=== PATIENT | male | born 1950 | race Caucasian/White ===

== ENCOUNTER → 2017-10-26 11:11 | Outpatient (CLI) | payer MEDICARE, MEDICAID, SELFPAY ==
--- NOTE | 2017-10-26 11:16 | RAD_ITS ---
STUDY: X-RAY - LUMBAR SPINE REASON FOR EXAM: Male, 66 years old. Postoperative assessment TECHNIQUE: Two view(s) of the lumbar spine were obtained. COMPARISON: June 08, 2017 FINDINGS: Normal lumbar lordosis. There is no significant scoliosis. There is normal alignment of the vertebrae. There are small osteophytes scattered in the lumbar spine. Pedicle screws and rods are again seen bilaterally from L3 through S1. Hardware is intact. There is multi-level degenerative disc disease with multi-level disc space narrowing. There is atherosclerotic calcification of the abdominal aorta without a demonstrated aneurysm. There are small coarse calcifications in the upper abdomen, possibly located in the pancreas which would indicate prior episodes of pancreatitis. RAD/Lumbar Spine 2 or 3 Views IMPRESSION: Stable appearance of the lumbar spine with surgical changes from L3 through S1. Electronically Signed: Nicole Neri MD at 6:57 EDT Tel Direct: [phone], Service support ,
== END ==
PROVIDERS: Family Provider Family Medicine; PCP Family Medicine; Visit Provider Orthopaedic Surgery
DX: M54.5 Low back pain (principal)
CPT/HCPCS: 72100

== ENCOUNTER → 2018-05-10 14:22 | Outpatient (CLI) | payer MEDICARE, MEDICAID, SELFPAY ==
--- NOTE | 2018-05-10 14:24 | RAD_ITS ---
STUDY: X-RAY - LUMBAR SPINE REASON FOR EXAM: Male, 67 years old. Low back pain. TECHNIQUE: 4 view(s) of the lumbar spine were obtained. COMPARISON: 10/26/2017. FINDINGS: Normal lumbar lordosis. There is no substantial scoliosis. There is a normal alignment of the vertebrae. Pedicular screws and rods from previous posterior fusion of L3 down to S1 are unchanged. No acute fractures. Normal vertebral bodies and endplates. Mild L5-S1 disc space height narrowing is unchanged. The remaining lumbar disc space heights are within normal limits. Atherosclerotic calcifications along the abdominal aorta and the common iliac arteries are unchanged. RAD/L/S Spine Min 4 Views IMPRESSION: 1. No acute abnormality of the lumbar spine. 2. Intact pedicular screws and rods from previous posterior fusion of L3 down to S1. 3. No subluxation following lateral flexion and extension positioning. 4. No interval change when compared to 10/26/2017. Electronically Signed: Addi House MD at 16:26 EDT , Service support ,
== END ==
PROVIDERS: Family Provider Family Medicine; PCP Family Medicine; Referring Provider Orthopaedic Surgery; Visit Provider Orthopaedic Surgery
DX: M54.5 Low back pain (principal); Z98.1 Arthrodesis status
CPT/HCPCS: 72110

== ENCOUNTER 2019-07-06 05:31 | Day surgery (SDC) | payer MEDICARE, MEDICAID, SELFPAY ==
[2019-06-14 11:23] VITALS: BMI 23.8
[2019-07-06] VITALS (7 sets, daily range): BP systolic 114–140; BP diastolic 76–81; PULSE 67–76; RESP 16; TEMP 36.5–36.8; O2SAT 93–98; BMI 26.1
--- NOTE | 2019-07-06 00:10 | HP.PCM_ITS ---
History and Physical Date of Admission: 07/06/19 HISTORY OF PRESENT ILLNESS 68 year old man presents with a lesion left ear at postauricular area that had increased in size over the last several months. It has irregular borders. There is some surrounding erythema. The lesion was biopsied on 04/20/19. It showed a basal cell carcinoma, superficial, nodular and infiltrative type. The biopsy was a punch biopsy. He also has a concern about a bump on his mid back. It is nontender with no drainage. He denies trauma. PAST MEDICAL HISTORY Back pain Cataract Skin cancer PAST SURGICAL HISTORY None. ALLERGIES No Known Allergies MEDICATIONS Amlodipine [Norvasc] Gabapentin predniSONE Oxycodone HCl/Acetaminophen [Percocet ] celecoxib FAMILY HISTORY Other - Hypertension, Skin cancer SOCIAL HISTORY Smoking Status: Current some day smoker alcohol intake: never substance use type: does not use REVIEW OF SYSTEMS General - Denies fever, fatigue, and weight loss. Eyes - Has cataracts and glaucoma. ENT - Denies nasal congestion and sore throat. Endocrine - Denies excessive thirst and urination. Skin - Has personal history of skin cancer. Has family history of skin cancer. There is a basal cell carcinoma left ear at postauricular area. There is a soft tissue mass mid back. Musculoskeletal - Denies joint pain, joint stiffness, weakness of muscles and joints, and arthritis. Has back pain. Neuro - Denies headaches. Cardiovascular - Denies chest pain, fatigue, and shortness of breath with exertion. Psych - Denies anxiety and depression. Respiratory - Denies chronic cough and shortness of breath. Patient is a smoker. Gastrointestinal - Denies nausea, vomiting, diarrhea, and constipation. Hematologic - Denies abnormal bruising and bleeding. Genitourinary - Denies hematuria and urinary frequency. PHYSICAL EXAMINATION General - Alert and Oriented HEENT - PERRL. EOMI. Throat is clear. On the left ear at postauricular area is a recently biopsied basal cell carcinoma. It measures 2 x 0.9 cm. Has irregul ar borders. Erythematous in color No ulceration. Lesion is nontender. Neck - Supple and nontender. No cervical adenopathy. No suspicious lesions noted. Lungs - Clear to auscultation. Heart - Regular rate and rhythm. Abdomen - Soft and nondistended. Extremities - FROM. No axillary adenopathy. Radial pulses are palpable. No suspicious lesions noted. Back - On the mid back is a 1 cm soft tissue mass consistent with an epidermal inclusion cyst. No evidence of infection. Nontender. It is mobile. Neuro - CN II-XII grossly intact. Psych - Normal mood and affect. ASSESSMENT 1. 2 cm basal cell carcinoma, superficial, nodular and infiltrative type, left ear at postauricular area. 2. 1 cm epidermal inclusion cyst mid back. 3. Personal history of skin cancer. 4. Family history of skin cancer. 5. Smoker. PLAN Recommend excision of this basal cell carcinoma left ear at postauricular area and send it to Pathology for analysis to rule out carcinoma at the margins. Reconstruction will be with skin grafting. Surgery will be done on an outpatient basis under local anesthesia and IV sedation. For the epidermal inclusion cyst, it is asymptomatic so it can be observed at this time. If it were to become symptomatic with increasing pain, infection, or ulceration, then can proceed with excision at that time. Patient was informed of the risks and complications of the procedure including alternatives to surgery. These were discussed with the patient personally. Patient voices understanding and wishes to proceed. Some of the risks and complications were included in a form from the [employer]. Encouraged patient to stop smoking as it may have deleterious effects on wound healing.
[2019-07-06] MEDS: Lactated Ringers 1,000 ML 100 ML IV (06:27)
--- NOTE | 2019-07-06 07:30 | LES_PTH ---
PATIENT: LENA GUTIERREZ LOC: [facility] – [place] U#:[id number] AGE/SX: 68/M ROOM: RE07/06/[address]: Dr. Trey Tim MD : 1950 BED: DIS: 07/06/2019 SPEC #: [id number] RECD: 07/06/19 09:03 STATUS: NIC KATHERYN #: [id number] KASIE: 07/06/19 07:[address]: Trey Tim DEPT: SURGICAL PATHOLOGY RECD BY: Darrick Rose ENTERED: 07/06/19 11:36 SP TYPE: Lesion OTHR DR: Dr. Stef Gonsalez MD Tissues: Skin of external ear, NOS Procedures: Surgery Specimen Level IV HEADER OPERATION: Excision basal cell cancer left postauricular area PRE-OP DIAGNOSIS: 2 cm basal cell carcinoma, superficial, nodular and infiltrate type, left ear at postauricular area TISSUE SUBMITTED: Basal cell carcinoma, left ear at postauricular area, suture at 12 o'clock MICROSCOPIC DIAGNOSIS Basal cell carcinoma, left ear at postauricular area, excision: Basal cell carcinoma, nodular and infiltrative type (0.8 cm in greatest dimension), completely excised. Solar elastosis. GARRISON:luna 07/07/19 MICROSCOPIC DESCRIPTION Slides are reviewed. GROSS DESCRIPTION Received in fixative is one container labeled with the patient's name and designated basal cell carcinoma, left ear at postauricular area. The specimen consists of a round piece of hewitt-white skin measuring 2.4 x 3 cm and up to 0.5 cm thickness. The specimen shows a suture identifying 12 o'clock position. The specimen is inked as follows: 12 to 3 o'clock - black, 3 to 6 o'clock - blue, 6 to 9 o'clock - green and 9 to 12 o'clock - yellow. A focal area of ulceration is noted consistent with previous biopsy site. The specimen serially sectioned and submitted entirely in three cassettes. / GARRISON:luna 07/06/19 TC:0 CPT: 08250
--- NOTE | 2019-07-06 08:54 | OP.PCM_ITS ---
Report of Operation Date of Procedure: 07/06/19 Pre-Operative Diagnosis: 1. 2 cm basal cell carcinoma, superficial, nodular and infiltrative type, left ear at postauricular area. 2. Personal history of skin cancer. 3. Family history of skin cancer. 4. Smoker. Post-Operative Diagnosis: Same. Surgery/Procedure Performed:: Excision 2 cm basal cell carcinoma, superficial, nodular and infiltrative type, left ear at postauricular area with FTSG reconstruction from left neck (14 cm2). Description of Surgical Findings:: 68 year old man presents with a lesion left ear at postauricular area that had increased in size over the last several months. It has irregular borders. There is some surrounding erythema. The lesion was biopsied on 04/20/19. It showed a basal cell carcinoma, superficial, nodular and infiltrative type. The biopsy was a punch biopsy. He also has a concern about a bump on his mid back. It is nontender with no drainage. He denies trauma. Patient was informed of the risks and complications of the procedure including alternatives to surgery. These were discussed with the patient personally. Patient voices understanding and wishes to proceed. Some of the risks and complications were included in a form from the [employer]. Encouraged patient to stop smoking as it may have deleterious effects on wound healing. Size of skin graft left ear at postauricular area - 4 x 3.5 cm. infection control coordinator: Jasmin Broderick. Type of Anesthesia:: Local MAC - xylocaine with epinephrine and IV sedation. Specimen's removed: Basal cell carcinoma left ear at postauricular area to Pathology. Drains: None. Estimated Blood Loss (mL): 20 ml. Description of Procedure: Patient was taken to OR in supine position and was given IV sedation. The left ear and left neck areas were prepped and draped in the usual fashion. SCD's were placed for DVT prophylaxis. Perioperative antibiotics were given intravenously. The left ear at postauricular sulcus and the left neck area were infiltrated with xylocaine and epinephrine. After waiting 5 minutes for the anesthetic to take effect, I excised the basal cell carcinoma in a circular fashion with a 1 cm margin in all directions. Suture was marked at 12 oclock position and then sent to Pathology for analysis to rule out carcinoma at the margins. The size of the defect for the skin graft was 4 x 3.5 cm or 14 cm2. I excised an ellipse of skin in the left neck down into the subcutaneous tissue. The subcutaneous tissue was removed from the undersurface of the dermis thus fashioning a full thickness skin graft. The skin graft was placed in saline. The left neck donor area was closed in a layered fashion after hemostasis was obtained with electrocautery. The deep dermis and subcutaneous tissue was approximated with 5-0 Monocryl interrupted sutures. The skin was approximated with 5-0 Prolene simple interrupted sutures. Antibiotic ointment was applied followed by a gauze dressing. The full thickness skin graft was placed on the defect left ear at postauricular area and secured to the skin edge with 5-0 Chromic interrupted sutures. 5-0 Chromic sutures were also used for central quilting stabilization. Antibiotic ointment was applied to the skin graft followed by Xeroform gauze and cotton balls soaked in saline and secured to the skin with 5-0 Prolene tie over stent suture dressing. Patient tolerated the procedure well and was sent to PACU in satisfactory condition. Patient will be sent home on antibiotics and pain medication. He will keep his head elevated during the initial postoperative period. Patient will followup in a week for a wound check and for discussion of the pathology report. Will remove the donor incision sutures in a week. Grafts/Implants Used: None. - Complications None. - Admit VTE Documentation VTE Present on Admission: No VTE Mechan Device Prophylaxis: SCD's VTE Pharm Prophylaxis ordered?: No Code Visit Surgery Charges CPT - 19821 ICD-10 - C44.219, Z85.828, Z80.8, F17.200 [id number] C44.219, Z85.828, Z80.8, F17.200
[2019-07-06] MEDS: Mupirocin Ointment 22gm Tube 1 APPLIC (08:56)
--- NOTE | 2019-07-06 09:09 | PCM.DC ---
You will use the following diet at home:: No restrictions Discharge Activity: May not drive while taking narcotic pain medications., May Not Shower - until the skin graft dressing left ear has been removed in the office., - - keep head elevated. no heavy lifting. May shower in (days): 6 - after skin graft dressing left ear is removed. Weight Bearing Status: Weight bearing as tolerated Lifting Restrictions: 20 lbs. Keep extremity elevated above heart level: - - elevate head. Call your doctor if your incision/area has: Continuous Slow Oozing, Sudden Increased Bleeding, Increased Pain/ Swelling, Increased Redness, Foul Smelling Discharge, Swelling at the incision site Call your doctor if you observe: Fever of 101 or Higher, Coldness, Increased Pain, Shortness of breath, Chest pain, Calf discomfort, Uncontrolled pain Suture Line Care: - - after the neck dressing is removed in two days, apply antibiotic ointment to suture line daily. Change Dressing in (Days):: 6 - will change skin graft dressing left ear in office. Remove Dressing in (days):: 2 - may remove left neck dressing in 2 days. Cleanse incision/area with: - - may get incisions wet in the shower after the skin graft dressing left ear is removed in the office. Allergies/Adverse Reactions: Allergies cortisone Allergy (Verified 07/06/19 06:09) Other Medications to take at Discharge Amlodipine [Norvasc] 5 mg PO DAILY 08/05/14 Gabapentin 300 tab PO TID 08/05/14 celecoxib 200 mg capsule 200 mg PO DAILY 05/02/19 Clindamycin HCl [Cleocin] 300 mg PO TID #18 cap 07/06/19 Lactobacillus Acidophilus/Fos [Acidophilus Probiotic Tablet] 1 ea PO BID #20 tab 07/06/19 Oxycodone HCl/Acetaminophen [Percocet 5/325] 1 tablet PO Q6H PRN PRN 5 Days #20 tablet 07/06/19 The following prescriptions were given: Lactobacillus Acidophilus/Fos [Acidophilus Probiotic Tablet] 1 ea PO BID #20 tab Transmission Status: Pending to [facility] #30 Clindamycin HCl [Cleocin] 300 mg PO TID #18 cap Transmission Status: Pending to [facility] #30 Oxycodone HCl/Acetaminophen [Percocet 5/325] 1 tablet PO Q6H PRN PRN 5 Days #20 tablet PRN Reason: Pain Score 4-5/10 Transmission Status: Sent to [facility] #[facility] Primary Care Physician: Serjio Boyer MD [NON-STAFF] - Test Results: Test results from this visit will be discussed in further detail at your follow-up appointment, if applicable. Please Follow Up With: Trey Tim MD When: wednesday07/12/19. call [phone] for appt. Proposed Discharge Date: 07/06/19
== END 2019-07-06 10:14 | disposition home or self-care (01) ==
LOC: SDC 05:31 → AC 05:32
PROVIDERS: Family Provider Family Medicine; PCP Family Medicine; Referring Provider Surgery; Visit Provider Surgery
PROC: (CPT 11644; principal; 2019-07-06 07:15)
DX: C44.219 Basal cell carcinoma of skin of left ear and external auricular canal (principal); Z80.8 Family history of malignant neoplasm of other organs or systems; Z85.828 Personal history of other malignant neoplasm of skin; F17.200 Nicotine dependence, unspecified, uncomplicated; H26.9 Unspecified cataract; H40.9 Unspecified glaucoma; Z79.899 Other long term (current) drug therapy
CPT/HCPCS: 11644; 15260; 88305; J7120

== ENCOUNTER 2021-01-13 06:45 | Emergency (ER) | payer MEDICARE, MEDICAID, SELFPAY ==
[2019-08-23 14:12] VITALS: BMI 26.1
[2021-01-13 06:45] VITALS: BP 152/102; PULSE 67; RESP 18; TEMP 36.1; O2SAT 98; BMI 25.9
[2021-01-13 07:04] LABS: Bacteria 0 SEEN /hpf (None Seen); Mucous, Urine 0 SEEN /hpf (<or=2+); Red Blood Cells-Urine 0 SEEN /hpf (0-5); Squamous Epithelial Cells - UA 0 SEEN /hpf (0-5); White Blood Cells 0 SEEN /hpf (0-5)
--- NOTE | 2021-01-13 07:05 | RAD_ITS ---
STUDY: X-RAY - LUMBAR SPINE REASON FOR EXAM: Male, 70 years old. back pain TECHNIQUE: 5 view(s) of the lumbar spine were obtained. COMPARISON: 05/10/2018 FINDINGS: Normal lumbar lordosis. There is no substantial scoliosis. There is a normal alignment of the vertebrae. Prior fusion extending from L3 to S1 bilaterally with a wide laminectomy L4 and L5. Intact metallic hardware. There is multilevel endplate spondylosis of the lumbar vertebrae. Stable disc space narrowing L5-S1, left L2-L3 posterior disc spaces. There is arteriosclerosis, punctate calcification over the level of the pancreas tail, mild degenerative changes of the bilateral sacroiliac joints and atherosclerosis of the abdominal aorta and pelvic arteries. RAD/L/S Spine Min 4 Views IMPRESSION: Multilevel degenerative changes and postsurgical changes as above, without significant interval change. Electronically Signed: Sravani Thompson MD at 7:56 EDT , Service support ,
[2021-01-13 07:08] LABS: Color, Urine Yellow (Yellow); Glucose, Dipstick Normal (Normal); Ketone-Dipstick Negative (Negative); Leukocyte Esterase-Dipstick Negative /ul (Negative); Nitrite-Dipstick Negative (Negative); Occult Blood-Urine Negative /ul (Negative); Protein-Dipstick Negative (Negative); Specific Gravity, Urine 1.005 (1.002-1.030); Urine Bilirubin Dipstick Negative (Negative); Urine Clarity Clear (Clear); Urine Urobilinogen Normal (Normal)
--- NOTE | 2021-01-13 07:11 | EDS_ITS ---
HPI History of Present Illness Chief Complaint: Flank Pain Informant: patient Narrative Narrative: 70-year-old male presents with concern for right lower back pain. States is been present over the past 3 days. Describes it as aching in nature. Worse with movement and bending to the right. Denies any chest pain, shortness of breath, nausea, vomiting, difficulty with urinating or moving his bowels. States he did have surgery on his back approximately 5 years ago and was concerned that some of the hardware might have a loosened. Denies any hematuria, urinary frequency or dysuria. [facility] Medical History (Updated 01/13/21 @ 08:[address] Ananth Gibbons DO) Back pain Cataract Skin cancer Home Medications amlodipine 5 mg PO DAILY 08/05/14 [History Last Taken 07/06/19 04:30] gabapentin 300 tab PO BID 08/05/14 [History Last Taken 07/06/19 04:30] celecoxib 200 mg capsule 200 mg PO DAILY 05/02/19 [History Last Taken Unknown] lidocaine 1 patch TOPICAL DAILY PRN #7 ea 01/13/21 [Rx Last Taken Unknown] Allergy/AdvReac Type Severity Reaction Status Date / Time cortisone Allergy Other Verified 08/23/19 14:12 Family History Other Hypertension Skin cancer Social History Smoking Status: Current every day smoker tobacco type: cigarettes alcohol intake: never substance use type: does not use additional social history: DOES NOT USE ASPIRIN DOES NOT USE IBUPROFEN ROS ROS ED Constitutional Constitutional ED: Denies chills, fever(s) or sweats Eyes Eyes: Denies blurry vision, change in vision or diplopia ENT ENT ED: Denies rhinorrhea or sore throat Cardiovascular Cardiovascular: Denies chest pain, orthopnea, palpitations or racing heartbeat Respiratory/Chest Respiratory/Chest: Denies cough, dyspnea, dyspnea on exertion, orthopnea or sputum Gastrointestinal Gastrointestinal: Denies abdominal pain, constipation, diarrhea, melena, nausea or vomiting Genitourinary Genitourinary ED: Denies dysuria, hematuria or urinary frequency Musculoskeletal Musculoskeletal: Reports back pain; Denies arthralgias, myalgias or neck pain Integumentary Denies rash Neurologic Neurologic: Denies headache(s), paresthesias or weakness Psychiatric Psychiatric: Denies anxiety or depression Hematologic/Lymphatic Hematologic/Lymphatic: Denies easy bleeding or easy bruising EXAM Physical Exam Const Vital Signs: 01/13/21 06:45 Temperature 96.9 F L Temperature Source Temporal Pulse Rate 67 Respiratory Rate 18 Blood Pressure 152/102 H Blood Pressure Mean 118 Pulse Ox 98 Oxygen Delivery Method Room Air Positive well nourished and well developed General Appearance ED: well developed HEENT Reports moist mucous membranes normocephalic and atraumatic Eyes PERRL and EOMs intact bilaterally Neck no lymphadenopathy, supple and no JVD Chest Wall inspection of chest normal Resp normal respiratory effort and clear to auscultation bilaterally Cardio regular rate, S1 normal heart sound, S2 normal heart sound and no murmurs Peripheral Pulses: pulses 2+ throughout GI soft to palpation, non-tender and non-distended Back/Spine no thoracic nor lumbar tenderness Back/Spine Narrative: Tenderness to palpation with mild muscle spasm of the right paraspinal lumbar musculature. No overlying skin changes. Extremity normal to inspection General Extremety ED: Negative for edema or tenderness General Extremity: Negative for edema Neuro oriented x3, CN's II-XII intact bilaterally and no sensory deficits noted Sensorium / Orientation: alert Motor Exam: strength 5/5 throughout Psych mental status grossly normal Skin no rashes or lesions noted MDM MDM MDM Narrative Medical decision making narrative: Patient appears well nontoxic. Vital signs within normal limits. X-ray shows no shifting or malalignment of the patient's lumbar hardware. Urine shows no evidence of infection. Patient has tenderness in this area consistent with musculoskeletal pain. This exacerbated by movement. Patient is in no distress. Will be given naproxen and Lidoderm in the emergency department. 3 days of Tylenol 1000 mg 3 times a day as well as Lidoderm patch at home with close follow-up with his primary care physician within the next 2 days. Asked to return for new or worsening symptoms. Patient agreeable and discharged home in stable condition. Lab Data Attestation: I reviewed the patient's lab results. Labs: Laboratory Results - last 24 hr 01/13/21 06:50 Urine Color Yellow Urine Clarity Clear Urine pH 7.0 Ur Specific [place] 1.005 Urine Protein Negative Urine Glucose (UA) Normal Urine Ketones Negative Urine Occult Blood Negative Urine Nitrite Negative Urine Bilirubin Negative Urine Urobilinogen Normal Ur Leukocyte Esterase Negative Urine RBC 0 SEEN Urine WBC 0 SEEN Ur Squamous Epith Cells 0 SEEN Urine Bacteria 0 SEEN Urine Mucus 0 SEEN Radiography Diagnostic Testing: Radiology Impression Lumbar Spine X-Ray 01/13/21 07:05 IMPRESSION: Multilevel degenerative changes and postsurgical changes as above, without significant interval change. Electronically Signed: Sravani Thompson MD at 7:56 EDT , Service support , Discharge Plan Triage Chief Complaint: Flank Pain ED Provider: Ananth Gibbons Dx/Rx/DC Orders Clinical Impression: Acute exacerbation of chronic low back pain Instructions: ED Back Exercises, Lumbar, ED Back Pain (Acute or Chronic) Prescriptions: New lidocaine 4 % adhesive patch,medicated 1 patch topical DAILY PRN (Reason: pain) Qty: 7 RF: 0 No Action celecoxib 200 mg capsule 200 mg PO DAILY RF: 0 amlodipine 5 MG tablet 5 mg PO DAILY RF: 0 gabapentin 300 MG capsule 300 tab PO BID RF: 0 Primary Care Provider: Stef Gonsalez Referrals: Stef Gonsalez MD [Primary Care Provider] - 2 Days Activity Restrictions/Additional Instructions: Please take 1000 mg of Tylenol 3 times a day for the next 3 days. This in addition to the prescription of Lidoderm patch and Celebrex. If there is increasing pain or no resolution to your pain please return to the emergency department or follow-up with Dr. Gonsalez. Disposition Disposition: Home, self care
[2021-01-13] MEDS: Lidocaine 5% Patch 1 PATCH TOPICAL (08:25)
== END 2021-01-13 08:28 | disposition home or self-care (01) ==
PROVIDERS: Emergency Medicine; Emergency Provider Emergency Medicine; PCP Family Medicine
DX: M54.5 Low back pain (principal); G89.29 Other chronic pain; F17.210 Nicotine dependence, cigarettes, uncomplicated; Z79.899 Other long term (current) drug therapy
CPT/HCPCS: 72110; 81001; 99282; A4216

== ENCOUNTER 2021-02-14 05:38 | Day surgery (SDC) | payer MEDICARE, MEDICAID, SELFPAY ==
[2021-02-14] VITALS (7 sets, daily range): BP systolic 116–177; BP diastolic 75–84; PULSE 54–64; RESP 16–18; TEMP 36.1–36.6; O2SAT 94–100; BMI 24.3
[2021-02-14] MEDS: Lactated Ringers 1,000 ML 100 ML IV (06:15)
--- NOTE | 2021-02-14 07:20 | RAD_ITS ---
STUDY: X-RAY - LEFT FOOT CLINICAL: Male, 70 years old. Second toe amputation TECHNIQUE: 2 fluoroscopic view(s) of the foot. Dose area product: 0.23 cGycm2 COMPARISON: None. FINDINGS: Left second toe is surgically absent. RAD/Foot 2 Views IMPRESSION: Left second toe is surgically absent. See operative report. Electronically Signed: Sourav Kennedy MD ([place]) at 15:53 EDT , Service support ,
[2021-02-14] MEDS: Cefazolin 2 GM in 0.9% Normal Saline 100 ML IV (07:30)
--- NOTE | 2021-02-14 07:30 | BON_PTH ---
PATIENT: LENA GUTIERREZ LOC: [facility] – [place] U#:[id number] AGE/SX: 70/M ROOM: RE02/14/[address]: Dr. Serjio Pineda DPM : 1950 BED: DIS: 02/14/2021 SPEC #: [id number] RECD: 02/14/21 12:55 STATUS: NIC KATHERYN #: [id number] KASIE: 02/14/21 07:[address]: Serjio Pineda DEPT: SURGICAL PATHOLOGY RECD BY: Beth Hillman ENTERED: 02/18/21 08:05 SP TYPE: Bone OTHR DR: Dr. Stef Gonsalez MD Tissues: A - Toe, NOS B - Bone of foot, NOS Procedures: Decalcification bone/plaque Surgery Specimen Level IV HEADER OPERATION: Left foot, second toe amputation, exostectomy of first toe PRE-OP DIAGNOSIS: rachael Camejo TISSUE SUBMITTED: A ? Left second toe, B ? Bone, first toe, left MICROSCOPIC DIAGNOSIS A. Left second toe, amputation: Consistent with hammertoe deformity. B. Left foot bone, first toe, biopsy: Bony tissue with reparative and reactive change. See comment. AM:luna 02/21/2021 COMMENT B. The findings are consistent with exostosis. Clinical correlation is suggested. MICROSCOPIC DESCRIPTION Slides are reviewed. GROSS DESCRIPTION A - Received in fixative is one container labeled with the patient's name and designated left second toe. The specimen consists of a distal toe with attached skin bone, soft tissue and nail measuring 3.2 cm in length and 1.6 cm in diameter. Also present in the specimen container are three irregular fragments of soft tissue, tendinous tissue and bone that is aggregate measure 3 x 3 x 1 cm. Hemstitching Machine Operator sections are submitted in three cassettes after decalcification. B - Received in fixative is one container labeled with the patient's name and designated bone first toe left. The specimen consists of an irregular fragment of light hewitt-white bone measuring 1.7 x 0.5 x 0.3 cm. The specimen is submitted in its entirety in one cassette after decalcification. / AM:luna 02/18/21 TC:5 CPT: 02723 x2, 14893 x2
[2021-02-14] MEDS: Bupivacaine Mpf 0.5% 30 ML VIAL (08:26)
--- NOTE | 2021-02-14 08:37 | DCINST_ITS ---
Discharge Instructions Diet Discharge Diet: Light diet - advance as tolerated Activity Discharge Activity: May Not Drive Weight Bearing Status: Partial weight bearing (Ok to put weight on left heel with use of walker, do not put weight on toes on left foot.) Keep extremity elevated above heart level: Left Leg Additional Activity Instructions:: Keep left foot elevated using pillows as much as possible. Dressing / Incision Call your doctor if your incision/area has: Continuous Slow Oozing, Sudden Increased Bleeding and Foul Smelling Discharge Call your doctor if you observe: Fever of 101 or Higher, Shortness of breath, Chest pain, Calf discomfort and Uncontrolled pain Change Dressing in: do not change dressing Remove Dressing in: do not remove dressing Cleanse incision/area with: Do not get Incision Wet and Keep Dressing Clean & Dry Follow Up Care Please Follow Up With: Serjio Pineda DPM When: in 1 week, sooner if needed. call Dr. Pineda over weekend if needed - [phone] (cell) or page through [facility] at [phone] Test Results: Test results from this visit will be discussed in further detail at your follow-up appointment, if applicable. Discharge Plan Admission Attending Provider: Serjio Pineda Primary Care Provider: Stef Gonsalez Discharge Orders/Prescriptions Prescriptions: New hydrocodone-acetaminophen 5-325 mg tablet 1 tab PO Q6H PRN PRN (Reason: pain (scale score 6-10)) 3 Days Qty: 20 RF: 0 No Action celecoxib 200 mg capsule 200 mg PO DAILY RF: 0 amlodipine 5 MG tablet 5 mg PO DAILY RF: 0 gabapentin 300 MG capsule 300 tab PO BID RF: 0 Referrals / Follow Up: Stef Gonsalez MD [Primary Care Provider] - Disposition Disposition (needs filled in before D/C Order can be placed): Home, Self Care
--- NOTE | 2021-02-14 08:50 | RAD_ITS ---
STUDY: X-RAY - LEFT FOOT CLINICAL: Male, 70 years old. Post-op TECHNIQUE: 3 view(s) of the foot. COMPARISON: None. FINDINGS: Normal talus, calcaneus, and tarsal bones. Normal visualized subtalar, talonavicular, calcaneocuboid, tarsal and tarsometatarsal articulations. Normal metatarsi. There is degenerative arthrosis of the metatarsophalangeal joint of the hallux . Normal tibial and fibular sesamoid bones. Normal interphalangeal joint of the great toe. Normal phalanges of the great toe. Normal second through fifth metatarsophalangeal joints. The patient is status post amputation of the second toe. Postoperative soft tissue changes. RAD/Foot min 3 Views IMPRESSION: Status post amputation of the second toe. Electronically Signed: Niranjan Lopez MD at 13:03 EDT , Service support ,
--- NOTE | 2021-02-14 14:47 | OP.PCM_ITS ---
Report of Operation Date of Procedure: 02/14/21 Pre-Operative Diagnosis: Hallux valgus left foot Hammer toe 2nd toe left foot Painful callus skin lesions 1st and 2nd toes left foot Post-Operative Diagnosis: Same Surgery/Procedure Performed:: Left 2nd toe amputation Exostectomy left 1st toe Surgeon: Serjio Pineda fire protection specialist: Florencia Type of Anesthesia: Local and MAC Specimen's removed: Left 2nd toe sent to pathology Resected exostosis from left 1st toe sent to pathology Estimated Blood Loss (mL): 5mL Description of Procedure: Indications: This is a 70 year old gentleman with significant pain to the left 1st toe and 2nd toe at the interdigital site with very painful callus lesions. There is significant deviation of the 1st toe in the lateral direction with the 2nd toe contracted dorsally and 1st and 2nd toe rubbing on each other causing very painful callus lesions. There was an exostosis to the base of the distal phalanx lateral aspect of the 1st toe with as well which was at the site of the 1st toe callus lesion. The symptoms persist despite extensive nonsurgical care and the patient has elected to proceed forward with surgical intervention. We discussed reconstruction options vs amputation of the 2nd toe to offload the 1st toe along with exostectomy of the 1st toe. Reviewed each in detail, reviewed possible benefits vs risks, goals, expectations and estimated healing time. He expressed understanding and agreement and he has elected to proceed forward with the left 2nd toe amputation and exostectomy left 1st toe. The consent form was reviewed with her and she freely signed them. No guarantees were given nor implied. Operative Procedure: The patient was brought back into the operating room, was placed on to the operating table in supine position. He was carefully secured to the operating table with safety belt around the waist. A well-padded pneumatic tourniquet was applied around the left ankle. A timeout was performed. The patient was properly identified and surgical plan was confirmed. The patient did receive antibiotic prophylaxis, 2g of cefazolin intravenous. The patient received MAC anesthesia per the anesthesia team. A local nerve block was completed to the second ray on the left foot as well as 1s toe on the left foot using a total of 20mL of 0.5% bupivacaine plain, after the overlying skin was cleansed with 70% isopropyl alcohol. The left foot was scrubbed, prepped and draped in the usual aseptic fashion. Further attention was directed to the left foot and again there was noted to be deformity and callus lesions as noted above to the left 1st and 2nd toes. There was no evidence of infection, no edema, no drainage, no erythema, no cellulitis, no visible abscess, no crepitus present. A racket shaped incision was made around the base of the second toe, preserving a flap for closure. This was made down to bone. The second metatarsophalangeal joint and extensor and flexor tendons were incised resecting the toe and disarticulating the toe at the second metatarsophalangeal joint. The toe was passed from the surgical site and sent to pathology for further evaluation. The second metatarsal was visualized, it was noted to be viable with no evidence of infection or necrosis. All remaining tissues appeared to be healthy and viable as well. There was no evidence of infection present. The site was flushed out with copious amounts of normal saline solution. The skin was carefully reapproximated using 3-0 Nylon. Attention was directed to the 1st toe lateral aspect, and an incision was made overlying the lateral aspect of the base of the distal phalanx overlying the exostosis. Careful dissection was completed down to the exostosis and the exostosis was excised using a powered sagittal saw. The excised exostosis was sent to pathology. The remaining tissues were healthy and viable. There was no evidence of infection present. The site was flushed out with copious amounts of normal saline solution. The skin was carefully reapproximated using 3-0 Nylon. The patient tolerated the above procedure well and anesthesia well with no complications. He was transported from the operating room to the recovery room with vital signs stable and in good condition. Postoperative orders were placed, postoperative x-rays were obtained, 3 views left foot, which confirmed resection of the second toe at the second metatarsophalangeal joint as well as exostosis of the lateral aspect of the base of the distal phalanx of the 1st toe without complication. Otherwise, no acute findings were present. He is to remain partial weightbearing to the left foot (only put weight on the heel if needed) with no weight to the forefoot, must use of walker with any ambulation. He is to keep the foot elevated. Keep the dressing clean, dry and intact and follow up with me next week, sooner if needed. A rx of Novapost 5mg/325mg tab was provided, 1-2 tabs PO q 6 hours prn pain.This was discussed with him and his sister Amalia today, per patient request and also Amalia lives with patient. Grafts/Implants Used: None Complications None
== END 2021-02-14 09:41 | disposition home or self-care (01) ==
LOC: SDC 05:38 → AC 05:39
PROVIDERS: PCP Family Medicine; Referring Provider Podiatrist; Visit Provider Podiatrist
PROC: (CPT 28124; principal; 2021-02-14 07:15)
DX: M20.12 Hallux valgus (acquired), left foot (principal); M20.42 Other hammer toe(s) (acquired), left foot; L84 Corns and callosities; I10 Essential (primary) hypertension; M51.36 Other intervertebral disc degeneration, lumbar region; M54.9 Dorsalgia, unspecified; G89.29 Other chronic pain; M19.90 Unspecified osteoarthritis, unspecified site; F17.210 Nicotine dependence, cigarettes, uncomplicated; Z79.899 Other long term (current) drug therapy; Z85.828 Personal history of other malignant neoplasm of skin
CPT/HCPCS: 28124; 28820; 73620; 73630; 76000; 88305; 88311; J7120; J2405

== ENCOUNTER → 2021-03-06 12:28 | Outpatient (CLI) | payer MEDICARE, MEDICAID, SELFPAY ==
[2021-02-14 06:20] VITALS: BMI 24.3
--- NOTE | 2021-03-06 13:08 | VDLE_ITS ---
Reason For Study: Swelling Procedure LEFT This is a venous duplex using B-mode, color GSV is normal. flow and spectral Doppler. CFV is compressible, spontaneous, phasic, Exam performed in department. competent, and demonstrates normal A preliminary report was called and/or faxed augmentation. to Edwin. FV is compressible, spontaneous, phasic, competent and demonstrates normal augmentation. POP V is compressible, spontaneous, phasic, competent and demonstrates normal augmentation. T/P Trunk is compressible. PTV is compressible. LT PerV is compressible. VL/Venous Duplex US, Unilateral Interpretation Summary Deep veins of the left lower extremity are patent and compressible segmentally. There is no evidence of left lower extremity deep vein thrombosis. Valvular competence appears intac t within the proximal deep venous system on the left . The left great saphenous vein appears patent a nd compressible segmentally. Ordering Physician: Serjio Pineda Referring Physician: MD Wallace Stef Performed By: Cristy Roman RVT and Student
== END ==
PROVIDERS: PCP Family Medicine; Referring Provider Podiatrist; Visit Provider Podiatrist
DX: R22.42 Localized swelling, mass and lump, left lower limb (principal)
CPT/HCPCS: 93971

== ENCOUNTER 2022-04-26 07:14 | Emergency (ER) | payer MEDICARE, MEDICAID, SELFPAY ==
[2022-04-26 07:14] VITALS: BP 166/124; PULSE 81; RESP 18; TEMP 36.6; O2SAT 98; BMI 24.7
--- NOTE | 2022-04-26 07:19 | ED.RN ---
THIS RN CALLED FOR EKG
--- NOTE | 2022-04-26 07:30 | EX.ED.DYSGE1 ---
HPI History of Present Illness Chief Complaint: Other, Pain/Inj Informant: patient Onset/Context/Timing Onset: Yesterday Context: Sudden Onset Timing: Continuous Quality: Sharp Location: Right neck, scapula, and arm Worsened by: Movement Relieved by: Nothing Narrative Narrative: Patient presents with right neck, shoulder, and arm pain that began yesterday. Patient states it came on suddenly. Patient states it has been constant. Patient states the pain is sharp. Patient states the pain is worse with movement of his neck and right arm. Patient states nothing seems to help with the pain. Patient admits to some sweats this morning. Patient admits to occasional shortness of breath and chest pain. Patient denies any nausea or vomiting. [facility] Medical History Arthritis Back pain Cataract Easy bruising History of stress test Prostate disease Skin cancer Wears dentures Wears glasses Wears partial dentures Home Medications amlodipine 5 mg tablet 5 mg PO DAILY blood pressure 08/05/14 [History Last Taken 02/14/21 05:00] gabapentin 300 mg capsule 300 tab PO BID nerve pain 08/05/14 [History Last Taken 02/13/21 14:00] celecoxib 200 mg capsule 200 mg PO DAILY anti-inflamatory 05/02/19 [History Last Taken 02/13/21 14:00] hydrocodone-acetaminophen 5-325mg 5mg-325mg 1 tab PO Q6H PRN PRN pain (scale score 6-10) 3 days #20 tabs 02/14/21 [Rx Last Taken Unknown] hydrocodone-acetaminophen 5-325mg 5mg-325mg 1 tab PO Q6H PRN PRN Pain 3 days #10 TABLETS 04/26/22 [Rx Last Taken Unknown] Allergy/AdvReac Type Severity Reaction Status Date / Time cortisone Allergy Other Verified 04/26/22 07:17 Family History Other Hypertension Skin cancer Surgical History History of back surgery Social History Smoking Status: Current every day smoker tobacco type: cigarettes alcohol intake: never substance use type: does not use additional social history: DOES NOT USE ASPIRIN DOES NOT USE IBUPROFEN ROS ROS ED Constitutional Constitutional ED: Reports sweats; Denies chills or fever(s) Eyes Eyes: Denies blurry vision or change in vision ENT ENT ED: Denies rhinorrhea or sore throat Cardiovascular Cardiovascular: Reports chest pain; Denies palpitations Respiratory/Chest Respiratory/Chest: Reports dyspnea; Denies cough Gastrointestinal Gastrointestinal: Denies nausea or vomiting Genitourinary Genitourinary ED: Denies dysuria or hematuria Musculoskeletal Musculoskeletal: Reports back pain and neck pain Integumentary Denies abscess or rash Neurologic Neurologic: Denies headache(s) or weakness Allergic/Immunologic Allergic/Immunologic ED: Denies mouth swelling or urticaria EXAM Physical Exam Const Vital Signs: 04/26/22 07:14 04/26/22 07:31 Temperature 97.9 F Temperature Source Temporal Pulse Rate 81 Respiratory Rate 18 Respiratory Effort Normal Non-Labored Respiratory Pattern Normal Blood Pressure 166/124 H Blood Pressure Mean 138 Pulse Ox 98 Oxygen Delivery Method Room Air Positive well nourished and well developed General Appearance ED: well developed and NAD HEENT Reports moist mucous membranes Neck supple and no JVD Resp normal respiratory effort and clear to auscultation bilaterally Cardio regular rate, regular rhythm and no murmurs GI normal to inspection, nondistended, normoactive bowel sounds and non-tender Palpation: soft Back/Spine Back/Spine Narrative: There is mild tenderness and spasm of the right cervical paraspinal muscles and trapezius muscle on the right. There is also mild tenderness and spasm of the right parascapular muscles. There is no bony crepitance or step-off. There is no edema or ecchymosis. Range of motion was slightly limited in all motions of the cervical spine and right shoulder secondary to pain. Strength is 5/5 bilaterally in the upper and lower extremities. There are no sensory deficits noted. Extremity normal to inspection General Extremety ED: Negative for edema or tenderness General Extremity: Negative for edema Neuro oriented x3, CN's II-XII intact bilaterally and no sensory deficits noted Sensorium / Orientation: alert Motor Exam: strength 5/5 throughout Psych mental status grossly normal Skin no rashes or lesions noted MDM MDM MDM Narrative Medical decision making narrative: EKG was obtained. On my interpretation, it showed a normal sinus rhythm with a rate of 74. ND interval, QRS interval, and QTc intervals were all normal. There is left axis deviation at -63. There are no acute ST or T wave changes. PA and lateral chest x-ray was obtained. There are 2 views. On my interpretation, lung perales are clear. There is normal cardiac silhouette. Bony thorax is normal. There is no acute process noted. Radiologist also interpreted the x-ray and agrees. CBC shows a mild anemia with a hemoglobin of 12.1 and hematocrit of 35.9. PT with INR and PTT within normal limits. D-dimer was elevated at 1.17. Comprehensive metabolic profile was within normal limits. High-sensitivity troponin was normal. Because of the elevated D-dimer, CTA of the chest was obtained. There is no evidence of pulmonary embolism or aortic dissection. There is a right adrenal nodule. There is atelectasis in the right lower lobe. There are changes consistent with COPD. This was interpreted by the radiologist and reviewed by myself. Patient was advised of his findings. Patient was instructed to follow-up with his primary care physician in 3 to 5 days. Patient was advised that he may need a referral to endocrinology for the right adrenal nodule. Patient understood and was agreeable with the plan. All questions were answered. Lab Data Attestation: I reviewed the patient's lab results. Labs: Laboratory Results - last 24 hr 04/26/22 04/26/22 04/26/22 07:30 07:30 07:30 WBC 8.0 RBC 3.71 L Hgb 12.1 L Hct 35.9 L MCV 96.8 H MCH 32.6 H MCHC 33.7 RDW Std Deviation 53.8 H RDW Coeff of Suzanna 15.0 H Plt Count 236 MPV 9.2 Immature Gran % (Auto) 0.500 Neut % (Auto) 82.5 H Lymph % (Auto) 6.8 L [place] % (Auto) 8.8 Eos % (Auto) 1.0 Baso % (Auto) 0.4 Absolute Neuts (auto) 6.6 Absolute Lymphs (auto) 0.54 L Nucleated RBC % 0 Differential Comment SCANNED PT 13.3 INR 1.0 APTT 29.8 D-Dimer Quant (PE/DVT) 1.17 H* Sodium 136 Potassium 3.5 Chloride 103 Carbon Dioxide 25.0 Anion Gap 8 BUN 12 Creatinine 0.83 Estim Creat Clear Calc 76.69 Est GFR (MDRD) Af Amer 117 Est GFR (MDRD) Non-Af 97 BUN/Creatinine Ratio 14.5 Glucose 136 H Calcium 8.5 Total Bilirubin 0.30 AST 12 L ALT 19 Alkaline Phosphatase 90 Troponin I High Sens 6 Total Protein 6.9 Albumin 3.0 L Globulin 3.9 Albumin/Globulin Ratio 0.8 L Radiography Chest X-Ray - ED: 2 View, Read by ED Physician, Read by Radiologist and No Acute Disease Diagnostic Testing: Clinical Impression(s) from Imaging Studies Chest X-Ray 04/26/22 07:39 IMPRESSION: No acute cardiopulmonary process. Electronically Signed: Kayla Xavier MD at 8:11 EDT , Chest CTA 04/26/22 08:31 IMPRESSION: No demonstrated pulmonary embolism or arterial dissection. Right lower lobe consolidation may be secondary to underlying pneumonia and/or atelectasis. Emphysema. Atherosclerosis. Pericardial effusion. 2.2 cm right adrenal nodule may reflect an adenoma recommend suggest hormonal workup and/or endocrinology consult. Electronically Signed: Kayla Xavier MD at 9:11 EDT , EKG Initial EKG: Attestation: I personally reviewed and interpreted this EKG as follows: Interpretation: Sinus Rhythm (74) and No Acute Injury Pattern Prior EKG tracings: available for review Prior: Unchanged (08/06/2014) Discharge Plan Triage Chief Complaint: Other, Pain/Inj ED Provider: Eddie Mckinley Dx/Rx/DC Orders Clinical Impression: Neck pain on right side, HTN (hypertension), COPD, mild Instructions: ED Neck Pain Prescriptions: New hydrocodone-acetaminophen [hydrocodone-acetaminophen] 5-325 mg tablet 1 tab PO Q6H PRN PRN (Reason: Pain) 3 Days Qty: 10 0RF No Action celecoxib 200 mg capsule 200 mg PO DAILY amlodipine 5 MG tablet 5 mg PO DAILY Label Comments: blood pressure gabapentin 300 MG capsule 300 tab PO BID Label Comments: neuropathy/pain hydrocodone-acetaminophen 5-325 mg tablet 1 tab PO Q6H PRN PRN (Reason: pain (scale score 6-10)) 3 Days Qty: 20 0RF Primary Care Provider: Stef Gonsalez Referrals: Stef Gonsalez MD [Primary Care Provider] - 3-5 Days Disposition Disposition: Home, Self Care
--- NOTE | 2022-04-26 07:38 | EKG12_ITS ---
Test Reason : NECK PAIN Blood Pressure : / mmHG Vent. Rate : 074 BPM Atrial Rate : 074 BPM P-R Int : 142 ms QRS Dur : 106 ms QT Int : 412 ms P-R-T Axes : 067 -63 066 degrees QTc Int : 457 ms Normal sinus rhythm Left axis deviation Incomplete right bundle branch block Abnormal ECG When compared with ECG of 06-AUG-2014 05:22, T wave amplitude has increased in Lateral leads Confirmed by JON PINA, SAMIR ([id number]), video editor BIJAN VERA ([id number]) on 04/28/2022 9:21:19 AM Referred By: AMADOR Confirmed By:SAMIR WEBB MD
--- NOTE | 2022-04-26 07:39 | RAD_ITS ---
STUDY: X-RAY CHEST REASON FOR EXAM: Male, 71 years old. Dyspnea TECHNIQUE: Single frontal view of the chest. COMPARISON: 05/04/2016 FINDINGS: The lungs remain hyperinflated and there is no new focal consolidation. Normal size heart. Normal mediastinum and reji. Normal visualized pulmonary arteries. There is atherosclerotic calcification of the aortic arch with tortuosity. Normal visualized thoracic spine. Normal visualized ribs, clavicles, and shoulders. There is no demonstrated abnormality of the visualized soft tissue structures of the upper abdomen. RAD/Chest PA and Lateral IMPRESSION: No acute cardiopulmonary process. Electronically Signed: Kayla Xavier MD at 8:11 EDT ,
[2022-04-26 08:02] LABS: Absolute Lymphocyte Count 0.54 X10^3/uL (0.83-4.51); Absolute Neutrophil Count 6.6 X10^3/uL (2.0-7.7); Basophil# 0.03 X10^3/uL; Basophil% 0.4 % (0-1); Eosinophil# 0.08 X10^3/uL; Hematocrit 35.9 % (40-54); Hemoglobin 12.1 g/dL (13.0-16.5); Lymphocyte # 0.54 X10^3/ul (0.83-4.51); Lymphocyte % 6.8 % (19-41); Mean Corp Hgb Conc 33.7 g/dL (32-36); Mean Corpuscular Hgb 32.6 pg (27.0-32.0); Mean Corpuscular Volume 96.8 fL (80-94); Mean Platelet Vol. 9.2 fl (6.2-12.0); Monocyte% 8.8 % (0-10); NRBC Flagged by Analyzer 0 % (0-5); Neutrophil % 82.5 % (47-70); POSITIVE DIFFERENTIAL YES; Platelet Count 236 K/mm3 (150-450); RBC Distribution Width SD 53.8 fl (35.1-43.9); Red Blood Count 3.71 M/mm3 (4.6-6.2)
[2022-04-26 08:07] LABS: Differential Indicated SCAN CRITERIA MET
[2022-04-26 08:12] LABS: ALB/GLOB Ratio 0.8 RATIO (0.9-2.4); AST(SGOT) 12 U/L (15-37); Alanine Aminotransfer ALT/SGPT 19 U/L (16-61); Alkaline Phosphatase 90 U/L (45-117); Anion Gap 8 (5-15); BUN 12 mg/dL (7-18); BUN/Creat Ratio 14.5 RATIO (10-20); Calcium,Total 8.5 mg/dL (8.5-10.1); Chloride 103 mmol/L (98-107); Creatinine, Serum 0.83 mg/dL (0.70-1.30); EST Glomerular Filtration Rate 97 mL/min (>60); Est Glom Filt Rate - Afr Amer 117 mL/min (>60); Estimated Creatinine Clearance 76.69 ml/min; Globulin 3.9 g/dL (2.2-4.2); Glucose 136 mg/dL (74-106); Potassium 3.5 mmol/L (3.5-5.1); Protein, Total 6.9 g/dL (6.4-8.2); Sodium Level 136 mmol/L (136-145); Troponin-I HS 6 pg/mL (3.0-78.0)
[2022-04-26 08:26] LABS: D-Dimer Quantitative (DVT/PE) 1.17 FEU/ug/m (0.27-0.49)
[2022-04-26 08:28] LABS: Differential Comment SCANNED
[2022-04-26 08:31] LABS: Partial Thromboplast Time 29.8 Seconds (24.1-36.2); Prothrombin Time (Protime)PT. 13.3 SECONDS (11.7-14.9)
--- NOTE | 2022-04-26 08:31 | CT_ITS ---
STUDY: CTA CHEST REASON FOR EXAM: Male, 71 years old. Elevated D-dimer RADIATION DOSAGE (If Supplied By Facility): CTDIvol = ( 9.39 ) mGy, DLP = ( 334.14 ) mGycm TECHNIQUE: The examination was performed with the intravenous administration of IV 100mL Isovue-370. Post-processing of the angiographic images was performed, with multiplanar reformation and 3D reconstruction. Individualized dose optimization techniques were used for this CT. COMPARISON: None. FINDINGS: There are bilateral emphysematous changes. There are patchy opacities within the right lower lobe. Within the right upper lobe there is a partially spiculated 6.6 mm nodule (image 211 series 2). Normal enhancement of the main pulmonary artery and right and left pulmonary arteries. Normal enhancement of the bilateral peripheral pulmonary arteries. There is no demonstrated pulmonary embolism. There is atherosclerotic calcification of the aortic arch and descending thoracic aorta There is no demonstrated aortic dissection. There are calcifications of the coronary arteries. There is a pericardial effusion. Normal mediastinum. Normal hilar regions. Normal visualized trachea and bronchi. Normal chest wall structures. Normal osseous structures. The limited images of the upper abdomen demonstrate renal cysts. There is a 2.2 cm well-circumscribed low-attenuation focus within the right adrenal gland. CT/CTA Chest W/WO Contrast IMPRESSION: No demonstrated pulmonary embolism or arterial dissection. Right lower lobe consolidation may be secondary to underlying pneumonia and/or atelectasis. Emphysema. Atherosclerosis. Pericardial effusion. 2.2 cm right adrenal nodule may reflect an adenoma recommend suggest hormonal workup and/or endocrinology consult. Electronically Signed: Kayla Xavier MD at 9:11 EDT ,
== END 2022-04-26 10:01 | disposition home or self-care (01) ==
PROVIDERS: Emergency Provider Emergency Medicine; PCP Family Medicine; Visit Provider Emergency Medicine
DX: M54.2 Cervicalgia (principal); J44.9 Chronic obstructive pulmonary disease, unspecified; I10 Essential (primary) hypertension; M79.601 Pain in right arm; F17.210 Nicotine dependence, cigarettes, uncomplicated
CPT/HCPCS: 71046; 71275; 80053; 84484; 85025; 85379; 85610; 85730; 93005; 99284; Q9967; A4216

== ENCOUNTER 2022-06-03 05:38 | Day surgery (SDC) | payer MEDICARE, MEDICAID, SELFPAY ==
--- NOTE | 2022-06-03 | LES_PTH ---
PATIENT: LENA GUTIERREZ LOC: [facility] – [place] U#:[id number] AGE/SX: 71/M ROOM: RE06/03/[address]: Dr. Trey Tim MD : 1950 BED: DIS: 06/03/2022 SPEC #: [id number] RECD: 06/03/22 07:57 STATUS: NIC RECharlee #: [id number] KASIE: 06/03/22 00:[address]: Trey Tim DEPT: SURGICAL PATHOLOGY RECD BY: Renetta Michael ENTERED: 06/03/22 09:24 SP TYPE: Lesion OTHR DR: Dr. Stef Gonsalez MD Tissues: A - Skin of nose, NOS B - Skin of nose, NOS Procedures: Frozen Section (charge) Surgery Specimen Level IV HEADER OPERATION: Excision lesion inferior nasal tip with frozen section PRE-OP DIAGNOSIS: Lesion inferior nasal tip/columella TISSUE SUBMITTED: A ? Lesion inferior nasal tip, FS, B ? Additional tissue for permanent, basal cell carcinoma inferior nasal tip, suture at 12 o?clock FROZEN SECTION DIAGNOSIS A. Lesion inferior nasal tip, shave biopsy: Basal cell carcinoma. SJ:luna 06/03/2022 MICROSCOPIC DIAGNOSIS A. Skin lesion of left inferior nasal tip, shave biopsy: Basal cell carcinoma. B. Skin lesion of inferior nasal tip, re-excision: Basal cell carcinoma. See comment. AM:luna 06/04/2022 COMMENT B. Basal cell carcinoma focally extends to the 12 o?clock margin of excision. Clinical correlation is suggested. Case has been reviewed in consultation with Dr. Carlisle who concurs with the above diagnosis. IDC:[id number] MICROSCOPIC DESCRIPTION Slides are reviewed. GROSS DESCRIPTION A - Received fresh for frozen section diagnosis labeled with the patient's name is a specimen designated lesion inferior nasal tip. The specimen consists of a piece of hewitt-white skin ellipse measuring 1 x 1 x 0.25 cm. The specimen is inked, serially sectioned and submitted entirely for frozen section diagnosis in one cassette. / SJ:luna 06/03/2022 B Received in fixative is one container labeled with the patient's name and designated inferior nasal tip. The specimen consists of a discoid fragment of pink-hewitt skin measuring 1.6 x 1.2 x 0.2 cm. A recent ulcer is present on the cutaneous measuring 1 cm in greatest dimension. A suture is present at one tip and identified as the 12 o?clock position. The specimen is differentially inked as follows: 12 o?clock - black, 3 o?clock - yellow, 6 o?clock - blue and 9 o?clock - green. The specimen is serially sectioned and totally submitted in one cassette. / AM:luna 06/03/2022 TC:0 CPT: 39319 x2, 56230
--- NOTE | 2022-06-03 00:48 | PCM.HP.BLA ---
History and Physical Date of Admission: 06/03/22 HISTORY OF PRESENT ILLNESS 71 year old man presents for evaluation for TBSE.? He has concerns about a lesion on his inferior nasal tip/columellar area that has increased in size over the last several months and has become raised in configuration.? He denies bleeding.? He does note some crusting.? He denies fever.? He denies trauma.? He had a basal cell carcinoma excised from his left ear at postauricular area with skin grafting in June,.? He also has recent diagnosis of prostate cancer and just finished radiation therapy.? He presents at this time for further evaluation and surgical options for treatment. PAST MEDICAL HISTORY Arthritis Back pain Cataract Easy bruising History of stress test Neoplasm of skin of nasal tip Prostate disease Skin cancer Wears dentures Wears glasses PAST SURGICAL HISTORY back surgery ALLERGIES cortisone MEDICATIONS amlodipine gabapentin celecoxib hydrocodone-acetaminophen FAMILY HISTORY Other - Hypertension, Skin cancer SOCIAL HISTORY Smoking Status:? Current every day smoker tobacco type: cigarettes alcohol intake:? never substance use type:? does not use REVIEW OF SYSTEMS? General - Denies fever, fatigue, and weight loss. Eyes - Has cataracts and glaucoma. ENT - Denies nasal congestion and sore throat. Endocrine - Denies excessive thirst and urination. Skin - Has personal history of skin cancer.? Has family history of skin cancer.? Has an enlarging lesion inferior nasal tip/columellar area. Musculoskeletal - Denies joint pain, joint stiffness, weakness of muscles and joints, and arthritis. Has back pain. Neuro - Denies headaches. Cardiovascular - Denies chest pain, fatigue, and shortness of breath with exertion. Psych - Denies anxiety and depression. Respiratory - Denies chronic cough and shortness of breath.? Patient is a smoker. Gastrointestinal - Denies nausea, vomiting, diarrhea, and constipation. Hematologic - Denies abnormal bruising and bleeding. Genitourinary - Denies hematuria and urinary frequency.? Has recent prostate cancer treated with radiation therapy. PHYSICAL EXAMINATION?? General - Alert and Oriented HEENT - PERRL. EOMI.? Throat is clear.? On the left ear at postauricular area is a healed skin graft from an excision basal cell carcinoma in 07/04. ? On the inferior nasal tip/columellar area is?a nodular 1 cm lesion that is raised in configuration.? Has irregular borders.? Erythematous in color.? No ulceration.? Lesion is nontender.? No other suspicious lesions noted. Neck - Supple and nontender.? No cervical adenopathy.? No suspicious lesions noted. Lungs - Clear to auscultation. Heart - Regular rate and rhythm. Abdomen - Soft and nondistended. Extremities - FROM. No axillary adenopathy.? Radial pulses are palpable.? No suspicious lesions noted. Neuro - CN II-XII grossly intact. Psych - Normal mood and affect. ASSESSMENT 1.? 1 cm erythematous lesion inferior nasal tip/columellar area, clinically consistent with carcinoma. 2.? Personal history of skin cancer. 3.? Family history of skin cancer. 4.? Smoker. PLAN Patient has an enlarging erythematous lesion inferior nasal tip/columellar area that is clinically consistent with carcinoma.? He had a previous basal cell carcinoma excised from his left ear at postauricular area in 07/04. Initially we need to establish a diagnosis.? Recommend excision of this lesion and send it to Pathology for analysis to rule out carcinoma.? If carcinoma is present, then further excision will be done.? The size of the defect will be determined by the Pathology.? A basal cell carcinoma has a slightly smaller margin (3-5 mm) compared to a squamous cell carcinoma (4-6 mm).? If its a precancerous actinic lesion then a couple of mm is adequate margin. A wound defect 1.0-1.5 cm may be closed with a local nasal flap.? This wound is too inferior for a bilobed transposition advancement flap and may be too inferior for a dorsal nasal sliding advancement flap.? A wound defect 1.5-2.0 cm may be closed with a nasolabial flap which is a two stage flap but can be problematic in this patient because of the location.? The flap may not reach the wound defect without too much tension.? That decision would be made at the time of surgery. ? A wound defect more than 2 cm would be closed with a forehead flap which is a two stage flap would be necessary.? The forehead flap would have the necessary reach for the inferior nasal tip/columellar area location.? Cartilage grafting would be needed for support and mucoperichondrial flaps would be needed for nasal lining, if necessary. Complex nasal reconstruction would begin after the final pathology report shows negative margins.? At the first surgery,? the wound would be left open and local wound care with antibiotic ointment or silver dressing changes would occur in the meantime.? Patient states at his age, he may not be interested in multiple surgery complex nasal reconstruction.? Will discuss further surgical options at his postoperative visits.? Leaving a wound open to close with wound care is an option unless too much cartilage is exposed.? The exposed cartilage may weaken with the exposure during the healing process.? Because of that possibility, the patient understands that further surgery may be necessary. The initial surgery can be done under local anesthesia and IV sedation on an outpatient basis.? The secondary complex nasal reconstruction surgeries would be done under general anesthesia with a surgical observation overnight stay in the hospital for the creation of the flap and on an outpatient surgery for the division and inset of the flap. Patient was informed of the risks and complications of the procedure including alternatives to surgery.? These were discussed with the patient personally.? Patient voices understanding and wishes to proceed. Some of the risks and complications were included in a form from the [employer] [place] [employer]. Encouraged patient to stop smoking as it may have deleterious effects on wound healing. Assessment & Plan Assessment/Plan (1) Neoplasm of skin of nasal tip: (2) Personal history of skin cancer: (3) Family history of skin cancer: (4) Smoker:
[2022-06-03 06:04] VITALS: BP 122/81; PULSE 68; RESP 16; TEMP 36.8; O2SAT 95; BMI 24.7
[2022-06-03] MEDS: Lactated Ringers 1,000 ML 15 ML IV (06:15)
[2022-06-03] MEDS: Clindamycin 900 MG/50 ML BAG 75 MG IV (07:50)
[2022-06-03] MEDS: Lidocaine 2% /Epi 1:100 (50ml) 50 ML Vial (08:00)
[2022-06-03] MEDS: Mupirocin Ointment 22gm Tube 1 APPLIC (08:15)
[2022-06-03 08:52] VITALS: BP 122/81; BP 147/83; PULSE 67; RESP 18; TEMP 36.2; O2SAT 93
[2022-06-03 09:00] VITALS: BP 122/81; BP 130/94; PULSE 67; RESP 18; O2SAT 94
--- NOTE | 2022-06-03 09:11 | DCINST_ITS ---
Discharge Instructions Diet Discharge Diet: No restrictions Activity Discharge Activity: May Not Shower (until operative dressing is removed in the office on wednesday. 06/05/22) and - (no heavy lifting.) May shower in (days): 2 (after the operative dressing is removed in the office.) May resume sexual activity in: No Restrictions Weight Bearing Status: Weight bearing as tolerated Lifting Restrictions: 10 lbs. Keep extremity elevated above heart level: - (elevate head.) Dressing / Incision Call your doctor if your incision/area has: Continuous Slow Oozing, Sudden Increased Bleeding, Increased Pain/ Swelling, Increased Redness, Foul Smelling Discharge and Swelling at the incision site Call your doctor if you observe: Fever of 101 or Higher, Coldness, Increased Pain, Shortness of breath, Chest pain, Calf discomfort and Uncontrolled pain Remove Dressing in: 2 days (will remove operative dressing in office in two days, 06/05/22.) Cleanse incision/area with: Soap & Water (after operative dressing removed in the office, may cleanse the wound with soap and water daily.) and - (apply antibiotic ointment to suture line daily after the operative dressing removed.) Follow Up Care Please Follow Up With: Trey Tim MD When: Wednesday06/05/22. Call [phone] for appt time. Test Results: Test results from this visit will be discussed in further detail at your follow- up appointment, if applicable. Discharge Plan Admission Primary Reason for Your Visit: excision basal cell carcinoma inferior nasal tip/columellar area. Attending Provider: Trey Tim Primary Care Provider: Stef Gonsalez Discharge Orders/Prescriptions Prescriptions: New clindamycin HCl [Cleocin HCl] 300 mg capsule 300 mg PO TID Qty: 15 0RF L.acidoph,saliva-B.bif-S.therm [Acidophilus Probiotic Blend] 175 mg capsule 1 cap PO DAILY Qty: 10 0RF oxycodone-acetaminophen [Percocet] 5-325 mg tablet 1 tab PO Q6H PRN (Reason: pain (scale score 7-10)) 7 Days Qty: 28 0RF Rx Instructions: 28 tabs (twenty-eight) Continued celecoxib 200 mg capsule 200 mg PO DAILY amlodipine 5 MG tablet 5 mg PO DAILY Label Comments: blood pressure gabapentin 300 MG capsule 300 tab PO BID Label Comments: neuropathy/pain Referrals / Follow Up: Trey Tim MD [Med Staff - Active Staff] - 06/05/22 (call [phone] for appt.) Stef Gonsalez MD [Primary Care Provider] - Disposition Disposition (needs filled in before D/C Order can be placed): Home, Self Care
--- NOTE | 2022-06-03 09:11 | PCM.OPRPT ---
Problems Associated Problem List Diagnoses (1) Basal cell carcinoma of nasal tip: (2) Neoplasm of skin of nasal tip: (3) Open wound of nose, complicated: (4) Personal history of skin cancer: (5) Family history of skin cancer: (6) Smoker: Report of Operation Date of Procedure: 06/03/22 Pre-Operative Diagnosis: 1. 1 cm erythematous lesion inferior nasal tip/columellar area, clinically consistent with carcinoma. 2. Personal history of skin cancer. 3. Family history of skin cancer. 4. Smoker. Post-Operative Diagnosis: 1. 1 cm basal cell carcinoma inferior nasal tip/columellar area. 2. Open basal cell carcinoma surgical wound inferior nasal tip/columellar area. 3. Personal history of skin cancer. 4. Family history of skin cancer. 5. Smoker. Surgery/Procedure Performed:: Excision 1 cm basal cell carcinoma inferior nasal tip/columellar area. Description of Surgical Findings:: 71 year old man presents for evaluation for TBSE.? He has concerns about a lesion on his inferior nasal tip/columellar area that has increased in size over the last several months and has become raised in configuration.? He denies bleeding.? He does note some crusting.? He denies fever.? He denies trauma.? He had a basal cell carcinoma excised from his left ear at postauricular area with skin grafting in June,.? He also has recent diagnosis of prostate cancer and just finished radiation therapy.? Excision was recommended to establish a diagnosis. Patient was informed of the risks and complications of the procedure including alternatives to surgery. These were discussed with the patient personally. Patient voices understanding and wishes to proceed. Some of the risks and complications were included in a form from the [place] [employer]. Encouraged patient to stop smoking as it may have deleterious effects on wound healing. Frozen section inferior nasal tip/columellar area - basal cell carcinoma. The size of the basal cell carcinoma surgical wound defect inferior nasal tip/columellar area - 1.8 x 1.8 cm. 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 Specimen's removed: 1. Erythematous lesion inferior nasal tip/columellar area to Pathology as a frozen section. 2. Basal cell carcinoma inferior nasal tip/columellar area to Pathology. Drains: None. Estimated Blood Loss (mL): 10. Description of Procedure: Patient was taken to OR in supine position and was given IV sedation. The nose was prepped and draped in the usual fashion. SCD's were placed for DVT prophylaxis. Perioperative antibiotics were given intravenously. The lesion inferior nasal tip/columellar area was infiltrated with xylocaine and epinephrine. After waiting 5 minutes for the anesthetic to take effect, I excised the lesion inferior nasal tip/columellar area in an intradermal fashion. The lesion was sent to Pathology as a frozen section for analysis to rule out carcinoma. Frozen section revealed a basal cell carcinoma. I then marked out a 4 mm margin in all directions thus making it a 1.8 cm excision. The basal cell carcinoma was excised into the subcutaneous tissue. A suture was placed at 12 oclock position for pathology orientation. The basal cell carcinoma was sent to Pathology for analysis to rule out carcinoma at the margins. Hemostasis obtained with electrocautery. A small amount of exposed cartilage was seen on the right. The size of the basal cell carcinoma wound defect is 1.8 x 1.8 cm. Bactroban was applied to the nasal tip wound followed by Xeroform gauze and 2x2 gauze and kept in place with 5-0 Prolene tie over stent suture dressing. Patient tolerated the procedure well and was sent to PACU in satisfactory condition. Patient will be sent home on antibiotics and pain medication. Patient will followup in two days week for takedown of the operative dressing and a wound check and for discussion of the pathology report. Once we have negative margins, will discuss complex nasal reconstruction options. The size and location of the defect in the inferior nasal tip/columellar area would necessitate a two stage forehead flap and cartilage grafting for support. Grafts/Implants Used: None. Procedure Start Time: 07:55 Procedure Stop Time: 08:39 Complications None. Admit VTE Documentation VTE Present on Admission: No VTE Mechan Device Prophylaxis: SCD's VTE Pharm Prophylaxis ordered?: No Addendum Addendum: Surgical Charges CPT - 82426 ICD-10 - C44.311, D49.2, S01.20xA, Z85.828, Z80.8, F17.200
[2022-06-03 09:15] VITALS: BP 122/81; BP 149/82; PULSE 71; RESP 18; O2SAT 93
[2022-06-03 09:29] VITALS: BP 122/81; BP 137/87; PULSE 77; RESP 18; TEMP 36.8; O2SAT 96
[2022-06-03 09:59] VITALS: BP 122/81; BP 149/65; PULSE 83; RESP 16; TEMP 36.3; O2SAT 92
== END 2022-06-03 10:02 | disposition home or self-care (01) ==
LOC: SDC 05:38 → AC 05:39
PROVIDERS: PCP Family Medicine; Referring Provider Surgery; Visit Provider Surgery
PROC: (CPT 11642; principal; 2022-06-03 07:20)
DX: C44.311 Basal cell carcinoma of skin of nose (principal); I10 Essential (primary) hypertension; F17.200 Nicotine dependence, unspecified, uncomplicated; Z79.899 Other long term (current) drug therapy; Z80.8 Family history of malignant neoplasm of other organs or systems
CPT/HCPCS: 11642; 00300; 88305; 88331; J7120; J2405

== ENCOUNTER 2023-08-05 12:44 | Emergency (ER) | payer MEDICARE, MEDICAID, SELFPAY ==
[2023-08-05 12:44] VITALS: BP 132/98; PULSE 72; RESP 14; TEMP 36.3; O2SAT 95; BMI 25.4
--- NOTE | 2023-08-05 13:49 | EX.ED.GUMALE ---
HPI History of Present Illness Chief Complaint: Complaint Detail of Chief Complaint: Dysuria and hematuria for 1 week. Informant: patient Pain Onset: Weeks Context: Gradual Onset Timing: Intermittent Current Severity: Mild Maximum Severity: Mild Narrative Narrative: 72-year-old male history of prostate cancer for which he underwent radiation therapy about a year and a half ago. States that he has had hematuria and dysuria for approximately 1 week. No fever. He is able to urinate. No prior history of UTI. Denies being on any blood thinners. Prior similar symptoms: No Recent Illness/Hospitalization: No PFSH PFSH Medical History Arthritis Back pain Basal cell carcinoma of nasal tip Cancer Cataract Easy bruising Heartburn History of stress test Neoplasm of skin of nasal tip Open wound of nose, complicated Prostate disease Skin cancer Wears dentures Wears glasses Wears partial dentures Home Medications amlodipine 5 mg tablet 5 mg PO DAILY blood pressure 08/05/14 [History Last Taken 06/03/22 05:00] gabapentin 300 mg capsule 300 tab PO BID nerve pain 08/05/14 [History Last Taken 02/13/21 14:00] celecoxib 200 mg capsule 200 mg PO DAILY anti-inflamatory 05/02/19 [History Last Taken 02/13/21 14:00] Allergy/AdvReac Type Severity Reaction Status Date / Time cortisone Allergy Other Verified 08/05/23 12:45 Family History Other Hypertension Skin cancer Surgical History History of back surgery History of basal cell carcinoma excision Hx of foot surgery Social History Smoking Status: Current every day smoker tobacco type: cigarettes alcohol intake: never substance use type: does not use additional social history: DOES NOT USE ASPIRIN DOES NOT USE IBUPROFEN ROS ROS ED ROS Narrative Dysuria. Hematuria. Review of Systems ROS Unobtainable: Denies due to encephalopathy Constitutional Constitutional ED: Denies chills or fever(s) Eyes Eyes: Denies blurry vision ENT ENT ED: Denies ear pain Cardiovascular Cardiovascular: Denies chest pain or palpitations Respiratory/Chest Respiratory/Chest: Denies cough or dyspnea Gastrointestinal Gastrointestinal: Denies abdominal pain, constipation, diarrhea, melena, nausea or vomiting Genitourinary Genitourinary ED: Reports hematuria Musculoskeletal Musculoskeletal: Denies arthralgias or myalgias Integumentary Denies rash Neurologic Neurologic: Denies headache(s) Psychiatric Psychiatric: Denies anxiety Endocrine Endocrinology: Denies polydipsia Hematologic/Lymphatic Hematologic/Lymphatic: Denies easy bleeding, easy bruising or lymphadenopathy Allergic/Immunologic Allergic/Immunologic ED: Denies mouth swelling, tongue swelling or urticaria EXAM Physical Exam Narrative Exam Narrative: Well-appearing 72-year-old male. Vital signs are stable afebrile. H EENT exam unremarkable. Neck nontender. Lungs are clear. Heart regular rhythm no murmur. Abdomen is soft and nontender. Moving all 4 extremities. Calves are nontender without edema. Neurologically is awake and alert with no focal motor deficits. Const Vital Signs: 08/05/23 12:44 Temperature 97.4 F L Temperature Source Temporal Pulse Rate 72 Respiratory Rate 14 Blood Pressure 132/98 H Blood Pressure Mean 109 Pulse Ox 95 Oxygen Delivery Method Room Air Positive well nourished and well developed; Negative for obese, cachectic, contractures or unkempt General Appearance ED: well developed and NAD; Negative for unkempt, cachectic, contractures or pallor Nutritional Appearance: Negative for cachectic or obese HEENT Reports moist mucous membranes normocephalic and atraumatic; Negative for trauma or tenderness Eyes PERRL and EOMs intact bilaterally General Eye ED: Negative for pale conjunctiva or scleral icterus Neck no lymphadenopathy, supple and no JVD General: Negative for tenderness Resp normal respiratory effort and clear to auscultation bilaterally Effort and Inspection: Negative for retractions Auscultation: Negative for rales, rhonchi or wheezes Cardio regular rate, regular rhythm, S1 normal heart sound, S2 normal heart sound and no murmurs Rate: Negative for bradycardia or tachycardic Rhythm: Negative for abnormal rhythm Heart Sounds: Negative for other GI non-tender, non-distended and no masses Inspection: Negative for abdominal distention Auscultation: normoactive bowel sounds Palpation: soft; Negative for tender or guarding no CVA tenderness Bladder / Kidney Exam: No CVA tenderness Groin / Perineum Exam: Negative for edema or lesions Back/Spine no CVA tenderness General Back: Negative for CVA tenderness Cervical Spine: Negative for cervical spine tenderness Thoracic Spine / Upper Back: Negative for thoracic spinal tenderness Lumbar Spine / Lower Back: Negative for lumbar spinal tenderness Extremity normal to inspection General Extremety ED: Negative for edema or pulses abnormal General Extremity: Negative for edema or pulses abnormal Neuro oriented x3, CN's II-XII intact bilaterally, moves all extremities and no focal motor deficits Sensorium / Orientation: alert, oriented to person, oriented to place and oriented to time; Negative for orientation impaired, confused, lethargic or stuporous Motor Exam: strength 5/5 throughout Psych mental status grossly normal Appearance: Negative for unkempt Attitude: No agitated Mood & Affect: Negative for depressed Thought Process: normal thought process Thought Content: normal thought content Skin General Skin Exam: Negative for jaundice or pallor Lesions: no lesions Rashes: no rashes Trauma: Negative for abrasion or laceration MDM MDM MDM Narrative Medical decision making narrative: [id number] male with gross hematuria and dysuria. Urinalysis will be obtained. Consider UTI versus lesion versus secondary to history of prior prostate cancer. He has an appointment to see his urologist in the next 2 weeks. Having blood in his urine with a history of prostate cancer could be secondary to that versus an infection but there is no obvious infection on the urinalysis or sending a urine culture. Versus it could be from his bladder and he may need a cystoscopy. Plenty of fluids to wash out his bladder. Lab Data Attestation: I reviewed the patient's lab results. Lab results narrative: Alysis shows 250 occult blood. 10-25 red cells. 5-10 white cells. Rare bacteria. No nitrites. Will send a urine culture. If it is positive will be treated with antibiotics but this time I am not getting treated with antibiotics. Discussed that with patient is comfortable with the plan. Labs: Laboratory Results - last 24 hr 08/05/23 13:35 Urine Color Yellow Urine Clarity Sl. Cloudy Urine pH 5.0 Ur Specific [place] 1.015 Urine Protein Negative Urine Glucose (UA) Normal Urine Ketones Negative Urine Occult Blood 250 H Urine Nitrite Negative Urine Bilirubin Negative Urine Urobilinogen Normal Ur Leukocyte Esterase 500 H Urine RBC 10-25 SEEN Urine WBC 5-10 SEEN Ur Squamous Epith Cells 0-5 SEEN Urine Bacteria RARE Urine Mucus RARE Discharge Plan Triage Chief Complaint: Complaint ED Provider: Goff,Richard Dx/Rx/DC Orders Clinical Impression: History of prostate cancer, Hematuria Instructions: ED Hematuria Prescriptions: No Action celecoxib 200 mg capsule 200 mg PO DAILY amlodipine 5 MG tablet 5 mg PO DAILY Patient Comments: blood pressure gabapentin 300 MG capsule 300 tab PO BID Patient Comments: neuropathy/pain Primary Care Provider: Stef Gonsalez Referrals: Stef Gonsalez MD [Primary Care Provider] - Activity Restrictions/Additional Instructions: Keep and follow-up with your urologist. Let him know that you have had blood in your urine and they may want to do a cystoscopy to look inside your bladder. Plenty of fluids to prevent you from getting large blood clots that could prevent you from urinating. Currently there is no signs of infection. We sent a urine culture. If that comes back positive we will notify you and treat you with antibiotics. Return if unable to urinate. Disposition Disposition: Home, Self Care
[2023-08-05 14:20] LABS: Color, Urine Yellow (Yellow); Glucose, Dipstick Normal (Normal); Ketone-Dipstick Negative (Negative); Leukocyte Esterase-Dipstick 500 /ul (Negative); Nitrite-Dipstick Negative (Negative); Occult Blood-Urine 250 /ul (Negative); Protein-Dipstick Negative (Negative); Specific Gravity, Urine 1.015 (1.002-1.030); Urine Bilirubin Dipstick Negative (Negative); Urine Clarity Sl. Cloudy (Clear); Urine Urobilinogen Normal (Normal)
[2023-08-05 14:51] LABS: Red Blood Cells-Urine 10-25 SEEN /hpf (0-5); Squamous Epithelial Cells - UA 0-5 SEEN /hpf (0-5); White Blood Cells 5-10 SEEN /hpf (0-5)
[2023-08-05 14:52] LABS: Bacteria RARE /hpf (None Seen); Mucous, Urine RARE /hpf (<or=2+)
[2023-08-05 15:42] VITALS: PULSE 81; RESP 16; O2SAT 97
== END 2023-08-05 15:43 | disposition home or self-care (01) ==
PROVIDERS: Emergency Provider Emergency Medicine; PCP Family Medicine; Visit Provider Emergency Medicine
DX: R31.0 Gross hematuria (principal); F17.210 Nicotine dependence, cigarettes, uncomplicated
CPT/HCPCS: 81001; 87086; 99282

== ENCOUNTER 2023-09-10 07:49 | Emergency (ER) | payer MEDICARE, MEDICAID, SELFPAY ==
[2023-09-10 07:50] VITALS: BP 120/71; PULSE 66; RESP 16; TEMP 36; O2SAT 98; BMI 25.4
--- NOTE | 2023-09-10 07:57 | EX.ED.DYSGE1 ---
HPI History of Present Illness Chief Complaint: Flank Pain Informant: patient Onset/Context/Timing Onset: Days (3) Context: Sudden Onset Timing: Continuous Quality: Aching Location: Left lower abdomen Worsened by: Bending and laying on his side Relieved by: Nothing Narrative Narrative: Patient presents with left lower abdominal pain that has been getting worse over the past 3 days. Patient states it began rather suddenly. Patient describes it as aching. Patient states it has been constant for the past 3 days. Patient states the pain is mainly over the left lower abdomen. Patient states it is worse when he bends forward and when he lays on his sides. Patient states nothing seems to help with the pain. Patient denies any fevers or chills. Patient denies any nausea or vomiting. Patient denies any diarrhea, melena, or hematochezia. Patient admits to some dysuria but states that is chronic. [facility] Medical History Arthritis Back pain Basal cell carcinoma of nasal tip Cancer Cataract Easy bruising Heartburn History of stress test Neoplasm of skin of nasal tip Open wound of nose, complicated Prostate disease Skin cancer Wears dentures Wears glasses Wears partial dentures Home Medications amlodipine 5 mg tablet 5 mg PO DAILY blood pressure 08/05/14 [History Last Taken 06/03/22 05:00] gabapentin 300 mg capsule 300 tab PO BID nerve pain 08/05/14 [History Last Taken 02/13/21 14:00] celecoxib 200 mg capsule 200 mg PO DAILY anti-inflamatory 05/02/19 [History Last Taken 02/13/21 14:00] Allergy/AdvReac Type Severity Reaction Status Date / Time cortisone Allergy Other Verified 09/10/23 07:50 Family History Other Hypertension Skin cancer Surgical History History of back surgery History of basal cell carcinoma excision Hx of foot surgery Social History Smoking Status: Current every day smoker tobacco type: cigarettes alcohol intake: never substance use type: does not use additional social history: DOES NOT USE ASPIRIN DOES NOT USE IBUPROFEN ROS ROS ED Constitutional Constitutional ED: Denies chills or fever(s) Eyes Eyes: Denies blurry vision or change in vision ENT ENT ED: Denies rhinorrhea or sore throat Cardiovascular Cardiovascular: Denies chest pain or palpitations Respiratory/Chest Respiratory/Chest: Denies cough or dyspnea Gastrointestinal Gastrointestinal: Reports abdominal pain; Denies nausea or vomiting Genitourinary Genitourinary ED: Reports dysuria; Denies hematuria Musculoskeletal Musculoskeletal: Denies back pain or neck pain Integumentary Denies abscess or rash Neurologic Neurologic: Denies headache(s) or weakness Allergic/Immunologic Allergic/Immunologic ED: Denies mouth swelling or urticaria EXAM Physical Exam Const Vital Signs: 09/10/23 07:50 Temperature 96.8 F L Temperature Source Temporal Pulse Rate 66 Respiratory Rate 16 Blood Pressure 120/71 Blood Pressure Mean 87 Pulse Ox 98 Oxygen Delivery Method Room Air Positive well nourished and well developed General Appearance ED: well developed and NAD HEENT Reports moist mucous membranes Neck supple and no JVD Resp normal respiratory effort and clear to auscultation bilaterally Cardio regular rate and regular rhythm GI non-distended Palpation: soft and tender LLQ; Negative for guarding or rebound tenderness present Back/Spine no CVA tenderness Extremity normal to inspection General Extremety ED: Negative for edema or tenderness General Extremity: Negative for edema Neuro oriented x3, CN's II-XII intact bilaterally and no sensory deficits noted Sensorium / Orientation: alert Motor Exam: strength 5/5 throughout Psych mental status grossly normal MDM MDM MDM Narrative Medical decision making narrative: Differential diagnosis includes diverticulitis, urinary tract infection, ureteral calculus, gastroenteritis, bowel obstruction, perforation, and pyelonephritis. CT scan of the abdomen pelvis will be obtained to assess for ureteral calculus, bowel obstruction, and perforation. CBC will be obtained to assess for leukocytosis and anemia. Basic metabolic profile will be obtained to assess for electrolyte abnormality and renal function. Urinalysis will be obtained to assess for urinary tract infection and hematuria. Lab Data Attestation: I reviewed the patient's lab results. Lab results narrative: CBC was reviewed and was essentially within normal limits. Basic metabolic profile was reviewed. Potassium was slightly low at 3.3. The remainder was within normal limits. Urinalysis was reviewed. There is no evidence of urinary tract infection or hematuria. Labs: Laboratory Results - last 24 hr 09/10/23 09/10/23 08:31 08:37 WBC 7.9 RBC 3.99 L Hgb 12.4 L Hct 37.3 L MCV 93.5 MCH 31.1 MCHC 33.2 RDW Std Deviation 49.7 H RDW Coeff of Suzanna 14.5 Plt Count 250 MPV 9.3 Immature Gran % (Auto) 0.300 Neut % (Auto) 80.1 H Lymph % (Auto) 11.5 L [place] % (Auto) 6.6 Eos % (Auto) 0.9 Baso % (Auto) 0.6 Absolute Neuts (auto) 6.3 Absolute Lymphs (auto) 0.91 Nucleated RBC % 0 Sodium 136 Potassium 3.3 L Chloride 106 Carbon Dioxide 23.0 Anion Gap 7 BUN 16 Creatinine 0.76 Estim Creat Clear Calc 78.38 Est GFR (MDRD) Af Amer 128 Est GFR (MDRD) Non-Af 106 BUN/Creatinine Ratio 21.0 H Glucose 89 Calcium 9.0 Troponin I High Sens 10 Urine Color Yellow Urine Clarity Clear Urine pH 6.5 Ur Specific Pierson 1.005 Urine Protein Negative Urine Glucose (UA) Normal Urine Ketones Negative Urine Occult Blood Negative Urine Nitrite Negative Urine Bilirubin Negative Urine Urobilinogen Normal Ur Leukocyte Esterase 25 H Urine RBC 0 SEEN Urine WBC 0-5 SEEN Ur Squamous Epith Cells 0-5 SEEN Urine Bacteria 0 SEEN Urine Mucus 0 SEEN Radiography Diagnostic Testing: Clinical Impression(s) from Imaging Studies Abdomen/Pelvis CT 09/10/23 08:09 IMPRESSION: 1. No CT evidence of stones or hydronephrosis in both kidneys. 2. No CT evidence of suspicious mass in the kidneys and urinary bladder. 3. Nonvisualization of the appendix but no secondary signs of acute appendicitis. 4. Low-attenuation lesion in the right adrenal gland measuring 2.9 x 2.[address] number of -6.15 Hounsfield units is benign cyst. ACR White Paper guidelines (Chanell et al. JACR 2017; 14(8):8504-6998) suggest no follow-up is necessary. 5. Multiple low-attenuation lesions throughout the liver parenchyma are too small to confirm cystic or solid. At least 2 are cysts. One dominant cyst in segment 2 of the liver has decreased in size measuring 1.6 cm, previously 3.6 cm. Electronically Signed: Addi House MD at 9:20 EST , CT scan of the abdomen pelvis was obtained. There is no ureteral calculus or hydronephrosis. There is no mass noted. There is no bowel obstruction or perforation noted. The appendix was not visualized but there is no sign of appendicitis. There is no free air or free fluid. This was interpreted by the radiologist and was also independently reviewed by myself. EKG Initial EKG: Attestation: I personally reviewed and interpreted this EKG as follows: Interpretation: Sinus Rhythm (With occasional PVC with a rate of 60), No Acute Injury Pattern and RBBB (Incomplete) Comments: EKG was obtained. On my independent interpretation, it showed a normal sinus rhythm with occasional PVC with a rate of 60. ME interval, QRS interval, and QTc intervals were all normal. There is an incomplete right bundle branch block pattern noted. There is left axis deviation at -55. There are no acute ST or T wave changes. Prior EKG tracings: available for review Prior: Unchanged (04/26/2022) Treatment and Re-Evaluation :: Patient was given IV fluids, morphine, and Zofran. Patient did develop chest pain here in the emergency department. Because of this, EKG was obtained. High-sensitivity troponin will be obtained. High-sensitivity troponin was reviewed and was normal at 10. Patient was given a GI cocktail. Patient felt better after this. Patient was instructed to follow-up with his primary care physician in 5 to 7 days. Patient understood and was agreeable with the plan. All questions were answered. Discharge Plan Triage Chief Complaint: Flank Pain ED Provider: Eddie Mckinley Dx/Rx/DC Orders Clinical Impression: Abdominal pain, Chest pain Instructions: ED Chest Pain, Uncertain Cause, ED Abdominal Pain Unkn Cause Male... Prescriptions: No Action celecoxib 200 mg capsule 200 mg PO DAILY amlodipine 5 MG tablet 5 mg PO DAILY Patient Comments: blood pressure gabapentin 300 MG capsule 300 tab PO BID Patient Comments: neuropathy/pain Primary Care Provider: Stef Gonsalez Referrals: Stef Gonsalez MD [Primary Care Provider] - 3-5 Days Disposition Disposition: Home, Self Care
--- NOTE | 2023-09-10 08:09 | CT_ITS ---
EXAM: CT ABDOMEN AND PELVIS WITHOUT INTRAVENOUS CONTRAST CLINICAL INDICATION: Right flank pain and hematuria. History of kidney stones. TECHNIQUE: Helically acquired images were obtained of the abdomen and pelvis without intravenous contrast. This CT exam was performed using one or more of the following dose reduction techniques: automated exposure control, adjustment of the mA and/or kV according to patient size, and/or use of iterative reconstruction technique. RADIATION DOSE: CTDIvol = 6.99 mGy, DLP = 335.35 mGy-cm COMPARISON: CTA chest with and without contrast 07/05/2022. No prior CT abdomen and pelvis for comparison. FINDINGS: LOWER THORAX: Mild cardiomegaly. 1.13 cm anterior pericardial effusion and 7 mm posterior pericardial effusion. Increased thickness of curvilinear partial atelectasis in the right lung base containing minimal air bronchograms. ABDOMEN: LIVER: Multiple hypodense lesions throughout the liver parenchyma. Several are too small to confirm cystic or solid. At least [address] number of -10.5 Hounsfield units. 1 dominant cyst in segment 2 of the liver has decreased in size measuring 1.6 cm, previously 3.6 cm. GALLBLADDER AND BILE DUCTS: Unremarkable. No calcified gallstones. No gallbladder distention or wall edema. No intra- or extrahepatic biliary ductal dilation. PANCREAS: Unremarkable. No focal cystic mass. SPLEEN: Unremarkable. Normal size without focal cystic or solid mass. ADRENALS: Right adrenal hypodense lesion measuring 2.9 x 2.[address] number of -6.15 Hounsfield units. This is benign cyst. KIDNEYS AND URETERS: Unremarkable. Normal renal size and position. No stones or hydronephrosis in both kidneys. STOMACH AND BOWEL: Unremarkable. No stomach or bowel distention. No focal inflammatory change. PELVIS: APPENDIX: The appendix is not visualized but there are no secondary signs of acute appendicitis. BLADDER: Unremarkable. Normal urinary bladder. No bladder stone or mass. REPRODUCTIVE: Unremarkable as visualized. No mass. ABDOMEN and PELVIS: INTRAPERITONEAL SPACE: Unremarkable. No ascites or other fluid collection. No free air. BONES/JOINTS: Unremarkable. No suspicious lytic or blastic abnormality. SOFT TISSUES: Pedicular screws and rods causing metallic streak artifacts at L3-L4, L4-L5 and L5-S1 disc space levels. No discrete abdominal or pelvic wall hernia. VASCULATURE: Unremarkable. Abdominal aorta is non-dilated. LYMPH NODES: Unremarkable. No enlarged lymph nodes. CT/Abdomen/Pelvis without Cont IMPRESSION: 1. No CT evidence of stones or hydronephrosis in both kidneys. 2. No CT evidence of suspicious mass in the kidneys and urinary bladder. 3. Nonvisualization of the appendix but no secondary signs of acute appendicitis. 4. Low-attenuation lesion in the right adrenal gland measuring 2.9 x 2.[address] number of -6.15 Hounsfield units is benign cyst. ACR White Paper guidelines (Chanell et al. JACR 2017; 14(8):8767-4427) suggest no follow-up is necessary. 5. Multiple low-attenuation lesions throughout the liver parenchyma are too small to confirm cystic or solid. At least 2 are cysts. One dominant cyst in segment 2 of the liver has decreased in size measuring 1.6 cm, previously 3.6 cm. Electronically Signed: Addi House MD at 9:20 EST ,
[2023-09-10 08:35] LABS: Bacteria 0 SEEN /hpf (None Seen); Mucous, Urine 0 SEEN /hpf (<or=2+); Red Blood Cells-Urine 0 SEEN /hpf (0-5)
[2023-09-10] MEDS: 0.9% Normal Saline (1000mL) 1,000 ML 1000 ML IV (08:39)
[2023-09-10] MEDS: Ondansetron 4 MG/2 ML Vial IV (08:41)
[2023-09-10] MEDS: Morphine 4 MG/ML Syringe IV (08:41)
[2023-09-10 08:47] LABS: Absolute Lymphocyte Count 0.91 X10^3/uL (0.83-4.51); Absolute Neutrophil Count 6.3 X10^3/uL (2.0-7.7); Basophil# 0.05 X10^3/uL; Basophil% 0.6 % (0-1); Eosinophil# 0.07 X10^3/uL; Eosinophils% 0.9 % (0-5); Hematocrit 37.3 % (40-54); Hemoglobin 12.4 g/dL (13.0-16.5); Lymphocyte # 0.91 X10^3/ul (0.83-4.51); Lymphocyte % 11.5 % (19-41); Mean Corp Hgb Conc 33.2 g/dL (32-36); Mean Corpuscular Hgb 31.1 pg (27.0-32.0); Mean Corpuscular Volume 93.5 fL (80-94); Mean Platelet Vol. 9.3 fl (6.2-12.0); Monocyte# 0.52 X10^3/uL; Monocyte% 6.6 % (0-10); NRBC Flagged by Analyzer 0 % (0-5); Neutrophil # 6.32 X10^3/uL (2.7-7.7); Neutrophil % 80.1 % (47-70); Platelet Count 250 K/mm3 (150-450); RBC Distribution Width CV 14.5 % (11.6-14.6); RBC Distribution Width SD 49.7 fl (35.1-43.9); Red Blood Count 3.99 M/mm3 (4.6-6.2); White Blood Count 7.9 K/mm3 (4.4-11.0)
--- OUTSIDE RECORDS SUMMARY | 2023-09-10 08:56 | XMS RPT_ITS | CCD ---
Author Name Unknown Address [address] [place] [address] Organization [facility] Care Team Providers Care [employer] Name Role Phone Velasco, Alma Delia N Unavailable Velasco, Alma Delia N Unavailable Velasco, Alma Delia N Unavailable Velasco, Alma Delia N Unavailable Velasco, Alma Delia N Unavailable Velasco, Alma Delia N Unavailable Desmond Jacobs Unavailable Velasco, Alma Delia N Unavailable Velasco, Alma Delia N Unavailable Velasco, Alma Delia N Unavailable Velasco, Alma Delia N Unavailable Velasco, Alma Delia N Unavailable Heather Cason MD Primary Care Provider Mickey PINA MD, Abimael Unavailable Heather Cason MD Primary Care Provider Mickey PINA MD, Abimael Unavailable Heather Cason MD Primary Care Provider Heather Cason MD Primary Care Provider Mickey PINA MD, Abimael Unavailable HEATHER CASON Primary Care Unavailable ABIMAEL TA Attending Unavailable ABIMAEL TA Referring Unavailable HEATHER CASON Primary Care Unavailable HEATHER CASON Attending Unavailable HEATHER CASON Primary Care Unavailable ABIMAEL TA Referring Unavailable ELDERHEATHER GARDNER Primary Care Unavailable HEATHRE CASON Primary Care Unavailable HERI HUMPHRIES Attending Unavailable HEATHER CASON Referring Unavailable HEATHER CASON Primary Care Unavailable HUMPHRIES, HERI Referring Unavailable MARVAHEATHER GARDNER Primary Care Unavailable HEATHER CASON Attending Unavailable HEATHER CASON Primary Care Unavailable HEATHER CASON Referring Unavailable HEATHER CASON Primary Care Unavailable HUMPHRIESHERI WOODARD Attending Unavailable HEATHER CASON Primary Care Unavailable MARVAHEATHER GARDNER Primary Care Unavailable ABY TAMEZ Referring Unavailable MARVAHEATHER GARDNER Primary Care Unavailable Allergies Allergy Classification Reported Allergen(s) Allergy Type Date of Onset Reaction(s) Facility (20 sources) Cortisone; Translations: [CORTISONE] Drug Allergy 09-25-2013 Other: See Comments [facility] Medications Current Medications Medication Drug Class(es) Dates Sig (Normalized) Sig (Original) doxycycline hyclate 100 mg oral tablet (2 sources) Tetracycline-clas s Drug Start: 11-23-2022 End: 11-30-2022 take 1 tablet by mouth twice daily doxycycline (VIBRA-TABS) 100 mg tablet Take 1 tablet by mouth twice daily for 7 days. 14 tablet 0 11/23/2022 11/30/2022 Active Completed/Discontinued Medications Medication Drug Class(es) Dates Sig (Normalized) Sig (Original) acetaminophen 325 mg oral capsule (15 sources) End: 10-06-2022 acetaminophen 325 mg cap Take 325 mg by mouth. prn 0 10/06/2022 Discontinued Problems Active Problems Problem Classification Problem Date Documented Date Episodic/Chronic Acquired foot deformities (20 sources) Acquired hallux malleus; Translations: [Other hammer toe(s) (acquired), unspecified foot] Onset: 02-29-2012 02-29-2012 Chronic Cancer of prostate (18 sources) Malignant tumor of prostate; Translations: [Malignant neoplasm of prostate] Onset: 07-21-2023 Chronic Diabetes mellitus without complication (1 source) Increased glucose level; Translations: [Other abnormal glucose] 04-06-2023 Episodic Essential hypertension (20 sources) Benign essential hypertension; Translations: [Essential (primary) hypertension] Onset: 08-28-2008 08-28-2008 Chronic Genitourinary symptoms and ill-defined conditions (9 sources) Finding of sensation of bladder; Translations: [Feeling of incomplete bladder emptying] Onset: 08-20-2022 Episodic Gout and other crystal arthropathies (10 sources) Other specified crystal arthropathies, unspecified site; Translations: [Other specified crystal arthropathies, unspecified site] Onset: 12-21-2016 12-21-2016 Chronic Hyperplasia of prostate (20 sources) Benign prostatic hyperplasia; Translations: [Benign prostatic hyperplasia without lower urinary tract symptoms] Onset: 03-04-2015 03-04-2015 Chronic Other aftercare (1 source) Radiotherapy follow-up; Translations: [Encounter for follow-up examination after completed treatment for conditions other than malignant neoplasm] Episodic Other upper respiratory infections (1 source) Chronic sinusitis; Translations: [Chronic sinusitis, unspecified] Chronic Spondylosis; intervertebral disc disorders; other back problems (20 sources) Degeneration of lumbar intervertebral disc; Translations: [Other intervertebral disc degeneration, lumbar region] Onset: 08-21-2013 08-21-2013 Chronic Unclassified (1 source) Acute cough; Translations: [Acute cough] Onset: 11-23-2022 Past or Other Problems Problem Classification Problem Date Documented Da te Episodic/Chronic Neoplasms of unspecified nature or uncertain behavior (20 sources) Neoplasm of uncertain behavior of skin; Translations: [Neoplasm of uncertain behavior of skin] Onset: 04-19-2019 04-19-2019 Episodic Other aftercare (12 sources) Surgical follow-up; Translations: [Encounter for other specified surgical aftercare] Onset: 11-16-2016 11-16-2016 Episodic Other bone disease and musculoskeletal deformities (10 sources) Chondromalacia; 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, unspecified knee] Onset: 12-21-2016 12-21-2016 Episodic Other non-epithelial cancer of skin (20 sources) Malignant basal cell neoplasm of skin; Translations: [Basal cell carcinoma of skin, unspecified] Onset: 09-29-2015 08-11-2021 Episodic Other non-traumatic joint disorders (20 sources) Knee pain; Translations: [Pain in unspecified knee] Onset: 12-21-2016 12-21-2016 Episodic Other screening for suspected conditions (not mental disorders or infectious disease) (20 sources) Raised prostate specific antigen; Translations: [Elevated prostate specific antigen [PSA]] Onset: 04-03-2015 Episodic Spondylosis; intervertebral disc disorders; other back problems (20 sources) Lumbar radiculopathy; Translations: [Low back pain] Onset: 08-21-2013 07-20-2016 Episodic Results Test Name Value Interpretation Reference Range Facil ity Vital Signs Date Time Vital Sign Value Performing Clinician Facility 04-06-2023 11:01-0400 Body weight 75.75 kg Heather Cason MD Work Phone: [facility] 04-06-2023 11:01-0400 Diastolic blood pressure 82 mm[Hg] Heather Cason MD Work Phone: [facility] 04-06-2023 11:01-0400 Heart rate 76 /min Heather Cason MD Work Phone: [facility] 04-06-2023 11:01-0400 Respiratory rate 16 /min Heather Cason MD Work Phone: [facility] 04-06-2023 11:01-0400 Systolic blood pressure 126 mm[Hg] Heather Cason MD Work Phone: [facility] 02-09-2023 10:25-0400 Body height 172.7 cm Heri Humphries PA-C Work Phone: [facility] 02-09-2023 10:25-0400 Body temperature 97.11 [degF] Heri Humphries PA-C Work Phone: [facility] 02-09-2023 10:25-0400 Body weight 75.75 kg Heri Humphries PA-C Work Phone: [facility] 02-09-2023 10:25-0400 Diastolic blood pressure 90 mm[Hg] Heri Humphries PA-C Work Phone: [facility] 02-09-2023 10:25-0400 Heart rate 79 /min Heri Humphries PA-C Work Phone: [facility] 02-09-2023 10:25-0400 Respiratory rate 18 /min Heri Humphries PA-C Work Phone: [facility] 02-09-2023 10:25-0400 SaO2% (BldA) [Mass fraction] 93 % Heri Humphries PA-C Work Phone: [facility] 02-09-2023 10:25-0400 Systolic blood pressure 130 mm[Hg] Heri Humphries PA-C Work Phone: [facility] 11-23-2022 07:51-0400 Body temperature 96.8 [degF] Aby Athy PA-C Work Phone: [facility] 11-23-2022 07:51-0400 Body weight 77.02 kg Aby Athy PA-C Work Phone: [facility] 11-23-2022 07:51-0400 Diastolic blood pressure 62 mm[Hg] Aby Athy PA-C Work Phone: [facility] 11-23-2022 07:51-0400 Heart rate 82 /min Aby Athy PA-C Work Phone: [facility] 11-23-2022 07:51-0400 Respiratory rate 21 /min Aby Athy PA-C Work Phone: [facility] 11-23-2022 07:51-0400 SaO2% (BldA) [Mass fraction] 95 % Aby Athy PA-C Work Phone: [facility] 11-23-2022 07:51-0400 Systolic blood pressure 142 mm[Hg] Aby Athy PA-C Work Phone: [facility] 10-06-2022 10:32-0500 Body weight 75.3 kg Heather Cason MD Work Phone: [facility] 10-06-2022 10:32-0500 Diastolic blood pressure 80 mm[Hg] Heather Cason MD Work Phone: [facility] 10-06-2022 10:32-0500 Heart rate 68 /min Heather Cason MD Work Phone: [facility] 10-06-2022 10:32-0500 Respiratory rate 16 /min Heather Cason MD Work Phone: [facility] 10-06-2022 10:32-0500 Systolic blood pressure 126 mm[Hg] Heather Cason MD Work Phone: [facility] 07-23-2022 12:21-0500 Body height 172.7 cm Vanessa Dodson DO Work Phone: [facility] 07-23-2022 12:21-0500 Body weight 74.39 kg Vanessa Dodson DO Work Phone: [facility] 04-07-2022 10:22-0400 Diastolic blood pressure 87 mm[Hg] Abimael Ta MD, MD Work Phone: [facility] 04-07-2022 10:22-0400 Heart rate 70 /min Abimael Ta MD, MD Work Phone: [facility] 04-07-2022 10:22-0400 Systolic blood pressure 172 mm[Hg] Abimael Ta MD, MD Work Phone: [facility] 04-07-2022 10:10-0400 Body temperature 97.59 [degF] Abimael Ta MD, MD Work Phone: [facility] 04-07-2022 10:10-0400 Body weight 75.07 kg Abimael Ta MD, MD Work Phone: [facility] 04-07-2022 10:10-0400 Respiratory rate 15 /min Abimael Ta MD, MD Work Phone: [facility] 04-07-2022 10:10-0400 SaO2% (BldA) [Mass fraction] 97 % Abimael Ta MD, MD Work Phone: [facility] 04-02-2022 14:02-0400 Body weight 75.61 kg Heather Cason MD Work Phone: [facility] 04-02-2022 14:02-0400 Diastolic blood pressure 84 mm[Hg] Heather Cason MD Work Phone: [facility] 04-02-2022 14:02-0400 Heart rate 68 /min Hetaher Cason MD Work Phone: [facility] 04-02-2022 14:02-0400 Respiratory rate 16 /min Heather Cason MD Work Phone: [facility] 04-02-2022 14:02-0400 Systolic blood pressure 136 mm[Hg] Heather Cason MD Work Phone: [facility] 03-24-2022 10:17-0400 Diastolic blood pressure 88 mm[Hg] Abimael Ta MD, MD Work Phone: [facility] 03-24-2022 10:17-0400 Heart rate 76 /min Abimael Ta MD, MD Work Phone: [facility] 03-24-2022 10:17-0400 Systolic blood pressure 170 mm[Hg] Abimael Ta MD, MD Work Phone: [facility] 03-24-2022 10:09-0400 Body temperature 97.39 [degF] Abimael Ta MD, MD Work Phone: [facility] 03-24-2022 10:09-0400 Body weight 75.75 kg Abimael Ta MD, MD Work Phone: [facility] 03-24-2022 10:09-0400 Respiratory rate 15 /min Abimael Ta MD, MD Work Phone: [facility] 03-24-2022 10:09-0400 SaO2% (BldA) [Mass fraction] 99 % Abimael Ta MD, MD Work Phone: [facility] 03-17-2022 10:07-0400 Body temperature 97.81 [degF] Abimael Ta MD, MD Work Phone: [facility] 03-17-2022 10:07-0400 Body weight 74.12 kg Abimael Ta MD, MD Work Phone: [facility] 03-17-2022 10:07-0400 Diastolic blood pressure 83 mm[Hg] Abimael Ta MD, MD Work Phone: [facility] 03-17-2022 10:07-0400 Heart rate 68 /min Abimael Ta MD, MD Work Phone: [facility] 03-17-2022 10:07-0400 Respiratory rate 16 /min Abimael Ta MD, MD Work Phone: [facility] 03-17-2022 10:07-0400 SaO2% (BldA) [Mass fraction] 95 % Abimael Ta MD, MD Work Phone: [facility] 03-17-2022 10:07-0400 Systolic blood pressure 139 mm[Hg] Abimael Ta MD, MD Work Phone: [facility] 03-03-2022 10:25-0400 Body temperature 97.5 [degF] Abimael Ta MD, MD Work Phone: [facility] 03-03-2022 10:25-0400 Body weight 73.85 kg Abimael Ta MD, MD Work Phone: [facility] 03-03-2022 10:25-0400 Diastolic blood pressure 88 mm[Hg] Abimael Ta MD, MD Work Phone: [facility] 03-03-2022 10:25-0400 Heart rate 69 /min Abimael Ta MD, MD Work Phone: [facility] 03-03-2022 10:25-0400 Respiratory rate 20 /min Abimael Ta MD, MD Work Phone: [facility] 03-03-2022 10:25-0400 SaO2% (BldA) [Mass fraction] 96 % Abimael Ta MD, MD Work Phone: [facility] 03-03-2022 10:25-0400 Systolic blood pressure 168 mm[Hg] Abimael Ta MD, MD Work Phone: [facility] 12-31-2021 13:50-0400 Diastolic blood pressure 87 mm[Hg] Abimael Ta MD, MD Work Phone: [facility] 12-31-2021 13:50-0400 Heart rate 70 /min Abimael Ta MD, MD Work Phone: [facility] 12-31-2021 13:50-0400 Systolic blood pressure 159 mm[Hg] Abimael Ta MD, MD Work Phone: [facility] 12-31-2021 13:44-0400 Body temperature 97.81 [degF] Abimael Ta MD, MD Work Phone: [facility] 12-31-2021 13:44-0400 Body weight 76.89 kg Abimael Ta MD, MD Work Phone: [facility] 12-31-2021 13:44-0400 Respiratory rate 16 /min Abimael Ta MD, MD Work Phone: [facility] 12-31-2021 13:44-0400 SaO2% (BldA) [Mass fraction] 95 % Abimael Ta MD, MD Work Phone: [facility] 12-25-2021 09:27-0400 Body height 174 cm Vanessa Dodson DO Work Phone: [facility] 12-25-2021 09:27-0400 Body weight 73.94 kg Vanessa Dodson DO Work Phone: [facility] 12-05-2021 10:58-0400 Body height 174 cm Delvis Isidro MD Work Phone: [facility] 12-05-2021 10:58-0400 Body weight 77.56 kg Delvis Isidro MD Work Phone: [facility] 12-05-2021 10:58-0400 Diastolic blood pressure 72 mm[Hg] Delvis Isidro MD Work Phone: [facility] 12-05-2021 10:58-0400 Heart rate 66 /min Delvis Isidro MD Work Phone: [facility] 12-05-2021 10:58-0400 Respiratory rate 18 /min Delvis Isidro MD Work Phone: [facility] 12-05-2021 10:58-0400 Systolic blood pressure 128 mm[Hg] Delvis Isidro MD Work Phone: [facility] 11-11-2021 13:32-0400 Body height 174 cm Heri Humphries PA-C Work Phone: [facility] 11-11-2021 13:32-0400 Body temperature 97.7 [degF] Heri Humphries PA-C Work Phone: [facility] 11-11-2021 13:32-0400 Body weight 77.11 kg Heri Humphries PA-C Work Phone: [facility] 11-11-2021 13:32-0400 Diastolic blood pressure 80 mm[Hg] Heri Humphries PA-C Work Phone: [facility] 11-11-2021 13:32-0400 Heart rate 72 /min Heri Humphries PA-C Work Phone: [facility] 11-11-2021 13:32-0400 Respiratory rate 16 /min Heri Humphries PA-C Work Phone: [facility] 11-11-2021 13:32-0400 SaO2% (BldA) [Mass fraction] 95 % Heri Humphries PA-C Work Phone: [facility] 11-11-2021 13:32-0400 Systolic blood pressure 150 mm[Hg] Heri Humphries PA-C Work Phone: [facility] 07-20-2016 15:12-0500 BMI (Body Mass Index) 23.87 kg/m2 [facility] Work Phone: 07-20-2016 15:12-0500 Height 172.72 cm [facility] Work Phone: 07-20-2016 15:12-0500 Weight 71.22 kg [facility] Work Phone: Encounters Encounter Date Encounter Type Care Provider Facility Start: 08-17-2023 End: 08-17-2023 ambulatory HEATHER CASON Facility:[facility] Start: 07-22-2023 Telephone encounter Heri woodard PA-C Work Phone: Urology Procedures Date Procedure Procedure Detail Performing Clinician Start: 03-29-2023 Lipid 1996 panel - S donnell or Plasma Heri Humphries PA-C Work Phone: Start: 02-09-2023 Urnls dip stick/tabl et rgnt auto w/o microscopy Heri Humphries PA-C Work Phone: Start: 04-02-2022 Adult depression scr eening assessment Heather Cason MD Work Phone: Start: 02-23-2022 Unlisted magnetic resonance procedure Abimael Ta MD Work Phone: Start: 12-25-2021 Urnls dip stick/tabl et rgnt auto w/o microscopy Vanessa Dodson DO Work Phone: Start: 12-18-2021 Ct abdomen & pelvis w/contrast material Delvis Isidro MD Work Phone: Start: 12-05-2021 Us pelvic nonobstetr ic image dcmtn limited/f/u Delvis Isidro MD Work Phone: Start: 11-11-2021 Urnls dip stick/tabl et rgnt auto w/o microscopy Heri Humphries PA-C Work Phone: Start: 02-01-2021 Adult depression scr eening assessment Delvis Isidro MD Work Phone: Start: 05-29-2008 Colonoscopy Delvis rivera MD Work Phone: Plan of Treatment Date Care Activity Detail Author Start: 03-29-2028 Lipid 1996 panel - S donnell or Plasma Lipid Screening [facility] Start: 03-29-2028 LIPID SCREEN LIPID SCREEN [facility] Start: 03-09-2027 LIPID SCREEN LIPID SCREEN [facility] Start: 03-29-2026 DIABETES SCREEN DIABETES SCREEN [facility] Start: 03-29-2026 Diabetes Screening Diabetes Screenin g [facility] Start: 02-27-2025 LIPID SCREEN LIPID SCREEN [facility] Start: 12-18-2024 DIABETES SCREEN DIABETES SCREEN [facility] Start: 04-06-2024 ANNUAL PCP TEAM BOBBIN DUMPER JESI DISEASE VISIT ANNUAL PCP TEAM CHRONIC DISEASE VISIT [facility] Start: 04-06-2024 SHINGRIX VACCINE (1 of 2) SHINGRIX V ACCINE (1 of 2) [facility] Immunizations Immunization Date Immunization Notes Care Provider Fa cility 06-11-2022 influenza virus vacc ine, unspecified formulation Heri Humphries PA-C Work Phone: [facility] 08-05-2021 pneumococcal polysaccharide vaccine, 23 valent Delvis Isidro MD Work Phone: [facility] 06-04-2021 influenza, high-dose , quadrivalent vaccine (FLUZONE HIGH DOSE QUADRIVALENT) Delvis Isidro MD Work Phone: [facility] 12-11-2020 COVID-19 vaccine, ag e 12+ yr (PFIZER-BIONTECH - PURPLE TOP) Delvis Isidro MD Work Phone: [facility] 11-02-2020 COVID-19 vaccine, ag e 12+ yr (PFIZER-BIONTECH - PURPLE TOP) Delvis Isidro MD Work Phone: [facility] 06-06-2020 influenza, high-dose , quadrivalent vaccine (FLUZONE HIGH DOSE QUADRIVALENT) Delvis Isidro MD Work Phone: [facility] 06-26-2019 influenza, seasonal, injectable Delvis Isidro MD Work Phone: [facility] 05-20-2017 influenza, high dose seasonal, preservative-free Delvis Isidro MD Work Phone: [facility] 07-24-2016 pneumococcal conjuga te vaccine, 13 valent Delvis Isidro MD Work Phone: [facility] 06-25-2016 influenza, high dose seasonal, preservative-free Delvis Isidro MD Work Phone: [facility] 05-30-2015 influenza, high dose seasonal, preservative-free Delvis Isidro MD Work Phone: [facility] Payers Date Payer Category Payer Medicaid MEDICAID [facility] MEDICAID [id number] 2015-Present [phone] [address] [place] [address] Medicaid [id number] 2015 Medicaid MEDICAID [facility] MEDICAID [id number] 2015-Present [phone] [address] [place] [address] Medicaid [id number] 2015 Medicaid [id number] 2005 Medicare MEDICARE MEDICAR E A AND B [id number] 2005-Present [phone] [address] [address] [place] [address] Medicare [id number] 2005 Medicare MEDICARE MEDICAR E A AND B [id number] 2005-Present [phone] [address] [address] [place] [address] Medicare [id number] 2005 Medicare [id number] Social History Date Type Detail Facility Start: 09-06-2019 End: 10-06-2022 Tobacco smoking status NHIS Occasional tobacco smoker [facility] End: 04-24-2015 History of tobacco use Cigarette Smoker [facility] Start: 09-06-2019 End: 02-09-2023 Cigarettes smoked current (pack per day) - Reported 0.25 [facility] Work Phone: Start: 09-06-2019 End: 10-06-2022 Tobacco use and exposure Smokeless tobacco non-user [facility] Start: 12-05-2021 End: 04-06-2023 Alcohol intake Current non-drinker of alcohol (finding) [facility] Start: 02-29-2012 History SDOH Alcohol Comment last drank in 2003- was hospitalized with pancreatitis [facility] Start: 1950 Sex Assigned At Not on file [facility] Start: 11-01-2021 End: 05-12-2022 Exposure to SARS-CoV-2 (event) Not sure [facility] Start: 10-06-2022 Tobacco Comment Smoking couple per d ay [facility] Start: 02-09-2023 End: 04-06-2023 Tobacco use panel [facility] Work Phone: Adult Depression Screening Assessment 0 [facility] Work Phone: Clinical Notes 09-26-2015 to 08-17-2023 Telephone Encounter - Nicole Mohamud - 07/22/2023 10:23 AM ESTTelephone Encounter - Puja King LPN - 07/22/2023 9:53 AM ESTTelephone Encounter - Puja King LPN - 07/22/2023 9:52 AM EST Note Date & Type Note Facility 08-17-2023 Note HNO ID: [id number] Author: Heri Humphries PA-C Service: ? Author Type: Physician Negative Cleaner Type: Progress Notes Filed: 08/17/2023 3:05 PM Note Text: [facility] [place] [facility] : Prostate Cancer on ADT (Lupron) HPI: This is a 72 year old male with a history of prostate cancer and is currently on ADT (Eligard), depending on his PSA we will determine if he needs to Have the Injection today: PSA today - 0.02 will get Injection to keep PSA down and based on this finding we will give / defer the Lupron Injection today and repeat his PSA in 4 months. We discuss progression of his prostate cancer and the need to reinstate the ADT Jada), patient understands and agrees. Patient says LAB RESULTS: PSA (ng/mL) Date Value 07/21/2023 0.02 08/20/2022 0.16 05/12/2022 0.73 10/03/2021 41.52 02/04/2021 31.64 04/18/2015 3.10 03/04/2015 3.05 Results for orders placed or performed in visit on 08/17/23 UA DIP, URINE (POC) Result Value Ref Range GLUCOSE UA (POCT) Negative Negative mg/dL BILIRUBIN UA (POCT) Negative Negative KETONE UA (POCT) Negative Negative mg/dL SPECIFIC GRAVITY UA (POCT) 1.010 1.005 - 1.030 HEMOGLOBIN/BLOOD UA (POCT) Trace-intact (A) Negative PH UA (POCT) 5.5 4.5 - 8.0 PROTEIN UA (POCT) Negative Negative mg/dL UROBILINOGEN UA (POCT) 0.2 Normal E.U./dL NITRITE UA (POCT) Negative Negative LEUKOCYTES UA (POCT) Negative Negative COLOR UA (POCT) Light yellow CLARITY UA (POCT) Slightly Cloudy Physical Exam: General appearance: cooperative, pleasant, no acute distress, alert and oriented, well hydrated, well nourished male. IMPRESSION / PLAN: > Malignant neoplasm of prostate on ADT ( Lupron 4 month) based on PSA value > PSA today 0.0 > Repeat PSA in 4 months, PSA order in [facility] > 4 month Follow-up with PSA and possible Lupron Injection DANIEL Castro [place], [facility] 08-17-2023 Note HNO ID: [id number] Author: Puja King LPN Service: ? Author Type: LICENSED NURSE Type: Progress Notes Filed: 08/17/2023 3:05 PM Note Text: Verified name and date of . CC Post Void Residual HPI: Michael Gutierrez is a 72 year old male. The patient is here now for an appointment with DANIEL Castro MT, PAZION. Procedure: Explained procedure to patient and verbalizes understanding. Performed a PVR. Patient urinated and instructed to empty bladder as much as possible just prior to having PVR done using bladder ultrasound scanner. Results of scan: 0 mL The patient tolerated the procedure well. Plan: Appointment with [facility] 07-22-2023 Miscellaneous Notes Patient returned offices call. Message below relayed verbatim. Patient verbalized understanding. He reports upcoming appointment scheduled with provider. Nicole Mohamud MA Called patient. No answer- left message to call clinic for results. Pjua King LPN ----- Message from Heri Humphries PA-C sent at 07/21/2023 5:44 PM EST ----- No infection in the urine DANIEL Castro, ANGELLA LASSITER documented in this encounter [facility] 07-20-2023 Miscellaneous Notes Pt notified. Elza Belcher Ma PSA ordered Heather Cason MD Pt follows with Urology. Do you want to order PSA? Lats PSA done 08/20/2022 at 0.16. Elza Belcher Ma Pt was in for lab work and requested to contact pcp to see if he could have a PSA order put in. Please review and advise pt. Thanks! Karen PSS documented in this encounter [facility] 07-19-2023 Miscellaneous Notes Patient called. Verified name and date of . Patient informed- verbalizes understanding. States he has not had a full work up previously. Will call to check for appointment availability at intervals. Will submit urine tomorrow as he is not able today. Puja King LPN Called patient- no answer. Message left to call clinic. (No appointments available tomorrow- did add patient to jump list for appointment). Puja King LPN Signed order, but he has gross hematuria we need to discuss and get started on full hematuria work up Unless he had one in last 5 yrs Cysto, CT and Urine Cytology and Culture DANIEL Castro, SRAVANI, ANGELLA Patient called. Verified name and date of . Patient reports blood in urine once daily for past two days. No other symptoms. No appointments available tomorrow and patient does not want to travel outside of [place]. Aware that urgent care, or ED, is open if pain or other symptoms present. Pended urine culture. Please review and advise. Puja King LPN documented in this encounter [facility] 04-06-2023 Note HNO ID: [id number] Author: Heather Cason MD Service: ? Author Type: Physician Type: Progress Notes Filed: 04/06/2023 11:21 AM Note Text: Chief Complaint Patient presents with: F/U 6 Month HPI Michael Gutierrez is a 72 year old male who presents here today for 6 month follow up. Here today for a 6 month follow up and lab review. Denies doing too much this summer. Smoking a few cigarettes a day, trying to quit. No bowel, Gi, or urinary issues. Follows with Heri Humphries in Urology for Prostate Cancer. Receives Eligard injection every 6 months, next one is in August with routine PSA. Pt states this is his last one. Doesn't believe he will do anymore, gets hot flashes. HTN: Taking Norvasc 5 mg 1 pill BID. Denies checking BP at home, no chest pains, dizziness, or SOB. Thought about reducing medication to once a day, no issues with mediation but was told this some where previously. Glucose - Elevated, currently on no medication. Tries to stay active do some exercises at home. Not able to walk much. Pain: Chronic back pain. Still has back pain, with some pain in his feet. Does have a corn he's treating which causes some foot pain. Wondering if Ibuprofen would be an option. Currently taking Celebrex 200 mg daily and Gabapentin 300 mg, 1 pill BID. Thinking about going off the Celebrex asking if this could be an option. Thinks this what causes the bruising on his hands. Skin: Has previously seen Dr. Tim, Plastic Surgeon to have basal cell removed on his toes. Doing well at this time. Has a corn that is bothersome on his R foot, between third and fourth toe. Has previously seen Dr. Pineda, but not seen recently. HM - Plans on getting new vaccine when it comes out. Discussed Shingrix vaccine and able to receive at the Pharmacy, pt declines wanting this. Past medical history, appointments, medications, allergies reviewed. Previous Medical History PAST MEDICAL HISTORY Diagnosis Date Diarrhea HTN (hypertension) OA (osteoarthritis of spine) Prostate cancer (HCC) Previous Surgical History PAST SURGICAL HISTORY Procedure Laterality Date COLONOSCOPY W/BIOPSY SINGLE/MULTIPLE 05/29/08 PAST SURGICAL HISTORY OF circumcision PAST SURGICAL HISTORY OF nose cauturization PAST SURGICAL HISTORY OF 09/2015 Skin biopsy off forehead, basal cell PAST SURGICAL HISTORY OF Left 07/2019 Skin graft - 07/[address] Tim (left side of neck) Family History FAMILY HISTORY Problem Relation Age of Onset No Known Problems Mother COPD Father Hypertension Sister Hypertension Sister Hypertension Sister Diabetes Maternal Grandmother Cancer Maternal Grandfather Skin No Known Problems Paternal Grandmother No Known Problems Paternal Grandfather No Known Problems Brother No Known Problems Brother Patient Allergies ALLERGIES Allergen Reactions Cortisone Other: See Comments Chest pain Current Medications Current Outpatient Medications on File Prior to Visit Medication Sig benzonatate (TESSALON PERLES) 100 mg capsule Take 2 capsules by mouth three times daily as needed. (Patient not taking: Reported on 02/09/2023) albuterol HFA (PROAIR HFA) 90 mcg/actuation inhaler Inhale 2 Puffs as instructed every 6 hours as needed. (Patient not taking: Reported on 02/09/2023) celecoxib (CELEBREX) 200 mg capsule Take 1 capsule by mouth once daily. gabapentin (NEURONTIN) 300 mg capsule Take 1 capsule by mouth twice daily for 180 days. amLODIPine (NORVASC) 5 mg tablet Take 1 tablet by mouth twice daily. Current Facility-Administered Medications on File Prior to Visit Medication leuprolide 45 mg injection (ELIGARD) Social History Social History Tobacco Use Smoking status: Some Days Packs/day: 0.25 Years: 45.00 Additional pack years: 0.00 Total pack years: 11.25 Types: Cigarettes Last attempt to quit: 04/24/2015 Years since quittin.9 Smokeless tobacco: Never Tobacco comments: Smoking couple per day Vaping Use Vaping Use: Never used Substance Use Topics Alcohol use: No Comment: last drank in 2003- was hospitalized with pancreatitis Drug use: No EXAM: BP 126/82 (BP Site: Left Arm, BP Position: Sitting, BP Cuff Size: Regular Adult) Pulse 76 Resp 16 Wt 75.8 kg (167 lb) BMI 25.39 kg/m? General Appearance: Well appearing, alert, in no acute distress, well-hydrated, well nourished.. Lungs: Lungs clear to auscultation. No wheezing, rhonchi, rales.. Heart: RRR without murmur, gallop, or rubs. No ectopy. Foot: Gordo located between 3rd and 4th toe on R foot. Health Maintenance List DTAP,TDAP,TD(1 - Tdap) Never done SHINGRIX VACCINE(1 of 2) Never done BP CONTROLLED (<130/80) due on 12/31/2019 COVID-19 VACCINE(5 - Pfizer series) due on 10/24/2022 COLORECTAL CANCER SCREENING due on 10/06/2023 INFLUENZA(1) due on 04/16/2023 ANNUAL PCP TEAM CHRONIC DISEASE VISIT due on 10/06/2023 DIABETES SCREEN due on 12/18/2024 LIPID SCREEN (more content not included)... [facility] 04-06-2023 Instructions Elin Gordon Ma - 04/06/2023 11:10 AM EDT Do not use Ibuprofen with Celebrex. Okay to use Tylenol with Celebrex if needed. Check back in 6 months, labs once a year. documented in this encounter [facility] 04-06-2023 History of Presen t illness Narrative Chief Complaint Patient presents with: F/U 6 Month HPI Michael Gutierrez is a 72 year old male who presents here today for 6 month follow up. Here today for a 6 month follow up and lab review. Denies doing too much this summer. Smoking a few cigarettes a day, trying to quit. No bowel, Gi, or urinary issues. Follows with Heri Humphries in Urology for Prostate Cancer. Receives Eligard injection every 6 months, next one is in August with routine PSA. Pt states this is his last one. Doesn't believe he will do anymore, gets hot flashes. HTN: Taking Norvasc 5 mg 1 pill BID. Denies checking BP at home, no chest pains, dizziness, or SOB. Thought about reducing medication to once a day, no issues with mediation but was told this some where previously. Glucose - Elevated, currently on no medication. Tries to stay active do some exercises at home. Not able to walk much. Pain: Chronic back pain. Still has back pain, with some pain in his feet. Does have a corn he's treating which causes some foot pain. Wondering if Ibuprofen would be an option. Currently taking Celebrex 200 mg daily and Gabapentin 300 mg, 1 pill BID. Thinking about going off the Celebrex asking if this could be an option. Thinks this what causes the bruising on his hands. Skin: Has previously seen Dr. Tim, Plastic Surgeon to have basal cell removed on his toes. Doing well at this time. Has a corn that is bothersome on his R foot, between third and fourth toe. Has previously seen Dr. Pineda, but not seen recently. HM - Plans on getting new vaccine when it comes out. Discussed Shingrix vaccine and able to receive at the Pharmacy, pt declines wanting this. Past medical history, appointments, medications, allergies reviewed. Previous Medical History PAST MEDICAL HISTORY Diagnosis Date Diarrhea HTN (hypertension) OA (osteoarthritis of spine) Prostate cancer (HCC) Previous Surgical History PAST SURGICAL HISTORY Procedure Laterality Date COLONOSCOPY W/BIOPSY SINGLE/MULTIPLE 05/29/08 PAST SURGICAL HISTORY OF circumcision PAST SURGICAL HISTORY OF nose cauturization PAST SURGICAL HISTORY OF 09/2015 Skin biopsy off forehead, basal cell PAST SURGICAL HISTORY OF Left 07/2019 Skin graft - 07/[address] Tim (left side of neck) Family History FAMILY HISTORY Problem Relation Age of Onset No Known Problems Mother COPD Father Hypertension Sister Hypertension Sister Hypertension Sister Diabetes Maternal Grandmother Cancer Maternal Grandfather Skin No Known Problems Paternal Grandmother No Known Problems Paternal Grandfather No Known Problems Brother No Known Problems Brother Patient Allergies ALLERGIES Allergen Reactions Cortisone Other: See Comments Chest pain Current Medications Current Outpatient Medications on File Prior to Visit Medication Sig benzonatate (TESSALON PERLES) 100 mg capsule Take 2 capsules by mouth three times daily as needed. (Patient not taking: Reported on 02/09/2023) albuterol HFA (PROAIR HFA) 90 mcg/actuation inhaler Inhale 2 Puffs as instructed every 6 hours as needed. (Patient not taking: Reported on 02/09/2023) celecoxib (CELEBREX) 200 mg capsule Take 1 capsule by mouth once daily. gabapentin (NEURONTIN) 300 mg capsule Take 1 capsule by mouth twice daily for 180 days. amLODIPine (NORVASC) 5 mg tablet Take 1 tablet by mouth twice daily. Current Facility-Administered Medications on File Prior to Visit Medication leuprolide 45 mg injection (ELIGARD) Social History Social History Tobacco Use Smoking status: Some Days Packs/day: 0.25 Years: 45.00 Additional pack years: 0.00 Total pack years: 11.25 Types: Cigarettes Last attempt to quit: 04/24/2015 Years since quittin.9 Smokeless tobacco: Never Tobacco comments: Smoking couple per day Vaping Use Vaping Use: Never used Substance Use Topics Alcohol use: No Comment: last drank in 2003- was hospitalized with pancreatitis Drug use: No EXAM: BP 126/82 (BP Site: Left Arm, BP Position: Sitting, BP Cuff Size: Regular Adult) Pulse 76 Resp 16 Wt 75.8 kg (167 lb) BMI 25.39 kg/m General Appearance: Well appearing, alert, in no acute distress, well-hydrated, well nourished.. Lungs: Lungs clear to auscultation. No wheezing, rhonchi, rales.. Heart: RRR without murmur, gallop, or rubs. No ectopy. Foot: Gordo located between 3rd and 4th toe on R foot. Health Maintenance List DTAP,TDAP,TD(1 - Tdap) Never done SHINGRIX VACCINE(1 of 2) Never done BP CONTROLLED (<130/80) due on 12/31/2019 COVID-19 VACCINE(5 - Pfizer series) due on 10/24/2022 COLORECTAL CANCER SCREENING due on 10/06/2023 INFLUENZA(1) due on 04/16/2023 ANNUAL PCP TEAM CHRONIC DISEASE VISIT due on 10/06/2023 DIABETES SCREEN due on 12/18/2024 LIPID SCREEN due on 03/09/2027 ABDOMINAL AORTIC ANEURYSM SCREENING Completed ADVANCE DIRECTIVE DISCUSSION Completed DEPRESSION ASSESSMENT Completed HEPATITIS C SCREENING Completed PNEUMOCOCCAL: 65+ Completed HPV VACCINE Aged Out Data reviewed Appointment on 03/29/2023 Component Date Value Protein, Total 03/29/2023 6.7 Albumin 03/29/2023 4.1 Calcium, Total 03/29/2023 9.1 Bilirubin, Total 03/29/2023 0.2 Alkaline Phosphatase 03/29/2023 107 AST 03/29/2023 21 ALT 03/29/2023 16 Glucose 03/29/2023 111 (H) BUN 03/29/2023 16 Creatinine 03/29/2023 0.80 Sodium 03/29/2023 139 Potassium 03/29/2023 4.0 Chloride 03/29/2023 106 (H) CO2 03/29/2023 22 Anion Gap 03/29/2023 11 Estimated Glomerular Jaylan* 03/29/2023 93 Cholesterol, Total 03/29/2023 181 Triglyceride 03/29/2023 130 HDL Cholesterol 03/29/2023 62 Non HDL Cholesterol 03/29/2023 119 Fasting Time 03/29/2023 12.5 VLDL Cholesterol 03/29/2023 26 TC:HDL Ratio 03/29/2023 2.92 LDL Cholesterol 03/29/2023 93 LDL:HDL Ratio 03/29/2023 1.50 WBC 03/29/2023 7.22 RBC 03/29/2023 4.20 Hemoglobin 03/29/2023 13.2 Hematocrit 03/29/2023 40.4 MCV 03/29/2023 96.2 MCH 03/29/2023 31.4 MCHC 03/29/2023 32.7 RDW-CV 03/29/2023 14.3 Platelet Count 03/29/2023 273 MPV 03/29/2023 9.8 Neutrophils % 03/29/2023 75.5 Abs Neut 03/29/2023 5.46 Lymphocytes % 03/29/2023 13.9 Abs Lymph 03/29/2023 1.00 Monocytes % 03/29/2023 7.1 Abs [place] 03/29/2023 0.51 Eosinophils % 03/29/2023 2.4 Abs Eosin 03/29/2023 0.17 Basophils % 03/29/2023 0.8 Abs Baso 03/29/2023 0.06 Immature Granulocytes % 03/29/2023 0.3 Abs Immature Gran 03/29/2023 <0.03 NRBC 03/29/2023 0.0 Absolute nRBC 03/29/2023 <0.01 Diff Type 03/29/2023 Auto Office Visit on 02/09/2023 Component Date Value GLUCOSE UA (POCT) 02/09/2023 Negative BILIRUBIN UA (POCT) 02/09/2023 Negative KETONE UA (POCT) 02/09/2023 Negative SPECIFIC GRAVITY UA (POC* 02/09/2023 <=1.005 (A) HEMOGLOBIN/BLOOD UA (PO* 02/09/2023 Negative PH UA (POCT) 02/09/2023 5.0 PROTEIN UA (POCT) 02/09/2023 Negative UROBILINOGEN UA (POCT) 02/09/2023 0.2 NITRITE UA (POCT) 02/09/2023 Negative LEUKOCYTES UA (POCT) 02/09/2023 Negative COLOR UA (POCT) 02/09/2023 Light yellow CLARITY UA (POCT) 02/09/2023 Clear ASSESSMENT/PLAN: 1. DDD (degenerative disc disease), lumbar - ICD9: 722.52, ICD10: M51.36 (primary diagnosis) Chronic low back pain - Okay to d/c Celebrex and use Ibuprofen in place, not together - GABAPENTIN 300 MG CAPSULE 2. Lumbar radiculopathy - ICD9: 724.4, ICD10: M54.16 Chronic low back pain - Continue current medication regimen. 3. Essential hypertension, benign - ICD9: 401.1, ICD10: I10 - Controlled - Continue current medications - Recommend home blood pressure monitoring, to bring results to next visit - Encouraged sodium restriction, DASH or Mediterranean diet - Recommend regular aerobic exercise - AMLODIPINE 5 MG TABLET 4. Elevated glucose - ICD9: 790.29, ICD10: R73.09 - Cont to monitor 5. Prostate cancer (HCC) - ICD9: 185, ICD10: C61 - Cont f/u with Urology 6. Elevated prostate specific antigen (PSA) - ICD9: 790.93, ICD10: R97.20 - Continue to f/u with Urology 6 mo f/u, labs once a year. I agree with the Chief Complaint, ROS, and Past Histories independently gathered by the clinical desktop support technician and the remaining scribed note accurately describes my personal service to the patient. Medical Decision Making: Problems: Moderate: 2+ stable chronic illnesses Data: Unique test result(s) reviewed: 3+ Risk: Moderate: Drug management Medical Decision Making Level: 4 - Moderate Heathre Cason MD The documentation for this note was completed by Elin Gordon Ma acting as scribe for Heather Cason MD. April 06, 2023 11:03 AM. Elin Gordon Ma documented in this encounter [facility] 02-11-2023 Miscellaneous Notes Patient notified of results, verbalizes understanding of instructions. Selam Nicole LPN The night sweats are probably from the Eligard injection that he gets for the prostate cancer. OK to use Imodium for the diarrhea Heather Cason MD Patient calling for Dr. Cason's advise only. Does not prefer message be sent to other provider today. Pt aware that provider is out of office today and will return tomorrow. Pt reports he sees Heri Humphries in Urology. Reports he had radiation treatments months ago for prostate cancer and ever since then he has noticed that he has night sweats every night. Does not experience these during the day. Asking if this could be a lasting side effect from the radiation treatments? Reports he did not have the night sweats during the treatment period. Has up to 5 night sweat periods per night, where his forehead and arms are sweaty. Denies fever, chest pain, SOB, weakness, body aches, abdominal pain, cough, cold sx's, nausea or vomiting. Reports has good appetite. Patient states he began with diarrhea 24 hours ago. Has had 4 episodes of loose/watery BM's in last 24 hours. Has not changed his diet, no new medications and has no other changes. Reports he has started to take Imodium AD yesterday and will continue to take it as directed. Pt plans to continue Home Care of diarrhea and will call if sx's worsen. Asking if he should try Pepto Bismal as well? Please advise patient. Thank you. documented in this encounter [facility] 02-09-2023 Note HNO ID: [id number] Author: Puja King LPN Service: ? Author Type: ? Type: Progress Notes Filed: 02/09/2023 5:56 PM Note Text: Verified name and date of . Patient given Eligard 45 MG SQ in left buttock at left upper abdominal quadrant, verified with nurse Jessica Carvalho RN. Explained and patient tolerated well. Site without redness or swelling. Bandaid applied. Patient discharged ambulatory and to follow up as directed by BIPIN Wu. Puja King LPN [facility] 02-09-2023 Note HNO ID: [id number] Author: Heri Humphries PA-C Service: ? Author Type: Physician Negative Cleaner Type: Progress Notes Filed: 02/09/2023 5:56 PM Note Text: [facility] PATIENT CLINIC NOTE Some elements copied from his previous note, which have been updated where appropriate, and all reflect current medical decision making from date of this visit. SERVICE DATE: 02/09/2023 SERVICE TIME: 10:47 AM NAME: Michael KELLYN: [id number] CHIEF COMPLAINT: Metastatic Prostate Cancer HISTORY OF PRESENT ILLNESS: Michael Gutierrez is a 72 year old male an established patient following up for Metastatic Prostate Cancer for ADT injection therapy, PSA is 0.16 The patient reports he has been going to [place] for Eligard Injection every 6 months, we will transfer his care to [place] and do 6 month PSA And ADT injections. He will be getting the Eligard injection today and next PSA is 6 months No new concerns at this time, happy he can have injection closer to home LUTS: No New LUTs Other symptoms: LABS: Hematocrit (%) Date Value 03/09/2022 42.2 02/04/2021 47.4 02/28/2020 46.1 04/03/2015 43.6 PSA (ng/mL) Date Value 08/20/2022 0.16 05/12/2022 0.73 10/03/2021 41.52 02/04/2021 31.64 04/18/2015 3.10 03/04/2015 3.05 No results found for: TESTOST PSA (ng/mL) Date Value 08/20/2022 0.16 05/12/2022 0.73 10/03/2021 41.52 02/04/2021 31.64 04/18/2015 3.10 03/04/2015 3.05 Creatinine Date Value Ref Range Status 12/18/2021 0.78 0.73 - 1.22 mg/dL Final 02/04/2021 0.76 0.73 - 1.22 mg/dL Final 02/28/2020 0.70 (L) 0.73 - 1.22 mg/dL Final 12/30/2018 0.69 (L) 0.73 - 1.22 mg/dL Final MEDICATIONS: celecoxib (CELEBREX) 200 mg capsuleTake 1 capsule by mouth once daily.Disp: 90 capsuleRfl: 3 gabapentin (NEURONTIN) 300 mg capsuleTake 1 capsule by mouth twice daily for 180 days.Disp: 180 capsuleRfl: 1 amLODIPine (NORVASC) 5 mg tabletTake 1 tablet by mouth twice daily.Disp: 180 tabletRfl: 1 benzonatate (TESSALON PERLES) 100 mg capsuleTake 2 capsules by mouth three times daily as needed.Disp: 30 capsuleRfl: 0 (Patient not taking: Reported on 02/09/2023) albuterol HFA (PROAIR HFA) 90 mcg/actuation inhalerInhale 2 Puffs as instructed every 6 hours as needed.Disp: 1 EachRfl: 0 (Patient not taking: Reported on 02/09/2023) PAST MEDICAL HISTORY: PAST MEDICAL HISTORY Diagnosis Date Diarrhea HTN (hypertension) OA (osteoarthritis of spine) Prostate cancer (HCC) PAST SURGICAL HISTORY: PAST SURGICAL HISTORY Procedure Laterality Date COLONOSCOPY W/BIOPSY SINGLE/MULTIPLE 05/29/08 PAST SURGICAL HISTORY OF circumcision PAST SURGICAL HISTORY OF nose cauturization PAST SURGICAL HISTORY OF 09/2015 Skin biopsy off forehead, basal cell PAST SURGICAL HISTORY OF Left 07/2019 Skin graft - 07/[address] Tim (left side of neck) REVIEW OF SYSTEMS: GENERAL: No fever, chills, weight loss, or fatigue. All other systems reviewed and are negative PHYSICAL EXAMINATION: Blood pressure 130/90, pulse 79, temperature 36.2 ?C (97.1 ?F), temperature source Temporal, resp. rate 18, height 172.7 cm (5' 8 ), weight 75.8 kg (167 lb), SpO2 93 %. GENERAL: WNL nutrition, no deformities, healthy appearing PROBLEM LIST REVIEW: Yes LABS: Results for orders placed or performed in visit on 02/09/23 UA DIP, URINE (POC) Result Value Ref Range GLUCOSE UA (POCT) Negative Negative mg/dL BILIRUBIN UA (POCT) Negative Negative KETONE UA (POCT) Negative Negative mg/dL SPECIFIC GRAVITY UA (POCT) <=1.005 (A) 1.005 - 1.030 HEMOGLOBIN/BLOOD UA (POCT) Negative Negative PH UA (POCT) 5.0 4.5 - 8.0 PROTEIN UA (POCT) Negative Negative mg/dL UROBILINOGEN UA (POCT) 0.2 Normal E.U./dL NITRITE UA (POCT) Negative Negative LEUKOCYTES UA (POCT) Negative Negative COLOR UA (POCT) Light yellow CLARITY UA (POCT) Clear IMPRESSION/PLAN: 72 year old male with 1. Prostate cancer (HCC) - ICD9: 185, ICD10: C61 > PSA is 0.16 > Patient will get Eligard 45 mg today > PSA in 6 months prior to appointment and injection Heri Humphries, MPAS, MT, PA-C [facility] 02-09-2023 Note HNO ID: [id number] Author: Flo Phililp MA Service: ? Author Type: Child Care Worker Type: Progress Notes Filed: 02/09/2023 5:56 PM Note Text: CC Post Void Residual HPI: Michael Gutierrez The patient is here now for an appointment with DANIEL Castro MT, OSCAR. Procedure: Explained procedure to patient and verbalizes understanding. Performed a PVR. Patient urinated and instructed to empty bladder as much as possible just prior to having PVR done using bladder ultrasound scanner. Results of scan: 0 mL The patient tolerated the procedure well. Plan: Appointment with Heri. [facility] 02-09-2023 History of Presen t illness Narrative Verified name and date of . Patient given Eligard 45 MG SQ in left buttock at left upper abdominal quadrant, verified with nurse Jessica Carvalho RN. Explained and patient tolerated well. Site without redness or swelling. Bandaid applied. Patient discharged ambulatory and to follow up as directed by BIPIN Wu. Puja King LPN Images from the original note were not included. [facility] EST[facility] PATIENT CLIN[facility] NOTE Some elements copied from his previous note, which have been updated where appropriate, and all reflect current medical decision making from date of this visit. SERVICE DATE: 02/09/2023 SERVICE TIME: 10:47 AM NAME: Michael Gutierrez CHIEF COMPLAINT: Metastatic Prostate Cancer HISTORY OF PRESENT ILLNESS: Michael Gutierrez is a 72 year old male an established patient following up for Metastatic Prostate Cancer for ADT injection therapy, PSA is 0.16 The patient reports he has been going to [place] for Eligard Injection every 6 months, we will transfer his care to [place] and do 6 month PSA And ADT injections. He will be getting the Eligard injection today and next PSA is 6 months No new concerns at this time, happy he can have injection closer to home LUTS: No New LUTs Other symptoms: LABS: Hematocrit (%) Date Value 03/09/2022 42.2 02/04/2021 47.4 02/28/2020 46.1 04/03/2015 43.6 PSA (ng/mL) Date Value 08/20/2022 0.16 05/12/2022 0.73 10/03/2021 41.52 02/04/2021 31.64 04/18/2015 3.10 03/04/2015 3.05 No results found for: TESTOST PSA (ng/mL) Date Value 08/20/2022 0.16 05/12/2022 0.73 10/03/2021 41.52 02/04/2021 31.64 04/18/2015 3.10 03/04/2015 3.05 Creatinine Date Value Ref Range Status 12/18/2021 0.78 0.73 - 1.22 mg/dL Final 02/04/2021 0.76 0.73 - 1.22 mg/dL Final 02/28/2020 0.70 (L) 0.73 - 1.22 mg/dL Final 12/30/2018 0.69 (L) 0.73 - 1.22 mg/dL Final MEDICATIONS: celecoxib (CELEBREX) 200 mg capsule^Take 1 capsule by mouth once daily.^Disp: 90 capsule^Rfl: 3 gabapentin (NEURONTIN) 300 mg capsule^Take 1 capsule by mouth twice daily for 180 days.^Disp: 180 capsule^Rfl: 1 amLODIPine (NORVASC) 5 mg tablet^Take 1 tablet by mouth twice daily.^Disp: 180 tablet^Rfl: 1 benzonatate (TESSALON PERLES) 100 mg capsule^Take 2 capsules by mouth three times daily as needed.^Disp: 30 capsule^Rfl: 0 (Patient not taking: Reported on 02/09/2023) albuterol HFA (PROAIR HFA) 90 mcg/actuation inhaler^Inhale 2 Puffs as instructed every 6 hours as needed.^Disp: 1 Each^Rfl: 0 (Patient not taking: Reported on 02/09/2023) PAST MEDICAL HISTORY: PAST MEDICAL HISTORY Diagnosis Date Diarrhea HTN (hypertension) OA (osteoarthritis of spine) Prostate cancer (HCC) PAST SURGICAL HISTORY: PAST SURGICAL HISTORY Procedure Laterality Date COLONOSCOPY W/BIOPSY SINGLE/MULTIPLE 05/29/08 PAST SURGICAL HISTORY OF circumcision PAST SURGICAL HISTORY OF nose cauturization PAST SURGICAL HISTORY OF 09/2015 Skin biopsy off forehead, basal cell PAST SURGICAL HISTORY OF Left 07/2019 Skin graft - 07/[address] Tmi (left side of neck) REVIEW OF SYSTEMS: GENERAL: No fever, chills, weight loss, or fatigue. All other systems reviewed and are negative PHYSICAL EXAMINATION: Blood pressure 130/90, pulse 79, temperature 36.2 C (97.1 F), temperature source Temporal, resp. rate 18, height 172.7 cm (5' 8 ), weight 75.8 kg (167 lb), SpO2 93 %. GENERAL: WNL nutrition, no deformities, healthy appearing PROBLEM LIST REVIEW: Yes LABS: Results for orders placed or performed in visit on 02/09/23 UA DIP, URINE (POC) Result Value Ref Range GLUCOSE UA (POCT) Negative Negative mg/dL BILIRUBIN UA (POCT) Negative Negative KETONE UA (POCT) Negative Negative mg/dL SPECIFIC GRAVITY UA (POCT) <=1.005 (A) 1.005 - 1.030 HEMOGLOBIN/BLOOD UA (POCT) Negative Negative PH UA (POCT) 5.0 4.5 - 8.0 PROTEIN UA (POCT) Negative Negative mg/dL UROBILINOGEN UA (POCT) 0.2 Normal E.U./dL NITRITE UA (POCT) Negative Negative LEUKOCYTES UA (POCT) Negative Negative COLOR UA (POCT) Light yellow CLARITY UA (POCT) Clear IMPRESSION/PLAN: 72 year old male with 1. Prostate cancer (HCC) - ICD9: 185, ICD10: C61 > PSA is 0.16 > Patient will get Eligard 45 mg today > PSA in 6 months prior to appointment and injection DANIEL Castro MT, PA-C CC Post Void Residual HPI: Michael Gutierrez The patient is here now for an appointment with DANIEL Castro MT, PA-COV. Procedure: Explained procedure to patient and verbalizes understanding. Performed a PVR. Patient urinated and instructed to empty bladder as much as possible just prior to having PVR done using bladder ultrasound scanner. Results of scan: 0 mL The patient tolerated the procedure well. Plan: Appointment with Heri. documented in this encounter [facility] 02-09-2023 Instructions Heri Humphries PA-C - 02/09/2023 10:57 AM EDT > 6 months PSA, for Eligard Injection (45 g) > Injection today and in Jul 2023 > 6 month Follow-up with PSA and ADT Injection ( Eligard) documented in this encounter [facility] 11-26-2022 Miscellaneous Notes Called and spoke with Vern from [facility]. Vern states that the prescription they have on file is for patient to take medication twice daily. Vern states to have patient follow what he is supposed to be taking and then when he needs a refill they will refill medication correctly. Patient called back and notified of this. Patient voiced understanding. Marli Gutierrez RN Patient calls and states that he refilled amlodipine on 11/14/2022. Patient is confused because bottle states take one tablet once daily. Patient knows that he should be taking medication twice daily. Prescription was sent to [facility] on 10/06/2022 with directions for patient to take medication 1 tablet twice daily. Patient states that on bottle it gives the date 11/14/2022. Tried to call pharmacy and clarify what order they have for medication. Pharmacy not open till 9. Will call back then. Marli Gutierrez RN documented in this encounter [facility] 11-23-2022 Note HNO ID: [id number] Author: Aby Tamez PA-C Service: ? Author Type: Physician Negative Cleaner Type: Progress Notes Filed: 11/23/2022 8:36 AM Note Text: This note was created using [employer]. Subjective Michael Gutierrez is a 72 year old male. HPI Patient presents with cough and nasal congestion over the past 2 weeks. He denies any vomiting or diarrhea. He feels feverish in the morning. No temp taken. No OTC meds used. No home COVID test done. Denies chest pain or shortness of breath. He feels like he is wheezing in his throat. He is a smoker. CT done recently does show emphysema. He denies diagnosis of COPD. Review of Systems Constitutional: Positive for fever. HENT: Positive for congestion and sinus pressure. Negative for ear pain and sore throat. Respiratory: Positive for cough and wheezing. Negative for shortness of breath. Cardiovascular: Negative. Gastrointestinal: Negative. Genitourinary: Negative. Musculoskeletal: Negative. All other systems reviewed and are negative. PAST MEDICAL HISTORY Diagnosis Date Diarrhea HTN (hypertension) OA (osteoarthritis of spine) Current Outpatient Medications Medication Sig Dispense Refill celecoxib (CELEBREX) 200 mg capsule Take 1 capsule by mouth once daily. 90 capsule 3 gabapentin (NEURONTIN) 300 mg capsule Take 1 capsule by mouth twice daily for 180 days. 180 capsule 1 amLODIPine (NORVASC) 5 mg tablet Take 1 tablet by mouth twice daily. 180 tablet 1 benzonatate (TESSALON PERLES) 100 mg capsule Take 2 capsules by mouth three times daily as needed. 30 capsule 0 doxycycline (VIBRA-TABS) 100 mg tablet Take 1 tablet by mouth twice daily for 7 days. 14 tablet 0 albuterol HFA (PROAIR HFA) 90 mcg/actuation inhaler Inhale 2 Puffs as instructed every 6 hours as needed. 1 Each 0 Current Facility-Administered Medications Medication Dose Route Frequency Provider Last Rate Last Admin leuprolide 45 mg injection (ELIGARD) 45 mg SUBCUTANEOUS Q 6 MONTH Vanessa Dodson DO 45 mg at 07/23/22 1238 PAST SURGICAL HISTORY Procedure Laterality Date COLONOSCOPY W/BIOPSY SINGLE/MULTIPLE 05/29/08 PAST SURGICAL HISTORY OF circumcision PAST SURGICAL HISTORY OF nose cauturization PAST SURGICAL HISTORY OF 09/2015 Skin biopsy off forehead, basal cell PAST SURGICAL HISTORY OF Left 07/2019 Skin graft - 07/[address] Tim (left side of neck) FAMILY HISTORY Problem Relation Age of Onset No Known Problems Mother COPD Father Hypertension Sister Hypertension Sister Hypertension Sister Diabetes Maternal Grandmother Cancer Maternal Grandfather Skin No Known Problems Paternal Grandmother No Known Problems Paternal Grandfather No Known Problems Brother No Known Problems Brother Social History Tobacco Use Smoking status: Some Days Packs/day: 0.25 Years: 45.00 Pack years: 11.25 Types: Cigarettes Last attempt to quit: 04/24/2015 Years since quittin.5 Smokeless tobacco: Never Tobacco comments: Smoking couple per day Vaping Use Vaping Use: Never used Substance Use Topics Alcohol use: No Comment: last drank in 2003- was hospitalized with pancreatitis Drug use: No Objective BP 142/62 Pulse 82 Temp 36 ?C (96.8 ?F) Resp 21 Wt 77 kg (169 lb 12.8 oz) SpO2 95% BMI 25.82 kg/m? Physical Exam Vitals reviewed. HENT: Head: Normocephalic and atraumatic. Right Ear: Tympanic membrane, ear canal and external ear normal. Left Ear: Tympanic membrane, ear canal and external ear normal. Nose: Congestion present. Mouth/Throat: Mouth: Mucous membranes are moist. Pharynx: Oropharynx is clear. Cardiovascular: Rate and Rhythm: Normal rate and regular rhythm. Heart sounds: Normal heart sounds. Pulmonary: Effort: Pulmonary effort is normal. No respiratory distress. Breath sounds: Wheezing and rhonchi present. Skin: General: Skin is warm and dry. Assessment and Plan ASSESSMENT/PLAN: 1. Sinobronchitis - ICD9: 473.9, 490, ICD10: J32.9, J40 - chest xray shows no pneumonia. - Will begin treatment with Doxycycline for sinus infection, albuterol and tessalon for symptoms. - Supportive care with plenty of fluids, rest, and analgesia prn. - Follow up in 3-5 days if symptoms persist or worsen. - XR CHEST 2V FRONTAL/LAT Aby Tamez PA-C [facility] 11-23-2022 Note HNO ID: [id number] Author: RT Mi(R) Service: Radiology Author Type: Technologist Type: Progress Notes Filed: 11/23/2022 8:13 AM Note Text: Radiology Service Progress Note PATIENT NAME: Michael Gutierrez DATE OF SERVICE: November 23, 2022 TIME: 8:06 AM PATIENT IDENTITY VERIFICATION COMPLETED USING TWO (2) IDENTIFIERS: Name and Date of confirmed by patient verbally. FALL SCREENING: Has the patient had 2 falls in the last year or 1 fall with injury or currently using an Ambulatory Assistive Device (Walker, Cane, Wheelchair, Crutches, etc.)? No PATIENT GENDER DATA: Male PATIENT RELEVANT IMPLANT DATA REVIEWED: Yes RADIOLOGY DEPARTMENT: General X-ray: Exam(s) Completed: Chest X-Ray PERIPHERAL IV DATA: Not applicable SIGNED BY: RT Mi(R) November 23, 2022 8:06 AM [facility] 11-23-2022 History of Presen t illness Narrative This note was created using [employer]. Subjective Michael Gutierrez is a 72 year old male. HPI Patient presents with cough and nasal congestion over the past 2 weeks. He denies any vomiting or diarrhea. He feels feverish in the morning. No temp taken. No OTC meds used. No home COVID test done. Denies chest pain or shortness of breath. He feels like he is wheezing in his throat. He is a smoker. CT done recently does show emphysema. He denies diagnosis of COPD. Review of Systems Constitutional: Positive for fever. HENT: Positive for congestion and sinus pressure. Negative for ear pain and sore throat. Respiratory: Positive for cough and wheezing. Negative for shortness of breath. Cardiovascular: Negative. Gastrointestinal: Negative. Genitourinary: Negative. Musculoskeletal: Negative. All other systems reviewed and are negative. PAST MEDICAL HISTORY Diagnosis Date Diarrhea HTN (hypertension) OA (osteoarthritis of spine) Current Outpatient Medications Medication Sig Dispense Refill celecoxib (CELEBREX) 200 mg capsule Take 1 capsule by mouth once daily. 90 capsule 3 gabapentin (NEURONTIN) 300 mg capsule Take 1 capsule by mouth twice daily for 180 days. 180 capsule 1 amLODIPine (NORVASC) 5 mg tablet Take 1 tablet by mouth twice daily. 180 tablet 1 benzonatate (TESSALON PERLES) 100 mg capsule Take 2 capsules by mouth three times daily as needed. 30 capsule 0 doxycycline (VIBRA-TABS) 100 mg tablet Take 1 tablet by mouth twice daily for 7 days. 14 tablet 0 albuterol HFA (PROAIR HFA) 90 mcg/actuation inhaler Inhale 2 Puffs as instructed every 6 hours as needed. 1 Each 0 Current Facility-Administered Medications Medication Dose Route Frequency Provider Last Rate Last Admin leuprolide 45 mg injection (ELIGARD) 45 mg SUBCUTANEOUS Q 6 MONTH Vanessa Dodson DO 45 mg at 07/23/22 1238 PAST SURGICAL HISTORY Procedure Laterality Date COLONOSCOPY W/BIOPSY SINGLE/MULTIPLE 05/29/08 PAST SURGICAL HISTORY OF circumcision PAST SURGICAL HISTORY OF nose cauturization PAST SURGICAL HISTORY OF 09/2015 Skin biopsy off forehead, basal cell PAST SURGICAL HISTORY OF Left 07/2019 Skin graft - 07/[address] Tim (left side of neck) FAMILY HISTORY Problem Relation Age of Onset No Known Problems Mother COPD Father Hypertension Sister Hypertension Sister Hypertension Sister Diabetes Maternal Grandmother Cancer Maternal Grandfather Skin No Known Problems Paternal Grandmother No Known Problems Paternal Grandfather No Known Problems Brother No Known Problems Brother Social History Tobacco Use Smoking status: Some Days Packs/day: 0.25 Years: 45.00 Pack years: 11.25 Types: Cigarettes Last attempt to quit: 04/24/2015 Years since quittin.5 Smokeless tobacco: Never Tobacco comments: Smoking couple per day Vaping Use Vaping Use: Never used Substance Use Topics Alcohol use: No Comment: last drank in 2003- was hospitalized with pancreatitis Drug use: No Objective BP 142/62 Pulse 82 Temp 36 C (96.8 F) Resp 21 Wt 77 kg (169 lb 12.8 oz) SpO2 95% BMI 25.82 kg/m Physical Exam Vitals reviewed. HENT: Head: Normocephalic and atraumatic. Right Ear: Tympanic membrane, ear canal and external ear normal. Left Ear: Tympanic membrane, ear canal and external ear normal. Nose: Congestion present. Mouth/Throat: Mouth: Mucous membranes are moist. Pharynx: Oropharynx is clear. Cardiovascular: Rate and Rhythm: Normal rate and regular rhythm. Heart sounds: Normal heart sounds. Pulmonary: Effort: Pulmonary effort is normal. No respiratory distress. Breath sounds: Wheezing and rhonchi present. Skin: General: Skin is warm and dry. Assessment and Plan ASSESSMENT/PLAN: 1. Sinobronchitis - ICD9: 473.9, 490, ICD10: J32.9, J40 - chest xray shows no pneumonia. - Will begin treatment with Doxycycline for sinus infection, albuterol and tessalon for symptoms. - Supportive care with plenty of fluids, rest, and analgesia prn. - Follow up in 3-5 days if symptoms persist or worsen. - XR CHEST 2V FRONTAL/LAT Aby Tamez PA-C documented in this encounter [facility] 11-05-2022 Note HNO ID: [id number] Author: Abimael Ta MD, MD Service: ? Author Type: Physician Type: Progress Notes Filed: 11/05/2022 9:39 AM Note Text: AMBULATORY TELEPHONE VISIT Michael Gutierrez has consented to this telephone encounter. Persons Present: patient Chief Complaint/Reason: Follow-up after radiation treatment. HPI: Clinical stage IIIA, T1c, prostate adenocarcinoma with Alise score 7 (3+4), grade group 2, PSA 41.52 ng/mL. He was started on hormonal therapy on 12/25/21. s/p radiation treatment finished on 04/10/22. He is doing well without any specific new complaints. He continues to have mild dysuria. He denies any other problems with urination or bowel movements. Most recent PSA was 0.16 ng/mL on 08/20/22 and it decreased from 0.73 on 05/12/22. Data Reviewed: None. Assessment: Clinically stable. Plan: He is regularly followed with his urologist, Dr. Dodson for his prostate cancer and plans to see him again in January. I will see him as needed. Total Time Spent: 5 minutes Abimael Ta MD [facility] 11-05-2022 History of Presen t illness Narrative AMBULATORY TELEPHONE VISIT Michael Gutierrez has consented to this telephone encounter. Persons Present: patient Chief Complaint/Reason: Follow-up after radiation treatment. HPI: Clinical stage IIIA, T1c, prostate adenocarcinoma with Fenton score 7 (3+4), grade group 2, PSA 41.52 ng/mL. He was started on hormonal therapy on 12/25/21. s/p radiation treatment finished on 04/10/22. He is doing well without any specific new complaints. He continues to have mild dysuria. He denies any other problems with urination or bowel movements. Most recent PSA was 0.16 ng/mL on 08/20/22 and it decreased from 0.73 on 05/12/22. Data Reviewed: None. Assessment: Clinically stable. Plan: He is regularly followed with his urologist, Dr. Dodson for his prostate cancer and plans to see him again in January. I will see him as needed. Total Time Spent: 5 minutes Abimael Ta MD documented in this encounter [facility] 10-06-2022 Note HNO ID: [id number] Author: Heather Cason MD Service: ? Author Type: Physician Type: Progress Notes Filed: 10/06/2022 10:46 AM Note Text: Chief Complaint Patient presents with: F/U 6 Month HPI Michael Gutierrez is a 71 year old male who presents here today for 6 month follow up. Tobacco - Still smoking couple cigarettes per day, wants to quit. No bowel, Gi, or urinary issues. Follows with Urologist Dr. Dodson for Prostate Cancer, completed radiation 2 months ago. Is seen every 6 months for his (Eligard) shot. Wonders when burning with urination will resolve, hoping this does stop eventually. HTN: Taking Norvasc 5 mg 1 pill BID. Denies checking BP at home. No chest pains, dizziness, or SOB. Pain: Chronic back pain; stable with Celebrex 200 mg once daily and Gabapentin 300 mg 1 pill BID. Back pain hurts first thing in the morning, once he's up moving around this improves. Has been following with Dr. Tim/Plastics and had basal cell removed from the tip of his nose. Overall stable. Feels tired daily, wondering when this will go away or what can cause it. Doesn't sleep well, gets up every couple hours to go to the bathroom. HM - Declines depression. Declines Colonoscopy. Past medical history, appointments, medications, allergies reviewed. Previous Medical History PAST MEDICAL HISTORY Diagnosis Date Diarrhea HTN (hypertension) OA (osteoarthritis of spine) Previous Surgical History PAST SURGICAL HISTORY Procedure Laterality Date COLONOSCOPY W/BIOPSY SINGLE/MULTIPLE 05/29/08 PAST SURGICAL HISTORY OF circumcision PAST SURGICAL HISTORY OF nose cauturization PAST SURGICAL HISTORY OF 09/2015 Skin biopsy off forehead, basal cell PAST SURGICAL HISTORY OF Left 07/2019 Skin graft - 07/[address] Tim (left side of neck) Family History FAMILY HISTORY Problem Relation Age of Onset No Known Problems Mother COPD Father Hypertension Sister Hypertension Sister Hypertension Sister Diabetes Maternal Grandmother Cancer Maternal Grandfather Skin No Known Problems Paternal Grandmother No Known Problems Paternal Grandfather No Known Problems Brother No Known Problems Brother Patient Allergies ALLERGIES Allergen Reactions Cortisone Other: See Comments Chest pain Current Medications Current Outpatient Medications on File Prior to Visit Medication Sig fluticasone (FLONASE) 50 mcg/actuation nasal spray Use 2 Sprays in each nostril once daily. Rinse mouth after use. amLODIPine (NORVASC) 5 mg tablet Take 1 tablet by mouth twice daily. gabapentin (NEURONTIN) 300 mg capsule Take 1 capsule by mouth twice daily for 180 days. acetaminophen 325 mg cap Take 325 mg by mouth. prn celecoxib (CELEBREX) 200 mg capsule Take 1 capsule by mouth once daily. Current Facility-Administered Medications on File Prior to Visit Medication leuprolide 45 mg injection (ELIGARD) Social History Social History Tobacco Use Smoking status: Some Days Packs/day: 0.25 Years: 45.00 Pack years: 11.25 Types: Cigarettes Last attempt to quit: 04/24/2015 Years since quittin.4 Smokeless tobacco: Never Vaping Use Vaping Use: Never used Substance Use Topics Alcohol use: No Comment: last drank in 2003- was hospitalized with pancreatitis Drug use: No EXAM: BP 126/80 (BP Site: Left Arm, BP Position: Sitting, BP Cuff Size: Regular Adult) Pulse 68 Resp 16 Wt 75.3 kg (166 lb) BMI 25.24 kg/m? General Appearance: Well appearing, alert, in no acute distress, well-hydrated, well nourished.. Lungs: Lungs clear to auscultation. No wheezing, rhonchi, rales.. Heart: RRR without murmur, gallop, or rubs. No ectopy. Health Maintenance List DTAP,TDAP,TD(1 - Tdap) Never done SHINGRIX VACCINE(1 of 2) Never done COLORECTAL CANCER SCREENING due on 05/29/2018 BP CONTROLLED (<130/80) due on 12/31/2019 ADVANCE DIRECTIVE DISCUSSION due on 08/16/2022 DEPRESSION ASSESSMENT Never done ANNUAL PCP TEAM CHRONIC DISEASE VISIT due on 04/02/2023 DIABETES SCREEN due on 12/18/2024 LIPID SCREEN due on 03/09/2027 ABDOMINAL AORTIC ANEURYSM SCREENING Completed INFLUENZA Completed HEPATITIS C SCREENING Completed COVID-19 VACCINE Completed PNEUMOCOCCAL: 65+ Completed Data reviewed Appointment on 08/20/2022 Component Date Value Culture, Urine 08/20/2022 No growth (<1,000 CFU/ml) PSA 08/20/2022 0.16 ASSESSMENT/PLAN: 1. DDD (degenerative disc disease), lumbar - ICD9: 722.52, ICD10: M51.36 (primary diagnosis) Chronic low back pain - Continue current medication regimen. - CELECOXIB 200 MG CAPSULE - GABAPENTIN 300 MG CAPSULE 2. Essential hypertension, benign - ICD9: 401.1, ICD10: I10 - good control - Continue current medication(s) - Recommended regular aerobic exercise. - Recommend home blood pressure monitoring, to bring results in on next visit - Goal of BP <130/80 - AMLODIPINE 5 MG TABLET 3. Prostate cancer (HCC) - ICD9: 185, ICD10: C61 (more content not included)... [facility] 10-06-2022 History of Presen t illness Narrative Chief Complaint Patient presents with: F/U 6 Month HPI Michael Gutierrez is a 71 year old male who presents here today for 6 month follow up. Tobacco - Still smoking couple cigarettes per day, wants to quit. No bowel, Gi, or urinary issues. Follows with Urologist Dr. Dodson for Prostate Cancer, completed radiation 2 months ago. Is seen every 6 months for his (Eligard) shot. Wonders when burning with urination will resolve, hoping this does stop eventually. HTN: Taking Norvasc 5 mg 1 pill BID. Denies checking BP at home. No chest pains, dizziness, or SOB. Pain: Chronic back pain; stable with Celebrex 200 mg once daily and Gabapentin 300 mg 1 pill BID. Back pain hurts first thing in the morning, once he's up moving around this improves. Has been following with Dr. Tim/Plastics and had basal cell removed from the tip of his nose. Overall stable. Feels tired daily, wondering when this will go away or what can cause it. Doesn't sleep well, gets up every couple hours to go to the bathroom. HM - Declines depression. Declines Colonoscopy. Past medical history, appointments, medications, allergies reviewed. Previous Medical History PAST MEDICAL HISTORY Diagnosis Date Diarrhea HTN (hypertension) OA (osteoarthritis of spine) Previous Surgical History PAST SURGICAL HISTORY Procedure Laterality Date COLONOSCOPY W/BIOPSY SINGLE/MULTIPLE 05/29/08 PAST SURGICAL HISTORY OF circumcision PAST SURGICAL HISTORY OF nose cauturization PAST SURGICAL HISTORY OF 09/2015 Skin biopsy off forehead, basal cell PAST SURGICAL HISTORY OF Left 07/2019 Skin graft - 07/[address] Tim (left side of neck) Family History FAMILY HISTORY Problem Relation Age of Onset No Known Problems Mother COPD Father Hypertension Sister Hypertension Sister Hypertension Sister Diabetes Maternal Grandmother Cancer Maternal Grandfather Skin No Known Problems Paternal Grandmother No Known Problems Paternal Grandfather No Known Problems Brother No Known Problems Brother Patient Allergies ALLERGIES Allergen Reactions Cortisone Other: See Comments Chest pain Current Medications Current Outpatient Medications on File Prior to Visit Medication Sig fluticasone (FLONASE) 50 mcg/actuation nasal spray Use 2 Sprays in each nostril once daily. Rinse mouth after use. amLODIPine (NORVASC) 5 mg tablet Take 1 tablet by mouth twice daily. gabapentin (NEURONTIN) 300 mg capsule Take 1 capsule by mouth twice daily for 180 days. acetaminophen 325 mg cap Take 325 mg by mouth. prn celecoxib (CELEBREX) 200 mg capsule Take 1 capsule by mouth once daily. Current Facility-Administered Medications on File Prior to Visit Medication leuprolide 45 mg injection (ELIGARD) Social History Social History Tobacco Use Smoking status: Some Days Packs/day: 0.25 Years: 45.00 Pack years: 11.25 Types: Cigarettes Last attempt to quit: 04/24/2015 Years since quittin.4 Smokeless tobacco: Never Vaping Use Vaping Use: Never used Substance Use Topics Alcohol use: No Comment: last drank in 2003- was hospitalized with pancreatitis Drug use: No EXAM: BP 126/80 (BP Site: Left Arm, BP Position: Sitting, BP Cuff Size: Regular Adult) Pulse 68 Resp 16 Wt 75.3 kg (166 lb) BMI 25.24 kg/m General Appearance: Well appearing, alert, in no acute distress, well-hydrated, well nourished.. Lungs: Lungs clear to auscultation. No wheezing, rhonchi, rales.. Heart: RRR without murmur, gallop, or rubs. No ectopy. Health Maintenance List DTAP,TDAP,TD(1 - Tdap) Never done SHINGRIX VACCINE(1 of 2) Never done COLORECTAL CANCER SCREENING due on 05/29/2018 BP CONTROLLED (<130/80) due on 12/31/2019 ADVANCE DIRECTIVE DISCUSSION due on 08/16/2022 DEPRESSION ASSESSMENT Never done ANNUAL PCP TEAM CHRONIC DISEASE VISIT due on 04/02/2023 DIABETES SCREEN due on 12/18/2024 LIPID SCREEN due on 03/09/2027 ABDOMINAL AORTIC ANEURYSM SCREENING Completed INFLUENZA Completed HEPATITIS C SCREENING Completed COVID-19 VACCINE Completed PNEUMOCOCCAL: 65+ Completed Data reviewed Appointment on 08/20/2022 Component Date Value Culture, Urine 08/20/2022 No growth (<1,000 CFU/ml) PSA 08/20/2022 0.16 ASSESSMENT/PLAN: 1. DDD (degenerative disc disease), lumbar - ICD9: 722.52, ICD10: M51.36 (primary diagnosis) Chronic low back pain - Continue current medication regimen. - CELECOXIB 200 MG CAPSULE - GABAPENTIN 300 MG CAPSULE 2. Essential hypertension, benign - ICD9: 401.1, ICD10: I10 - good control - Continue current medication(s) - Recommended regular aerobic exercise. - Recommend home blood pressure monitoring, to bring results in on next visit - Goal of BP <130/80 - AMLODIPINE 5 MG TABLET 3. Prostate cancer (HCC) - ICD9: 185, ICD10: C61 - cont f/u with Urology/Radiation - Cont receiving shot every 6 months. 4. Elevated PSA - ICD9: 790.93, ICD10: R97.20 - As noted above. 6 mo f/u with labs. I agree with the Chief Complaint, ROS, and Past Histories independently gathered by the clinical desktop support technician and the remaining scribed note accurately describes my personal service to the patient. Medical Decision Making: Problems: Moderate: 2+ stable chronic illnesses Data: Unique test(s) ordered: 3+ Risk: Moderate: Drug management Medical Decision Making Level: 4 - Moderate Heather Cason MD The documentation for this note was completed by Elin Gordon Ma acting as scribe for Heather Cason MD. October 06, 2022 10:42 AM. Elin Gordon Ma documented in this encounter [facility] 08-27-2022 Note HNO ID: [id number] Author: Aby Tamez PA-C Service: ? Author Type: Physician Negative Cleaner Type: Progress Notes Filed: 08/27/2022 9:46 AM Note Text: This note was created using [employer]. Subjective Michael Gutierrez is a 71 year old male. HPI Patient presents with sinus congestion, runny nose, cough for 2 weeks. No home covid test done. He had a family member sick before he became ill. No chest pain or shortness of breath. No nvd. His cough is not bothering him much. Review of Systems Constitutional: Negative for fever. HENT: Positive for congestion, rhinorrhea, sinus pressure and sinus pain. Respiratory: Positive for cough. Negative for shortness of breath and wheezing. Cardiovascular: Negative. Gastrointestinal: Negative. Genitourinary: Negative. Musculoskeletal: Negative. All other systems reviewed and are negative. PAST MEDICAL HISTORY Diagnosis Date Diarrhea HTN (hypertension) OA (osteoarthritis of spine) Current Outpatient Medications Medication Sig Dispense Refill amLODIPine (NORVASC) 5 mg tablet Take 1 tablet by mouth twice daily. 180 tablet 1 gabapentin (NEURONTIN) 300 mg capsule Take 1 capsule by mouth twice daily for 180 days. 180 capsule 1 acetaminophen 325 mg cap Take 325 mg by mouth. prn celecoxib (CELEBREX) 200 mg capsule Take 1 capsule by mouth once daily. 90 capsule 3 fluticasone (FLONASE) 50 mcg/actuation nasal spray Use 2 Sprays in each nostril once daily. Rinse mouth after use. 1 Each 0 cetirizine (ZYRTEC) 10 mg tablet Take 1 tablet by mouth once daily for 7 days. 7 tablet 0 amoxicillin-clavulanic acid (AUGMENTIN) 875-125 mg per tablet Take 1 tablet by mouth twice daily for 5 days. 10 tablet 0 Current Facility-Administered Medications Medication Dose Route Frequency Provider Last Rate Last Admin leuprolide 45 mg injection (ELIGARD) 45 mg SUBCUTANEOUS Q 6 MONTH Vanessa Dodson DO 45 mg at 07/23/22 4218 PAST SURGICAL HISTORY Procedure Laterality Date COLONOSCOPY W/BIOPSY SINGLE/MULTIPLE 05/29/08 PAST SURGICAL HISTORY OF circumcision PAST SURGICAL HISTORY OF nose cauturization PAST SURGICAL HISTORY OF 09/2015 Skin biopsy off forehead, basal cell PAST SURGICAL HISTORY OF Left 07/2019 Skin graft - 07/[address] Tim (left side of neck) FAMILY HISTORY Problem Relation Age of Onset No Known Problems Mother COPD Father Hypertension Sister Hypertension Sister Hypertension Sister Diabetes Maternal Grandmother Cancer Maternal Grandfather Skin No Known Problems Paternal Grandmother No Known Problems Paternal Grandfather No Known Problems Brother No Known Problems Brother Social History Tobacco Use Smoking status: Some Days Packs/day: 0.25 Years: 45.00 Pack years: 11.25 Types: Cigarettes Last attempt to quit: 04/24/2015 Years since quittin.3 Smokeless tobacco: Never Vaping Use Vaping Use: Never used Substance Use Topics Alcohol use: No Comment: last drank in 2003- was hospitalized with pancreatitis Drug use: No Objective BP 140/84 Pulse 78 Temp 36.2 ?C (97.2 ?F) Resp 20 Wt 75.5 kg (166 lb 6.4 oz) SpO2 96% BMI 25.30 kg/m? Physical Exam Vitals reviewed. Constitutional: Appearance: Normal appearance. HENT: Head: Normocephalic and atraumatic. Right Ear: Tympanic membrane, ear canal and external ear normal. Left Ear: Tympanic membrane, ear canal and external ear normal. Nose: Congestion present. Right Sinus: Maxillary sinus tenderness present. Left Sinus: Maxillary sinus tenderness present. Cardiovascular: Rate and Rhythm: Normal rate and regular rhythm. Heart sounds: Normal heart sounds. Pulmonary: Effort: Pulmonary effort is normal. Breath sounds: Normal breath sounds. Musculoskeletal: Cervical back: Neck supple. Skin: General: Skin is warm and dry. Findings: No rash. Neurological: General: No focal deficit present. Mental Status: He is alert and oriented to person, place, and time. Assessment and Plan ASSESSMENT/PLAN: 1. Bacterial sinusitis - ICD9: 473.9, 041.9, ICD10: J32.9, B96.89 - Will begin treatment with Augmentin 875 mg PO BID for 5 days - Supportive care with plenty of fluids, rest, and analgesia prn. - Follow up in 3-5 days if symptoms persist or worsen. Aby Tamez PA-C [facility] 08-19-2022 Miscellaneous Notes Pt notified and will do urine in next couple of days. We are to call with results. Instructed to try AZO again after he does the urine. Pt states understanding. We'll check urine culture and if negative, he can take pyridium as needed. Patient called stating he is having burning with urination. Please call patient. documented in this encounter [facility] 07-30-2022 History of Presen t illness Narrative POPULATION HEALTH NAVIGATION OUTREACH Action/ FAST BUSY X2 NO MYCHART LETTER MAILED ANNUAL MEDICARE WELLNESS COLORECTAL CANCER SCREENING due on 05/29/2018 BP CONTROLLED (<130/80) due on 12/31/2019 Pt identified by name and : NO Outreach Outcome/Action Unable to reach patient: Phone number not valid / voicemail full Did you use a PCP flex slot to schedule this appointment? N/A Reason for Outreach Care Gap or Scheduling/Wellness visits Payer: Payor: MEDICARE / Plan: MEDICARE A AND B / Product Type: Medicare / Care Gap Reviewed:: Annual Wellness visit Controlling Blood Pressure Colorectal Cancer Screening Reminder: Reminder note to check Health Maintenance for items below Health Maintenance items due: DTAP,TDAP,TD(1 - Tdap) Never done SHINGRIX VACCINE(1 of 2) Never done COLORECTAL CANCER SCREENING due on 05/29/2018 BP CONTROLLED (<130/80) due on 12/31/2019 DEPRESSION ASSESSMENT Never done Navigation Signature: Margo De La Torre MA July 30, 2022 10:07 AM documented in this encounter [facility] 07-23-2022 History of Presen t illness Narrative Images from the original note were not included. Formerly [facility] [place] [facility] LOCATION: [address] [place] [address] ESTABLISHED PATIENT PATIENT INFO: Michael Gutierrez 71 year old Chief Complaint: Prostate Cancer HPI Here for prostate cancer discussion. Had prostate biopsy on 12/05/21. Bone scan and CT scan negative. PSA down to 0.[address] Ta on 04/10/2022 Here for Jada. 1-Duration: 2021 2-Location: prostate 3-Severity: N/A 4-Quality: Not applicable 5-Context: N/A 6-Timing: N/A 7-Modifying factors: No treatment prior to referral 8-Associated signs & symptoms: no additional symptoms PATHOLOGY: FINAL DIAGNOSIS A. Prostate, right base, biopsy: - Prostatic adenocarcinoma, Alise score 3+4=7, grade group 2, with intraductal features, involving 2 of 2 cores (14 mm, 95%; 11 mm, 90%). - Alise pattern 4 comprises approximately 20% of the carcinoma. B. Prostate, right mid, biopsy: - Prostatic adenocarcinoma, Fenton score 3+4=7, grade group 2, with intraductal features, involving 2 of 2 cores (7 mm, 95%; 11 mm, 80%). - Fenton pattern 4 comprises approximately 20% of the carcinoma. - Small gland cribriform morphology is identified. C. Prostate, right apex, biopsy: - Prostatic adenocarcinoma, Alise score 3+4=7, grade group 2, with intraductal features, involving 2 of 2 cores (4 mm, 95%; 9 mm, 80%). - Alise pattern 4 comprises approximately 40% of the carcinoma. - Small gland cribriform morphology is identified. D. Prostate, left base, biopsy: - Prostatic adenocarcinoma, Alise score 3+4=7, grade group 2, with intraductal features, involving 2 of 2 cores (13 mm, 90%; 13 mm, 100%). - Alise pattern 4 comprises approximately 30% of the carcinoma. E. Prostate, left mid, biopsy: - Prostatic adenocarcinoma, Fenton score 3+4=7, grade group 2, with intraductal features, involving 2 of 2 cores (13 mm, 95%; 11 mm, 95%). - Alise pattern 4 comprises approximately 30% of the carcinoma. F. Prostate, left apex, biopsy: - Prostatic adenocarcinoma, Alise score 3+4=7, grade group 2, with intraductal features, involving 2 of 2 cores (10 mm, 85%; 2 mm, 40%). - Fenton pattern 4 comprises approximately 20% of the carcinoma. - Small gland cribriform morphology is identified. 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 studies: C1 RMC/mm 12/10/2021 LAB: WBC (k/uL) Date Value 03/09/2022 7.36 RBC (m/uL) Date Value 03/09/2022 4.38 Hemoglobin (g/dL) Date Value 03/09/2022 13.7 Hematocrit (%) Date Value 03/09/2022 42.2 MCV (fL) Date Value 03/09/2022 96.3 MCH (pg) Date Value 03/09/2022 31.3 MCHC (g/dL) Date Value 03/09/2022 32.5 RDW-CV (%) Date Value 03/09/2022 13.7 Platelet Count (k/uL) Date Value 03/09/2022 265 MPV (fL) Date Value 03/09/2022 9.9 Neut% (%) Date Value 03/09/2022 72.1 Lymph% (%) Date Value 03/09/2022 18.1 [place]% (%) Date Value 03/09/2022 7.1 Eosin% (%) Date Value 02/04/2021 2.4 Baso% (%) Date Value 03/09/2022 0.7 Abs Neut (k/uL) Date Value 03/09/2022 5.31 Abs [place] (k/uL) Date Value 03/09/2022 0.52 Abs Eosin (k/uL) Date Value 03/09/2022 0.09 Abs Baso (k/uL) Date Value 03/09/2022 0.05 Creatinine Date Value Ref Range Status 12/18/2021 0.78 0.73 - 1.22 mg/dL Final 02/04/2021 0.76 0.73 - 1.22 mg/dL Final 02/28/2020 0.70 (L) 0.73 - 1.22 mg/dL Final 12/30/2018 0.69 (L) 0.73 - 1.22 mg/dL Final PSA (ng/mL) Date Value 05/12/2022 0.73 10/03/2021 41.52 02/04/2021 31.64 04/18/2015 3.10 03/04/2015 3.05 URINE POC GLUCOSE UA (POCT) Negative 12/25/2021 BILIRUBIN UA (POCT) Negative 12/25/2021 KETONE UA (POCT) Negative 12/25/2021 SPECIFIC GRAVITY UA (POCT) 1.010 12/25/2021 HEMOGLOBIN/BLOOD UA (POCT) Negative 12/25/2021 PH UA (POCT) 6.5 12/25/2021 PROTEIN UA (POCT) Negative 12/25/2021 UROBILINOGEN UA (POCT) 0.2 12/25/2021 NITRITE UA (POCT) Negative 12/25/2021 LEUKOCYTES UA (POCT) Negative 12/25/2021 COLOR UA (POCT) Yellow 12/25/2021 CLARITY UA (POCT) Clear 12/25/2021 IMAGING: CT Scan: Negative and Bone Scan Negative I have independently reviewed films and my findings are the same. ALLERGIES: ALLERGIES Allergen Reactions Cortisone Other: See Comments Chest pain MEDICATIONS: amLODIPine (NORVASC) 5 mg tablet Take 1 tablet by mouth twice daily. gabapentin (NEURONTIN) 300 mg capsule Take 1 capsule by mouth twice daily for 180 days. acetaminophen 325 mg cap Take 325 mg by mouth. prn celecoxib (CELEBREX) 200 mg capsule Take 1 capsule by mouth once daily. Does the patient take any herbal medications?: No HISTORIES PAST MEDICAL HISTORY Diagnosis Date Diarrhea HTN (hypertension) OA (osteoarthritis of spine) Smoking Status Reviewed: Yes REVIEW OF SYSTEMS GENERAL: No fever, chills, weight loss, or fatigue. HEAD & NECK: No blurred vision or Sjogren's syndrome CARDIOVASCULAR: NO CHEST PAIN, PALPITATIONS, ANKLE EDEMA RESPIRATORY: No chronic cough, wheezing, dyspnea, hemoptysis. MUSCULOSKELETAL: NO CHRONIC BACK PAIN, ARTHRITIS, CHRONIC NECK PAIN SKIN: NO VARICOSE VEINS, RASH, ABNORMAL ITCHING BLOOD/LYMPHATIC: No easy bleeding, easy bruising, transfusion Hx NEUROLOGICAL: NO HEADACHES, NUMBNESS, SEIZURES, STROKE PSYCHIATRIC: No depression or inordinate anxiety The remainder of the ROS was negative. PHYSICAL EXAMINATION Ht 172.7 cm (5' 8 ) Wt 74.4 kg (164 lb) BMI 24.94 kg/m General appearance: Well appearing, alert, in no acute distress and well-hydrated, well nourished Skin: Skin color, texture, turgor normal, no suspicious rashes or lesions Head: Normocephalic, no masses, lesions, tenderness or abnormalities Abdomen: Normal abdominal exam, Abdomen soft, non-tender. Bowel sounds normal. No masses, organomegaly Genitourinary: MALE EXAM: Exam NOT Indicated PVR: NA IMPRESSION/PLAN: Fenton 3+4=7 Grade group 2 prostate cancer PSA 41. Metastatic workup negative. Completed XRT with Dr. Ta /Jerrell Elias 6 month preparation given today. F/U with me in 6 months with PSA prior. I spent 30 minutes in the visit, with more than 50% of the total [id number] time of the visit in counseling / coordination of care. Vanessa Dodson DO MBA documented in this encounter [facility] 05-21-2022 Miscellaneous Notes Pt notified Rx has been sent to pharm & he is to continue taking 2 tabs daily, pt verbalizes understanding. Mayuir Walton LPN The following approved medication requests have been transmitted electronically. Requested Prescriptions Pending Prescriptions Disp Refills amLODIPine (NORVASC) 5 mg tablet 180 tablet 1 Sig: Take 1 tablet by mouth twice daily. Bea Plasencia APRN.GALINA Patient reports he has been taking amlodipine 5 mg TWICE a day, for the past month, per Coding Team Lead recommendation. Med list does not reflect this. Reports he has 6 pills left and needs provider to send refill to [facility]. Pended for the twice daily. Reports he is doing well on the twice a day dose, BP running 131/80 (checks it at pharmacy). documented in this encounter [facility] 05-15-2022 Miscellaneous Notes Pt called and is notified of providers message. Pt voices understanding. States he has an appointment set up in [place]. Ludy Valles RN We do not give those shots here. .mne This is something that office staff would not be able to do in office. Did discuss with Nurse here and she's not able to give these either. Elin Gordon Ma Pt calling into see if he can get a hormone shot thru Dr. Cason's office. Dr. Ta wants pt to have this done and he can not go to [place] to do this. Please see Dr. Ta's l phone encounter dated today 05/13/22. Please advise pt back. Jaylyn Lisa LPN documented in this encounter [facility] 05-13-2022 Miscellaneous Notes Pt notified of PSA results in normal range now and that he needs f/u appointment with urologist Dr Peoples and to get hormone shot in Jun. He is reluctant to get shot and go to [place]. He states he is not sure if he can get there. 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 I stressed importance of follow up with urologist. documented in this encounter [facility] 04-28-2022 Miscellaneous Notes See External documents. Routed to PCP Team due to PCP being out of the office. Scan on 04/26/2022 4:40 PM by External Provider: Consultation - Emergency Medicine Scan on 04/26/2022 9:16 AM by External Provider: CT Scan Scan on 04/26/2022 8:16 AM by External Provider: X-ray Elin Gordon Ma Pt has CT scan chest done at [facility] 04/26/22 showing incidental finding of 2.2 cm nodule to right adrenal. Recommend hormonal workup and/or Endocrinology consult. Report on PCP's desk to review. Elza Belcher Ma documented in this encounter [facility] 04-10-2022 History of Presen t illness Narrative MICHAEL GUTIERREZ [id number] : 1950 04/10/2022 [facility] Department of Radiation Oncology RADIATION ONCOLOGY - COMPLETION NOTE DATE OF SIMULATION: 02/23/22 DATES OF TREATMENT: 03/02/22 - 04/10/22 UNIT: _[facility] AREA TREATED: Pelvis/prostate DISEASE: Clinical stage IIIA, T1c, prostate adenocarcinoma with Fenton score 7 (3+4), grade group 2, PSA 41.52 ng/mL. He was started on hormonal therapy on 12/25/21. DELIVERED DOSE: 7000 cGy in 28 fractions treating to the 97.8% isodose line with 10MV and 3 vmat perales. ELAPSED TIME: 39 days. TOLERANCE/ RESPONSE: He had mild effects with increased urinary frequency and mild dysuria. REMARKS: He tolerated radiation treatment well overall. Four week follow-up with me. Staff Physician ABIMAEL TA M.D. / :14 AM Electronically Signed cc: Heather Cason [address] [place] [address] Vanessa Dodson [facility] [id number] documented in this encounter [facility] 04-07-2022 History of Presen t illness Narrative Radiation Oncology - On Treatment Review (OTR) Note PATIENT NAME: Michael Gutierrez PATIENT DIAGNOSIS: Clinical stage IIIA, T1c, prostate adenocarcinoma with Alise score 7 (3+4), grade group 2, PSA 41.52 ng/mL. He was started on hormonal therapy on 12/25/21. COURSE: definitive AREA TREATED: Pelvis/prostate/SV CURRENT DOSE: 6250 cGy in 25 fx PLANNED DOSE: 7000 cGy in 28 fx SUBJECTIVE: He continues to have increased urinary frequency and mild dysuria without significant changes from last week. EXAM: KPS: 90 General Appearance: Alert and oriented. No acute distress. IMAGING/LAB RESULTS: None Treatment chart checked: Yes Patient treatment site reviewed and verified:Yes CBCTs reviewed and current:Yes Medications started: None. ASSESSMENT/PLAN: Clinically stable. Toxicity within expected parameters. Continue radiation treatment as planned. Abimael Ta MD documented in this encounter [facility] 04-07-2022 Nurse Note Radiation Therapy - Nursing Note (OTV) PATIENT NAME: Michael Gutierrez PATIENT April 07, 2022 [facility] [place]/LOCATION: [place] NURSING NOTE TYPE: PROSTATE - MALE PELVIS Subjective Data No c/o Additional Data Do you want to see a Environmental Emergencies Planner? No Status: Patient is male Stress Scale: On a scale of 0 to 10, what number best describes how much distress you have experienced in the past week?(0 being no distress and 10 being extreme distress) 1 Social work notified: Pt denied need to see social media senior associate at this time. Nursing Assessment Fatigue: increased fatigue over baseline but not altering normal activities Appetite: good Nutritional Intake: Regular oral intake. Weight Gain/Loss: No Ambulatory weight history: Last 6 Encounter Wt Readings: Date: Wt: 04/07/2022 75.1 kg (165 lb 8 oz) 04/02/2022 75.6 kg (166 lb 11.2 oz) 03/31/2022 74.8 kg (165 lb) 03/24/2022 75.8 kg (167 lb) 03/17/2022 74.1 kg (163 lb 6.4 oz) 03/10/2022 74.6 kg (164 lb 8 oz) Nausea:None Vomiting: None Bowel Function: normal bowel movements Erythema/Hyperpigmentation:none Desquamation:none Rash:none Skin Care: None Skin Sensation: mild burning Focused Assessment PROSTATE - MALE PELVIS: Rectal bleeding: No. Rectal pain: No. Bladder function: no problems, frequency, nocturia, painful urination. Urinary frequency (D/N): 5/4. SIGNED by: Zaria Cam RN documented in this encounter [facility] 04-02-2022 History of Presen t illness Narrative Chief Complaint Patient presents with: F/U 6 Month HPI Michael Gutierrez is a 71 year old male who presents here today for 6 month follow up. No bowel, Gi, or urinary issues. Following with Urologist Dr. Dodson for prostate cancer and currently getting radiation. Also seeing Dr. Ta for treatment. Last day is 04/09/22. Tobacco - Admits to occasional smoking. HTN: Denies checking BP at home, no chest pains, dizziness, or SOB. Taking Norvasc 5 mg daily. Pain: Chronic back; On current regimen of Gabapentin 300 mg BID and Celebrex 200 mg daily. Does exercises and stretches at home. States that unsure if it really helps. Hand - Reports intermittent left hand pain that is described as a throbbing type pain. Has resolved now. HM - Depression questions completed. Denies having Adv Dir/Living Will. Past medical history, appointments, medications, allergies reviewed. Previous Medical History PAST MEDICAL HISTORY Diagnosis Date Diarrhea HTN (hypertension) OA (osteoarthritis of spine) Previous Surgical History PAST SURGICAL HISTORY Procedure Laterality Date COLONOSCOPY W/BIOPSY SINGLE/MULTIPLE 05/29/08 PAST SURGICAL HISTORY OF circumcision PAST SURGICAL HISTORY OF nose cauturization PAST SURGICAL HISTORY OF 09/2015 Skin biopsy off forehead, basal cell PAST SURGICAL HISTORY OF Left 07/2019 Skin graft - 07/[address] Tim (left side of neck) Family History FAMILY HISTORY Problem Relation Age of Onset No Known Problems Mother COPD Father Hypertension Sister Hypertension Sister Hypertension Sister Diabetes Maternal Grandmother Cancer Maternal Grandfather Skin No Known Problems Paternal Grandmother No Known Problems Paternal Grandfather No Known Problems Brother No Known Problems Brother Patient Allergies ALLERGIES Allergen Reactions Cortisone Other: See Comments Chest pain Current Medications Current Outpatient Medications on File Prior to Visit Medication Sig acetaminophen 325 mg cap Take 325 mg by mouth. prn amLODIPine (NORVASC) 5 mg tablet Take 1 tablet by mouth once daily. celecoxib (CELEBREX) 200 mg capsule Take 1 capsule by mouth once daily. gabapentin (NEURONTIN) 300 mg capsule Take 1 capsule by mouth twice daily for 180 days. No current facility-administered medications on file prior to visit. Social History Social History Tobacco Use Smoking status: Some Days Packs/day: 0.25 Years: 45.00 Pack years: 11.25 Types: Cigarettes Last attempt to quit: 04/24/2015 Years since quittin.9 Smokeless tobacco: Never Vaping Use Vaping Use: Never used Substance Use Topics Alcohol use: No Comment: last drank in 2003- was hospitalized with pancreatitis Drug use: No EXAM: BP 136/84 (BP Site: Right Arm, BP Position: Sitting, BP Cuff Size: Regular Adult) Pulse 68 Resp 16 Wt 75.6 kg (166 lb 11.2 oz) BMI 24.98 kg/m General Appearance: Well appearing, alert, in no acute distress, well-hydrated, well nourished.. Lungs: Lungs clear to auscultation. No wheezing, rhonchi, rales.. Heart: RRR without murmur, gallop, or rubs. No ectopy. Health Maintenance List DTAP,TDAP,TD(1 - Tdap) Never done SHINGRIX VACCINE(1 of 2) Never done COLORECTAL CANCER SCREENING due on 05/29/2018 BP CONTROLLED (<130/80) due on 12/31/2019 ADVANCE DIRECTIVE DISCUSSION Never done COVID-19 VACCINE(4 - Booster for Pfizer series) due on 11/14/2021 DEPRESSION SCREENING due on 02/01/2022 INFLUENZA(1) due on 04/16/2022 ANNUAL PCP TEAM CHRONIC DISEASE VISIT due on 10/03/2022 DIABETES SCREEN due on 12/18/2024 LIPID SCREEN due on 03/09/2027 ABDOMINAL AORTIC ANEURYSM SCREENING Completed HEPATITIS C SCREENING Completed PNEUMOCOCCAL: 65+ Completed Data reviewed CMP/Lipids/CBC OK ASSESSMENT/PLAN: 1. Essential hypertension, benign - ICD9: 401.1, ICD10: I10 (primary diagnosis) - good control - Continue current medication(s) - Recommend home blood pressure monitoring, to bring results in on next visit - Goal of BP <140/90 2. DDD (degenerative disc disease), lumbar - ICD9: 722.52, ICD10: M51.36 Chronic low back pain - GABAPENTIN 300 MG CAPSULE 3. Prostate cancer (HCC) - ICD9: 185, ICD10: C61 Follow with Urology Follow up in 6 months Medical Decision Making: Problems: Moderate: 2+ stable chronic illnesses Data: Unique test result(s) reviewed: 3+ Risk: Moderate: Drug management Medical Decision Making Level: 4 - Moderate Heather Cason MD documented in this encounter [facility] 03-24-2022 History of Presen t illness Narrative Radiation Oncology - On Treatment Review (OTR) Note PATIENT NAME: Michael Gutierrez PATIENT DIAGNOSIS: Clinical stage IIIA, T1c, prostate adenocarcinoma with Alise score 7 (3+4), grade group 2, PSA 41.52 ng/mL. He was started on hormonal therapy on 12/25/21. COURSE: definitive AREA TREATED: Pelvis/prostate/SV CURRENT DOSE: 4000 cGy in 16 fx PLANNED DOSE: 7000 cGy in 28 fx SUBJECTIVE: He continues to have increased urinary frequency and mild dysuria. UA before was negative for UTI. EXAM: KPS: 90 General Appearance: Alert and oriented. No acute distress. IMAGING/LAB RESULTS: None Treatment chart checked: Yes Patient treatment site reviewed and verified:Yes CBCTs reviewed and current:Yes Medications started: Pyridium. ASSESSMENT/PLAN: Clinically stable. Toxicity within expected parameters. He is willing to try Pyridium. Continue radiation treatment as planned. Abimael Ta MD documented in this encounter [facility] 03-24-2022 Nurse Note Radiation Therapy - Nursing Note (OTV) PATIENT NAME: Michael Gutierrez PATIENT March 24, 2022 [facility] [place], [facility]/LOCATION: [facility] NOTE TYPE: PROSTATE - MALE PELVIS Subjective Data No c/o Additional Data Do you want to see a Environmental Emergencies Planner? No Status: Patient is male Stress Scale: On a scale of 0 to 10, what number best describes how much distress you have experienced in the past week?(0 being no distress and 10 being extreme distress) 2 Social work notified: no Nursing Assessment Fatigue: moderate; causing difficulty performing some activities Appetite: good Nutritional Intake: Regular oral intake. Weight Gain/Loss: No Ambulatory weight history: Last 6 Encounter Wt Readings: Date: Wt: 03/24/2022 75.8 kg (167 lb) 03/17/2022 74.1 kg (163 lb 6.4 oz) 03/10/2022 74.6 kg (164 lb 8 oz) 03/03/2022 73.8 kg (162 lb 12.8 oz) 12/31/2021 76.9 kg (169 lb 8 oz) 12/25/2021 73.9 kg (163 lb) Nausea:None Vomiting: None Bowel Function: normal bowel movements Erythema/Hyperpigmentation:none Desquamation:none Rash:none Skin Care: None Skin Sensation: Within Normal Limits Focused Assessment PROSTATE - MALE PELVIS: Rectal bleeding: No. Rectal pain: No. Bladder function: urgency, frequency, nocturia. Urinary frequency (D/N): 5-6/4. SIGNED by: Zaria Cam RN documented in this encounter [facility] 03-17-2022 History of Presen t illness Narrative Radiation Oncology - On Treatment Review (OTR) Note PATIENT NAME: Michael Gutierrez PATIENT DIAGNOSIS: Clinical stage IIIA, T1c, prostate adenocarcinoma with Fenton score 7 (3+4), grade group 2, PSA 41.52 ng/mL. He was started on hormonal therapy on 12/25/21. COURSE: definitive AREA TREATED: Pelvis/prostate/SV CURRENT DOSE: 2750 cGy in 11 fx PLANNED DOSE: 7000 cGy in 28 fx SUBJECTIVE: He has increased urinary frequency and mild dysuria. UA last week was negative for UTI. EXAM: KPS: 90 General Appearance: Alert and oriented. No acute distress. IMAGING/LAB RESULTS: None Treatment chart checked: Yes Patient treatment site reviewed and verified:Yes CBCTs reviewed and current:Yes Medications started: None ASSESSMENT/PLAN: Clinically stable. Toxicity within expected parameters. Pyridium was recommended but he doesn't feel that his urinary symptoms are significant enough to take medications. Continue radiation treatment as planned. Abimael Ta MD documented in this encounter [facility] 03-17-2022 Nurse Note Radiation Therapy - Nursing Note (OTV) PATIENT NAME: Michael Gutierrez PATIENT March 17, 2022 [facility] [place], [facility]/LOCATION: [place] NURSING NOTE TYPE: PROSTATE - MALE PELVIS Subjective Data slight burning on urination, no more blood note Additional Data Do you want to see a Environmental Emergencies Planner? No Status: Patient is male Stress Scale: On a scale of 0 to 10, what number best describes how much distress you have experienced in the past week?(0 being no distress and 10 being extreme distress) 2 Social work notified: no Nursing Assessment Fatigue: increased fatigue over baseline but not altering normal activities Appetite: good Nutritional Intake: Regular oral intake. Weight Gain/Loss: No Ambulatory weight history: Last 6 Encounter Wt Readings: Date: Wt: 03/17/2022 74.1 kg (163 lb 6.4 oz) 03/10/2022 74.6 kg (164 lb 8 oz) 03/03/2022 73.8 kg (162 lb 12.8 oz) 12/31/2021 76.9 kg (169 lb 8 oz) 12/25/2021 73.9 kg (163 lb) 12/05/2021 77.6 kg (171 lb) Nausea:None Vomiting: None Bowel Function: normal bowel movements Erythema/Hyperpigmentation:none Desquamation:none Rash:none Skin Care: None Skin Sensation: Within Normal Limits Focused Assessment PROSTATE - MALE PELVIS: Rectal bleeding: No. Rectal pain: No. Bladder function: no problems, painful urination. Urinary frequency (D/N): multiple in daytime/3-4. States slight burning on urination SIGNED by: Светлана Copeland, RN documented in this encounter [facility] 03-03-2022 History of Presen t illness Narrative Radiation Oncology - On Treatment Review (OTR) Note PATIENT NAME: Michael Gutierrez PATIENT DIAGNOSIS: Clinical stage IIIA, T1c, prostate adenocarcinoma with Fenton score 7 (3+4), grade group 2, PSA 41.52 ng/mL. He was started on hormonal therapy on 12/25/21. COURSE: definitive AREA TREATED: Pelvis/prostate/SV CURRENT DOSE: 500 cGy in 2 fx PLANNED DOSE: 7000 cGy in 28 fx SUBJECTIVE: He is doing well without any specific new complaints. EXAM: KPS: 100 General Appearance: Alert and oriented. No acute distress. IMAGING/LAB RESULTS: None Treatment chart checked: Yes Patient treatment site reviewed and verified:Yes CBCTs reviewed and current:Yes Medications started: None ASSESSMENT/PLAN: Clinically stable. No signs of toxicity. Of note, he brought up his concerns over the skin lesion in the nose for six months. I recommended evaluation by a childcare center administrator as it can be skin cancer. I offered a referral to a childcare center administrator but he told me that he will see his physician. Continue radiation treatment as planned. Abimael Ta MD documented in this encounter [facility] 03-03-2022 Nurse Note Radiation Therapy - Nursing Note (OTV) PATIENT NAME: Michael Gutierrez PATIENT March 03, 2022 [facility] [place], [facility]/LOCATION: [place] NURSING NOTE TYPE: PROSTATE - MALE PELVIS Subjective Data no complaints Additional Data Do you want to see a Environmental Emergencies Planner? No Status: Patient is male Stress Scale: On a scale of 0 to 10, what number best describes how much distress you have experienced in the past week?(0 being no distress and 10 being extreme distress) 5 Social work notified: no Nursing Assessment Fatigue: none Appetite: good Nutritional Intake: Regular oral intake. Weight Gain/Loss: No Ambulatory weight history: Last 6 Encounter Wt Readings: Date: Wt: 12/31/2021 76.9 kg (169 lb 8 oz) 12/25/2021 73.9 kg (163 lb) 12/05/2021 77.6 kg (171 lb) 11/11/2021 77.1 kg (170 lb) 10/03/2021 77.4 kg (170 lb 9.6 oz) 03/24/2021 76.7 kg (169 lb) Nausea:None Vomiting: None Bowel Function: normal bowel movements Erythema/Hyperpigmentation:none Desquamation:none Rash:none Skin Care: None Skin Sensation: Within Normal Limits Focused Assessment PROSTATE - MALE PELVIS: Rectal bleeding: No. Rectal pain: No. Bladder function: frequency. Urinary frequency (D/N): more in daytime due to drinking coffee/2. SIGNED by: Светлана Copeland RN documented in this encounter [facility] 02-23-2022 History of Presen t illness Narrative Radiology Service Progress Note PATIENT NAME: Michael Gutierrez DATE OF SERVICE: February 23, 2022 TIME: 11:52 AM PATIENT IDENTITY VERIFICATION COMPLETED USING TWO (2) IDENTIFIERS: Name and Date of confirmed by patient verbally. FALL SCREENING: Has the patient had 2 falls in the last year or 1 fall with injury or currently using an Ambulatory Assistive Device (Walker, Cane, Wheelchair, Crutches, etc.)? No PATIENT GENDER DATA: Male PATIENT RELEVANT IMPLANT DATA REVIEWED: Yes RADIOLOGY DEPARTMENT: MR; Exam(s) Completed: Body: Treatment Planning for prostate ca PERIPHERAL IV DATA: Not applicable SIGNED BY: RT Sharla(R) February 23, 2022 11:52 AM documented in this encounter [facility] 02-23-2022 Nurse Note Radiation Therapy - Patient Education Note PATIENT NAME: Michael Gutierrez PATIENT February 23, 2022 [facility] [place], [facility]/LOCATION: [place] READINESS TO LEARN Cognitive Ability: Alert and oriented Motivation to learn: Eager Interested Family Support: Unable to assess - Family not present Instruction provide to: Patient Patient learns best by: Multiple Methods Factors effecting learning: None Physical limitations effecting learning: None LEARNING RESPONSE Diagnosis: Pt simulated today for radiation therapy to prostate. Education Topic/Teaching Points: Radiation therapy, Side effects and OTV: Method of instruction: Teach Back skin care Individual instruction Written instruction - handouts Verbal instruction Patient /Family response: Patient verbalized understanding of radiation treatments, side effects, OTV, and transportation. Follow-up plan: Patient instructed to call with any further issues Contact information given. Supplemental material: Informational handouts on Department phone list, Bladder function, Diarrhea, Fatigue and [place] instructions, XRT sheet and Aquaphor handout. Referral (recommendation): None, Pt denied need for social work, van service, and front office secretary. Was approved? unknown Signed by: Zaria Cam RN documented in this encounter [facility] 02-23-2022 History of Presen t illness Narrative MICHAEL GUTIERREZ [id number] 02/23/2022 [facility] Department of Radiation Oncology Treatment Planning Note For reasons stated in the consult note, Michael Gutierrez is a candidate for radiation therapy. Based on review and interpretation of the relevant diagnostic studies together with the exam findings, Michael Gutierrez was simulated on 02/23/2022 at which time the target volume and/or requisite perales were delineated, as indicated in the simulation note, to be treated according to the prescription. The treatment target and organs at risk were contoured on the simulation scan Using the fused MRI. After reviewing multiple treatment plans with dosimetry, the best plan was approved to deliver the prescribed course of radiation to the target area using inverse planning to allow for the best isodose distribution, treating to the 97.8% isodose line with 10MV and 3 vmat perales. Custom MLC for IMRT were the treatment device(s) used to shape/modify the beams. Limiting dose to normal tissue was confirmed upon review of the calculated dose volume histogram. IMRT planning was used because it best met the dose/volume constraints for the organs at risk for this patient, better than what could be achieved using conventional or 3D planning. The specific dose requirements for the PTV, organs at risk and dose-volume histograms are contained in this treatment plan and/or elsewhere in the medical record. A completed summary of this plan dated 02/26/22 incorporated herein by reference includes dose, beam arrangements, energy, blocking, isodose distribution, and/or ports and DVH. Electronically Signed Abimael Ta M.D. 1:23 AM documented in this encounter [facility] 12-31-2021 History of Presen t illness Narrative Clinical Trial Informed Consent IRB# [id number] Title: A PROSPECTIVE COMPARATIVE STUDY OF OUTCOMES WITH PROTON AND PHOTON RADIATION IN PROSTATE CANCER (COMPPARE) Patient seen today to consult with Alcides and was presented clinical trial information and informed consent. Treatment plan, including all testing, potential risks/benefits, side effects and management, treatment alternatives, and follow-up were explained. Roles of the clinical trial personnel to be involved and the financial responsibilities of the patient regarding procedures and medications were discussed.The patient meets study criteria for life expectancy as discussed with Dr. Abimael Ta M.D. . All study related questions have been addressed or answered at this time. Contact information for research nurse and [facility] fellow on-call for after hours contact given to patient. Patient verbalizes understanding of all aforementioned information and decline at this time to proceed with this clinical trial. Niesha Souza RN documented in this encounter [facility] 12-31-2021 Nurse Note Radiation Therapy - Nursing Note (Consult) PATIENT NAME: Michael Gutierrez PATIENT December 31, 2021 [facility] [place]/LOCATION: [place] Chief Complaint: consult Reason for visit: Consult. Referring physician: Internal provider Dr Dodson Subjective Data: no c/o Additional Data Do you want to see a Environmental Emergencies Planner? No Are you interested in information about fertility? No Status: Patient is male Stress Scale: On a scale of 0 to 10, what number best describes how much distress you have experienced in the past week?(0 being no distress and 10 being extreme distress) 8 Social work notified: Pt denied need to see social media senior associate at this time. Radiation therapy teaching initiated. [facility] external beam radiation therapy handout given. Department phone numbers given & patient encouraged to verbalize questions. SIGNED by: Zaria Cam RN documented in this encounter [facility] 12-31-2021 History of Presen t illness Narrative Radiation Oncology - New Patient/Consult Note PATIENT NAME: Michael Gutierrez PATIENT REQUESTING PROVIDER: Vanessa Dodson DIAGNOSIS: Clinical stage IIIA, T1c, prostate adenocarcinoma with Alise score 7 (3+4), grade group 2, PSA 41.52 ng/mL. HPI: 71 year old male who presents with above diagnosis, for an opinion regarding the role of radiation therapy in the management of the patient's disease. Final recommendations will be communicated back to the requesting physician by way of the shared medical record, or letter to requesting physician via US mail. 71 year old man who had elevated PSA to 31.64 on 02/04/21. It further increased to 41.52 on 10/13/21. He underwent TRUS and prostate biopsy on 12/05/21. Prostate was moderately enlarged measuring 34 cc. There was no focal lesions within the peripheral zone of the prostate gland. Pathology reports is as follows: FINAL DIAGNOSIS A. Prostate, right base, biopsy: - Prostatic adenocarcinoma, Fenton score 3+4=7, grade group 2, with intraductal features, involving 2 of 2 cores (14 mm, 95%; 11 mm, 90%). - Alise pattern 4 comprises approximately 20% of the carcinoma. B. Prostate, right mid, biopsy: - Prostatic adenocarcinoma, Alise score 3+4=7, grade group 2, with intraductal features, involving 2 of 2 cores (7 mm, 95%; 11 mm, 80%). - Fenton pattern 4 comprises approximately 20% of the carcinoma. - Small gland cribriform morphology is identified. C. Prostate, right apex, biopsy: - Prostatic adenocarcinoma, Alise score 3+4=7, grade group 2, with intraductal features, involving 2 of 2 cores (4 mm, 95%; 9 mm, 80%). - Alise pattern 4 comprises approximately 40% of the carcinoma. - Small gland cribriform morphology is identified. D. Prostate, left base, biopsy: - Prostatic adenocarcinoma, Alise score 3+4=7, grade group 2, with intraductal features, involving 2 of 2 cores (13 mm, 90%; 13 mm, 100%). - Fenton pattern 4 comprises approximately 30% of the carcinoma. E. Prostate, left mid, biopsy: - Prostatic adenocarcinoma, Fenton score 3+4=7, grade group 2, with intraductal features, involving 2 of 2 cores (13 mm, 95%; 11 mm, 95%). - Fenton pattern 4 comprises approximately 30% of the carcinoma. F. Prostate, left apex, biopsy: - Prostatic adenocarcinoma, Alise score 3+4=7, grade group 2, with intraductal features, involving 2 of 2 cores (10 mm, 85%; 2 mm, 40%). - Alise pattern 4 comprises approximately 20% of the carcinoma. - Small gland cribriform morphology is identified. Prostate Cancer Biopsy Summary Number of cores examined: 12 Number of cores positive: 12 Highest Grade Group: 2 Highest % of core involvement: 100% Cribriform pattern 4: Present Intraductal carcinoma: Present Staging CT A/P and bone scan on 12/18/21 were negative for any evidence of metastasis. He has mildly increased urinary frequency. He has nocturia 2/night. He has some post-void dribbling. He denies any urinary hesitancy or urgency. He denies any problems with bowel movements. ALLERGIES Allergen Reactions Cortisone Other: See Comments Chest pain PAST MEDICAL HISTORY Diagnosis Date Diarrhea HTN (hypertension) OA (osteoarthritis of spine) Prior radiation therapy, collagen vascular disease, or inflammatory bowel disease: No PAST SURGICAL HISTORY Procedure Laterality Date COLONOSCOPY W/BIOPSY SINGLE/MULTIPLE 05/29/08 PAST SURGICAL HISTORY OF circumcision PAST SURGICAL HISTORY OF nose cauturization PAST SURGICAL HISTORY OF 09/2015 Skin biopsy off forehead, basal cell PAST SURGICAL HISTORY OF Left 07/2019 Skin graft - 07/[address] Tim (left side of neck) FAMILY HISTORY Problem Relation Age of Onset No Known Problems Mother COPD Father Hypertension Sister Hypertension Sister Hypertension Sister Diabetes Maternal Grandmother Cancer Maternal Grandfather Skin No Known Problems Paternal Grandmother No Known Problems Paternal Grandfather No Known Problems Brother No Known Problems Brother Social History Tobacco Use Smoking status: Current Some Day Smoker Packs/day: 0.25 Years: 45.00 Pack years: 11.25 Types: Cigarettes Last attempt to quit: 04/24/2015 Years since quittin.6 Smokeless tobacco: Never Used Vaping Use Vaping Use: Never used Substance Use Topics Alcohol use: No Comment: last drank in 2003- was hospitalized with pancreatitis Drug use: No COMPLETE REVIEW OF SYSTEMS: GENERAL: feeling well without fatigue, no recent change in weight HEENT: denies CANALES, change in hearing or vision, no other ENT complaints NECK: denies swelling or pain in neck RESPIRATORY: no cough, no wheezing or shortness of breath CARDIOVASCULAR: no chest pain, no palpitations GI: normal appetite, tolerating PO well, BMs normal and no abdominal pain : see HPI. MUSCULOSKELETAL: denies any painful or swollen joints, no muscle aches SKIN: no rash HEMATOLOGY/LYMPHOLOGY: negative for prolonged bleeding, no swollen lymph nodes NEURO: no numbness or paresthesias and no weakness of the extremities PHYSICAL EXAM: VS: BP 159/87 Pulse 70 Temp 36.6 C (97.8 F) (Temporal) Resp 16 Wt 76.9 kg (169 lb 8 oz) SpO2 95% BMI 25.40 kg/m KPS: 90 General Appearance: Alert and oriented. No acute distress. HEENT: NCAT. Sclera anicteric. EOMI. Neck: Normal ROM. Chest: No respiratory distress. Musculoskeletal: No edema. Normal ROM in extremities. Neuro: Speech fluent. Gait normal. No focal deficits. Hematologic: No signs of active bleeding. RADIOLOGY/LABORATORY DATA: see HPI ASSESSMENT AND PLAN: 71 year old man with clinical stage IIIA, T1c, prostate adenocarcinoma with Fenton score 7 (3+4), grade group 2, PSA 41.52 ng/mL. He is in high risk group. He talked to Dr. Dodson and has decided to pursue combined hormonal therapy and radiation treatment. He was started on Eligard on 12/25/21. I explained the rationale, benefits, alternative management options and potential complications of radiation treatment to the patient and he understands and agrees to proceed. It was explained and understood that other personnel such as radiation therapists, nuclear radiologist, and physicists will participate in planning and delivery of radiation treatment. Permanent tattoo fritz will be placed to aid with positioning for daily treatment and the patient consented. Patient will have a simulation procedure in about two months. Thank you very much for allowing us to participate in his care. Signed by: Abimael Ta MD cc: Heather Cason [address] [place] [address] [address] [facility] [id number] documented in this encounter [facility] 12-26-2021 Miscellaneous Notes Spoke with patient and scheduled. Marli Owens Called pt to schedule rad consult per , phone just rang and line was busy was not able to leave a message. Kay Graf PSS documented in this encounter [facility] 12-25-2021 Nurse Note The patient is here for an injection of Eligard Dose: 45 mg Route: Subcutaneous Lot# [id number] Expiration date [facility]: 30892-308-78 Given without incident. Site: left upper quadrant gluteus Dr. Dodson present in clinic at time of injection. The date due for the next injection is 6 months Patient education was given by nurse. Patient has transportation issues and he is Medicare A and B so no referral needed, and Eligard give in office due to not needing referral and unable to come back. Myrna Webb RN documented in this encounter [facility] 12-25-2021 History of Presen t illness Narrative Images from the original note were not included. [facility] [place] [facility] LOCATION: [address] [place] [address] ESTABLISHED PATIENT PATIENT INFO: Michael Gutierrez 71 year old Chief Complaint: Prostate Cancer HPI Here for prostate cancer discussion. Had prostate biopsy on 12/05/21. Bone scan and CT scan negative. 1-Duration: 2021 2-Location: prostate 3-Severity: N/A 4-Quality: Not applicable 5-Context: N/A 6-Timing: N/A 7-Modifying factors: No treatment prior to referral 8-Associated signs & symptoms: no additional symptoms PATHOLOGY: FINAL DIAGNOSIS A. Prostate, right base, biopsy: - Prostatic adenocarcinoma, Alise score 3+4=7, grade group 2, with intraductal features, involving 2 of 2 cores (14 mm, 95%; 11 mm, 90%). - Fenton pattern 4 comprises approximately 20% of the carcinoma. B. Prostate, right mid, biopsy: - Prostatic adenocarcinoma, Fenton score 3+4=7, grade group 2, with intraductal features, involving 2 of 2 cores (7 mm, 95%; 11 mm, 80%). - Alise pattern 4 comprises approximately 20% of the carcinoma. - Small gland cribriform morphology is identified. C. Prostate, right apex, biopsy: - Prostatic adenocarcinoma, Fenton score 3+4=7, grade group 2, with intraductal features, involving 2 of 2 cores (4 mm, 95%; 9 mm, 80%). - Alise pattern 4 comprises approximately 40% of the carcinoma. - Small gland cribriform morphology is identified. D. Prostate, left base, biopsy: - Prostatic adenocarcinoma, Fenton score 3+4=7, grade group 2, with intraductal features, involving 2 of 2 cores (13 mm, 90%; 13 mm, 100%). - Fenton pattern 4 comprises approximately 30% of the carcinoma. E. Prostate, left mid, biopsy: - Prostatic adenocarcinoma, Fenton score 3+4=7, grade group 2, with intraductal features, involving 2 of 2 cores (13 mm, 95%; 11 mm, 95%). - Fenton pattern 4 comprises approximately 30% of the carcinoma. F. Prostate, left apex, biopsy: - Prostatic adenocarcinoma, Alise score 3+4=7, grade group 2, with intraductal features, involving 2 of 2 cores (10 mm, 85%; 2 mm, 40%). - Alise pattern 4 comprises approximately 20% of the carcinoma. - Small gland cribriform morphology is identified. 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 studies: C1 RMC/mm 12/10/2021 LAB: WBC (k/uL) Date Value 02/04/2021 8.64 RBC (m/uL) Date Value 02/04/2021 4.96 Hemoglobin (g/dL) Date Value 02/04/2021 15.5 Hematocrit (%) Date Value 02/04/2021 47.4 MCV (fL) Date Value 02/04/2021 95.6 MCH (pG) Date Value 02/04/2021 31.3 MCHC (g/dL) Date Value 02/04/2021 32.7 RDW-CV (%) Date Value 02/04/2021 14.3 Platelet Count (k/uL) Date Value 02/04/2021 301 MPV (fL) Date Value 02/04/2021 9.6 Neut% (%) Date Value 02/04/2021 70.7 Lymph% (%) Date Value 02/04/2021 19.1 [place]% (%) Date Value 02/04/2021 6.9 Eosin% (%) Date Value 02/04/2021 2.4 Baso% (%) Date Value 02/04/2021 0.9 Abs Neut (ANC) (k/uL) Date Value 02/04/2021 6.10 Abs [place] (k/uL) Date Value 02/04/2021 0.60 Abs Eosin (k/uL) Date Value 02/04/2021 0.21 Abs Baso (k/uL) Date Value 02/04/2021 0.08 Creatinine Date Value Ref Range Status 12/18/2021 0.78 0.73 - 1.22 mg/dL Final 02/04/2021 0.76 0.73 - 1.22 mg/dL Final 02/28/2020 0.70 (L) 0.73 - 1.22 mg/dL Final 12/30/2018 0.69 (L) 0.73 - 1.22 mg/dL Final PSA (ng/mL) Date Value 10/03/2021 41.52 02/04/2021 31.64 04/18/2015 3.10 03/04/2015 3.05 URINE POC GLUCOSE UA (POCT) Negative 12/25/2021 BILIRUBIN UA (POCT) Negative 12/25/2021 KETONE UA (POCT) Negative 12/25/2021 SPECIFIC GRAVITY UA (POCT) 1.010 12/25/2021 HEMOGLOBIN/BLOOD UA (POCT) Negative 12/25/2021 PH UA (POCT) 6.5 12/25/2021 PROTEIN UA (POCT) Negative 12/25/2021 UROBILINOGEN UA (POCT) 0.2 12/25/2021 NITRITE UA (POCT) Negative 12/25/2021 LEUKOCYTES UA (POCT) Negative 12/25/2021 COLOR UA (POCT) Yellow 12/25/2021 CLARITY UA (POCT) Clear 12/25/2021 IMAGING: CT Scan: Negative and Bone Scan Negative I have independently reviewed films and my findings are the same. ALLERGIES: ALLERGIES Allergen Reactions Cortisone Other: See Comments Chest pain MEDICATIONS: amLODIPine (NORVASC) 5 mg tablet Take 1 tablet by mouth once daily. celecoxib (CELEBREX) 200 mg capsule Take 1 capsule by mouth once daily. gabapentin (NEURONTIN) 300 mg capsule Take 1 capsule by mouth twice daily for 180 days. Does the patient take any herbal medications?: No HISTORIES PAST MEDICAL HISTORY Diagnosis Date Diarrhea HTN (hypertension) OA (osteoarthritis of spine) Smoking Status Reviewed: Yes REVIEW OF SYSTEMS GENERAL: No fever, chills, weight loss, or fatigue. HEAD & NECK: No blurred vision or Sjogren's syndrome CARDIOVASCULAR: NO CHEST PAIN, PALPITATIONS, ANKLE EDEMA RESPIRATORY: No chronic cough, wheezing, dyspnea, hemoptysis. MUSCULOSKELETAL: NO CHRONIC BACK PAIN, ARTHRITIS, CHRONIC NECK PAIN SKIN: NO VARICOSE VEINS, RASH, ABNORMAL ITCHING BLOOD/LYMPHATIC: No easy bleeding, easy bruising, transfusion Hx NEUROLOGICAL: NO HEADACHES, NUMBNESS, SEIZURES, STROKE PSYCHIATRIC: No depression or inordinate anxiety The remainder of the ROS was negative. PHYSICAL EXAMINATION Ht 174 cm (5' 8.5 ) Wt 73.9 kg (163 lb) BMI 24.42 kg/m General appearance: Well appearing, alert, in no acute distress and well-hydrated, well nourished Skin: Skin color, texture, turgor normal, no suspicious rashes or lesions Head: Normocephalic, no masses, lesions, tenderness or abnormalities Abdomen: Normal abdominal exam, Abdomen soft, non-tender. Bowel sounds normal. No masses, organomegaly Genitourinary: MALE EXAM: Exam NOT Indicated PVR: NA IMPRESSION/PLAN: Alise 3+4=7 Grade group 2 prostate cancer PSA 41. Metastatic workup negative. Options reviewed. Interested in ADT+ radiation. Referral to Dr. Ta in [place] for XRT. Jada 6 month preparation given today. F/U with me in 6 months with PSA prior. I spent 30 minutes in the visit, with more than 50% of the total [id number] time of the visit in counseling / coordination of care. Vanessa Dodson DO MBA documented in this encounter [facility] 12-18-2021 History of Presen t illness Narrative Radiology Service Progress Note PATIENT NAME: Michael Gutierrez DATE OF SERVICE: December 18, 2021 TIME: 12:01 PM PATIENT IDENTITY VERIFICATION COMPLETED USING TWO (2) IDENTIFIERS: Name and Date of confirmed by patient verbally. FALL SCREENING: Has the patient had 2 falls in the last year or 1 fall with injury or currently using an Ambulatory Assistive Device (Walker, Cane, Wheelchair, Crutches, etc.)? No PATIENT GENDER DATA: Male PATIENT RELEVANT IMPLANT DATA REVIEWED: Yes RADIOLOGY DEPARTMENT: CT; Exam(s) Completed: Abdomen/Pelvis PERIPHERAL IV DATA: iv started in nuc med SIGNED BY: RT Demarco(R) December 18, 2021 12:01 PM documented in this encounter [facility] 12-18-2021 Miscellaneous Notes Letter mailed to pt home of results. Elza Belcher MA Please let the patient know that his lab shows normal kidney function, electrolytes, glucose and liver enzymes. Theo Byrd APRN.CNP documented in this encounter [facility] 12-15-2021 Miscellaneous Notes The following approved medication requests have been transmitted electronically. Signed Prescriptions Disp Refills amLODIPine (NORVASC) 5 mg tablet 90 tablet 3 Sig: Take 1 tablet by mouth once daily. MARISABEL: No Authorizing Provider: THEO BYRD APRN.CNP Pharmacy verified in Epic Patient has been identified by name and date of : Yes Patient aware RX will be sent to pharmacy. No need to notify patient. Patient phones for refill(s): Pending Prescriptions Disp Refills AMLODIPINE 5 MG TABLET 90 tablet 3 Sig: Take 1 tablet by mouth once daily. MARISABEL: No Date of last office visit : 10/03/2021 Date of next office visit : 04/02/2022 Last 2 Encounter Wt Readings: Date: Wt: 12/05/2021 77.6 kg (171 lb) 11/11/2021 77.1 kg (170 lb) Please advise. Nicole Osorio Pss documented in this encounter [facility] 12-12-2021 Miscellaneous Notes Sending to the Pool for follow up Thank you Spoke with patient and he states he can only get to the [facility] for the imaging. I made him aware that our schedulers will reach out to assist with scheduling the imaging and then getting the Dr. Dodson appt after to go over his treatment plan based on results. Kacy will help patient get scheduled. ----- Message from Delvis Isidro MD sent at 12/11/2021 2:11 PM EDT ----- Pt requesting call with results of biopsy. Please let patient know that we will need to get a CT and bone scan and follow up with Dr. Dodson for prostate cancer conference to discuss next steps. Thanks documented in this encounter [facility] 12-12-2021 Miscellaneous Notes Pt notified. He asked what they do to treat prostate cancer. Advised pt that that is something he would have to discuss with Urologist, that is out of our practice. Offered to transfer pt to schedule to set up CT and Bone scan but pt denied. Stated they are suppose to call me . Elza Belcher Ma His biopsy did show that he has prostate cancer, so he should get the CT and bone scan done; which can be done here in [place] and then follow up with the Urologist to talk about treatment Hetaher Cason MD Patient calls in to ask provider to review and advise on US results. Patient was notified at 11:[address] Isidro's office that patient will need to get a CT and bone scan and follow up with Dr. Dodson for prostate cancer conferenece to discuss next step. Note says scans to be scheduled in [place] and then follow up with Dr. Dodson. Patient specifically asking if he has prostate cancer and asking to speak to provider. Please review and advise, Mandi Glez RN documented in this encounter [facility] 12-05-2021 Nurse Note STRO TRANS RECTAL TRUSP - PROSTATE WITH BIOPSY December 05, 2021 PREOPERATIVE/PROCEDURAL VERIFICATION: Patient verified by: Name and Date of UNIVERSAL PROTOCOL / SAFETY CHECKLIST Procedure to be Performed: TRANSRECTAL ULTRASOUND GUIDED BIOPSY OF THE PROSTATE Sign In: A Moment of CARE was completed. Personnel directly involved with the procedure wore the appropriate PPE (Personal Protective Equipment). No special equipment needed. Patient/Surrogate Stated/Verified: PATIENT VERIFIED(optional for EMERGENT procedures): Patient name, Date of , Relevant allergies and The intended procedure Time Out Communication: Intended patient and procedure match the source documents. Consent documented and matches the intended procedure. No relevant labs, photos, and/or imaging studies were applicable for review. No correct side/site applicable for marking and visibility. Medications required for procedure verified. No fire risk assessment and interventions applicable. No implant(s) inserted. Sign Out: SIGN OUT (optional for EMERGENT procedures): All specimen containers correctly labeled. No instruments, equipment or retained foreign bodies applicable. Kirk Gutierrez Ma Latex Allergy: No Allergies reviewed and updated. Anticoagulant: No Pre-Procedure Antibiotics: Yes: LEVAQUIN 750 MG AND GENTAMICIN 160 MG Fleets Enema: No Pre-Procedure Vital Signs: BP Blood pressure 128/72, pulse 66, resp. rate 18, height 174 cm (5' 8.5 ), weight 77.6 kg (171 lb). Pain Rating: on a scale of 0-10: 0 Pre-Procedure Anesthetic given: Administered by MD - see Procedure Physician Note. Instruction sheet given and reviewed: Yes Patient verbalizes understanding: Yes Post-Procedure vital signs: BP 160/79 Pulse 70 Respirations 16. Pain Rating: on a scale of 0-10: 0 Post-Procedure Antibiotics: No Nurse's signature: Kirk Gutierrez Ma documented in this encounter [facility] 12-05-2021 History of Presen t illness Narrative PROSTATE BIOPSY WITH ULTRASOUND GUIDANCE Michael Gutierrez a 71 year old. History and Physical reviewed and is unchanged. . Informed Consent Discussed: Yes. Risks, benefits, alternatives and personnel discussed with patient who consents to proceed. Discussed [facility]. UNIVERSAL PROTOCOL / SAFETY CHECKLIST Procedure to be Performed: TRUS Bx Sign In: A Moment of CARE was completed. Personnel directly involved with the procedure wore the appropriate PPE (Personal Protective Equipment). Patient/Surrogate Stated/Verified: PATIENT VERIFIED(optional for EMERGENT procedures): Patient name, Date of , Relevant allergies and The intended procedure Time Out Communication: Intended patient and procedure match the source documents. Consent documented and matches the intended procedure. Sign Out: SIGN OUT (optional for EMERGENT procedures): All specimen containers correctly labeled. Delvis Isidro MD Audible time out was performed. Is the patient having any pain? No 0 on a scale of 0 to 10 PSA (ng/mL) Date Value 10/03/2021 41.52 PALPABLE NODULE: No Prostate biopsies taken from the site below using ultrasound guidance 1.) RIGHT BASE: 2 2.) RIGHT MID: 2 3.) RIGHT APEX: 2 4.) LEFT BASE: 2 5.) LEFT MID: 2 6.) LEFT APEX: 2 ALLERGIES Allergen Reactions Cortisone Other: See Comments Chest pain MEDICATIONS: 10 ml 1% Plain Xylocaine bowen prostatic nerve block given: Yes PROSTATE ULTRASOUND The prostate sonogram was obtained via transrectal approach. The gland is moderately enlarged, measuring 34 cc. There is a homogeneous echo pattern throughout the prostate gland. Echogenic foci within the gland consistant with clacifications were noted. There is no focal lesion within the pereferal zone of the prostate gland. Component Latest Ref Rng & Units 03/04/2015 04/18/2015 02/04/2021 10/03/2021 PSA <2.60 ng/mL 3.05 (H) 3.10 (H) 31.64 (H) 41.52 (H) Pt has issues with transportation Requests call with results or would like to follow up with Heri Humphries to discuss Delvis Isidro MD documented in this encounter [facility] 11-11-2021 History of Presen t illness Narrative Unable to travewl to [place] or [place], will schedule with Dr. Ileana Humphries, MPAS, [place], PAStewC CC Post Void Residual HPI: Michael L Gutierrez is a 71 year old male. The patient is here now for an appointment with Heri Humphries, DANIEL, [place], PA-COV. Procedure: Explained procedure to patient and verbalizes understanding. Performed a PVR. Patient urinated and instructed to empty bladder as much as possible just prior to having PVR done using bladder ultrasound scanner. Results of scan: 0 mL The patient tolerated the procedure well. Plan: Appointment with Heri. 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 Tobacco abuse 04/10/2015 07/24/2016 Meatal stenosis 04/03/2015 07/24/2016 Penile adhesions w/skin bridging 03/04/2015 07/24/2016 Lumbar disc herniation 08/21/2013 6 Diarrhea 07/24/2016 documented as of this encounter (statuses as of 12/09/2021) [facility] History of Past illness Narrative* Problem Noted Date Resolved Date 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 07/24/2016 Tobacco abuse 04/10/2015 07/24/2016 Meatal stenosis 04/03/2015 07/24/2016 Penile adhesions w/skin bridging 03/04/2015 07/24/2016 Lumbar disc herniation 08/21/2013 6 Diarrhea 07/24/2016 documented as of this encounter (statuses as of 12/12/2021) [facility] History of Past illness Narrative* Problem Noted Date Resolved Date 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 07/24/2016 Tobacco abuse 04/10/2015 07/24/2016 Meatal stenosis 04/03/2015 07/24/2016 Penile adhesions w/skin bridging 03/04/2015 07/24/2016 Lumbar disc herniation 08/21/2013 6 Diarrhea 07/24/2016 documented as of this encounter (statuses as of 12/15/2021) [facility] History of Past illness Narrative* Problem Noted Date Resolved Date 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 07/24/2016 Tobacco abuse 04/10/2015 07/24/2016 Meatal stenosis 04/03/2015 07/24/2016 Penile adhesions w/skin bridging 03/04/2015 07/24/2016 Lumbar disc herniation 08/21/2013 6 Diarrhea 07/24/2016 documented as of this encounter (statuses as of 12/18/2021) [facility] History of Past illness Narrative* Problem Noted Date Resolved Date 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 07/24/2016 Tobacco abuse 04/10/2015 07/24/2016 Meatal stenosis 04/03/2015 07/24/2016 Penile adhesions w/skin bridging 03/04/2015 07/24/2016 Lumbar disc herniation 08/21/2013 6 Diarrhea 07/24/2016 documented as of this encounter (statuses as of 12/19/2021) [facility] History of Past illness Narrative* Problem Noted Date Resolved Date 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 07/24/2016 Tobacco abuse 04/10/2015 07/24/2016 Meatal stenosis 04/03/2015 07/24/2016 Penile adhesions w/skin bridging 03/04/2015 07/24/2016 Lumbar disc herniation 08/21/2013 6 Diarrhea 07/24/2016 documented as of this encounter (statuses as of 12/19/2021) [facility] History of Past illness Narrative* Problem Noted Date Resolved Date 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 07/24/2016 Tobacco abuse 04/10/2015 07/24/2016 Meatal stenosis 04/03/2015 07/24/2016 Penile adhesions w/skin bridging 03/04/2015 07/24/2016 Lumbar disc herniation 08/21/2013 6 Diarrhea 07/24/2016 documented as of this encounter (statuses as of 12/25/2021) [facility] History of Past illness Narrative* Problem Noted Date Resolved Date 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 07/24/2016 Tobacco abuse 04/10/2015 07/24/2016 Meatal stenosis 04/03/2015 07/24/2016 Penile adhesions w/skin bridging 03/04/2015 07/24/2016 Lumbar disc herniation 08/21/2013 6 Diarrhea 07/24/2016 documented as of this encounter (statuses as of 12/26/2021) [facility] History of Past illness Narrative* Problem Noted Date Resolved Date 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 07/24/2016 Tobacco abuse 04/10/2015 07/24/2016 Meatal stenosis 04/03/2015 07/24/2016 Penile adhesions w/skin bridging 03/04/2015 07/24/2016 Lumbar disc herniation 08/21/2013 6 Diarrhea 07/24/2016 documented as of this encounter (statuses as of 12/31/2021) [facility] History of Past illness Narrative* Problem Noted Date Resolved Date 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 07/24/2016 Tobacco abuse 04/10/2015 07/24/2016 Meatal stenosis 04/03/2015 07/24/2016 Penile adhesions w/skin bridging 03/04/2015 07/24/2016 Lumbar disc herniation 08/21/2013 6 Diarrhea 07/24/2016 documented as of this encounter (statuses as of 01/02/2022) [facility] History of Past illness Narrative* Problem Noted Date Resolved Date 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 07/24/2016 Tobacco abuse 04/10/2015 07/24/2016 Meatal stenosis 04/03/2015 07/24/2016 Penile adhesions w/skin bridging 03/04/2015 07/24/2016 Lumbar disc herniation 08/21/2013 6 Diarrhea 07/24/2016 documented as of this encounter (statuses as of 02/20/2022) [facility] History of Past illness Narrative* Problem Noted Date Resolved Date 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 07/24/2016 Tobacco abuse 04/10/2015 07/24/2016 Meatal stenosis 04/03/2015 07/24/2016 Penile adhesions w/skin bridging 03/04/2015 07/24/2016 Lumbar disc herniation 08/21/2013 6 Diarrhea 07/24/2016 documented as of this encounter (statuses as of 02/23/2022) [facility] History of Past illness Narrative* Problem Noted Date Resolved Date 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 07/24/2016 Tobacco abuse 04/10/2015 07/24/2016 Meatal stenosis 04/03/2015 07/24/2016 Penile adhesions w/skin bridging 03/04/2015 07/24/2016 Lumbar disc herniation 08/21/2013 6 Diarrhea 07/24/2016 documented as of this encounter (statuses as of 02/24/2022) [facility] History of Past illness Narrative* Problem Noted Date Resolved Date 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 07/24/2016 Tobacco abuse 04/10/2015 07/24/2016 Meatal stenosis 04/03/2015 07/24/2016 Penile adhesions w/skin bridging 03/04/2015 07/24/2016 Lumbar disc herniation 08/21/2013 6 Diarrhea 07/24/2016 documented as of this encounter (statuses as of 02/27/2022) [facility] History of Past illness Narrative* Problem Noted Date Resolved Date 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 07/24/2016 Tobacco abuse 04/10/2015 07/24/2016 Meatal stenosis 04/03/2015 07/24/2016 Penile adhesions w/skin bridging 03/04/2015 07/24/2016 Lumbar disc herniation 08/21/2013 6 Diarrhea 07/24/2016 documented as of this encounter (statuses as of 03/03/2022) [facility] History of Past illness Narrative* Problem Noted Date Resolved Date 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 07/24/2016 Tobacco abuse 04/10/2015 07/24/2016 Meatal stenosis 04/03/2015 07/24/2016 Penile adhesions w/skin bridging 03/04/2015 07/24/2016 Lumbar disc herniation 08/21/2013 6 Diarrhea 07/24/2016 documented as of this encounter (statuses as of 03/13/2022) [facility] History of Past illness Narrative* Problem Noted Date Resolved Date 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 07/24/2016 Tobacco abuse 04/10/2015 07/24/2016 Meatal stenosis 04/03/2015 07/24/2016 Penile adhesions w/skin bridging 03/04/2015 07/24/2016 Lumbar disc herniation 08/21/2013 6 Diarrhea 07/24/2016 documented as of this encounter (statuses as of 03/17/2022) [facility] History of Past illness Narrative* Problem Noted Date Resolved Date 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 07/24/2016 Tobacco abuse 04/10/2015 07/24/2016 Meatal stenosis 04/03/2015 07/24/2016 Penile adhesions w/skin bridging 03/04/2015 07/24/2016 Lumbar disc herniation 08/21/2013 6 Diarrhea 07/24/2016 documented as of this encounter (statuses as of 03/24/2022) [facility] History of Past illness Narrative* Problem Noted Date Resolved Date 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 07/24/2016 Tobacco abuse 04/10/2015 07/24/2016 Meatal stenosis 04/03/2015 07/24/2016 Penile adhesions w/skin bridging 03/04/2015 07/24/2016 Lumbar disc herniation 08/21/2013 6 Diarrhea 07/24/2016 documented as of this encounter (statuses as of 03/26/2022) [facility] History of Past illness Narrative* Problem Noted Date Resolved Date 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 07/24/2016 Tobacco abuse 04/10/2015 07/24/2016 Meatal stenosis 04/03/2015 07/24/2016 Penile adhesions w/skin bridging 03/04/2015 07/24/2016 Lumbar disc herniation 08/21/2013 6 Diarrhea 07/24/2016 documented as of this encounter (statuses as of 04/03/2022) [facility] History of Past illness Narrative* Problem Noted Date Resolved Date 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 07/24/2016 Tobacco abuse 04/10/2015 07/24/2016 Meatal stenosis 04/03/2015 07/24/2016 Penile adhesions w/skin bridging 03/04/2015 07/24/2016 Lumbar disc herniation 08/21/2013 6 Diarrhea 07/24/2016 documented as of this encounter (statuses as of 04/07/2022) [facility] History of Past illness Narrative* Problem Noted Date Resolved Date 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 07/24/2016 Tobacco abuse 04/10/2015 07/24/2016 Meatal stenosis 04/03/2015 07/24/2016 Penile adhesions w/skin bridging 03/04/2015 07/24/2016 Lumbar disc herniation 08/21/2013 6 Diarrhea 07/24/2016 documented as of this encounter (statuses as of 04/15/2022) [facility] History of Past illness Narrative* Problem Noted Date Resolved Date 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 07/24/2016 Tobacco abuse 04/10/2015 07/24/2016 Meatal stenosis 04/03/2015 07/24/2016 Penile adhesions w/skin bridging 03/04/2015 07/24/2016 Lumbar disc herniation 08/21/2013 6 Diarrhea 07/24/2016 documented as of this encounter (statuses as of 05/13/2022) [facility] History of Past illness Narrative* Problem Noted Date Resolved Date 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 07/24/2016 Tobacco abuse 04/10/2015 07/24/2016 Meatal stenosis 04/03/2015 07/24/2016 Penile adhesions w/skin bridging 03/04/2015 07/24/2016 Lumbar disc herniation 08/21/2013 6 Diarrhea 07/24/2016 documented as of this encounter (statuses as of 05/13/2022) [facility] History of Past illness Narrative* Problem Noted Date Resolved Date 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 07/24/2016 Tobacco abuse 04/10/2015 07/24/2016 Meatal stenosis 04/03/2015 07/24/2016 Penile adhesions w/skin bridging 03/04/2015 07/24/2016 Lumbar disc herniation 08/21/2013 6 Diarrhea 07/24/2016 documented as of this encounter (statuses as of 05/15/2022) [facility] History of Past illness Narrative* Problem Noted Date Resolved Date 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 07/24/2016 Tobacco abuse 04/10/2015 07/24/2016 Meatal stenosis 04/03/2015 07/24/2016 Penile adhesions w/skin bridging 03/04/2015 07/24/2016 Lumbar disc herniation 08/21/2013 6 Diarrhea 07/24/2016 documented as of this encounter (statuses as of 05/21/2022) [facility] History of Past illness Narrative* Problem Noted Date Resolved Date 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 07/24/2016 Tobacco abuse 04/10/2015 07/24/2016 Meatal stenosis 04/03/2015 07/24/2016 Penile adhesions w/skin bridging 03/04/2015 07/24/2016 Lumbar disc herniation 08/21/2013 6 Diarrhea 07/24/2016 documented as of this encounter (statuses as of 05/27/2022) [facility] History of Past illness Narrative* Problem Noted Date Resolved Date 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 07/24/2016 Tobacco abuse 04/10/2015 07/24/2016 Meatal stenosis 04/03/2015 07/24/2016 Penile adhesions w/skin bridging 03/04/2015 07/24/2016 Lumbar disc herniation 08/21/2013 6 Diarrhea 07/24/2016 documented as of this encounter (statuses as of 07/23/2022) [facility] History of Past illness Narrative* Problem Noted Date Resolved Date 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 07/24/2016 Tobacco abuse 04/10/2015 07/24/2016 Meatal stenosis 04/03/2015 07/24/2016 Penile adhesions w/skin bridging 03/04/2015 07/24/2016 Lumbar disc herniation 08/21/2013 6 Diarrhea 07/24/2016 documented as of this encounter (statuses as of 08/03/2022) [facility] History of Past illness Narrative* Problem Noted Date Resolved Date 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 07/24/2016 Tobacco abuse 04/10/2015 07/24/2016 Meatal stenosis 04/03/2015 07/24/2016 Penile adhesions w/skin bridging 03/04/2015 07/24/2016 Lumbar disc herniation 08/21/2013 6 Diarrhea 07/24/2016 documented as of this encounter (statuses as of 08/20/2022) [facility] History of Past illness Narrative* Problem Noted Date Resolved Date 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 07/24/2016 Tobacco abuse 04/10/2015 07/24/2016 Meatal stenosis 04/03/2015 07/24/2016 Penile adhesions w/skin bridging 03/04/2015 07/24/2016 Lumbar disc herniation 08/21/2013 6 Diarrhea 07/24/2016 documented as of this encounter (statuses as of 10/06/2022) [facility] History of Past illness Narrative* Problem Noted Date Resolved Date 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 07/24/2016 Tobacco abuse 04/10/2015 07/24/2016 Meatal stenosis 04/03/2015 07/24/2016 Penile adhesions w/skin bridging 03/04/2015 07/24/2016 Lumbar disc herniation 08/21/2013 6 Diarrhea 07/24/2016 documented as of this encounter (statuses as of 11/05/2022) [facility] History of Past illness Narrative* Problem Noted Date Resolved Date 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 07/24/2016 Tobacco abuse 04/10/2015 07/24/2016 Meatal stenosis 04/03/2015 07/24/2016 Penile adhesions w/skin bridging 03/04/2015 07/24/2016 Lumbar disc herniation 08/21/2013 6 Diarrhea 07/24/2016 documented as of this encounter (statuses as of 11/23/2022) [facility] History of Past illness Narrative* Problem Noted Date Resolved Date 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 07/24/2016 Tobacco abuse 04/10/2015 07/24/2016 Meatal stenosis 04/03/2015 07/24/2016 Penile adhesions w/skin bridging 03/04/2015 07/24/2016 Lumbar disc herniation 08/21/2013 6 Diarrhea 07/24/2016 documented as of this encounter (statuses as of 11/27/2022) [facility] History of Past illness Narrative* Problem Noted Date Resolved Date 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 07/24/2016 Tobacco abuse 04/10/2015 07/24/2016 Meatal stenosis 04/03/2015 07/24/2016 Penile adhesions w/skin bridging 03/04/2015 07/24/2016 Lumbar disc herniation 08/21/2013 6 Diarrhea 07/24/2016 documented as of this encounter (statuses as of 02/10/2023) [facility] History of Past illness Narrative* Problem Noted Date Resolved Date 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 07/24/2016 Tobacco abuse 04/10/2015 07/24/2016 Meatal stenosis 04/03/2015 07/24/2016 Penile adhesions w/skin bridging 03/04/2015 07/24/2016 Lumbar disc herniation 08/21/2013 6 Diarrhea 07/24/2016 documented as of this encounter (statuses as of 02/17/2023) [facility] History of Past illness Narrative* Problem Noted Date Diagnosed Date Resolved Date 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 07/24/2016 Tobacco abuse 04/10/2015 07/24/2016 Meatal stenosis 04/03/2015 07/24/2016 Penile adhesions w/skin bridging 03/04/2015 07/24/2016 Lumbar disc herniation 08/21/201307/24 Diarrhea 07/24/2016 documented as of this encounter (statuses as of 04/06/2023) [facility] History of Past illness Narrative* Problem Noted Date Diagnosed Date Resolved Date 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 07/24/2016 Tobacco abuse 04/10/2015 07/24/2016 Meatal stenosis 04/03/2015 07/24/2016 Penile adhesions w/skin bridging 03/04/2015 07/24/2016 Lumbar disc herniation 08/21/201307/24 Diarrhea 07/24/2016 documented as of this encounter (statuses as of 07/19/2023) [facility] History of Past illness Narrative* Problem Noted Date Diagnosed Date Resolved Date 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 07/24/2016 Tobacco abuse 04/10/2015 07/24/2016 Meatal stenosis 04/03/2015 07/24/2016 Penile adhesions w/skin bridging 03/04/2015 07/24/2016 Lumbar disc herniation 08/21/201307/24 Diarrhea 07/24/2016 documented as of this encounter (statuses as of 07/21/2023) [facility] History of Past illness Narrative* Problem Noted Date Diagnosed Date Resolved Date 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 07/24/2016 Tobacco abuse 04/10/2015 07/24/2016 Meatal stenosis 04/03/2015 07/24/2016 Penile adhesions w/skin bridging 03/04/2015 07/24/2016 Lumbar disc herniation 08/21/201307/24 Diarrhea 07/24/2016 documented as of this encounter (statuses as of 07/22/2023) [facility] Diagnosis Elevated prostate specific antigen (PSA)- Primary [facility] Diagnosis Elevated prostate specific antigen (PSA)- Primary Feeling of incomplete bladder emptying Incomplete bladder emptying [facility]ential [facility], benign [facility] Malignant ne[facility] of prostate (HCC) [facility] Diagnosis Prostate cancer (HCC)- Primary Malignant neoplasm of prostate Elevated prostate specific antigen (PSA) [facility] ([facility]CC) [facility] Diagnosis Prostate cancer (HCC)- Primary Malignant neoplasm of prostate [facility] Diagnosis Prostate cancer (HCC) Malignant neoplasm of prostate [facility] Diagnosis Prostate cancer (HCC)- Primary Malignant neoplasm of prostate [facility] Diagnosis Prostate cancer (HCC)- Primary Malignant neoplasm of prostate [facility] ([facility])- Primary Malignant neoplasm of prostate [facility] Diagnosis Prostate cancer (HCC)- Primary Malignant neoplasm of prostate [facility]* Diagnosis Dysuria- Primary documented in this encounter [facility] note* Diagnosis Essential hypertension, benign- Primary DDD (degenerative disc disease), lumbar Degeneration of lumbar or lumbosacral intervertebral disc Prostate cancer (HCC) Malignant neoplasm of prostate documented in this encounter [facility] note* Diagnosis Prostate cancer (HCC)- Primary Malignant neoplasm of prostate documented in this encounter [facility] note* Diagnosis Essential hypertension, benign documented in this encounter [facility] note* Diagnosis Dysuria- Primary documented in this encounter [facility] note* Diagnosis Prostate cancer (HCC)- Primary Malignant neoplasm of prostate documented in this encounter [facility] note* Diagnosis Dysuria- Primary [facility] Diagnosis Essential hypertension, benign- Primary DDD (degenerative disc disease), lumbar Degeneration of lumbar or lumbosacral intervertebral disc Prostate cancer (HCC) Malignant neoplasm of prostate Elevated PSA Elevated prostate specific antigen (PSA) documented in this encounter [facility] note* Diagnosis Radiotherapy follow-up- Primary Radiotherapy follow-up examination Prostate cancer (HCC) Malignant neoplasm of prostate documented in this encounter [facility] note* Diagnosis Sinobronchitis- Primary Unspecified sinusitis (chronic) documented in this encounter [facility] note* Diagnosis Prostate cancer (HCC)- Primary Malignant neoplasm of prostate documented in this encounter [facility] note* Diagnosis DDD (degenerative disc disease), lumbar- Primary Degeneration of lumbar or lumbosacral intervertebral disc Lumbar radiculopathy Thoracic or lumbosacral neuritis or radiculitis, unspecified Essential hypertension, benign Elevated glucose Other abnormal glucose Prostate cancer (HCC) Malignant neoplasm of prostate Elevated prostate specific antigen (PSA) documented in this encounter [facility] note* Diagnosis Hematuria, unspecified type- Primary Gross hematuria documented in this encounter [facility] note* Diagnosis Prostate cancer (HCC)- Primary Malignant neoplasm of prostate documented in this encounter [facility] for referral (narrative)* Outpatient Procedure (Routine) - Pending Review Specialty Diagnoses / Procedures Referred By Johanna kapoor Referred To Contact [facility] Diagnoses Elevated prostate specific antigen (PSA) Procedures US PROSTATE BIOPSY GUKI PROSTATE NEEDLE BIOPSY ANY APPROACH US, TRANSRECTAL URNLS DIP STICK/TABLET RGNT AUTO W/O MICROSCOPY US GUIDANCE NEEDLE PLACEMENT IMG S&I Heri Humphries PA-C [address] [place] [address] [facility] [address] [place] [address] Referral ID Status Reason Start Date Expiration Date Visits Requested Visits Authorized [id number] Pending Review Auto-Generat ed Referral 11/11/2021 11/11/2022 1 [facility] Diagnostic Procedure Only (Routine) - Closed Specialty Diagnoses / Procedures Referred By Contac t Referred To Contact MOLECULAR & FUNCTIONAL IMAGING Diagnoses Malignant neoplasm of prostate (HCC) Procedures NM BONE WHOLE BODY BONE &/JOINT IMAGING WHOLE BODY Delvis Isidro MD [address] [place] [address] Molecular & Functional Imaging [address] [id number] Referral ID Status Reason Start Date Expiration Date V isits Requested Visits Authorized [id number] Closed Auto-Generate d Referral 12/11/2021 01/10/2023 1 1 [facility] Medications Administered Section Inactive Administered Medications - up to 3 most recent administrations Medication Order MAR Action Action Date Dose Rate Site gentamicin 40 mg/mL 160 mg injection 160 mg, INTRAMUSCULAR, ONCE, 1 dose, On Wed12/05/21 at 1130, Please document the antimicrobial indication: Empiric Given 12/05/2021 11:15 AM EDT 160 mg Othe r levoFLOXacin 750 mg tab(s) (LEVAQUIN) 750 mg, ORAL, ONCE, 1 dose, On Wed12/05/21 at 1130, Administer 2 hours before or 2 hours after antacids, calcium, iron, zinc, or foods containing these items. Tube feedings should be held 1 hour before and 1 hour after administration., Please document the antimicrobial indication: Empiric Given 12/05/2021 11:10 AM EDT 750 mg Oral Inactive Administered Medications - up to 3 most recent administrations Medication Order MAR Action Action Date Dose Rate Site leuprolide 45 mg injection (ELIGARD) 45 mg, SUBCUTANEOUS, ONCE, 1 dose, On Neena 12/25/21 at 1030, Hazardous Chemotherapy Drug: Use appropriate PPE. Given 12/25/2021 10:30 AM EDT 45 mg Abdomen, RUQ Active Administered Medications - up to 3 most recent administrations Medication Order MAR Action Action Date Dose Rate Site leuprolide 45 mg injection (ELIGARD) 45 mg, SUBCUTANEOUS, EVERY 6 MONTHS, 2 doses, First dose on 02/09/23 at 1100, Last dose on 08/08/23 at 1100, Hazardous Chemotherapy Drug: Use appropriate PPE. Given 02/09/2023 11:37 AM EDT 45 mg Abdomen, LUQ Reason for Referral Specialty Diagnoses / Procedures Referred By Contac t Referred To Contact CT IMAGING Diagnoses Malignant neoplasm of prostate (HCC) Procedures CT ABD/PEL W IVCON CT ABD & PELVIS W/CONTRAST Delvis Isirdo MD [address] [place] [address] Ct Imaging Referral ID Status Reason Start Date Expiration Date V isits Requested Visits Authorized [id number] Closed Auto-Generate d Referral 12/11/2021 01/10/2023 1 1 Specialty Diagnoses / Procedures Referred By Contac t Referred To Contact Radiation Oncology Diagnoses Prostate cancer (HCC) Procedures RAD/ONC CONSULT OFFICE/OUTPATIENT [facility] 60-74 MINUTES Vanessa Dodson DO [address] [place] [address] Referral ID Status Reason Start Date Expiration Date Visits Requested Visits Authorized [id number] Authorized PCP Requested Referral 12/25/2021 12/25/2022 1 1 Specialty Diagnoses / Procedures Referred By Contac t Referred To Contact MR IMAGING Diagnoses Prostate cancer (HCC) Procedures MRI TREATMENT PLANNING WO IVCON NR UNLISTED MAGNETIC RESONANCE PROCED Abimael Ta MD, [address] [place] [address] Mr Imaging Referral ID Status Reason Start Date Expiration Date Visits Requested Visits Authorized [id number] Authorized Auto-Generat ed Referral 01/02/2022 02/01/2023 1 1 Referral ID Status Reason Start Date Expiration Date V isits Requested Visits Authorized [id number] Closed Auto-Generate d Referral 01/02/2022 02/01/2023 1 1 Summary Purpose Family History No Family History Records Found Advance Directives No Advanced Directives Records Found Additional Source Comments Source Comments (unrecognize d section and content) In the event this informatio n is protected by the Federal Confidentiality of Alcohol and Drug Abuse Patient Records regulations: The Federal rules restrict any use of the information to criminally investigate or prosecute any alcohol or drug abuse patient.[facility] the event this information is protected by the Federal Confidentiality of Alcohol and Drug Abuse Patient Records regulations: The Federal rules restrict any use of the information to criminally investigate or prosecute any alcohol or drug abuse patient.[facility] the event this information is protected by the Federal Confidentiality of Alcohol and Drug Abuse Patient Records regulations: The Federal rules restrict any use of the information to criminally investigate or prosecute any alcohol or drug abuse patient.[facility] the event this information is protected by the Federal Confidentiality of Alcohol and Drug Abuse Patient Records regulations: The Federal rules restrict any use of the information to criminally investigate or prosecute any alcohol or drug abuse patient.[facility] the event this information is protected by the Federal Confidentiality of Alcohol and Drug Abuse Patient Records regulations: The Federal rules restrict any use of the information to criminally investigate or prosecute any alcohol or drug abuse patient.[facility] the event this information is protected by the Federal Confidentiality of Alcohol and Drug Abuse Patient Records regulations: The Federal rules restrict any use of the information to criminally investigate or prosecute any alcohol or drug abuse patient.[facility]In the event this information is protected by the Federal Confidentiality of Alcohol and Drug Abuse Patient Records regulations: The Federal rules restrict any use of the information to criminally investigate or prosecute any alcohol or drug abuse patient.[facility]In the event this information is protected by the Federal Confidentiality of Alcohol and Drug Abuse Patient Records regulations: The Federal rules restrict any use of the information to criminally investigate or prosecute any alcohol or drug abuse patient.[facility] the event this information is protected by the Federal Confidentiality of Alcohol and Drug Abuse Patient Records regulations: The Federal rules restrict any use of the information to criminally investigate or prosecute any alcohol or drug abuse patient.[facility]In the event this information is protected by the Federal Confidentiality of Alcohol and Drug Abuse Patient Records regulations: The Federal rules restrict any use of the information to criminally investigate or prosecute any alcohol or drug abuse patient.[facility]In the event this information is protected by the Federal Confidentiality of Alcohol and Drug Abuse Patient Records regulations: The Federal rules restrict any use of the information to criminally investigate or prosecute any alcohol or drug abuse patient.[facility] the event this information is protected by the Federal Confidentiality of Alcohol and Drug Abuse Patient Records regulations: The Federal rules restrict any use of the information to criminally investigate or prosecute any alcohol or drug abuse patient.[facility]In the event this information is protected by the Federal Confidentiality of Alcohol and Drug Abuse Patient Records regulations: The Federal rules restrict any use of the information to criminally investigate or prosecute any alcohol or drug abuse patient.[facility]In the event this information is protected by the Federal Confidentiality of Alcohol and Drug Abuse Patient Records regulations: The Federal rules restrict any use of the information to criminally investigate or prosecute any alcohol or drug abuse patient.[facility]In the event this information is protected by the Federal Confidentiality of Alcohol and Drug Abuse Patient Records regulations: The Federal rules restrict any use of the information to criminally investigate or prosecute any alcohol or drug abuse patient.[facility]In the event this information is protected by the Federal Confidentiality of Alcohol and Drug Abuse Patient Records regulations: The Federal rules restrict any use of the information to criminally investigate or prosecute any alcohol or drug abuse patient.[facility]In the event this information is protected by the Federal Confidentiality of Alcohol and Drug Abuse Patient Records regulations: The Federal rules restrict any use of the information to criminally investigate or prosecute any alcohol or drug abuse patient.[facility]In the event this information is protected by the Federal Confidentiality of Alcohol and Drug Abuse Patient Records regulations: The Federal rules restrict any use of the information to criminally investigate or prosecute any alcohol or drug abuse patient.[facility]In the event this information is protected by the Federal Confidentiality of Alcohol and Drug Abuse Patient Records regulations: The Federal rules restrict any use of the information to criminally investigate or prosecute any alcohol or drug abuse patient.[facility]In the event this information is protected by the Federal Confidentiality of Alcohol and Drug Abuse Patient Records regulations: The Federal rules restrict any use of the information to criminally investigate or prosecute any alcohol or drug abuse patient.[facility]In the event this information is protected by the Federal Confidentiality of Alcohol and Drug Abuse Patient Records regulations: The Federal rules restrict any use of the information to criminally investigate or prosecute any alcohol or drug abuse patient.[facility]In the event this information is protected by the Federal Confidentiality of Alcohol and Drug Abuse Patient Records regulations: The Federal rules restrict any use of the information to criminally investigate or prosecute any alcohol or drug abuse patient.[facility]In the event this information is protected by the Federal Confidentiality of Alcohol and Drug Abuse Patient Records regulations: The Federal rules restrict any use of the information to criminally investigate or prosecute any alcohol or drug abuse patient.[facility]In the event this information is protected by the Federal Confidentiality of Alcohol and Drug Abuse Patient Records regulations: The Federal rules restrict any use of the information to criminally investigate or prosecute any alcohol or drug abuse patient.[facility]In the event this information is protected by the Federal Confidentiality of Alcohol and Drug Abuse Patient Records regulations: The Federal rules restrict any use of the information to criminally investigate or prosecute any alcohol or drug abuse patient.[facility]In the event this information is protected by the Federal Confidentiality of Alcohol and Drug Abuse Patient Records regulations: The Federal rules restrict any use of the information to criminally investigate or prosecute any alcohol or drug abuse patient.[facility]In the event this information is protected by the Federal Confidentiality of Alcohol and Drug Abuse Patient Records regulations: The Federal rules restrict any use of the information to criminally investigate or prosecute any alcohol or drug abuse patient.[facility]In the event this information is protected by the Federal Confidentiality of Alcohol and Drug Abuse Patient Records regulations: The Federal rules restrict any use of the information to criminally investigate or prosecute any alcohol or drug abuse patient.[facility]In the event this information is protected by the Federal Confidentiality of Alcohol and Drug Abuse Patient Records regulations: The Federal rules restrict any use of the information to criminally investigate or prosecute any alcohol or drug abuse patient.[facility]In the event this information is protected by the Federal Confidentiality of Alcohol and Drug Abuse Patient Records regulations: The Federal rules restrict any use of the information to criminally investigate or prosecute any alcohol or drug abuse patient.[facility]In the event this information is protected by the Federal Confidentiality of Alcohol and Drug Abuse Patient Records regulations: The Federal rules restrict any use of the information to criminally investigate or prosecute any alcohol or drug abuse patient.[facility]In the event this information is protected by the Federal Confidentiality of Alcohol and Drug Abuse Patient Records regulations: The Federal rules restrict any use of the information to criminally investigate or prosecute any alcohol or drug abuse patient.[facility]In the event this information is protected by the Federal Confidentiality of Alcohol and Drug Abuse Patient Records regulations: The Federal rules restrict any use of the information to criminally investigate or prosecute any alcohol or drug abuse patient.[facility]In the event this information is protected by the Federal Confidentiality of Alcohol and Drug Abuse Patient Records regulations: The Federal rules restrict any use of the information to criminally investigate or prosecute any alcohol or drug abuse patient.[facility]In the event this information is protected by the Federal Confidentiality of Alcohol and Drug Abuse Patient Records regulations: The Federal rules restrict any use of the information to criminally investigate or prosecute any alcohol or drug abuse patient.[facility]In the event this information is protected by the Federal Confidentiality of Alcohol and Drug Abuse Patient Records regulations: The Federal rules restrict any use of the information to criminally investigate or prosecute any alcohol or drug abuse patient.[facility]In the event this information is protected by the Federal Confidentiality of Alcohol and Drug Abuse Patient Records regulations: The Federal rules restrict any use of the information to criminally investigate or prosecute any alcohol or drug abuse patient.[facility] HospitalIn the event this information is protected by the Federal Confidentiality of Alcohol and Drug Abuse Patient Records regulations: The Federal rules restrict any use of the information to criminally investigate or prosecute any alcohol or drug abuse patient.[facility] the event this information is protected by the Federal Confidentiality of Alcohol and Drug Abuse Patient Records regulations: The Federal rules restrict any use of the information to criminally investigate or prosecute any alcohol or drug abuse patient.[facility] the event this information is protected by the Federal Confidentiality of Alcohol and Drug Abuse Patient Records regulations: The Federal rules restrict any use of the information to criminally investigate or prosecute any alcohol or drug abuse patient.[facility] the event this information is protected by the Federal Confidentiality of Alcohol and Drug Abuse Patient Records regulations: The Federal rules restrict any use of the information to criminally investigate or prosecute any alcohol or drug abuse patient.[facility] the event this information is protected by the Federal Confidentiality of Alcohol and Drug Abuse Patient Records regulations: The Federal rules restrict any use of the information to criminally investigate or prosecute any alcohol or drug abuse patient.[facility] the event this information is protected by the Federal Confidentiality of Alcohol and Drug Abuse Patient Records regulations: The Federal rules restrict any use of the information to criminally investigate or prosecute any alcohol or drug abuse patient.[facility] Reason for Visit (unrecogniz ed section and content) Specialty Diagnoses / Procedures Referred By Contac t Referred To Contact Radiation Oncology Diagnoses Prostate cancer (HCC) Procedures RAD/ONC CONSULT OFFICE/OUTPATIENT [facility] MDM 60-74 MINUTES Vanessa Dodson DO [address] [place] [address] Referral ID Status Reason Start Date Expiration Date V isits Requested Visits Authorized [id number] Closed PCP Requested Referral 12/25/2021 12/25/2022 1 1 Reason Comments Elevated PSA Specialty Diagnoses / Procedures Referred By Contac t Referred To Contact Urology Diagnoses Elevated prostate specific antigen (PSA) Procedures CONSULT TO UROLOGY OFFICE/OUTPATIENT [facility] 60-74 MINUTES Heather Cason MD [address] [place] [address] Randal Gleason [address] [place] [id number] Referral ID Status Reason Start Date Expiration Date V isits Requested Visits Authorized [id number] Closed PCP Requested Referral 10/03/2021 10/03/2022 1 1 Reason Comments Results Reason Comments Opened In Error Reason Onset Date Comments Refill Request 12/15/[address] Specialty Diagnoses / Procedures Referred By Contac t Referred To Contact CT IMAGING Diagnoses Malignant neoplasm of prostate (HCC) Procedures CT ABD/PEL W IVCON CT ABD & PELVIS W/CONTRAST Delvis Isidro MD [address] [place] [address] Ct Imaging Referral ID Status Reason Start Date Expiration Date V isits Requested Visits Authorized [id number] Closed Auto-Generate d Referral 12/11/2021 01/10/2023 1 1 Reason Comments New Patient Prostate Cancer Reason Comments Appointment Reason Onset Date Comments Simulation Request Form 02/19/2022 Reason Comments Patient Education Specialty Diagnoses / Procedures Referred By Contac t Referred To Contact MR IMAGING Diagnoses Prostate cancer (HCC) Procedures MRI TREATMENT PLANNING WO IVCON NR UNLISTED MAGNETIC RESONANCE PROCED Abimael Ta MD, [address] [place] [address] Mr Imaging Referral ID Status Reason Start Date Expiration Date V isits Requested Visits Authorized [id number] Closed Auto-Generate d Referral 01/02/2022 02/01/2023 1 1 Reason Comments Radiotherapy On-treatment Visit Reason Comments F/U 6 Month Reason Comments Actionable Findings Follow Up Patient Update Incidental finding o f nodule Reason Comments question on getting a hormone injection Reason Onset Date Comments Refill Request 05/20/2022 Refill Request 05/21/2022 Reason Comments Follow Up Prostate Cancer Reason Onset Date Comments Population Health Navigation Outreach 07/30/2022 [facility] [place] PCSA Reason Comments UTI Reason Comments Recheck Reason Comments Cough Runny nose x 2 weeks Reason Comments Medication Problem Reason Comments PSA Follow Up Prostate Cancer Reason Comments Patient Update Patient Question Reason Comments Patient Update Appointment Reason Comments psa order Care Teams (unrecognized sec tion and content) [employer] Relationship Specialty Start Date End Date Heather Cason MD [address] [place], [place] [id number] PCP - General 03/06/08 [employer] Relationship Specialty Start Date End Date Heather Cason MD [address] [place], [place] [id number] PCP - General 03/06/08 [employer] Relationship Specialty Start Date End Date Heather Cason MD [address] [place], [place] [id number] PCP - General 03/06/08 [employer] Relationship Specialty Start Date End Date Heather Cason MD [address] [place] [address] PCP - General 03/06/08 [employer] Relationship Specialty Start Date End Date Heather Cason MD [address] [place] [address] PCP - General 03/06/08 [employer] Relationship Specialty Start Date End Date Heather Cason MD [address] [place] [address] PCP - General 03/06/08 [employer] Relationship Specialty Start Date End Date Heather Cason MD [address] [place] [address] PCP - General 03/06/08 [employer] Relationship Specialty Start Date End Date Heather Cason MD [address] [place] [address] PCP - General 03/06/08 [employer] Relationship Specialty Start Date End Date Heather Cason MD [address] [place] [address] PCP - General 03/06/08 Abimael Ta MD, [address] [facility] [place] [address] Physician Radiation Oncology 12/29/21 [employer] Relationship Specialty Start Date End Date Heather Cason MD [address] [place] [address] PCP - General 03/06/08 Abimael Ta MD, [address] [facility] [place] [address] Physician Radiation Oncology 12/29/21 [employer] Relationship Specialty Start Date End Date Heather Cason MD [address] [place] [address] PCP - General 03/06/08 Abimael Ta MD, [address] [facility] [place] [address] Physician Radiation Oncology 12/29/21 [employer] Relationship Specialty Start Date End Date Heather Cason MD [address] [place] [address] PCP - General 03/06/08 Abimael Ta MD, [address] [facility] [place] [address] Physician Radiation Oncology 12/29/21 [employer] Relationship Specialty Start Date End Date Heather Cason MD [address] [place] [address] PCP - General 03/06/08 Abimael Ta MD, [address] [facility] [place] [address] Physician Radiation Oncology 12/29/21 [employer] Relationship Specialty Start Date End Date Heather Cason MD [address] [place] [address] PCP - General 03/06/08 Abimael Ta MD, [address] [facility] [place] [address] Physician Radiation Oncology 12/29/21 [employer] Relationship Specialty Start Date End Date Heather Cason MD [address] [place] [address] PCP - General 03/06/08 Abimael Ta MD, [address] [facility] [place] [address] Physician Radiation Oncology 12/29/21 [employer] Relationship Specialty Start Date End Date Heather Cason MD [address] [facility] [place] [address] PCP - General 03/06/08 Abimael Ta MD, [address] [facility] [place] [address] Physician Radiation Oncology 12/29/21 [employer] Relationship Specialty Start Date End Date Heather Cason MD [address] [facility] [place] [address] PCP - General 03/06/08 Abimael Ta MD, MD [address] [facility] [place] [address] Physician Radiation Oncology 12/29/21 [employer] Relationship Specialty Start Date End Date Heather Cason MD [address] [place] [address] PCP - General 03/06/08 Abimael Ta MD, MD [address] [facility] [place] [address] Physician Radiation Oncology 12/29/21 [employer] Relationship Specialty Start Date End Date Heather Cason MD [address] [place] [address] PCP - General 03/06/08 Aibmael Ta MD, [address] [facility] [place] [address] Physician Radiation Oncology 12/29/21 [employer] Relationship Specialty Start Date End Date Heather Cason MD [address] [place] [address] PCP - General 03/06/08 Abimael Ta MD, [address] [place] [address] Physician Radiation Oncology 12/29/21 [employer] Relationship Specialty Start Date End Date Heather Cason MD [address] [place] [address] PCP - General 03/06/08 Abimael Ta MD, [address] [place] [address] Physician Radiation Oncology 12/29/21 [employer] Relationship Specialty Start Date End Date Heather Cason MD [address] [place] [address] PCP - General 03/06/08 Abimael Ta MD, [address] [facility] [place] [address] Physician Radiation Oncology 12/29/21 [employer] Relationship Specialty Start Date End Date Heather Cason MD [address] [place] [address] PCP - General 03/06/08 Abimael Ta MD, [address] [facility] [place] [address] Physician Radiation Oncology 12/29/21 [employer] Relationship Specialty Start Date End Date Heather Cason MD [address] [place] [address] PCP - General 03/06/08 Abimael Ta MD, [address] [place] [address] Physician Radiation Oncology 12/29/21 [employer] Relationship Specialty Start Date End Date Heather Cason MD [address] [place] [address] PCP - General 03/06/08 Abimael Ta MD, [address] [place] [address] Physician Radiation Oncology 12/29/21 [employer] Relationship Specialty Start Date End Date Heather Cason MD [address] [place] [address] PCP - General 03/06/08 Abimael Ta MD, [address] [place] [address] Physician Radiation Oncology 12/29/21 [employer] Relationship Specialty Start Date End Date Heather Cason MD [address] [place] [address] PCP - General 03/06/08 Abimael Ta MD, [address] [place] [address] Physician Radiation Oncology 12/29/21 [employer] Relationship Specialty Start Date End Date Heather Cason MD [address] [place] [address] PCP - General 03/06/08 Abimael Ta MD, [address] [place] [address] Physician Radiation Oncology 12/29/21 [employer] Relationship Specialty Start Date End Date Heather Cason MD [address] [place] [address] PCP - General 03/06/08 Abimael Ta MD, [address] [place] [address] Physician Radiation Oncology 12/29/21 (unrecognized sect ion and content) No Status Records Found INFORMATION SOURCE (unrecogn ized section and content) FOR RECORDS PERTAINING TO PATIENTS WHO ARE OR HAVE BEEN ENROLLED IN A CHEMICAL DEPENDENCY/SUBSTANCEABUSE PROGRAM, SOME INFORMATION MAY BE OMITTED. This clinical summary was aggregated from multiple sources. Caution should be exercised in using it in the provision of clinical care. This summary normalizes information from multiple sources, and as a consequence, information in this document may materially change the coding, format and clinical context of patient data. In addition, data may be omitted in some cases. CLINICAL DECISIONS SHOULD BE BASED ON THE PRIMARY CLINICAL RECORDS. [employer] [facility]. provides no warranty or guarantee of the accuracy or completeness of information in this document.
[2023-09-10 08:59] LABS: Anion Gap 7 (5-15); BUN 16 mg/dL (7-18); Chloride 106 mmol/L (98-107); Creatinine, Serum 0.76 mg/dL (0.70-1.30); EST Glomerular Filtration Rate 106 mL/min (>60); Est Glom Filt Rate - Afr Amer 128 mL/min (>60); Estimated Creatinine Clearance 78.38 ml/min; Glucose 89 mg/dL (74-106); Potassium 3.3 mmol/L (3.5-5.1); Sodium Level 136 mmol/L (136-145)
[2023-09-10 09:02] LABS: Color, Urine Yellow (Yellow); Glucose, Dipstick Normal (Normal); Ketone-Dipstick Negative (Negative); Leukocyte Esterase-Dipstick 25 /ul (Negative); Nitrite-Dipstick Negative (Negative); Occult Blood-Urine Negative /ul (Negative); Protein-Dipstick Negative (Negative); Specific Gravity, Urine 1.005 (1.002-1.030); Urine Bilirubin Dipstick Negative (Negative); Urine Clarity Clear (Clear); Urine Urobilinogen Normal (Normal); Urine pH 6.5 (5.0 - 8.0)
[2023-09-10 09:11] LABS: Squamous Epithelial Cells - UA 0-5 SEEN /hpf (0-5); White Blood Cells 0-5 SEEN /hpf (0-5)
[2023-09-10] MEDS: Mag Hydrox/Al Hydrox/Simeth 30 ML UDC PO (11:00)
[2023-09-10 11:24] LABS: Troponin-I HS 10 pg/mL (3.0-78.0)
[2023-09-10 12:16] VITALS: BP 138/72; PULSE 81; RESP 16; O2SAT 98
== END 2023-09-10 12:19 | disposition home or self-care (01) ==
PROVIDERS: Emergency Provider Emergency Medicine; PCP Family Medicine; Visit Provider Emergency Medicine
DX: R10.32 Left lower quadrant pain (principal); R07.9 Chest pain, unspecified; F17.210 Nicotine dependence, cigarettes, uncomplicated
CPT/HCPCS: 74176; 80048; 81001; 84484; 85025; 93005; 96361; 96374; 96375; 99283; J7030; J2405

== ENCOUNTER 2023-11-03 05:52 | Day surgery (SDC) | payer MEDICARE, MEDICAID, SELFPAY ==
[2023-10-25 11:51] LABS: Vitamin D,25 Hydroxy 19.7 ng/mL
[2023-10-25 12:25] LABS: Magnesium 2.4 mg/dL (1.6-2.6)
[2023-10-25 13:40] LABS: Hemoglobin A1c 5.4 % (3.8-5.6)
[2023-10-31 11:07] LABS: Cotinine Screen Blood 205.2 ng/mL (.); Nicotine Blood 26.3 ng/mL (.)
[2023-11-03] VITALS (7 sets, daily range): BP systolic 116–133; BP diastolic 80–93; PULSE 67–75; RESP 16; TEMP 36.1–36.7; O2SAT 96–100; BMI 24.7
[2023-11-03] MEDS: Lactated Ringers 1,000 ML 15 ML IV (06:19)
[2023-11-03] MEDS: Magnesium 1 GM over 15 mins IV (06:20)
[2023-11-03] MEDS: Acetaminophen 500 MG Tablet 1000 MG PO (06:21)
[2023-11-03] MEDS: Gabapentin 600 MG Tablet PO (06:21)
[2023-11-03 06:51] LABS: Bedside Glucose 101 mg/dL (74-106)
[2023-11-03] MEDS: Cefazolin 2 GM in 0.9% Normal Saline (100mL Bag) 100 ML IV (07:30)
--- NOTE | 2023-11-03 07:39 | RAD_ITS ---
STUDY: X-RAY - RIGHT FOOT CLINICAL: Male, 72 years old. Pain, arthroplasty right 5th digit with 4th digit condylectomy. TECHNIQUE: 1 fluoro image of the right foot, 14 fluoro sec, 0.0652. COMPARISON: None. FINDINGS: Normal metatarsi. Normal metatarsophalangeal joint of the great toe. Normal second through fifth metatarsophalangeal joints. Intact visualized phalanges. There is a metallic surgical instrument overlying the fourth webspace. The soft tissue structures are unremarkable. RAD/Toe(s) Min 2 Views IMPRESSION: Fluoroscopic image of the right foot during surgical procedure. Electronically Signed: Praker Arevalo MD at 9:44 EDT ,
[2023-11-03] MEDS: Bupivacaine Mpf 0.5% 30 ML VIAL (08:02)
--- NOTE | 2023-11-03 08:26 | PCM.OPRPT ---
Problems Associated Problem List Diagnoses (1) Other hammer toe(s) (acquired), right foot: (2) Epidermal cyst: Report of Operation Date of Procedure: 11/03/23 Pre-Operative Diagnosis: 1. Hammertoes, fourth digit and fifth digit, right foot 2. Epidermal cyst, fourth digit, right foot Post-Operative Diagnosis: Same as preoperative diagnosis Surgery/Procedure Performed:: 1. Derotational arthroplasty, fifth digit, right foot 2. Condylectomy, fourth digit, right foot Description of Surgical Findings:: 1. The rotation of the fifth digit and after procedure performed, right foot 2. Evidence of arthritic changes appreciated to the PIPJ of the fifth digit, right foot 3. Removal of condyle to the lateral aspect of the proximal phalanx fourth digit, right foot Surgeon: Anders Germain dishcloth folder: Lisa Campbell Type of Anesthesia: General and Local Anesthesiologist: Jacob Meyers Special Medications: Per anesthesia Specimen's removed: None Drains: None Estimated Blood Loss (mL): 10 mL Fluids Replaced: Per anesthesia Description of Procedure: Indications For Operation: Mr. Ibarra is a 72-year-old male who was admitted to [facility] for elective surgery to the right foot consisting of derotational arthroplasty of the fifth digit and condylectomy of the fourth digit secondary to hammertoe contracture and epidermal cyst to the right foot. Patient was seen in the office and is well-known to me for surgical consultation with a chart review and consent signed. Risk and benefits were discussed with the patient in great detail. Patient elected to move forward with elective right foot surgery. Due to continued right foot pain at the level of the epidermal cyst and deformity of the fifth and fourth digit of the right foot it has been deemed necessary at this time to perform the above procedure to help correct the patient's foot and decrease his constant pain. The nature of the problem, anticipated procedures, postop recovery/convalences and risk/complications include but not limited to infection, wound healing complications, digital amputation, hypertrophic scarring, numbness, tingling, chronic pain, CRPS, over and under correction, recurrence of deformity, DVT and or PE and the need for further surgery have been discussed in great detail with the patient. All questions have been answered to the patient's satisfaction. There are no guarantees given as to the outcome of the procedure. Description of Procedure: Under mild sedation, the patient was brought into the operating room and placed on the operating table in supine position. Once the patient was under general anesthesia with laryngeal mask airway, the right lower extremity was blocked using approximately 20 cc 0.5% Marcaine plain. Next, a well-padded calf tourniquet was applied to the right lower extremity. Next, the right lower extremity was prepped and draped in normal aseptic manner. Next, a timeout was then undertaken verifying the correct patient, extremity, visibility of preoperative markings, availability of the equipment. Next, attention was directed to the right lower extremity. Using a 4 inch Esmarch, right lower extremity was exsanguinated and elevated to 60 degrees for 1 minute. Procedure #1, derotational arthroplasty, fifth digit, right foot Next, attention was directed to the right foot. Using mini C arm fluoroscopy incisions were mapped over the fifth digit. A oblique incision was marked out using a sterile skin marker. Using a #15 blade and pickup the oblique incision was cut down full-thickness to subcutaneous tissue from distal lateral to proximal medial. Using a pickup the oblique incision tissue was removed and passed the back table to be discarded. The proximal interphalangeal joint was identified and all lateral collateral ligaments as well as a extensor tendon was delicate removed from the head of the proximal phalanx. The head of the proximal phalanx was again identified and show evidence of arthritic changes. Using a sagittal saw and #412 blade, the osteotomy was performed across the head of the proximal phalanx. Using sharp dissection the head of the proximal phalanx of the fifth digit right foot was removed and passed the back table to be discarded. After removal of the head there showed evidence of a more mobile fifth digit. Procedure #2, condylectomy, fourth digit, right foot Next, attention was directed to the right foot, using mini C arm fluoroscopy, incision was mapped out over the fourth digit making sure to encompass the condylectomy and the fourth metatarsal phalangeal joint. Using a #15 blade and pickup a full-thickness incision down to subcutaneous tissue was performed. Continued blunt dissection was carried down to the extensor tendon. The extensor tendon was delicately lifted off of its insertion and retracted to allow for visualization of the lateral condyle of the base of the proximal phalanx of the fourth digit. The fourth metatarsal phalangeal joint was also identified and released, resulting in less contracture of the fourth digit. After identifying the condylectomy, using a sagittal saw and #412 blade, the osteotomy was performed on the lateral aspect of the condyle. Sharp dissection was continued around the condyle on the lateral aspect of the fourth digit was removed, passed the back table to be discarded. Next, attention was directed to the epidermal cyst on the lateral aspect of the fourth digit was debrided down to and including healthy dermal tissue with a #10 blade without incident. Both incisions were flushed with copious kristi of normal saline. Osteotomies of the fourth and fifth digit were confirmed with mini C arm fluoroscopy. At this time the right calf tourniquet was deflated and reperfusion was noted to the right lower extremity. All bleeders were cauterized as necessary. The extensor tendon on the fourth digit was reapproximated back to its insertion and tacked down with 3-0 Vicryl and over over suture technique. The subcutaneous tissue was reapproximated and closed along the fourth digit with 3-0 Vicryl in running suture technique. The skin was reapproximated and closed on the fourth digit with 4-0 nylon in simple interrupted suture technique. Next, attention was directed back to the fifth digit one 3-0 Vicryl stitch was used to reapproximate the the subcutaneous tissue on the fifth digit in buried suture technique. The skin of the fifth digit was reapproximated and closed using 4-0 nylon in simple interrupted suture technique. Next, 1 cc of via flow was injected around both incisions to aid in healing properties. Next, the right lower extremities were cleaned and patted dry. Betadine soaked Adaptic was applied to all incisions, followed by dry sterile dressing and a single layer Ibarra compression bandage was applied to the right lower extremity. The patient tolerated the procedure and anesthesia well and apparent satisfactory condition and was transported to the PACU for further monitoring prior to discharge home. Vital signs stable and vascular status intact to all digits bilateral. Post Operative Plan: Weightbearing: Partial weightbearing to heel with surgical shoe right lower extremity, full weightbearing left lower extremity. Antibiotics: 2 g Ancef through the IV DVT Prophylaxis: Aspirin 81 mg Sneed: None Dressing: Betadine soaked Adaptic, dry sterile dressing single layer Ibarra compression bandage, right lower extremity X-Rays: Post-operative films taken on the operating room. Pain Medication: Vicodin Follow-up: Patient will follow-up with Dr. Germain in 2 weeks postsurgery in private office. Grafts/Implants Used: Lopoly via flow 1 cc Complications None Admit VTE Documentation VTE Present on Admission: No VTE Mechan Device Prophylaxis: SCD's VTE Pharm Prophylaxis ordered?: Yes
--- NOTE | 2023-11-03 09:40 | SUR.PHASEII ---
Patient and sisters educated on discharge homegoing instructions, no questions at this time. Patient stated he would like to get dressed himself and wants no assistance. Patient was anxious to get out of the hospital and wanted to go home. Patient wanted no help from the nurse. Patient took own IV out and RN placed gauze on site, IV and site was intact when IV was removed. Patient educated on importance of getting assistance and to remain partial weight baring, patient stated he knew and told nurse to leave the room. RN placed call light by patient and stated to hit the call light when he was dressed and ready to go.
== END 2023-11-03 09:53 | disposition home or self-care (01) ==
LOC: SDC 05:52 → AC 05:53
PROVIDERS: PCP Family Medicine; Referring Provider Podiatrist Foot & Ankle Surgery; Visit Provider Podiatrist Foot & Ankle Surgery
PROC: (CPT 28292; principal; 2023-11-03 07:15)
DX: M20.41 Other hammer toe(s) (acquired), right foot (principal); L72.0 Epidermal cyst; F17.210 Nicotine dependence, cigarettes, uncomplicated; I10 Essential (primary) hypertension; E78.00 Pure hypercholesterolemia, unspecified; Z79.899 Other long term (current) drug therapy
CPT/HCPCS: 28285; 28288; 01480; 36415; 73660; 76000; 80323; 82306; 82962; 83036; 83735; J7120; G0480; J2405; J3475

== ENCOUNTER 2024-02-08 08:02 | Emergency (ER) | payer MEDICARE, MEDICAID, SELFPAY ==
[2024-02-08 08:02] VITALS: BP 130/76; PULSE 70; RESP 14; TEMP 36.2; O2SAT 98
--- NOTE | 2024-02-08 09:00 | EX.ED.GUMALE ---
HPI History of Present Illness Chief Complaint: Male Pain/Injury Informant: patient Pain Onset: Weeks (2) Context: Gradual Onset Timing: Continuous Worsened by: Nothing Relieved by: Nothing Urinary Symptoms Genitourinary Symptoms: Burning Related History Prostate Cancer: Yes Narrative Narrative: Patient presents with redness and swelling to his penis that has been getting worse over the past 2 weeks. Patient states it is gradually getting worse. Patient does admit to some burning with urination but states that that has been constant since his radiation treatment for his prostate cancer. Patient denies any fevers or chills. Patient admits to some white discharge around the foreskin. Patient denies any abdominal pain. Patient denies any nausea or vomiting. [facility] Medical History Open wound of nose, complicated Basal cell carcinoma of nasal tip Cancer Heartburn Neoplasm of skin of nasal tip Wears glasses Wears partial dentures Wears dentures Arthritis Prostate disease Easy bruising History of stress test Skin cancer Back pain Cataract Home Medications ?Medication ?Instructions ?Recorded ?Last Taken ?Type amlodipine 5 mg tablet 5 mg PO DAILY blood pressure 08/05/14 11/03/23 History gabapentin 300 mg capsule 300 tab PO BID nerve pain 08/05/14 02/13/21 14:00 History celecoxib 200 mg capsule 200 mg PO DAILY anti-inflamatory 05/02/19 02/13/21 14:00 History ascorbic acid (vitamin C) 1,000 mg 1 g PO DAILY 90 days #90 tabs 11/03/23 Unknown Rx tablet (Vitamin C) aspirin 81 mg capsule 81 mg PO DAILY 30 days #30 caps 11/03/23 Unknown Rx calcium carbonate 500 mg-vitamin 1 tab PO DAILY 90 days #90 tabs 11/03/23 Unknown Rx D3 15 mcg (600 unit) tablet (Os-Peewee 500 + D3) docusate sodium 100 mg capsule 100 mg PO DAILY 10 days #10 caps 11/03/23 Unknown Rx (Colace) hydrocodone 5 mg-acetaminophen 300 1 tab PO Q6H 7 days #28 tabs 11/03/23 Unknown Rx mg tablet clotrimazole 1 % topical cream 1 applic topical BID 14 days #15 02/08/24 Unknown Rx grams Allergy/AdvReac Type Severity Reaction Status Date / Time cortisone Allergy Other Verified 02/08/24 08:03 Family History Other Hypertension Skin cancer Surgical History History of basal cell carcinoma excision Hx of foot surgery History of back surgery Social History Smoking Status: Current every day smoker tobacco type: cigarettes alcohol intake: never substance use type: does not use additional social history: DOES NOT USE ASPIRIN DOES NOT USE IBUPROFEN ROS ROS ED Constitutional Constitutional ED: Denies chills or fever(s) Eyes Eyes: Denies blurry vision or change in vision ENT ENT ED: Denies rhinorrhea or sore throat Cardiovascular Cardiovascular: Denies chest pain or palpitations Respiratory/Chest Respiratory/Chest: Denies cough or dyspnea Gastrointestinal Gastrointestinal: Denies nausea or vomiting Genitourinary Genitourinary ED: Reports dysuria; Denies hematuria Musculoskeletal Musculoskeletal: Reports back pain; Denies neck pain Integumentary Denies abscess or rash Neurologic Neurologic: Denies headache(s) or weakness Allergic/Immunologic Allergic/Immunologic ED: Denies mouth swelling or urticaria EXAM Physical Exam Const Vital Signs: 02/08/24 08:02 Temperature 97.2 F L Temperature Source Temporal Pulse Rate 70 Respiratory Rate 14 Blood Pressure 130/76 H Blood Pressure Mean 94 Pulse Ox 98 Oxygen Delivery Method Room Air Positive well nourished and well developed General Appearance ED: well developed and NAD HEENT Reports moist mucous membranes Neck supple and no JVD GI non-tender and non-distended Palpation: soft Narrative: There is edema and mild erythema of the glans penis. There is tenderness to palpation. There is mild amount of white exudate noted. There is no urethral discharge noted. There is no testicular tenderness or masses noted. There is no inguinal lymphadenopathy or tenderness. There are no ulcerations noted. Extremity normal to inspection Neuro oriented x3, CN's II-XII intact bilaterally and no sensory deficits noted Sensorium / Orientation: alert Motor Exam: strength 5/5 throughout Psych mental status grossly normal MDM MDM MDM Narrative Medical decision making narrative: Patient was advised that this is most likely balanitis. It is likely caused by a fungal infection. Patient was given a prescription for clotrimazole cream to apply to the area twice daily. Patient was instructed to keep the penis clean. Patient was given a referral for urology. Patient was instructed to follow-up in 5 to 7 days. Patient understood and was agreeable with the plan. All questions were answered. Discharge Plan Triage Chief Complaint: Male Pain/Injury ED Provider: Eddie Mckinley Dx/Rx/DC Orders Clinical Impression: Balanitis Instructions: ED Balanitis Prescriptions: New clotrimazole 1 % cream 1 applic topical BID 14 Days Qty: 15 0RF No Action celecoxib 200 mg capsule 200 mg PO DAILY amlodipine 5 MG tablet 5 mg PO DAILY Patient Comments: blood pressure gabapentin 300 MG capsule 300 tab PO BID Patient Comments: neuropathy/pain hydrocodone-acetaminophen 5-300 mg tablet 1 tab PO Q6H 7 Days Qty: 28 0RF docusate sodium [Colace] 100 mg capsule 100 mg PO DAILY 10 Days Qty: 10 0RF ascorbic acid (vitamin C) [Vitamin C] 1,000 mg tablet 1 g PO DAILY 90 Days Qty: 90 0RF calcium carbonate-vitamin D3 [Os-Peewee 500 + D3] 500 mg-15 mcg (600 unit) tablet 1 tab PO DAILY 90 Days Qty: 90 0RF aspirin 81 mg capsule 81 mg PO DAILY 30 Days Qty: 30 0RF Primary Care Provider: Stef Gonsalez Referrals: Randal Gleason MD [Med Staff - Active Staff] - 1-2 Weeks Stef Gonsalez MD [Primary Care Provider] - 1-2 Weeks Print Language: Panamanian Disposition Disposition: Home, Self Care
[2024-02-08 09:10] VITALS: BP 138/78; PULSE 82; RESP 18; TEMP 36.5; O2SAT 98
== END 2024-02-08 09:14 | disposition home or self-care (01) ==
PROVIDERS: Emergency Provider Emergency Medicine; PCP Family Medicine; Visit Provider Emergency Medicine
DX: N48.1 Balanitis (principal); F17.210 Nicotine dependence, cigarettes, uncomplicated
CPT/HCPCS: 99282

== ENCOUNTER → 2024-03-09 | Outpatient (CLI) | payer MEDICARE, MEDICAID, SELFPAY ==
[2024-03-09 11:21] LABS: Hematocrit 39.3 % (40-54); Hemoglobin 12.9 g/dL (13.0-16.5); Mean Corp Hgb Conc 32.8 g/dL (32-36); Mean Corpuscular Hgb 31.6 pg (27.0-32.0); Mean Corpuscular Volume 96.3 fL (80-94); Mean Platelet Vol. 9.3 fl (6.2-12.0); Platelet Count 254 K/mm3 (150-450); RBC Distribution Width CV 14.3 % (11.6-14.6); Red Blood Count 4.08 M/mm3 (4.6-6.2); White Blood Count 10.9 K/mm3 (4.4-11.0)
[2024-03-09 11:45] LABS: Anion Gap 4 (5-15); BUN 15 mg/dL (7-18); BUN/Creat Ratio 18.1 RATIO (10-20); Calcium,Total 9.2 mg/dL (8.5-10.1); Chloride 109 mmol/L (98-107); Creatinine, Serum 0.83 mg/dL (0.70-1.30); EST Glomerular Filtration Rate 96 mL/min (>60); Est Glom Filt Rate - Afr Amer 116 mL/min (>60); Glucose 96 mg/dL (74-106); Potassium 3.5 mmol/L (3.5-5.1); Sodium Level 139 mmol/L (136-145)
== END | disposition home or self-care (01) ==
LOC: LAB 11:02
PROVIDERS: PCP Family Medicine; Visit Provider Urology
DX: Z01.812 Encounter for preprocedural laboratory examination (principal)
CPT/HCPCS: 36415; 80048; 85027

== ENCOUNTER 2024-03-18 07:57 | Emergency (ER) | payer MEDICARE, MEDICAID, SELFPAY ==
[2024-03-18 07:58] VITALS: BP 161/86; PULSE 74; RESP 16; TEMP 36.2; O2SAT 97; BMI 22.3
--- NOTE | 2024-03-18 08:18 | EX.ED.DYSGE1 ---
HPI History of Present Illness Chief Complaint: Other, Pain/Inj Narrative Narrative: 73-year-old male past medical history of recent circumcision, postoperative day [address] Gleason presents with bleeding from his surgical site. He states he had to have a circumcision because his urethral opening was too small, and his foreskin was blocking. While he had a circumcision performed yesterday, he states he was told by the urologist that he could take a shower today. He took a shower early this morning and started having bleeding from around the sutures. He bandaged the area and presents to the emergency department mainly for rebandaging and to get the bleeding controlled. He does not take blood thinners. Denies other complaints. [facility] Medical History Male circumcision Open wound of nose, complicated Basal cell carcinoma of nasal tip Cancer Heartburn Neoplasm of skin of nasal tip Wears glasses Wears partial dentures Wears dentures Arthritis Prostate disease Easy bruising History of stress test Skin cancer Back pain Cataract Home Medications ?Medication ?Instructions ?Recorded ?Last Taken ?Type amlodipine 5 mg tablet 5 mg PO DAILY blood pressure 08/05/14 11/03/23 History gabapentin 300 mg capsule 300 tab PO BID nerve pain 08/05/14 02/13/21 14:00 History ascorbic acid (vitamin C) 1,000 mg 1 g PO DAILY 90 days #90 tabs 11/03/23 Unknown Rx tablet (Vitamin C) Allergy/AdvReac Type Severity Reaction Status Date / Time cortisone Allergy Other Verified 03/18/24 08:01 Family History Other Hypertension Skin cancer Surgical History History of basal cell carcinoma excision Hx of foot surgery History of back surgery Social History Smoking Status: Light Smoker (<10/day) alcohol intake: never substance use type: does not use additional social history: DOES NOT USE ASPIRIN DOES NOT USE IBUPROFEN ROS ROS ED ROS Narrative Focused review of systems includes bleeding from postoperative site on penis between sutures. No gross hematuria. Denies other bleeding diathesis. EXAM Physical Exam Narrative Exam Narrative: Afebrile. Vital signs noted. Regular rate and rhythm. Lungs clear to auscultation bilaterally. Abdomen soft nontender with normal active bowel sounds. Chaperoned genitourinary examination reveals sutures in place circumferentially around the glans penis. No active bleeding. There is noted dried blood on the glans penis. Const Vital Signs: 03/18/24 07:58 03/18/24 08:54 Temperature 97.2 F L 96.0 F L Temperature Source Temporal Pulse Rate 74 71 Respiratory Rate 16 16 Blood Pressure 161/86 H 152/74 H Blood Pressure Mean 111 100 Pulse Ox 97 92 Oxygen Delivery Method Room Air MDM MDM MDM Narrative Medical decision making narrative: No field differential diagnosis is applicable. Hemostasis had already been achieved prior to my examination. He will be given a Vaseline gauze dressing of the penis lightly wrapped. I paged Dr. Gleason to make him aware that the patient was here in the emergency department for postoperative bleeding, as he is postoperative day 1. In discussion with Dr. lGeason, he agrees with Vaseline dressing, and follow-up as an outpatient. Patient is to return with increased bleeding, new or worsening symptoms. He is agreeable to the plan. Disposition is discharged home in stable condition. History & Record Review Discussion w/independent historian: Patient Management Discussion w/another healthcare provider: Society Reporter (Dr. Gleason) Discharge Plan Triage Chief Complaint: Other, Pain/Inj ED Provider: Addi Ramires Dx/Rx/DC Orders Clinical Impression: Post-op bleeding, Encounter for post surgical wound check Instructions: ED Wound Care Prescriptions: No Action amlodipine 5 MG tablet 5 mg PO DAILY Patient Comments: blood pressure gabapentin 300 MG capsule 300 tab PO BID Patient Comments: neuropathy/pain ascorbic acid (vitamin C) [Vitamin C] 1,000 mg tablet 1 g PO DAILY 90 Days Qty: 90 0RF Primary Care Provider: Stef Gonsalez Referrals: Randal Gleason MD [Med Staff - Active Staff] - 3-5 Days if not improving Stef Gonsalez MD [Primary Care Provider] - Activity Restrictions/Additional Instructions: Return with increased bleeding, new or worsening symptoms. Otherwise, follow-up with your urologist as scheduled. Print Language: Marshallese Disposition Disposition: Home, Self Care Discharge Date/Time: 03/18/24 08:55
[2024-03-18 08:54] VITALS: BP 152/74; PULSE 71; RESP 16; TEMP 35.6; O2SAT 92
== END 2024-03-18 08:55 | disposition home or self-care (01) ==
LOC: ED 08:29
PROVIDERS: Emergency Provider Emergency Medicine; PCP Family Medicine; Visit Provider Emergency Medicine
DX: N99.820 Postprocedural hemorrhage of a genitourinary system organ or structure following a genitourinary system procedure (principal); F17.200 Nicotine dependence, unspecified, uncomplicated; Z79.899 Other long term (current) drug therapy
CPT/HCPCS: 99284

== ENCOUNTER 2024-03-24 09:23 | Emergency (ER) | payer MEDICARE, MEDICAID, SELFPAY ==
[2024-03-24 09:24] VITALS: BP 152/81; PULSE 98; RESP 18; TEMP 35.8; O2SAT 92; BMI 24.4
[2024-03-24 09:50] LABS: Bacteria 0 SEEN /hpf (None Seen); Mucous, Urine 0 SEEN /hpf (<or=2+); Red Blood Cells-Urine 0 SEEN /hpf (0-5)
[2024-03-24 09:56] LABS: Absolute Lymphocyte Count 1.19 X10^3/uL (0.83-4.51); Absolute Neutrophil Count 7.3 X10^3/uL (2.0-7.7); Basophil# 0.07 X10^3/uL; Basophil% 0.7 % (0-1); Eosinophil# 0.29 X10^3/uL; Hematocrit 39.6 % (40-54); Hemoglobin 12.8 g/dL (13.0-16.5); Lymphocyte # 1.19 X10^3/ul (0.83-4.51); Lymphocyte % 12.5 % (19-41); Mean Corp Hgb Conc 32.3 g/dL (32-36); Mean Corpuscular Hgb 31.1 pg (27.0-32.0); Mean Corpuscular Volume 96.1 fL (80-94); Mean Platelet Vol. 9.1 fl (6.2-12.0); Monocyte# 0.67 X10^3/uL; NRBC Flagged by Analyzer 0 % (0-5); Neutrophil # 7.29 X10^3/uL (2.7-7.7); Neutrophil % 76.4 % (47-70); Platelet Count 308 K/mm3 (150-450); RBC Distribution Width CV 14.4 % (11.6-14.6); RBC Distribution Width SD 50.9 fl (35.1-43.9); Red Blood Count 4.12 M/mm3 (4.6-6.2); White Blood Count 9.6 K/mm3 (4.4-11.0)
[2024-03-24 10:05] LABS: Color, Urine Yellow (Yellow); Glucose, Dipstick Normal (Normal); Ketone-Dipstick 5 mg/dl (Negative); Leukocyte Esterase-Dipstick 25 /ul (Negative); Nitrite-Dipstick Negative (Negative); Occult Blood-Urine Negative /ul (Negative); Protein-Dipstick 15 mg/dl (Negative); Urine Clarity Clear (Clear); Urine Urobilinogen 1 mg/dl (Normal)
[2024-03-24 10:09] LABS: Urine Bilirubin Dipstick 1 mg/dL (Negative)
[2024-03-24 10:20] LABS: Hyaline Cast 0-5 SEEN /lpf (0-5); Squamous Epithelial Cells - UA 0-5 SEEN /hpf (0-5); White Blood Cells 0-5 SEEN /hpf (0-5)
[2024-03-24 11:00] VITALS: BP 159/89; PULSE 77; RESP 18; TEMP 36; O2SAT 98
[2024-03-24 12:00] VITALS: BP 143/76; PULSE 77; RESP 19; TEMP 36.5; O2SAT 98
[2024-03-24 13:00] VITALS: BP 146/79; PULSE 84; RESP 18; TEMP 36.4; O2SAT 98
--- NOTE | 2024-03-24 13:15 | EDS_ITS ---
HPI History of Present Illness Chief Complaint: Complaint Detail of Chief Complaint: Postop infections secondary to circumcision Informant: patient Onset/Context/Timing Onset: Days Context: Sudden Onset Timing: Continuous Quality: Abnormal appearing wound Location: Incision site Current Severity: Mild Maximum Severity: Moderate Worsened by: Nothing Relieved by: Nothing Associated Symptoms Associated Symptoms: Dysuria Narrative Narrative: Patient is a 73-year-old male. He has history of hypertension, COPD, basal cell carcinoma, chronic back pain who presents because of concern for infection status post circumcision. Patient was circumcised by Dr. Gleason on Wednesday. Patient has been applying Neosporin ointment to the area. He denies fever, chills night sweats. States there is slight discharge. He also complains of burning with urination. He has no other urologic symptoms. Prior similar symptoms: No Recent Illness/Hospitalization: Yes [facility] Medical History Male circumcision Open wound of nose, complicated Basal cell carcinoma of nasal tip Cancer Heartburn Neoplasm of skin of nasal tip Wears glasses Wears partial dentures Wears dentures Arthritis Prostate disease Easy bruising History of stress test Skin cancer Back pain Cataract Home Medications ?Medication ?Instructions ?Recorded ?Last Taken ?Type amlodipine 5 mg tablet 5 mg PO DAILY blood pressure 08/05/14 11/03/23 History gabapentin 300 mg capsule 300 tab PO BID nerve pain 08/05/14 02/13/21 14:00 History ascorbic acid (vitamin C) 1,000 mg 1 g PO DAILY 90 days #90 tabs 11/03/23 Unknown Rx tablet (Vitamin C) Allergy/AdvReac Type Severity Reaction Status Date / Time cortisone Allergy Other Verified 03/24/24 09:24 Family History Other Hypertension Skin cancer Surgical History History of basal cell carcinoma excision Hx of foot surgery History of back surgery Social History Smoking Status: Current every day smoker tobacco type: cigarettes alcohol intake: never substance use type: does not use additional social history: DOES NOT USE ASPIRIN DOES NOT USE IBUPROFEN ROS ROS ED Constitutional Constitutional ED: Denies chills, fever(s), subjective, sweats or weight loss Respiratory/Chest Respiratory/Chest: Denies dyspnea or dyspnea on exertion Gastrointestinal Gastrointestinal: Denies abdominal pain, nausea or vomiting Genitourinary Genitourinary ED: Reports dysuria and other Details: See HPI narrative ; Denies hematuria or urinary frequency Integumentary Reports rash Neurologic Neurologic: Denies headache(s) or paresthesias Hematologic/Lymphatic Hematologic/Lymphatic: Reports systems reviewed and no addt'l complaints, except as documented EXAM Physical Exam Const Vital Signs: 03/24/24 09:24 03/24/24 11:00 03/24/24 12:00 Temperature 96.5 F L 96.8 F L 97.7 F L Temperature Source Temporal Temporal Oral Pulse Rate 98 77 77 Respiratory Rate 18 18 19 H Blood Pressure 152/81 H 159/89 H 143/76 H Blood Pressure Mean 104 112 98 Pulse Ox 92 98 98 Oxygen Delivery Method Room Air Room Air Room Air Positive well nourished and well developed General Appearance ED: well developed and NAD; Negative for cyanotic, diaphoretic or pallor HEENT Reports moist mucous membranes Eyes PERRL and EOMs intact bilaterally General Eye ED: Negative for pale conjunctiva or scleral icterus Neck no lymphadenopathy, supple and no JVD Chest Wall inspection of chest normal and palpation of chest normal Resp normal respiratory effort and clear to auscultation bilaterally Cardio regular rate, regular rhythm, S1 normal heart sound, S2 normal heart sound and no murmurs GI normal to inspection, nondistended, normoactive bowel sounds, non-tender, non- distended and no masses; Negative for hepatosplenomegaly Palpation: soft Narrative: Circumcision is healing nicely without evidence infection. There is granulation tissue. There is slight erythema at the edge of the granulation tissue. There is also some erythema of the glans. Suspect this is due to the Neosporin. There is no warmth, induration, lymphangitis or inguinal lymphadenopathy noted. Testes ascended bilaterally. There is no scrotal swelling or testicular tenderness. Back/Spine no CVA tenderness Neuro oriented x3 and CN's II-XII intact bilaterally Sensorium / Orientation: alert Psych mental status grossly normal Skin General Skin Exam: Negative for jaundice or pallor MDM MDM MDM Narrative Medical decision making narrative: In my professional opinion patient not having infection. He has a reaction to the Neosporin. Will obtain CBC to assess white count differential Lab Data Attestation: I reviewed the patient's lab results. Lab results narrative: CBC is remarkable for mild anemia with normal indices. UA reveals no evidence of infection. Patient is made aware of results. Labs: Laboratory Results - last 24 hr 03/24/24 09:41 WBC 9.6 RBC 4.12 L Hgb 12.8 L Hct 39.6 L MCV 96.1 H MCH 31.1 MCHC 32.3 RDW Std Deviation 50.9 H RDW Coeff of Suzanna 14.4 Plt Count 308 MPV 9.1 Immature Gran % (Auto) 0.400 Neut % (Auto) 76.4 H Lymph % (Auto) 12.5 L [place] % (Auto) 7.0 Eos % (Auto) 3.0 Baso % (Auto) 0.7 Absolute Neuts (auto) 7.3 Absolute Lymphs (auto) 1.19 Nucleated RBC % 0 Urine Color Yellow Urine Clarity Clear Urine pH 6.0 Ur Specific [place] 1.020 Urine Protein 15 H Urine Glucose (UA) Normal Urine Ketones 5 H Urine Occult Blood Negative Urine Nitrite Negative Urine Bilirubin 1 H Urine Urobilinogen 1 H Ur Leukocyte Esterase 25 H Urine RBC 0 SEEN Urine WBC 0-5 SEEN Ur Squamous Epith Cells 0-5 SEEN Urine Bacteria 0 SEEN Hyaline Casts 0-5 SEEN Urine Mucus 0 SEEN Management Discussion w/another healthcare provider: Truck Assembler (Spoke with Dr. Gleason. He was informed of patient's history, concerns and my findings. Based on my report to him he agrees with treatment plan) Discharge Plan Triage Chief Complaint: Complaint ED Provider: Kishan Duran Dx/Rx/DC Orders Clinical Impression: Postop check, HTN (hypertension), Adverse drug reaction Instructions: ED Wound Check (No Infection) Prescriptions: No Action amlodipine 5 MG tablet 5 mg PO DAILY Patient Comments: blood pressure gabapentin 300 MG capsule 300 tab PO BID Patient Comments: neuropathy/pain ascorbic acid (vitamin C) [Vitamin C] 1,000 mg tablet 1 g PO DAILY 90 Days Qty: 90 0RF Primary Care Provider: Stef Gonsalez Referrals: Randal Gleason MD [Med Staff - Active Staff] - Keep Christiano appointment Stef Gonsalez MD [Primary Care Provider] - Activity Restrictions/Additional Instructions: 1. Stop applying Neosporin ointment to your wound 2. Keep incision site clean and dry Print Language: Yoruba Disposition Disposition: Home, Self Care
[2024-03-24 13:25] VITALS: BP 147/86; PULSE 78; RESP 18; TEMP 36.6; O2SAT 97
== END 2024-03-24 13:30 | disposition home or self-care (01) ==
PROVIDERS: Emergency Provider Emergency Medicine; PCP Family Medicine; Visit Provider Emergency Medicine
DX: L24.5 Irritant contact dermatitis due to other chemical products (principal); J44.9 Chronic obstructive pulmonary disease, unspecified; R30.9 Painful micturition, unspecified; T36.8X5A Adverse effect of other systemic antibiotics, initial encounter; I10 Essential (primary) hypertension; F17.210 Nicotine dependence, cigarettes, uncomplicated; Z48.00 Encounter for change or removal of nonsurgical wound dressing; Z98.890 Other specified postprocedural states
CPT/HCPCS: 81001; 85025; 99282

== ENCOUNTER → 2024-04-29 | Outpatient (CLI) | payer MEDICARE, MEDICAID, SELFPAY ==
--- NOTE | 2024-04-29 07:41 | MRI_ITS ---
STUDY: MRI LUMBAR SPINE WITHOUT CONTRAST REASON FOR EXAM: Male, 73 years old. pain -- Back pain sometimes radiating into rt leg and rt foot tingling x 6mos. In the small of back per patient TECHNIQUE: Standardized fat and water weighted pulse sequences were obtained in the sagittal and axial planes. Noncontrast images obtained. Contrast: No contrast administered COMPARISON: 07/29/2016 FINDINGS: Vertebral bodies and alignment. 1. Vertebral body height and alignment are unchanged. There however has been interval postoperative change with pedicle screw posterior fixation from L3 to S1. Laminectomy defects are also present at L4-5 and L5-S1. 2. No marrow edema or occult fracture, no evidence of hardware failure.. 3. Paraspinous soft tissue planes have normal appearance with the exception of mild edema within the erector spinae at the level of the surgical bed. No hematoma or seroma noted.. 4. Normal appearance of the sacrum and sacroiliac joints. 5. RIGHT renal cyst is noted. Intervertebral disks levels. T12-L1: Disc desiccation, no evidence of disc herniation or canal stenosis. Endplate: No focal endplate marrow changes or endplate deformity. L1-2: Disc desiccation, broad-based posterior disc bulge and osteophyte complex without evidence of canal or foraminal stenosis. Facet and ligamentum flavum flavum hypertrophic changes are present. Endplate: No focal endplate marrow changes or endplate deformity. L2-3: Disc desiccation, broad-based posterior disc bulge. No disc herniation canal or foraminal stenosis. Endplate: Mild contour deformity of the inferior endplate of L2. No significant Modic changes noted. L3-4: Disc desiccation, postoperative changes pedicle screw and posterior fixation. No evidence of disc herniation canal or foraminal stenosis. Endplate: No focal endplate marrow changes or endplate deformity. L4-5: Postoperative changes, disc desiccation. No evidence of disc herniation or canal stenosis. There is RIGHT foraminal narrowing with contact with the emerging RIGHT L4 nerve root. Endplate: No focal endplate marrow changes or endplate deformity. L5-S1: Loss of disc height, broad-based posterior disc bulge and osteophyte complex. No canal stenosis. Mild deformity of the LEFT lateral recess Endplate: No focal endplate marrow changes or endplate deformity. Spinal cord: Normal appearance of the spinal cord and conus. Conus is located at L1. Cauda equina has normal appearance. No evidence of cord compression or edema. No intramedullary signal abnormality noted. Paraspinous soft tissues: Normal visualized paraspinous soft tissue structures. MRI/Spine Lumbar (Routine) IMPRESSION: 1. Interval postoperative changes with pedicle screw and posterior fixation from L3 to S1. No evidence of marrow edema or occult fracture. No evidence hardware failure. 2. Broad-based disc bulge and mild contour deformity of the inferior endplate at the L2-3 disc space. No evidence however of canal stenosis or nerve root impingement. 3. There is RIGHT foraminal narrowing at L4-5 although partially obscured by susceptibility artifact from metallic fixation hardware, there does appear to be RIGHT L4 nerve root contact within the neural foramen. 4. Normal appearance of visualized spinal cord and conus. Electronically Signed: Gopal Elizabeth MD at 2:05 EDT ,
== END | disposition home or self-care (01) ==
LOC: MRI 07:40
PROVIDERS: PCP Family Medicine; Referring Provider Orthopaedic Surgery Orthopaedic Surgery of the Spine; Visit Provider Orthopaedic Surgery Orthopaedic Surgery of the Spine
DX: M54.16 Radiculopathy, lumbar region (principal); M43.26 Fusion of spine, lumbar region
CPT/HCPCS: 72148

== ENCOUNTER 2025-08-11 09:03 | Emergency (ER) | payer MEDICARE, MEDICAID, SELFPAY ==
[2025-08-11 09:04] VITALS: BP 142/84; PULSE 73; RESP 18; TEMP 37; O2SAT 98; BMI 23.1
--- NOTE | 2025-08-11 09:08 | EX.ED.DYSGE1 ---
HPI History of Present Illness Chief Complaint: Flank Pain Narrative Narrative: Pt is a 74-year-old male who is presenting to the ER with chief complaint of right lower quadrant pain/right flank pain has been going on for 3 days. The pain has been fairly consistent, the severity of pain has been waxing waning slightly. Patient does not believe he is constipated. Patient has no history of kidney stone. Patient still has his gallbladder and appendix. Patient has no difficulty urinating. No frequency urgency or burning of urine. Patient states he is not constipated. Patient is on no heavy lifting, twisting or turning. Patient states the pain is a dull ache, has been there for 3 days. Patient is using meloxicam, which does help with some of the pain somewhat. Patient does not have lumbar degenerative disc disease, patient takes gabapentin. Patient has no rash. Patient has no other acute complaints at this time. REVIEW OF SYSTEMS: Unless otherwise stated in this report the patient's positive and negative responses for review of systems for constitutional, eyes, ENT, cardiovascular, respiratory, gastrointestinal, neurological, , musculoskeletal, and integument systems and related systems to the presenting problem are either stated in the history of present illness or were not pertinent or were negative for the symptoms and/or complaints related to the presenting medical problem. Nurse's notes and vital signs reviewed. The patient is not hypoxic. Vital signs reviewed and patient is not hypoxic. General: The patient appears well and in no apparent distress. Patient is resting comfortably on cart. Not toxic, lethargic, or listless. Skin: Warm, dry, no pallor noted. There is no rash noted. Head: Normocephalic, atraumatic Eye: Normal conjunctiva, no drainage, EOMI. PERRL. Ears, Nose, Mouth, and Throat: oral mucosa is moist. Nares patent. Mouth without vesicles. Cardiovascular: Regular Rate and Rhythm, no murmurs, gallops, or rubs Respiratory: Patient is in no distress, no accessory muscle use, lungs are clear to auscultation, no wheezing, rales or rhonchi Back: non-tender, no right paralumbar or midline lumbar tenderness palpation, no rash, no CVA tenderness bilaterally to percussion. NO CTLS midline or paraspinal tenderness to palpation. GI: Soft, patient has mild right lower quadrant tenderness palpation, no flank pain bilateral, patient denies any type of pain to the penis or tarsals, patient has no rash, no pain or McBurney's point, no suprapubic tenderness to palpation. Abdomen is soft, otherwise no tenderness to palpation, no masses appreciated. No rebound, guarding, or rigidity noted. No peritoneal signs. Musculoskeletal: The patient has full range of motion of all extremities and joints with no difficulty. Patient has no motor, no sensory deficits. Neurological: A&O x4, normal speech, no focal neurological deficits. Psychiatric: Cooperative [facility] Medical History Male circumcision Open wound of nose, complicated Basal cell carcinoma of nasal tip Cancer Heartburn Neoplasm of skin of nasal tip Wears glasses Wears partial dentures Wears dentures Arthritis Prostate disease Easy bruising History of stress test Skin cancer Back pain Cataract Home Medications ?Medication ?Instructions ?Recorded ?Last Taken ?Type amlodipine 5 mg tablet 5 mg PO DAILY blood pressure 08/05/14 11/03/23 History gabapentin 300 mg capsule 300 tab PO BID nerve pain 08/05/14 02/13/21 14:00 History meloxicam 15 mg tablet 15 mg PO QDAY 05/23/24 Unknown History dicyclomine 10 mg capsule 20 mg (2 x 10 mg) PO TIDAC #20 08/11/25 Unknown Rx CAPSULES ondansetron 4 mg disintegrating 4 mg PO Q8H PRN PRN Nausea #10 tabs 08/11/25 Unknown Rx tablet Allergy/AdvReac Type Severity Reaction Status Date / Time cortisone Allergy Other Verified 08/11/25 09:05 Family History Other Hypertension Skin cancer Surgical History History of basal cell carcinoma excision Hx of foot surgery History of back surgery Social History Smoking Status: Current every day smoker tobacco type: cigarettes alcohol intake: never substance use type: does not use additional social history: DOES NOT USE ASPIRIN DOES NOT USE IBUPROFEN EXAM Physical Exam Const Vital Signs: 08/11/25 09:04 08/11/25 11:03 Temperature 98.6 F Temperature Source Oral Pulse Rate 73 54 L Respiratory Rate 18 16 Blood Pressure 142/84 H 142/83 H Blood Pressure Mean 103 102 Pulse Ox 98 99 Oxygen Delivery Method Room Air MDM MDM MDM Narrative Medical decision making narrative: Patient seen and examined: IV, labs, urine, CT abdomen pelvis, fluids, patient only wants Tylenol for pain. Patient drove to the ER. Differential diagnosis includes but is not limited to: Shingles, kidney stone, appendicitis, UTI, pyelonephritis, flulike symptoms, muscle skeletal Relevant laboratory interpretation: No acute findings Radiological studies: CT of the abdomen pelvis shows no acute findings, patient is aware of right adrenal adenoma, he was given a copy of his CAT scan report. Patient does have a history of prostate cancer. Reevaluation: Patient felt better with IV fluids and medication given. Lab work and CT of the abdomen pelvis results were discussed. Patient will follow-up with his PCP and prostate physician for reevaluation. Patient was sent home with prescription for Zofran and Bentyl to use prophylactically as needed. Patient states he is having a normal bowel movement every morning, does not believe that he is constipated. Patient was told to increase fluids use MiraLAX if needed. Patient was given strict return precautions. Reassessment of abdomen at discharge, soft, nontender, no guarding, rebound, or rigidity. Patient has no pain at all at discharge, no flank pain bilateral, no peritoneal signs. No rash. Benign abdomen. Social barriers to healthcare: There are no food insecurities, there is no issue with transportation, there are no insurance barriers Disposition: home Lab Data Attestation: I reviewed the patient's lab results. Labs: Laboratory Results - last 24 hr 08/11/25 08/11/25 09:11 09:51 WBC 7.2 RBC 3.94 L Hgb 12.4 L Hct 38.0 L MCV 96.4 H MCH 31.5 MCHC 32.6 RDW Std Deviation 51.1 H RDW Coeff of Suzanna 14.4 Plt Count 216 MPV 9.5 Immature Gran % (Auto) 0.400 Neut % (Auto) 77.3 H Lymph % (Auto) 12.3 L [place] % (Auto) 7.3 Eos % (Auto) 2.1 Baso % (Auto) 0.6 Absolute Neuts (auto) 5.6 Absolute Lymphs (auto) 0.89 Nucleated RBC % 0 Sodium 138 Potassium 3.9 Chloride 106 Carbon Dioxide 23.3 Anion Gap 9 BUN 22 H Creatinine 0.75 Estim Creat Clear Calc 76.00 Est GFR (MDRD) Non-Af 94 BUN/Creatinine Ratio 29.7 H Glucose 99 Lactic Acid < 1.0 Calcium 9.0 Total Bilirubin 0.19 AST 18 ALT 9 Alkaline Phosphatase 89 Total Protein 6.4 Albumin 3.9 Globulin 2.5 Albumin/Globulin Ratio 1.6 Lipase 46 Urine Color Yellow Urine Clarity Clear Urine pH 6.0 Ur Specific [place] 1.020 Urine Protein Negative Urine Glucose (UA) Normal Urine Ketones Negative Urine Occult Blood Negative Urine Nitrite Negative Urine Bilirubin Negative Urine Urobilinogen Normal Ur Leukocyte Esterase Negative Urine RBC 0 SEEN Urine WBC 0-5 SEEN Ur Squamous Epith Cells 0-5 SEEN Urine Bacteria 0 SEEN Urine Mucus 2+ Radiography Diagnostic Testing: Clinical Impression(s) from Imaging Studies Abdomen/Pelvis CT 08/11/25 09:39 IMPRESSION: 1. Normal appendix. 2. 2.3 cm hypodense lesion of the right adrenal gland with Hounsfield units less than 0, likely adenoma. 3. Bladder wall thickening which may be due to the decompressed state of the bladder or due to cystitis. 4. Fecal retention in the colon consistent with constipation. 5. No obstructive uropathy. Reading Location: [facility] [place] Discharge Plan Triage Chief Complaint: Flank Pain ED Provider: Serjio Marr Dx/Rx/DC Orders Clinical Impression: Acute right lower quadrant pain Instructions: Abdominal Pain, ED Constipation (Adult) Prescriptions: New ondansetron 4 mg tablet,disintegrating 4 mg PO Q8H PRN PRN (Reason: Nausea) Qty: 10 0RF dicyclomine 10 mg capsule 20 mg PO TIDAC Qty: 20 0RF No Action meloxicam 15 mg tablet 15 mg PO QDAY amlodipine 5 MG tablet 5 mg PO DAILY Patient Comments: blood pressure gabapentin 300 MG capsule 300 tab PO BID Patient Comments: neuropathy/pain Primary Care Provider: Anibal Elliott Referrals: Stef Gonsalez MD [Non-Staff, Family Practice] Activity Restrictions/Additional Instructions: Increase fluids at home, Gatorade, Powerade, water, prune juice, apple juice. Use daily MiraLAX if needed to help continue soft stool every day. A copy of your CT report is been given to you. Use Zofran as needed for nausea, use Bentyl as needed for abdominal cramping. Return for intractable abdominal pain, nausea, vomiting, or any other acute complaints Print Language: [place] Disposition Disposition: Home, Self Care
[2025-08-11 09:34] LABS: Red Blood Cells-Urine 0 SEEN /hpf (0-5)
[2025-08-11 09:35] LABS: Color, Urine Yellow (Yellow); Glucose, Dipstick Normal (Normal); Ketone-Dipstick Negative (Negative); Leukocyte Esterase-Dipstick Negative /ul (Negative); Nitrite-Dipstick Negative (Negative); Occult Blood-Urine Negative /ul (Negative); Protein-Dipstick Negative (Negative); Specific Gravity, Urine 1.020 (1.002-1.030); Urine Bilirubin Dipstick Negative (Negative)
--- NOTE | 2025-08-11 09:39 | CT_ITS ---
EXAM: CT Abdomen and Pelvis Without Intravenous Contrast CLINICAL INDICATION: RULE OUT STONE VS APPY TECHNIQUE: Axial computed tomography images of the abdomen and pelvis without intravenous contrast. This CT exam was performed using one or more of the following dose reduction techniques: automated exposure control, adjustment of the mA and/or kV according to patient size, and/or use of iterative reconstruction technique. RADIATION DOSE: CTDIvol = 6.21 mGy, DLP = 318 mGy-cm COMPARISON: No relevant prior studies available. FINDINGS: LUNG BASES: Lung emphysema/COPD with bibasilar atelectasis. ABDOMEN: LIVER: Hypodense lesion of the liver, likely cyst. GALLBLADDER AND BILE DUCTS: Unremarkable. No calcified stones. No ductal dilation. PANCREAS: Unremarkable. No ductal dilation. SPLEEN: Unremarkable. No splenomegaly. ADRENALS: 2.3 cm hypodense lesion of the right adrenal gland with Hounsfield units less than 0, likely adenoma. KIDNEYS AND URETERS: Unremarkable. No stones within either kidney. No hydronephrosis. STOMACH AND BOWEL: Fecal retention in the colon consistent with constipation. No obstruction. No mucosal thickening. PELVIS: APPENDIX: Normal appendix. BLADDER: Bladder wall thickening which may be due to the decompressed state of the bladder or due to cystitis. No stones. REPRODUCTIVE: Unremarkable as visualized. ABDOMEN and PELVIS: INTRAPERITONEAL SPACE: Unremarkable. No free air. No significant fluid collection. BONES/JOINTS: Posterior fusion of the lower lumbar spine. No acute fracture. No dislocation. SOFT TISSUES: Unremarkable. VASCULATURE: Scattered calcified atherosclerotic disease of aorta. No abdominal aortic aneurysm. LYMPH NODES: Unremarkable. No enlarged lymph nodes. CT/Abdomen/Pelvis without Cont IMPRESSION: 1. Normal appendix. 2. 2.3 cm hypodense lesion of the right adrenal gland with Hounsfield units le ss than 0, likely adenoma. 3. Bladder wall thickening which may be due to the decompressed state of the b ladder or due to cystitis. 4. Fecal retention in the colon consistent with constipation. 5. No obstructive uropathy. Reading Location: [facility]
[2025-08-11 09:42] LABS: Mucous, Urine 2+ /hpf (<or=2+); Squamous Epithelial Cells - UA 0-5 SEEN /hpf (0-5)
[2025-08-11] MEDS: 0.9% Normal Saline (1000mL) 1,000 ML 999 ML IV (09:49)
--- OUTSIDE RECORDS SUMMARY | 2025-08-11 09:52 | XMS RPT_ITS | CCD ---
Author Organization [facility] Care Team Providers Care Distance Learning Program Coordinator Name Role Phone Velasco, Alma Delia N Unavailable Velasco, Alma Delia N Unavailable Velasco, Alma Delia N Unavailable Velasco, Alma Delia N Unavailable Velasco, Alma Delia N Unavailable Velasco, Alma Delia N Unavailable Desmond Jacobs Jovany Unavailable Velasco, Alma Delia N Unavailable Velasco, Alma Delia N Unavailable Velasco, Alma Delia N Unavailable Velasco, Alma Delia N Unavailable Velasco, Alma Delia N Unavailable Heather Gonsalez MD Primary Care Provider Mickey PINA MD, Daes[place] Unavailable Heather Gonsalez MD Primary Care Provider Mickey PINA MD, [place] Unavailable Heather Gonsalez MD Primary Care Provider Dr. Heather Gonsalez Primary Care Provider Dr. Heather Gonsalez Referring Provider Dr. Trey Tim Attending Provider Heather Gonsalez MD Primary Care Provider Mickey PINA MD, Marquitaung Unavailable Abimael Arevalo MD Unavailable Dr. Heather Gonsalez Primary Care Provider Dr. Heather Gonsalez Referring Provider Dr. Luciano Adame Attending Provider Dr. Terrance Schuster Attending Provider Heather Gonsalez MD Primary Care Provider Kishan Duran Attending Unavailable Elderbrock, Heather Primary Care Unavailable Elderbrock, Heather Primary Care Unavailable Anders Germain Attending Unavailable Anders Germain Referring Unavailable Elderbrock, Heather Primary Care Unavailable VictorinoRandal Attending Unavailable Elderbrock, Heather Primary Care Unavailable Luciano Adame Attending Unavailable Luciano Adame Referring Unavailable Elderbrock, Heather Primary Care Unavailable Victorino, Randal Fletcher Attending Unavailable Elderbrock, Heather Primary Care Unavailable Terrance Schuster Attending Unavailable Elderbrock, Heather Primary Care Unavailable Elderbrock, Heather Referring Unavailable Luciano Adame Attending Unavailable Elderbromackenzie, Heather Referring Unavailable Elderbrock, Heather Primary Care Unavailable Luciano Adame Attending Unavailable Elderbrock, Heather Primary Care Unavailable Elderbrock, Heather Referring Unavailable Luciano Adame Attending Unavailable Richard Goff Attending Unavailable Elderbrock, Heather Primary Care Unavailable SchwigerEddie Attending Unavailable Elderbrock, Heather Primary Care Unavailable SchwigerEddie Attending Unavailable Elderbrock, Heather Primary Care Unavailable Reodica, Addi Attending Unavailable Elderbrock, Heather Primary Care Unavailable Tannhof ADVERTISING SALES EXECUTIVE.BUSINESS SYSTEMS ADVISOR, Bea Unavailable Inderjit ADVERTISING SALES EXECUTIVE.BUSINESS SYSTEMS ADVISOR, Theo Unavailable Tannhof ADVERTISING SALES EXECUTIVE.BUSINESS SYSTEMS ADVISOR, Bea Unavailable ELDERBROCK, HEATHER D Primary Care Unavailable HUMPHRIES, HERI Referring Unavailable ELDERBROCK, HEATHER D Primary Care Unavailable ELDERBROCK, HEATHER D Primary Care Unavailable MARCELLO HILTON Referring Unavailable ELDERBROCK, HEATHER D Primary Care Unavailable ELDERBROCK, HEATHER D Primary Care Unavailable ELDERBROCK, HEATHER D Referring Unavailable ELDERBROCK, HEATHER D Primary Care Unavailable ELDERBROCK, HEATHER D Attending Unavailable ELDERBROCK, HEATHER D Primary Care Unavailable HUMPHRIES, HERI Referring Unavailable ELDERBROCK, HEATHER D Primary Care Unavailable HUMPHRIES, HERI Attending Unavailable ELDERBROCK, HEATHER D Primary Care Unavailable ELDERBROCK, HEATHER D Primary Care Unavailable MARCELLO HILTON Attending Unavailable HEATHER GONSALEZ Primary Care Unavailable ALMA DELIA CALZADA Attending Unavailable HERI HUMPHRIES Referring Unavailable HEATHER GONSALEZ Primary Care Unavailable HEATHER GONSALEZ Primary Care Unavailable SERJIO JULIEN Attending Unavailable SERJIO JULIEN Referring Unavailable HEATHER GONSALEZ Primary Care Unavailable Allergies Allergy Classification Reported Allergen(s) Allergy Type Date of Onset Reaction(s) Facility (20 sources) Cortisone Drug Allergy 4 Other: See Comments [facility] (17 sources) predniSONE; Translations: [PREDNISONE] Drug Allergy 4 Other: See Comments [facility] (1 source) Cortisone Drug Allergy 4 [facility] Repository Medications Current Medications Medication Drug Class(es) Dates Sig (Normalized) Sig (Original) acetaminophen 300 mg / HYDROcodone bitartrate 5 mg oral tablet (7 sources) Opioid Agonist Start: 11-03-2023 take 1 tablet by mouth every six hours Hydrocodone-Aceta minophen Active 1 TABLET PO EVERY 6 HOURS 28 November 03, 2023 Start: 04-26-2022 take 1 tablet by harman th every six hours as needed Hydrocodone-Acetaminophen Active 1 TABLE T PO EVERY 6 HOURS NEEDED 10 April 26, 2022 Start: 02-14-2021 End: 05-19-2022 take 1 tablet by mouth every six hours as needed Hydrocodone-Acetaminophen Discontinued 1 TABLET PO EVERY 6 HOURS NEEDED 20 February 14, 2021 May 19, 2022 10:40am [id number] 200 actuat albuterol 0.09 mg/actuat metered dose inhaler (16 sources) beta2-Adrenergic Agonist Start: 06-29-2024 take 2 puff(s) by inhalation every six hours as needed for wheezing albuterol HFA (PROVENTIL HFA, VENTOLIN HFA) 90 mcg/actuation inhaler Indications: Acute cough Inhale 2 Puffs as instructed every 6 hours as needed for wheezing/shortness of breath. 1 Each 06/29/2024 Active Start: 11-23-2022 End: 04-06-2023 take 2 puff(s) by inhalation every six hours as needed albuterol HFA (PROAIR HFA) 90 mcg/actuation inhaler Inhale 2 Puffs as instructed every 6 hours as needed. 1 Each 0 11/23/2022 04/06/2023 Discontinued Comment on above: Inhale 2 Puffs as in structed every 6 hours as needed. amLODIPine 5 mg oral tablet (20 sources) Dihydropyridine Calcium Channel Maty Start: take 1 tablet by mouth twice daily amLODIPine (NORVASC) 5 mg tablet Indications: Essential hypertension, benign Take 1 tablet by mouth two times a day. 180 tablet 3 03/22/2025 Active Start: 05-21-2022 End: 04-07-2024 take 1 tablet by mouth twice daily amLODIPine (NORVASC) 5 mg tablet Indications: Essential hypertension, benign Take 1 tablet by mouth two times a day. 180 tablet 3 04/07/2024 Active Start: 08-05-2014 End: 05-20-2022 take 1 tablet by mouth once daily amLODIPine (NORVASC) 5 mg tablet Take 1 tablet by mouth once daily. 90 tablet 3 10/08/2020 10/03/2021 Discontinued Comment on above: Take 1 tablet by harman th once daily. Take 1 tablet by harman th twice daily. amoxicillin 875 mg / clavulanate 125 mg oral tablet (1 source) Penicillin-class Antibacterial Start: 01-09-20 End: 01-16-20 take 1 tablet by mouth twice daily amoxicillin-clavul anate potassium (AUGMENTIN) 875-125 mg per tablet Take 1 tablet by mouth two times a day for 7 days. 14 tablet 01/08/2025 01/15/2025 Active ascorbic acid 1000 mg oral tablet (1 source) Vitamin C Start: 11-03-19 take 1 g by mouth once daily Ascorbic Acid (Vitamin C) (Vitamin C) 1,000 mg tablet Active 1 GM PO DAILY November 03, 2023 12:00am aspirin 81 mg oral tablet (1 source) Platelet Aggregation Inhibitor, Nonsteroidal Anti-inflammatory Drug Start: 11-03-19 take 81 mg by mouth once daily Aspirin Active 81 MG PO DAILY November 03, 2023 12:00am betamethasone 0.5 mg/ml / clotrimazole 10 mg/ml topical cream (1 source) Azole Antifungal, Corticosteroid Start: 12-21-19 End: 01-20-20 clotrimazole-betam ethasone (LOTRISONE) cream Apply to affected area two times a day. 45 g 1 12/21/2023 01/20/2024 Active calcium carbonate 1250 mg / cholecalciferol 600 unt oral tablet (1 source) Vitamin D Start: 11-03-19 take 1 tablet by mouth once daily Calcium Carbonate-Vitamin D3 (Os-Peewee 500 + D3) 500 mg-15 mcg (600 unit) tablet Active 1 TABLET PO DAILY November 03, 2023 12:00am docusate sodium 100 mg oral capsule (1 source) Start: 11-03-19 take 1 capsule by mouth once daily Docusate Sodium (Colace) 100 mg capsule Active 100 MG PO DAILY 05 25November 03, 2023 12:00am doxycycline monohydrate 100 mg oral capsule (4 sources) Tetracycline-class Drug Start: 06-22-20 End: 06-27-20 take 1 capsule by mouth twice daily doxycycline monohydrate (MONODOX) 100 mg capsule Indications: Pulmonary emphysema, unspecified emphysema type (HCC) Take 1 capsule by mouth two times a day for 5 days. 10 capsule 06/22/2024 06/27/2024 Active Start: 11-23-2022 End: 11-30-2022 take 1 tablet by mouth twice daily doxycycline (VIBRA-TABS) 100 mg tablet Take 1 tablet by mouth twice daily for 7 days. 14 tablet 0 11/23/2022 11/30/2022 Active Comment on above: Take 1 tablet by harman twice daily for 7 days. fluticasone propionate 0.05 mg/actuat metered dose nasal spray (2 sources) Corticosteroid Start: 3 End: 3 take 2 spray(s) by mouth once daily fluticasone (FLONASE) 50 mcg/actuation nasal spray Use 2 Sprays in each nostril once daily. Rinse mouth after use. 1 Each 0 11/23/2022 11/23/2022 Discontinued (Patient chooses alternative therapy) Start: 08-27-2022 End: 10-06-2022 take 2 spray(s) by mouth once daily fluticasone (FLONASE) 50 mcg/actuation nasal spray Use 2 Sprays in each nostril once daily. Rinse mouth after use. 1 Each 0 08/27/2022 10/06/2022 Discontinued Comment on above: Use 2 Sprays in each nostril once daily. Rinse mouth after use. gabapentin 300 mg oral capsule (20 sources) Anti-epileptic Agent Start: 08-05-20 End: 05-16-20 take 1 capsule by mouth twice daily gabapentin (NEURONTIN) 300 mg capsule Indications: DDD (degenerative disc disease), lumbar Take 1 capsule by mouth two times a day for 180 days. 180 capsule 1 11/17/2024 05/16/2025 Active Comment on above: Take 1 capsule by mo ut twice daily for 180 days. Take 1 capsule by mo ut two times a day for 180 days. Inhalational Spacing Device (1 source) Start: 06-29-20 End: 06-29-20 Inhalational Spacing Device 1 Device one time only for 1 dose. 1 Each 06/29/2024 06/29/2024 Active iv contrast (will be provided with radiology test) (3 sources) Start: 12-12-19 End: 12-13-19 iv contrast (will be provided with radiology test) CT ABD/PEL -Inject, intravenously, once for 1 dose.No IV access, insert saline lock prior to the beginning of sedation, infusion, injection of imaging exam. Discontinue saline lock post exam. If Pt. has a central line or IVAD, may access for administration according to line specific nursing protocol. Once exam is complete flush line and de-access according to line specific nursing protocol in the CT contrast administration guidelines link. 1 Each 0 12/11/2021 12/12/2021 Active Comment on above: CT ABD/PEL -Inject, intravenously, once for 1 dose.No IV access, insert saline lock prior to the beginning of sedation, infusion, injection of imaging exam. Discontinue saline lock post exam. If Pt. has a central line or IVAD, may access for administration according to line specific nursing protocol. Once exam is complete flush line and de-access according to line specific nursing protocol in the CT contrast administration guidelines link. 0.5 ml leuprolide acetate 60 mg/ml prefilled syringe (20 sources) Gonadotropin Releasing Hormone Receptor Agonist Start: 04-17-20 End: 04-12-20 26 30 mg, SUBCUTANEOUS, EVERY 4 MONTHS, 3 doses, First dose on Wed04/17/25 at 0930, Last dose on Wed12/13/25 at 0930, Hazardous Chemotherapy Drug: Use appropriate PPE. Start: 04-17-2025 End: 04-12-2026 leuprolide 30 mg injection ( ELIGARD) Start: 04-11-2025 End: 04-06-2026 leuprolide 45 mg injection ( ELIGARD) Start: 12-25-2021 End: 02-04-2024 leuprolide 45 mg injection ( ELIGARD) Comment on above: Inject 45 mg subcuta neously one time only. Every six months as ordered based on PSA meloxicam 15 mg oral tablet (15 sources) Nonsteroidal Anti-inflammatory Drug Start: 03-22-20 take 1 tablet by mouth once daily at mealtime meloxicam (MOBIC) 15 mg tablet Indications: DDD (degenerative disc disease), lumbar , Lumbar radiculopathy Take 1 tablet by mouth once daily. With food. 90 tablet 3 03/22/2025 Active Start: 04-07-2024 take 1 tablet by harman once daily at mealtime meloxicam (MOBIC) 15 mg tablet Indications: DDD (degenerative disc disease), lumbar , Lumbar radiculopathy Take 1 tablet by mouth once daily. With food. 90 tablet 3 04/07/2024 Active Completed/Discontinued Medications Medication Drug Class(es) Dates Sig (Normalized) Sig (Original) acetaminophen 325 mg oral capsule (15 sources) End: 10-06-2022 acetaminophen 325 mg cap Take 325 mg by mouth. prn 0 10/06/2022 Discontinued Comment on above: Take 325 mg by mouth . prn acetaminophen 325 mg / oxyCODONE hydrochloride 5 mg oral tablet (20 sources) Opioid Agonist Start: 06-03-2022 End: 07-07-2022 take 1 tablet by mouth every six hours Oxycodone-Acetamino phen (Percocet) 5-325 mg tablet Discontinued 1 TABLET PO EVERY 6 HOURS 12 03June 03, 2022 July 07, 2022 1:53pm 28 tabs (twenty-eight) Start: 07-06-2019 End: 07-18-2019 take 1 tablet by mouth every six hours as needed Oxycodone-Acetaminophen Discontinued 1 TABLET PO EVERY 6 HOURS NEEDED 02 01July 12, 2019 July 18, 2019 1:07am 20 tabs (twenty) Start: 07-20-2016 PERCOCET 7.5-3 25 MG TABS OXYCODONE-ACETAMINOPHEN [id number] Safdar Jovany Jacobs Start: 07-20-2016 PERCOCET 7.5-3 25 MG TABS OXYCODONE-ACETAMINOPHEN [id number] Safdar Jovany Jacobs benzonatate 100 mg oral capsule (5 sources) Non-narcotic Antitussive Start: 11-23-2022 End: 04-06-2023 take 2 capsules by mouth every eight hours as needed benzonatate (TESSALON PERLES) 100 mg capsule Take 2 capsules by mouth three times daily as needed. 30 capsule 0 11/23/2022 04/06/2023 Discontinued Comment on above: Take 2 capsules by m outh three times daily as needed. celecoxib 200 mg oral capsule (20 sources) Nonsteroidal Anti-inflammatory Drug Start: 05-02-2019 End: 04-07-2024 take 1 capsule by mouth once daily celecoxib (CELEBREX) 200 mg capsule Indications: DDD (degenerative disc disease), lumbar Take 1 capsule by mouth once daily. 90 capsule 3 10/08/2020 10/03/2021 Discontinued Comment on above: Take 1 capsule by mo ut once daily. clindamycin 300 mg oral capsule (9 sources) Lincosamide Antibacterial Start: 06-03-2022 End: 06-15-2022 take 1 capsule by mouth three times daily Clindamycin Hcl (Cleocin Hcl) 300 mg capsule Discontinued 300 MG PO THREE TIMES A DAY June 03, 2022 12:00am June 15, 2022 10:47am Start: 07-06-2019 End: 07-19-2019 take 300 mg by mouth three times daily Clindamycin Hcl Discontinued 300 MG PO THREE TIMES A DAY July 06, 2019 1:00am July 19, 2019 2:24pm 2 ml gentamicin 40 mg/ml injection (1 source) Start: 12-05-2021 End: 12-05-2021 gentamicin 40 mg/mL 160 mg injection Start: 12-05-2021 End: 12-05-2021 gentamicin 40 mg/mL 160 mg i njection Glycerin-Mineral Oil-Lanolin (EUCERIN PLUS INTENSIVE REPAIR) crea (1 source) Start: 07-24-2017 End: 10-03-2021 Glycerin-Mineral Oil-Lanolin (EUCERIN PLUS INTENSIVE REPAIR) crea Indications: Dry skin Apply 1 application to affected area twice daily. 1 Tube 07/24/2017 10/03/2021 Discontinued L.Acidoph,Saliva-B.Bif-S. Therm (Acidophilus Probiotic Blend) 175 mg capsule (4 sources) Start: 06-03-2022 End: 07-14-2022 take 1 capsule by mouth once daily L.Acidoph,Saliva-B.Bif-S .Therm (Acidophilus Probiotic Blend) 175 mg capsule Discontinued 1 CAP PO DAILY June 03, 2022 12:00am July 14, 2022 2:22pm Start: 06-03-2022 End: 07-14-2022 take 1 capsule by mouth once daily L.Acidoph,Saliva-B.Bif-S.Therm (Acidophi nini Probiotic Blend) 175 mg capsule Discontinued 1 CAP PO DAILY June 02, 2022 11:00pm July 14, 2022 1:22pm Start: 06-03-2022 take 1 capsule by mouth once daily L.Acidoph,Saliva-B.Bif-S.Therm (Acidophi nini Probiotic Blend) 175 mg capsule Active 1 CAP PO DAILY June 03, 2022 12:00am Lactobac Acidoph-Fructooligo s (5 sources) Start: 07-06-2019 End: 07-19-2019 Lactobac Acidoph-Fructooligo s Discontinued 1 EACH PO TWICE A DAY July 06, 2019 12:00am July 19, 2019 1:25pm Start: 07-06-2019 End: 07-19-2019 Lactobac Acidoph-Fructooligo s Discontinued 1 EACH PO TWICE A DAY July 06, 2019 1:00am July 19, 2019 2:25pm levoFLOXacin 750 mg oral tablet (1 source) Quinolone Antimicrobial Start: 12-05-2021 End: 12-05-2021 levoFLOXacin 750 mg tab(s) (LEVAQUIN) Start: 12-05-2021 End: 12-05-2021 levoFLOXacin 750 mg tab(s) ( LEVAQUIN) lisinopril 10 mg oral tablet (12 sources) Angiotensin Converting Enzyme Inhibitor Start: 07-20-2016 LISINOPRIL 10 MG TAB S LISINOPRIL [id number] Desmond Jacobs Problems Active Problems Problem Classification Problem Date Documented Date Episodic/Chronic Acquired foot deformities (20 sources) Acquired hallux malleus; Translations: [Other hammer toe(s) (acquired), unspecified foot] Onset: 02-29-2012 02-29-2012 Chronic Cancer of prostate (20 sources) Malignant tumor of prostate; Translations: [Malignant neoplasm of prostate] Onset: 04-17-2025 Chronic Chronic obstructive pulmonary disease and bronchiectasis (6 sources) Mild chronic obstructive pulmonary disease; Translations: [Chronic obstructive pulmonary disease, unspecified] 04-26-2022 Chronic Complications of surgical procedures or medical care (1 source) Postprocedural hemorrhage of a genitourinary system organ or structure following a genitourinary system procedure; Translations: [Postprocedural hemorrhage of a genitourinary system organ or structure following a genitourinary system procedure] Onset: 04-04-2024 Episodic Disorders of lipid metabolism (4 sources) Raised low density lipoprotein cholesterol; Translations: [Pure hypercholesterolemia, unspecified] Onset: 10-04-2024 09-29-2023 Chronic Essential hypertension (20 sources) Benign essential hypertension; Translations: [Essential (primary) hypertension] Onset: 08-28-2008 08-28-2008 Chronic Gout and other crystal arthropathies (10 sources) Other specified crystal arthropathies, unspecified site; Translations: [Other specified crystal arthropathies, unspecified site] Onset: 12-21-2016 12-21-2016 Chronic Hyperplasia of prostate (20 sources) Benign prostatic hyperplasia; Translations: [Benign prostatic hyperplasia without lower urinary tract symptoms] Onset: 03-04-2015 03-04-2015 Chronic Immunizations and screening for infectious disease (2 sources) Suspected disease caused by 2019-nCoV; Translations: [Suspected COVID-19 virus infection] 10-30-2020 Episodic Inflammatory conditions of male genital organs (1 source) Balanitis; Translations: [Balanitis] Onset: 02-21-2024 Chronic Nonspecific chest pain (2 sources) Chest pain; Translations: [Chest pain, unspecified] 09-10-2023 Episodic Open wounds of head; neck; and trunk (4 sources) Open wound of nose with complication; Translations: [Unspecified open wound of nose, initial encounter] 07-09-2022 Episodic Other aftercare (1 source) Radiotherapy follow-up; Translations: [Encounter for follow-up examination after completed treatment for conditions other than malignant neoplasm] Episodic Other connective tissue disease (4 sources) Pain in right foot; Translations: [Pain in right foot] 04-11-2025 Episodic Other connective tissue disease (1 source) Pain in right foot; Translations: [Foot pain, right] Onset: 04-11-2025 Episodic Other lower respiratory disease (2 sources) Cough; Translations: [Acute cough] 11-23-2022 Episodic Other lower respiratory disease (2 sources) Cough; Translations: [Subacute cough] 06-22-2024 Episodic Other male genital disorders (1 source) Disorder of male genital organs, unspecified; Translations: [Disorder of male genital organs, unspecified] Onset: 04-05-2024 Episodic Other nervous system disorders (4 sources) Acute postoperative pain; Translations: [Other acute postprocedural pain] 06-03-2022 Episodic Other skin disorders (5 sources) Epidermoid cyst; Translations: [Epidermal cyst] 07-06-2019 Episodic Other skin disorders (1 source) Epidermoid cyst of skin; Translations: [Epidermal cyst] 11-03-2023 Episodic Other skin disorders (1 source) Epidermal cyst; Translations: [Sebaceous cyst] 11-03-2023 Episodic Other upper respiratory infections (1 source) Chronic sinusitis; Translations: [Chronic sinusitis, unspecified] Chronic Residual codes; unclassified (5 sources) Family history of malignant neoplasm of skin; Translations: [Family history of malignant neoplasm of other organs or systems] 07-06-2019 Episodic Residual codes; unclassified (2 sources) Family history of malignant neoplasm of other organs or systems; Translations: [Family history of other specified malignant neoplasm] Episodic Screening and history of mental health and substance abuse codes (2 sources) Patient encounter status; Translations: [Encounter for screening for depression] 04-07-2024 Episodic Spondylosis; intervertebral disc disorders; other back problems (20 sources) Degeneration of lumbar intervertebral disc; Translations: [Other intervertebral disc degeneration, lumbar region] Onset: 08-21-2013 Resolved: 07-24-2016 08-21-2013 Chronic Substance-related disorders (7 sources) Smoker; Translations: [Nicotine dependence, unspecified, uncomplicated] Chronic Unclassified (1 source) Low back pain, unspecified; Translations: [Low back pain, unspecified] Onset: 10-22-2023 Unclassified (1 source) Subacute cough; Translations: [Subacute cough] Onset: 06-22-2024 Past or Other Problems Problem Classification Problem Date Documented Da te Episodic/Chronic Abdominal pain (4 sources) Abdominal pain; Translations: [Unspecified abdominal pain] Onset: 09-15-2023 09-10-2023 Episodic Cancer of prostate (6 sources) History of malignant neoplasm of prostate; Translations: [Personal history of malignant neoplasm of prostate] Onset: 06-22-2024 08-05-2023 Episodic Diabetes mellitus without complication (4 sources) Increased glucose level; Translations: [Other abnormal glucose] Onset: 10-04-2024 04-06-2023 Episodic Disorders of teeth and jaw (2 sources) Toothache; Translations: [Other specified disorders of teeth and supporting structures] Onset: 01-08-2025 01-08-2025 Episodic Genitourinary symptoms and ill-defined conditions (12 sources) Finding of sensation of bladder; Translations: [Feeling of incomplete bladder emptying] Onset: 08-11-2023 Episodic Neoplasms of unspecified nature or uncertain behavior (20 sources) Neoplasm of uncertain behavior of skin; Translations: [Neoplasm of uncertain behavior of skin] Onset: 09-26-2015 Resolved: 07-24-2016 04-19-2019 Episodic Other aftercare (12 sources) Surgical follow-up; Translations: [Encounter for other specified surgical aftercare] Onset: 11-16-2016 11-16-2016 Episodic Other bone disease and musculoskeletal deformities (10 sources) Chondromalacia; 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, unspecified knee] Onset: 12-21-2016 12-21-2016 Episodic Other diseases of bladder and urethra (18 sources) Stenosis of urinary meatus; 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] Onset: 04-03-2015 Resolved: 07-24-2016 07-24-2016 Episodic Other ear and sense organ disorders (1 source) Impacted cerumen, right ear; Translations: [Impacted cerumen of right ear] Onset: 01-03-2025 Episodic Other gastrointestinal disorders (18 sources) Diarrhea; Translations: [Diarrhea, unspecified] Resolved: 07-24-2016 07-24-2016 Episodic Other male genital disorders (18 sources) Disorder of penis; Translations: [Other specified disorders of penis] Onset: 03-04-2015 Resolved: 07-24-2016 07-24-2016 Chronic Other male genital disorders (17 sources) Phimosis; Translations: [Phimosis] Onset: 12-21-2023 12-21-2023 Episodic Other non-epithelial cancer of skin (20 [...] prostate specific antigen [PSA]] Onset: 04-03-2015 Episodic Residual codes; unclassified (18 sources) Tobacco user; Translations: [Tobacco use] Onset: 04-10-2015 Resolved: 07-24-2016 07-24-2016 Episodic Spondylosis; intervertebral disc disorders; other back problems (20 sources) Lumbar radiculopathy; Translations: [Low back pain] Onset: 08-21-2013 07-20-2016 Episodic Results Test Name Value Interpretation Reference Range Facility [facility] 04-17-2025 CNNURSE Nurse Visit (UROLWS) -- MICHAEL GUTIERREZ ([id number]) 1950 M Date Time Provider Department 04/17/25 9:30 AM NURSE UROL [facility] During your visit today, we recorded the following information about you: Allergies As of Date: 04/17/2025 Noted Allergy Reaction PREDNISONE 12/21/2023 14 - Other: See Comments Comments: Chest Pain when taken Prednisone orally only Date Reviewed: 04/11/2025 Reviewed by: Serjio Julien APRN.BUSINESS SYSTEMS ADVISOR - Fully Assessed Reason for Visit: Nurse Visit [792] Primary Visit Diagnosis:Prostate cancer (HCC) [C61] Order(s):leuprolide 30 mg injection (ELIGARD)Disp: Rfl: Prescriptions as of 04/17/2025 - meloxicam (MOBIC) 15 mg tablet Take 1 tablet by mouth once daily. With food. - amLODIPine (NORVASC) 5 mg tablet Take 1 tablet by mouth two times a day. - gabapentin (NEURONTIN) 300 mg capsule Take 1 capsule by mouth two times a day for 180 days. - albuterol HFA (PROVENTIL HFA, VENTOLIN HFA) 90 mcg/actuation inhaler Inhale 2 Puffs as instructed every 6 hours as needed for wheezing/shortness of breath. 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] 03/04/2015 07/24/2016 Meatal stenosis [SUP0009] 04/03/2015 07/24/2016 Elevated prostate specific antigen (PSA) [R97.2*04/03/2015 Tobacco abuse [Z72.0] 04/10/2015 07/24/2016 Neoplasm of uncertain behavior of scalp [D48.5] 09/26/2015 07/24/2016 Skin cancer, basal cell [C44.91] 09/29/2015 Neoplasm of uncertain behavior of skin [D48.5] 04/19/2019 Phimosis of penis [N47.1] 12/21/2023 Prescriptions ordered this encounter Disp Refills Start End LEUPROLIDE 30 MG (4 MONTH) SUBCUTANE* 04/17/2025 04/12/2026 Route: SQ Medications Discontinued During This Encounter Prescriptions - leuprolide 45 mg injection (ELIGARD) (Discontinued) Encounter Status:Closed by PUJA KING on 04/17/25 [facility] CNOVon 04-11-2025 CNOV Office Visit ([facility]) -- MICHAEL GUTIERREZ ([id number]) 1950 M Date Time Provider Department 04/11/25 10:00 AM SERJIO JULIEN During your visit today, we recorded the following information about you: Temperature Pulse Respiration Blood pressure 96.9 degrees 72/minute 16/minute 126/70 Weight 69.9 kg Serjio Julien APRN.BUSINESS SYSTEMS ADVISOR 04/11/2025 11:12 AM Signed [facility] Subjective Michael Alyssia Gutierrez is a 74 year old male. Patient presents with: Toe Pain (Toe): 4th toe on right foot swollen x 2-3 days HPI Nontoxic-appearing male presents urgent care chief complaint right toe pain and swelling. Duration of symptoms 2 to 3 days. Associated symptoms right toe pain and swelling. Has been present for around a week. Has been more noticeably tender in the last few days. OTC medications none. No known injuries. Risk factor surgery on this toe. Denies any numbness or tingling. Is not diabetic. No fevers. No decreased range of motion. Past medical history prescription medications allergies reviewed. Review of Systems Constitutional: Negative for activity change, diaphoresis, fatigue and fever. Musculoskeletal: Positive for joint swelling. Negative for arthralgias, back pain, gait problem, myalgias, neck pain and neck stiffness. Skin: Negative for pallor, rash and wound. Neurological: Negative for dizziness, seizures, syncope, weakness, light-headedness, numbness and headaches. Psychiatric/Behavioral: Negative for confusion. Objective BP 126/70 Pulse 72 Temp 36.1 ?C (96.9 ?F) Resp 16 Wt 69.9 kg (154 lb 1.6 oz) SpO2 96% BMI 23.43 kg/m? Physical Exam Constitutional: Appearance: Normal appearance. He is normal weight. HENT: Head: Normocephalic. Eyes: Conjunctiva/sclera: Conjunctivae normal. Cardiovascular: Rate and Rhythm: Normal rate. Pulmonary: Effort: Pulmonary effort is normal. Musculoskeletal: Cervical back: Normal range of motion. Comments: No tenderness to palpation over ankle. No tenderness to palpation over metatarsals right. Mild tenderness to palpation over fourth interphalangeal joint right foot. Neurovascular intact. No open wounds. Skin: Findings: No rash. Neurological: General: No focal deficit present. Mental Status: He is alert and oriented to person, place, and time. Mental status is at baseline. {ASSESSMENT/PLAN: 1. Foot pain, right - ICD9: 729.5, ICD10: M79.671 - XR FOOT GENERAL 3V AP/LAT/OBL RIGHT IMPRESSION: No acute osseous abnormality. Postoperative and degenerative changes as described. No acute findings noted on imaging. Treat as right foot pain. Due to operation of this toe referred to podiatry. Patient was educated on supportive therapies. Patient will follow up with primary care provider as needed. Patient was instructed to immediately proceed to emergency room for any new, worsening, or symptoms lasting longer than anticipated. The patient's clinical presentation is otherwise unremarkable at this time. Based on exam and clinical finding, the patient is stable for discharge. Plan of care was discussed with patient. Patient verbalizes understanding and agrees to plan of care. This note was generated using [employer] software. It may contain errors in wording, punctuation, or spelling. Serjio Julien APRN.[facility] History and Record Review Clinical information obtained from an independent historian. History obtained from or confirmed by: parent. External record(s) reviewed: prior outpatient record. Disposition The patient was discharged. OTC Medications were advised: Procedures Allergies As of Date: 04/11/2025 Noted Allergy Reaction PREDNISONE 12/21/2023 14 - Other: See Comments Comments: Chest Pain when taken Prednisone orally only Date Reviewed: 04/11/2025 Reviewed by: Serjio Julien APRN.BUSINESS SYSTEMS ADVISOR - Fully Assessed Reason for Visit: Toe Pain (Toe) [761] Cmt: 4th toe on right foot swollen x 2-3 days Primary Visit Diagnosis:Foot pain, right [M79.671] Order(s):XR FOOT GENERAL 3V AP/LAT/OBL RIGHT [[id number]] Order #: [id number] FUTURE Prescriptions as of 04/11/2025 - meloxicam (MOBIC) 15 mg tablet Take 1 tablet by mouth once daily. With food. - amLODIPine (NORVASC) 5 mg tablet Take 1 tablet by mouth two times a day. - gabapentin (NEURONTIN) 300 mg capsule Take 1 capsule by mouth two times a day for 180 days. - albuterol HFA (PROVENTIL HFA, VENTOLIN HFA) 90 mcg/actuation inhaler Inhale 2 Puffs as instructed every 6 hours as needed for wheezing/shortness of breath. Facility-Administered Medications as of 04/11/2025 - leuprolide 45 mg injection (ELIGARD) Problem List As Of Date 04/11/2025 Noted Resolved Diarrhea [R19.7] 07/24/2016 BENIGN HYPERTENSION [I10] 08/28/2008 Other hammer toe (acquired) [M20.40] 02/29/2012 Lumbar radiculopathy [M54.16] 08/21/2013 Lumbar disc herniation [M51.26] (more content not included)... [facility] XR FOOT 3V AP/LAT/OBL RTon 0 04-11-2025 XR FOOT 3V AP/LAT/OBL RT * * *Final Report* * * DATE OF EXAM: Apr 11 2025 10:32AM WOX [id number] - XR FOOT 3V AP/LAT/OBL RT / PROCEDURE REASON: Foot pain, right * * * * Physician Interpretation * * * * EXAMINATION: XR FOOT 3V AP/LAT/OBL RT TECHNOLOGIST PROVIDED HISTORY: Acute pain in right 4th toe, no known injury. Pt had surgery one year ago to shorten right 4th toe due to pain and callus formation. CLINICAL INFORMATION: 74 years old Male with Foot pain, right TECHNIQUE: XR FOOT 3V AP/LAT/OBL RT Laterality: RIGHT Number of different views (projections): 3 COMPARISON: Radiographs 03/09/2012 RESULT: No acute fracture. Remote postsurgical changes of 4th and 5th PIP joint resection arthroplasty. Severe degenerative change 1st TMT joint. Joint spaces are otherwise maintained with scattered tiny marginal osteophytes. IMPRESSION: No acute osseous abnormality. Postoperative and degenerative changes as described. Supervisor Pressing Department: PSCSohan Transcribe Date/Time: Apr 11 2025 10:48A Dictated by : MERRILL PEREIRA DO This examination was interpreted and the report reviewed and electronically signed by: MERRILL PEREIRA DO on Apr 11 2025 10:53AM EST [id number] [facility] XR Foot - right AP and Later al and obliqueon 04-11-2025 IMPRESSION: No acute osseous abnormality. Postoperative and degenerative changes as described. Supervisor Pressing Department: PSCB Transcribe Date/Time: Apr 11 2025 10:48A Dictated by : MERRILL PEREIRA DO This examination was interpreted and the report reviewed and electronically signed by: MERRILL PEREIRA DO on Apr 11 2025 10:53AM EST DIVISION OF RADIOLOGY * * *Final Report* * * DATE OF EXAM: Apr 11 2025 10:32AM WOX [id number] - XR FOOT 3V AP/LAT/OBL RT / PROCEDURE REASON: Foot pain, right * * * * Physician Interpretation * * * * EXAMINATION: XR FOOT 3V AP/LAT/OBL RT TECHNOLOGIST PROVIDED HISTORY: Acute pain in right 4th toe, no known injury. Pt had surgery one year ago to shorten right 4th toe due to pain and callus formation. CLINICAL INFORMATION: 74 years old Male with Foot pain, right TECHNIQUE: XR FOOT 3V AP/LAT/OBL RT Laterality: RIGHT Number of different views (projections): 3 COMPARISON: Radiographs 03/09/2012 RESULT: No acute fracture. Remote postsurgical changes of 4th and 5th PIP joint resection arthroplasty. Severe degenerative change 1st TMT joint. Joint spaces are otherwise maintained with scattered tiny marginal osteophytes. DIVISION OF RADIOLOGY Provider, [facility] - 04/11/2025 * * *Final Report* * * DATE OF EXAM: Apr 11 2025 10:32AM WOX [id number] - XR FOOT 3V AP/LAT/OBL RT / PROCEDURE REASON: Foot pain, right * * * * Physician Interpretation * * * * EXAMINATION: XR FOOT 3V AP/LAT/OBL RT TECHNOLOGIST PROVIDED HISTORY: Acute pain in right 4th toe, no known injury. Pt had surgery one year ago to shorten right 4th toe due to pain and callus formation. CLINICAL INFORMATION: 74 years old Male with Foot pain, right TECHNIQUE: XR FOOT 3V AP/LAT/OBL RT Laterality: RIGHT Number of different views (projections): 3 COMPARISON: Radiographs 03/09/2012 RESULT: No acute fracture. Remote postsurgical changes of 4th and 5th PIP joint resection arthroplasty. Severe degenerative change 1st TMT joint. Joint spaces are otherwise maintained with scattered tiny marginal osteophytes. IMPRESSION IMPRESSION: No acute osseous abnormality. Postoperative and degenerative changes as described. Supervisor Pressing Department: PSCB Transcribe Date/Time: Apr 11 2025 10:48A Dictated by : MERRILL PEREIRA DO This examination was interpreted and the report reviewed and electronically signed by: MERRILL PEREIRA DO on Apr 11 2025 10:53AM EST [facility] Radiology Study observation (narrative) [facility] XR Foot - right AP and Later al and obliqueOrdered By: Ccf Provider on 04-11-2025 [facility] GUTIERRE[facility] ([id number]) 1950 M Date Time Provider Department 04/10/25 HERI HUMPHRIES During your visit today, we recorded the following information about you: Carlie Domínguez MA 04/10/2025 9:27 AM Signed Patient has appointment scheduled next week on Wednesday. He is asking if he needs to come in for the injection. Please reach out to the patient at [phone]. Linda Gilmore LPN 04/11/2025 11:24 AM Signed Patient called into office wanted to speak to travis. Please call patient back for further detail. PATSY Sales Kimberly, LPN 04/11/2025 2:15 PM Signed Called patient. No answer- if patient calls back I will call him once provider addresses message. If he does not need to see provider and nurse only I can change the visit type to nurse visit. Patient did see provider in December 26, 2024. PATSY Putnam Kimberly, LPN 04/17/2025 10:32 AM Signed Patient received Eligard injection today. Puja King LPN Allergies As of Date: 04/10/2025 Noted Allergy Reaction PREDNISONE 12/21/2023 14 - Other: See Comments Comments: Chest Pain when taken Prednisone orally only Date Reviewed: 01/08/2025 Reviewed by: Lorene Cotto MA - Fully Assessed Reason for Visit: Injections [199] Visit Diagnosis:Prostate cancer (HCC) [C61] Prescriptions as of 04/17/2025 - meloxicam (MOBIC) 15 mg tablet Take 1 tablet by mouth once daily. With food. - amLODIPine (NORVASC) 5 mg tablet Take 1 tablet by mouth two times a day. - gabapentin (NEURONTIN) 300 mg capsule Take 1 capsule by mouth two times a day for 180 days. - albuterol HFA (PROVENTIL HFA, VENTOLIN HFA) 90 mcg/actuation inhaler Inhale 2 Puffs as instructed every 6 hours as needed for wheezing/shortness of breath. 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] 03/04/2015 07/24/2016 Meatal stenosis [CVI3154] 04/03/2015 07/24/2016 Elevated prostate specific antigen (PSA) [R97.2*04/03/2015 Tobacco abuse [Z72.0] 04/10/2015 07/24/2016 Neoplasm of uncertain behavior of scalp [D48.5] 09/26/2015 07/24/2016 Skin cancer, basal cell [C44.91] 09/29/2015 Neoplasm of uncertain behavior of skin [D48.5] 04/19/2019 Phimosis of penis [N47.1] 12/21/2023 Prescriptions ordered this encounter Disp Refills Start End LEUPROLIDE ACETATE 45 MG (6 MONTH) S* 04/11/2025 04/17/2025 Route: SQ Encounter Status:Closed by HERI HUMPHRIES on 04/11/25 [facility] PSA SerPl-mCncon 04-09-2025 Prostate specific Ag [Mass/Vol] 1.18 ng/mL Normal <2.60 [facility] Comment on above: Order Comment: Speci men Type: BLOOD SPECIMENOrdering Facility: [facility] Address: [address] [place] [address] Result Comment: [place] zabala PSA test methodology used is the Electrochemiluminescence Immunoassay by [employer]. Total PSA values by differing methodologies cannot be interchanged. Performed By: #### 2 [id number] ####[facility] LABCLIA [id number] [address] OF [facility] CNOVon 01-08-2025 CNOV Office Visit (UCWSTR ) -- BRENDAMICHAEL Zabala ([id number]) 1950 M Date Time Provider Department 01/08/25 1:15 PM ALMA DELIA CALZADA [facility] During your visit today, we recorded the following information about you: Temperature Pulse Respiration Blood pressure 97.1 degrees 70/minute 16/minute 130/72 Weight 70.2 kg Alma Delia Calzada APRN.BUSINESS SYSTEMS ADVISOR 01/08/2025 1:26 PM Signed [facility] Subjective Tillmanmelia Gutierrez is a 74 year old male. Patient presents with: Dental Problem: right lower tooth pain and swelling x 3 days Dental Problem Tooth Pain: - Onset 4 days ago. - Localized to the right anterior tooth. +pain with touching, chewing and eating - + sensitivity to hot and cold, Denies fever, chills, trismus, or sialorrhea. - No current dentist. hoping to get to [facility] [place] - Allergic to prednisone. - Denies history of asthma or diabetes. PAST MEDICAL HISTORY Diagnosis Date Diarrhea HTN (hypertension) OA (osteoarthritis of spine) Prostate cancer (HCC) PAST SURGICAL HISTORY Procedure Laterality Date COLONOSCOPY W/BIOPSY SINGLE/MULTIPLE 05/29/08 PAST SURGICAL HISTORY OF circumcision PAST SURGICAL HISTORY OF nose cauturization PAST SURGICAL HISTORY OF 09/2015 Skin biopsy off forehead, basal cell PAST SURGICAL HISTORY OF Left 07/2019 Skin graft - 07/[address] Tim (left side of neck) ALLERGIES Prednisone MEDICATIONS amoxicillin-clavulanate potassium (AUGMENTIN) 875-125 mg per tablet Take 1 tablet by mouth two times a day for 7 days. gabapentin (NEURONTIN) 300 mg capsule Take 1 capsule by mouth two times a day for 180 days. albuterol HFA (PROVENTIL HFA, VENTOLIN HFA) 90 mcg/actuation inhaler Inhale 2 Puffs as instructed every 6 hours as needed for wheezing/shortness of breath. (Patient not taking: Reported on 01/03/2025) amLODIPine (NORVASC) 5 mg tablet Take 1 tablet by mouth two times a day. meloxicam (MOBIC) 15 mg tablet Take 1 tablet by mouth once daily. With food. FAMILY HISTORY Problem Relation Age of Onset No Known Problems Mother COPD Father Hypertension Sister Hypertension Sister Hypertension Sister Diabetes Maternal Grandmother Cancer Maternal Grandfather Skin No Known Problems Paternal Grandmother No Known Problems Paternal Grandfather No Known Problems Brother No Known Problems Brother Social History Tobacco Use Smoking status: Some Days Current packs/day: 0.00 Average packs/day: 0.3 packs/day for 45.0 years (11.3 ttl pk-yrs) Types: Cigarettes Start date: 04/24/1970 Last attempt to quit: 04/24/2015 Years since quittin.7 Smokeless tobacco: Never Tobacco comments: Smoking couple per day Vaping Use Vaping status: Never Used Substance Use Topics Alcohol use: No Comment: last drank in 2003- was hospitalized with pancreatitis Drug use: Never Review of Systems Constitutional: (-) fever, (-) chills Ears/Nose/Mouth/Throat: (+) tooth pain (front right), (-) sensitivity to hot and cold, (-) difficulty opening/closing mouth, (-) difficulty swallowing Objective BP 130/72 Pulse 70 Temp 36.2 ?C (97.1 ?F) Resp 16 Wt 70.2 kg (154 lb 12.2 oz) SpO2 96% BMI 23.53 kg/m? Physical Exam Vitals and nursing note reviewed. Constitutional: General: He is not in acute distress. Appearance: Normal appearance. He is not ill-appearing, toxic-appearing or diaphoretic. HENT: Head: Normocephalic and atraumatic. Right Ear: External ear normal. Left Ear: External ear normal. Nose: Nose normal. No congestion or rhinorrhea. Mouth/Throat: Mouth: Mucous membranes are moist. Pharynx: Oropharynx is clear. No oropharyngeal exudate or posterior oropharyngeal erythema. Comments: Tooth 26 with diffuse decay noted Inflamed and recessed gum Multiple missing teeth Partial dentures noted Eyes: General: Right eye: No discharge. Left eye: No discharge. Extraocular Movements: Extraocular movements intact. Conjunctiva/sclera: Conjunctivae normal. Pupils: Pupils are equal, round, and reactive to light. Cardiovascular: Rate and Rhythm: Normal rate and regular rhythm. Pulses: Normal pulses. Heart sounds: Normal heart sounds. No murmur heard. No friction rub. No gallop. Pulmonary: Effort: Pulmonary effort is normal. No respiratory distress. Breath sounds: Normal breath sounds. No stridor. No wheezing, rhonchi or rales. Chest: Chest wall: No tenderness. Abdominal: General: Abdomen is flat. There is no distension. Palpations: Abdomen is soft. There is no mass. Tenderness: There is no abdominal tenderness. There is no guarding or rebound. Hernia: No hernia is present. Musculoskeletal: General: No swelling, tenderness, deformity or signs of injury. Normal range of motion. Cervical back: Normal range of motion and neck supple. No rigidity or tenderness. Right lower leg: No edema. Left lower leg: No edema. (more content not included)... [facility] CNOVon 01-03-2025 CNOV Office Visit ([facility]WSTR ) -- MICHAEL GUTIERREZ ([id number]) 1950 M Date Time Provider Department 01/03/25 9:30 AM MARCELLO HILTON [facility] During your visit today, we recorded the following information about you: Temperature Pulse Respiration Blood pressure 97.8 degrees 56/minute 16/minute 124/70 Weight 71.6 kg Marcello Hilton MD 01/03/2025 9:50 AM Signed [facility] Subjective Michael Gutierrez is a 74 year old male. Patient presents with: Ear Pain: right x 4 days Patient presents with plugged right ear which began 4 days ago. Hearing is usually decreased. Denies any recent illness, nasal congestion, rhinorrhea, sore throat, fever, or otorrhea. He has not tried any medication. He has put twisted paper towel wads in the canal without successfully removing anything. Pressure at the tragus occasionally relieves the clogged symptom. No prior issues with cerumen impactions Ear Pain Review of Systems Objective BP 124/70 Pulse (!) 56 Temp 36.6 ?C (97.8 ?F) Resp 16 Wt 71.6 kg (157 lb 13.6 oz) SpO2 96% BMI 24.00 kg/m? Physical Exam Constitutional: General: He is not in acute distress. Appearance: He is not ill-appearing. HENT: Right Ear: There is impacted cerumen. Left Ear: Tympanic membrane and ear canal normal. Nose: No congestion or rhinorrhea. Eyes: Extraocular Movements: Extraocular movements intact. Conjunctiva/sclera: Conjunctivae normal. Pupils: Pupils are equal, round, and reactive to light. Cardiovascular: Rate and Rhythm: Normal rate and regular rhythm. Heart sounds: No murmur heard. Pulmonary: Effort: No respiratory distress. Breath sounds: No wheezing, rhonchi or rales. Musculoskeletal: Cervical back: Neck supple. Lymphadenopathy: Cervical: No cervical adenopathy. Neurological: Mental Status: He is alert. {ASSESSMENT/PLAN: 1. Impacted cerumen of right ear - ICD9: 380.4, ICD10: H61.21 Marcello Hilton MD [facility] Cerumen Removal Performed by: Marcello Hilton MD Authorized by: Marcello Hilton MD Informed Consent Consent Obtained: Verbal [place] Protocol SIGN IN Personnel directly involved with the procedure wore the appropriate PPE. Special Equipment: Yes (Lighted curette) TIME OUT Procedure details: Location: R ear Post-procedure details: Inspection: TM intact Hearing quality: Normal Patient tolerance of procedure: Tolerated well, no immediate complications Comments: Moderate to large cerumen impaction successfully removed with lighted curette resulting in resolution of patient's symptoms. SIGN OUT All instruments, equipment, possible retained foreign bodies accounted for. Allergies As of Date: 01/03/2025 Noted Allergy Reaction PREDNISONE 12/21/2023 14 - Other: See Comments Comments: Chest Pain when taken Prednisone orally only Date Reviewed: 01/03/2025 Reviewed by: Lorene Ctoto MA - Fully Assessed Reason for Visit: Ear Pain [817] Cmt: right x 4 days Primary Visit Diagnosis:Impacted cerumen of right ear [H61.21] Order(s):Cerumen Removal [[id number]] Order #: [id number] Prescriptions as of 01/03/2025 - gabapentin (NEURONTIN) 300 mg capsule Take 1 capsule by mouth two times a day for 180 days. - albuterol HFA (PROVENTIL HFA, VENTOLIN HFA) 90 mcg/actuation inhaler Inhale 2 Puffs as instructed every 6 hours as needed for wheezing/shortness of breath. - amLODIPine (NORVASC) 5 mg tablet Take 1 tablet by mouth two times a day. - meloxicam (MOBIC) 15 mg tablet Take 1 tablet by mouth once daily. With food. 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] 03/04/2015 07/24/2016 Meatal stenosis [[id number]] 04/03/2015 07/24/2016 Elevated prostate specific antigen (PSA) [R97.2*04/03/2015 Tobacco abuse [Z72.0] 04/10/2015 07/24/2016 Neoplasm of uncertain behavior of scalp [D48.5] 09/26/2015 07/24/2016 Skin cancer, basal cell [C44.91] 09/29/2015 Neoplasm of uncertain behavior of skin [D48.5] 04/19/2019 Phimosis of penis [N47.1] 12/21/2023 Encounter Status:Closed by MARCELLO HILTON on 01/03/25 [facility] CNOVon 12-26-2024 CNOV Office Visit (UROLWS ) -- MICHAEL GUTIERREZ ([id number]) 1950 M Date Time Provider Department 12/26/24 9:30 AM HERI HUMPHRIES During your visit today, we recorded the following information about you: Temperature Pulse Respiration Blood pressure 97.3 degrees 74/minute 14/minute 116/68 Weight Height 69.9 kg 1.727 m Puja King LPN 01/09/2025 11:04 PM Signed Verified name and date of . CC Post Void Residual HPI: Michael Gutierrez is a 74 year old male. The patient is here now for an appointment with DANIEL Castro, [place], PA-ASA. Procedure: Explained procedure to patient and verbalizes understanding. Performed a PVR. Patient urinated and instructed to empty bladder as much as possible just prior to having PVR done using bladder ultrasound scanner. Results of scan: 0 mL The patient tolerated the procedure well. Plan: Appointment with Heri. Heri Humphries PA-C 01/09/2025 11:04 PM Signed [facility] EST PATIENT CLINIC NOTE (M) Some elements copied from his previous note, which have been updated where appropriate, and all reflect current medical decision making from date of this visit. Note was generated by [employer] and edited as appropriate SERVICE DATE: December 26, 2024 NAME: Michael Gutierrez GENDER: male CHIEF COMPLAINT: history of prostate cancer, presenting for follow-up. HISTORY OF PRESENT ILLNESS: The patient is a 74-year-old male with a history of prostate cancer, presenting for follow-up. Prostate Cancer: - Last Eligard injection was a few months ago. - Most recent PSA level was 0.12 on December 20; previous level was 0.2. - Denies urinary issues; reports stable condition. Chin Surgery: - Underwent chin surgery 3-4 months ago. LABS: PSA (ng/mL) Date Value 12/20/2024 0.12 06/22/2024 <0.02 12/17/2023 0.02 10/03/2021 41.52 02/04/2021 31.64 04/18/2015 3.10 Creatinine Date Value Ref Range Status 10/04/2024 0.81 0.73 - 1.22 mg/dL Final 10/01/2023 0.82 0.73 - 1.22 mg/dL Final 03/29/2023 0.80 0.73 - 1.22 mg/dL Final No results found for: TESTOST Hematocrit (%) Date Value 10/04/2024 41.0 10/01/2023 41.0 03/29/2023 40.4 02/04/2021 47.4 02/28/2020 46.1 04/03/2015 43.6 PSA (ng/mL) Date Value 12/20/2024 0.12 06/22/2024 <0.02 12/17/2023 0.02 10/03/2021 41.52 02/04/2021 31.64 04/18/2015 3.10 MEDICATIONS: gabapentin (NEURONTIN) 300 mg capsule Take 1 capsule by mouth two times a day for 180 days. (Patient taking differently: Take 300 mg by mouth once daily.) amLODIPine (NORVASC) 5 mg tablet Take 1 tablet by mouth two times a day. meloxicam (MOBIC) 15 mg tablet Take 1 tablet by mouth once daily. With food. albuterol HFA (PROVENTIL HFA, VENTOLIN HFA) 90 mcg/actuation inhaler Inhale 2 Puffs as instructed every 6 hours as needed for wheezing/shortness of breath. PAST MEDICAL HISTORY: PAST MEDICAL HISTORY Diagnosis Date Diarrhea HTN (hypertension) OA (osteoarthritis of spine) Prostate cancer (HCC) REVIEW OF SYSTEMS: Genitourinary: (-) urinary symptoms PHYSICAL EXAMINATION: General: Alert AND oriented, no acute distress Skin: Normal HEENT: Pupils equal, round. Oral cavity, oropharynx clear Neck: Supple, no mass Breast: Deferred Respiratory: Clear to auscultation, bilaterally Cardiovascular: Regular rate and rhythm, no murmurs, rubs, or gallops Abdomen: Soft, non-tender, non-distended, no masses palpable, no hepatosplenomegaly, normal bowel sounds Genitourinary: Deferred MSK: Back is non-tender Extremities: No clubbing, cyanosis, or edema PROBLEM LIST REVIEW: Yes LABS: Results for orders placed or performed in visit on 12/26/24 UA DIP, URINE (POC) Result Value Ref Range GLUCOSE UA (POCT) Negative Negative mg/dL BILIRUBIN UA (POCT) Negative Negative KETONE UA (POCT) Negative Negative mg/dL SPECIFIC GRAVITY UA (POCT) <=1.005 (A) 1.005 - 1.030 HEMOGLOBIN/BLOOD UA (POCT) Trace-lysed (A) Negative PH UA (POCT) 5.5 4.5 - 8.0 PROTEIN UA (POCT) Negative Negative mg/dL UROBILINOGEN UA (POCT) 0.2 Normal E.U./dL NITRITE UA (POCT) Negative Negative LEUKOCYTES UA (POCT) Negative Negative COLOR UA (POCT) Light yellow CLARITY UA (POCT) Clear PROCEDURES: PVR - 0 ml ASSESSMENT/PLAN: 1. Hx of malignant neoplasm of prostate (Z85.46) - PSA level decreased from 0.2 to 0.12 ng/mL as of December 20. Last Eligard injection was several months ago; no further injections recommended unless PSA exceeds 0.6-0.7 ng/mL. Ordered PSA test in 4 months (April). Advised patient to schedule the test a week before the follow-up appointment and to notify the office of the results. If PSA remains below 1 ng/mL, the appointment can be canceled, and the next follow-up will be scheduled in another 4 months. 2. Screening for genitourinary (more content not included)... Normal [facility] UA DIP, URINE (POC)on 2024 BILIRUBIN UA (POCT) Negative Negative [facility] CLARITY UA (POCT) Clear [facility] COLOR UA (POCT) Light yellow [facility] GLUCOSE UA (POCT) Negative Negative mg/dL [facility] Hemoglobin Ql (U) Trace-lysed Abnormal Negative [facility] Interpretation and review of laboratory results Abnormal [facility] KETONE UA (POCT) Negative Negative mg/dL [facility] LEUKOCYTES UA (POCT) Negative Negative [facility] NITRITE UA (POCT) Negative Negative [facility] PH UA (POCT) 5.5 4.5 - 8.0 [facility] Protein Ql (U) Negative Negative mg/dL [facility] SPECIFIC GRAVITY UA (POCT) <=1.005 Abnormal 1.005 - 1.030 [facility] UROBILINOGEN UA (POCT) 0.2 Normal E.U./dL [facility] Location:[facility], [address], [place], [id number] [place] [address] POINT OF CARE [facility] PSA SerPl-ncon 12-20-2024 Prostate specific Ag [Mass/Vol] 0.12 ng/mL Normal <2.60 [facility] Comment on above: Order Comment: Speci men Type: BLOOD SPECIMENOrdering Facility: [facility] Address: [address] [facility] [place] [address] Result Comment: [place] z[place] PSA test methodology used is the Electrochemiluminescence Immunoassay by [employer]. Total PSA values by differing methodologies cannot be interchanged. Performed By: #### 2 857-1 ####[facility] LABCLIA [id number] [address] STATES OF [facility] CNOVon 10-12-2024 CNOV Office Visit (FAMPWS ) -- MICHAEL GUTIERREZ ([id number]) 1950 M Date Time Provider Department 10/12/24 11:00 AM HEATHER GONSALEZ FAMPWS During your visit today, we recorded the following information about you: Pulse Respiration Blood pressure Weight 60/minute 16/minute 124/78 70.9 kg Heather Gonsalez MD 10/12/2024 2:27 PM Signed Chief Complaint Patient presents with: 6 Month Exam HPI Michael Gutierrez is a 73 year old male who presents here today for a 6 month follow up. Pt here today for his routine follow up. No advanced directive. Smoking a couple cigarettes per day, trying to quit. Denies any stomach or bowel issues. Has declined colorectal screening at previous visits. Follows with Urology, BIPIN Wu for prostate cancer. Gets Leuprolide injections every 6 months based on PSA. HTN: Denies checking his BP at home. Occasional chest pain, but resolves quickly, feels this is related to gas. Denies any sob or dizziness. On current regimen of Norvasc 5 mg 1 tab po bid. Lipid/Glucose: On no current medications at this time, monitoring through routine labs. Hx of elevated LDL and elevated glucose. Tries to watch diet and walk for exercise. Pain: Chronic back pain due to DDD. Pt was switched from Celebrex to Mobic 15 mg once daily at previous visit in addition to Gabapentin 300 mg 1 tab po bid. Jackson Celebrex was not working well for him and requested a switch in medication. Followed with Spine, Dr. Adame; not currently seeing anyone. Prostate cancer: previously treated, last PS undectectable; follows with Urology for monitoring Bruising easily. Past medical history, appointments, medications, allergies reviewed. [...] Problems Brother Patient Allergies ALLERGIES Allergen Reactions Prednisone Other: See Comments Chest Pain when taken Prednisone orally only Current Medications Current Outpatient Medications on File Prior to Visit Medication Sig albuterol HFA (PROVENTIL HFA, VENTOLIN HFA) 90 mcg/actuation inhaler Inhale 2 Puffs as instructed every 6 hours as needed for wheezing/shortness of breath. gabapentin (NEURONTIN) 300 mg capsule Take 1 capsule by mouth two times a day for 180 days. amLODIPine (NORVASC) 5 mg tablet Take 1 tablet by mouth two times a day. meloxicam (MOBIC) 15 mg tablet Take 1 tablet by mouth once daily. With food. No current facility-administered medications on file prior to visit. Social History Social History Tobacco Use Smoking status: Some Days Current packs/day: 0.00 Average packs/day: 0.3 packs/day for 45.0 years (11.3 ttl pk-yrs) Types: Cigarettes Start date: 04/24/1970 Last attempt to quit: 04/24/2015 Years since quittin.4 Smokeless tobacco: Never Tobacco comments: Smoking couple per day Vaping Use Vaping status: Never Used Substance Use Topics Alcohol use: No Comment: last drank in 2003- was hospitalized with pancreatitis Drug use: Never EXAM: BP 124/78 Pulse 60 Resp 16 Wt 70.9 kg (156 lb 4.9 oz) SpO2 99% BMI 23.77 kg/m? General Appearance: Well appearing, alert, in no acute distress, well-hydrated, well nourished.. Lungs: Lungs clear to auscultation. No wheezing, rhonchi, rales.. Heart: RRR without murmur, gallop, or rubs. No ectopy. Health Maintenance List DTaP,Tdap,Td Vaccine(1 - Tdap) Never done Shingrix Vaccine(1 of 2) Never done Colorectal Cancer Screening due on 05/29/2018 BP Controlled (<130/80) due on 12/31/2019 RSV Vaccine(1 - 1-dose 75+ series) Never done Advance Directive Discussion due on 08/16/2024 Covid-19 Vaccine( season) due on 10/12/2025 Annual PCP Team Chronic Disease Visit due on 04/07/2025 Depression Screening due on 04/07/2025 Anxiety Screening due on 04/07/2025 Diabetes Screening due on 10/04/2027 Lipid Screening due on 10/04/2029 Influenza Vaccine Completed Hepatitis C Screening Completed Pneumococcal Vaccine: 50+ Completed Data reviewed Appointment on 10/04/2024 Component Date Value Pro (more content not included)... Normal [facility] CBC panel Auto (Bld)on 10-04 Erythrocyte distribution width (RBC) [Ratio] 14.6 % Normal 11.5-15.0 [facility] Comment on above: Order Comment: Speci men Type: BLOOD SPECIMENOrdering Facility: [facility] Address: [address] [place] [address] Performed By: #### 5 8410-2 ####[facility] [id number] [place] [address] [place] Hematocrit (Bld) [Volume fraction] 41.0 % Normal 39.0-51.0 [facility] Comment on above: Order Comment: Speci men Type: BLOOD SPECIMENOrdering Facility: [facility] Address: [address] [place] [address] Performed By: #### 5 8410-2 ####[facility] LABIA [id number] [place] [address] [place] Hemoglobin (Bld) [Mass/Vol] 13.2 g/dL Normal 13.0-17.0 [facility] Comment on above: Order Comment: Speci men Type: BLOOD SPECIMENOrdering Facility: [facility] Address: [address] [place] [address] Performed By: #### 5 8410-2 ####[facility] LABIA [id number] [place] [address] [place] MCH (RBC) [Entitic mass] 31.3 pg Normal 26.0-34.0 [facility] Comment on above: Order Comment: Speci men Type: BLOOD SPECIMENOrdering Facility: [facility] Address: [address] [place] [address] Performed By: #### 5 8410-2 ####[facility] LABIA [id number] [place] [address] [place] MCHC (RBC) [Mass/Vol] 32.2 g/dL Normal 30.5-36.0 [facility] Comment on above: Order Comment: Speci men Type: BLOOD SPECIMENOrdering Facility: [facility] Address: [address] [place] [address] Performed By: #### 5 8410-2 ####[facility] [id number] [place] [address] [place] MCV (RBC) [Entitic vol] 97.2 fL Normal 80.0-100.0 [facility] Comment on above: Order Comment: Speci men Type: BLOOD SPECIMENOrdering Facility: [facility] Address: [address] [place] [address] Performed By: #### 5 8410-2 ####[facility] [id number] [place] [address] [place] Nucleated RBC (Bld) [#/Vol] 10*3/uL Normal <0.01 [facility] Comment on above: Order Comment: Speci men Type: BLOOD SPECIMENOrdering Facility: [facility] Address: [address] [place] [address] Performed By: #### 5 8410-2 ####[facility] [id number] [place] [address] [place] Platelet mean volume (Bld) [Entitic vol] 10.0 fL Normal 9.0-12.7 [facility] Comment on above: Order Comment: Speci men Type: BLOOD SPECIMENOrdering Facility: [facility] Address: [address] [place] [address] Performed By: #### 5 8410-2 ####[facility] LABCLIA [id number] [place] [address] [place] Platelets (Bld) [#/Vol] 258 10*3/uL Normal 150-400 [facility] Comment on above: Order Comment: Speci men Type: BLOOD SPECIMENOrdering Facility: [facility] Address: [address] [place] [address] Performed By: #### 5 8410-2 ####[facility] LABCLIA [id number] [place] [address] [place] RBC (Bld) [#/Vol] 4.22 10*6/uL Normal 4.20-6.00 [facility] Comment on above: Order Comment: Speci men Type: BLOOD SPECIMENOrdering Facility: [facility] Address: [address] [place] [address] Performed By: #### 5 8410-2 ####[facility] LABCLIA [id number] [place] [address] [place] WBC (Bld) [#/Vol] 9.11 10*3/uL Normal 3.70-11.00 [facility] Comment on above: Order Comment: Speci men Type: BLOOD SPECIMENOrdering Facility: [facility] Address: [address] [place] [address] Performed By: #### 5 8410-2 ####[facility] LABCLIA [id number] [place] [address] [place] Comprehensive metabolic 2000 panelon 10-04-2024 Albumin [Mass/Vol] 4.2 g/dL Normal 3.9-4.9 [facility] Comment on above: Order Comment: Speci men Type: BLOOD SPECIMENOrdering Facility: [facility] Address: [address] [place] [id number] Performed By: #### 2 4323-8, 90631-4 ####[facility] LABCLIA [id number] [place] [id number] [place] ALP [Catalytic activity/Vol] 104 U/L Normal 38-113 [facility] Comment on above: Order Comment: Speci men Type: BLOOD SPECIMENOrdering Facility: [facility] Address: [address] [place], [place] [address] Performed By: #### 2 4323-8, 58597-2 ####[facility] LABCLIA [id number] [place] [address] [place] ALT [Catalytic activity/Vol] 14 U/L Normal 10-54 [facility] Comment on above: Order Comment: Speci men Type: BLOOD SPECIMENOrdering Facility: [facility] Address: [address] [place] [address] Performed By: #### 2 4323-8, 38085-8 ####[facility] LABCLIA [id number] [place] [address] [place] Anion gap [Moles/Vol] 11 mmol/L Normal 8-15 [facility] Comment on above: Order Comment: Speci men Type: BLOOD SPECIMENOrdering Facility: [facility] Address: [address] [place] [id number] Performed By: #### 2 4323-8, 00720-6 ####[facility] LABCLIA [id number] [place] [address] [place] AST [Catalytic activity/Vol] 22 U/L Normal 14-40 [facility] Comment on above: Order Comment: Speci men Type: BLOOD SPECIMENOrdering Facility: [facility] Address: [address] [place], [place] [address] Performed By: #### 2 4323-8, 16251-0 ####[facility] LABCLIA [id number] [place] [id number] [place] Bilirubin [Mass/Vol] 0.3 mg/dL Normal 0.2-1.3 [facility] Comment on above: Order Comment: Speci men Type: BLOOD SPECIMENOrdering Facility: [facility] Address: [address] [place] [address] Performed By: #### 2 4323-8, 81171-6 ####[facility] LABCLIA [id number] [place] [address] [place] Calcium [Mass/Vol] 9.6 mg/dL Normal 8.5-10.2 [facility] Comment on above: Order Comment: Speci men Type: BLOOD SPECIMENOrdering Facility: [facility] Address: [address] [place] [address] Performed By: #### 2 432-8, 67287-2 ####[facility] LABCLIA [id number] [place] [id number] [place] Chloride [Moles/Vol] 103 mmol/L Normal 98-107 [facility] Comment on above: Order Comment: Speci men Type: BLOOD SPECIMENOrdering Facility: [facility] Address: [address] [place] [address] Performed By: #### 2 4323-8, ####[facility] LABCLIA [id number] [place] [id number] [place] CO2 [Moles/Vol] 22 mmol/L Normal 22-30 [facility] Comment on above: Order Comment: Speci men Type: BLOOD SPECIMENOrdering Facility: [facility] Address: [address] [place], [place] [address] Performed By: #### 2 4323-8, 93706-7 ####[facility] LABCLIA [id number] [place] [id number] [place] Creatinine [Mass/Vol] 0.81 mg/dL Normal 0.73-1.22 [facility] Comment on above: Order Comment: Chani garcia Type: BLOOD SPECIMENOrdering Facility: [facility] Address: [address] [place] [address] Performed By: #### 2 4323-8, 99558-1 ####[facility] LABIA [id number] [place] [address] [place] [facility] [place] Creatinine and Glomerular filtration rate.predicted panel (S/P/Bld) 92 mL/min/1.73m??? Normal >=60 [facility] Comment on above: Order Comment: Chani garcia Type: BLOOD SPECIMENOrdering Facility: [facility] Address: [address] [place] [address] Result Comment: Thania mated Glomerular Filtration Rate (eGFR) is calculated using the 2020 CKD-EPI creatinine equation. This equation utilizes serum creatinine, sex, and age as parameters. The creatinine assay has traceable calibration to isotope dilution-mass spectrometry. Refer to KDIGO guidelines for clinical interpretation. In patients with unstable renal function, e.g. those with acute kidney injury, the eGFR may not accurately reflect actual GFR. Performed By: #### 2 4323-8, 76647-2 ####[facility] LABCLIA [id number] [place] [address] [place] Glucose [Mass/Vol] 89 mg/dL Normal 74-99 [facility] Comment on above: Order Comment: Chani garcia Type: BLOOD SPECIMENOrdering Facility: [facility] Address: [address] [place] [address] Result Comment: The [place] Diabetes Association (ADA) provides guidance for cutoff values for fasting glucose and random glucose. The ADA defines fasting as no caloric intake for at least 8 hours. Fasting plasma glucose results between 100 to 125 mg/dL indicate increased risk for diabetes (prediabetes). Fasting plasma glucose results greater than or equal to 126 mg/dL meet the criteria for diagnosis of diabetes. In the absence of unequivocal hyperglycemia, results should be confirmed by repeat testing. In a patient with classic symptoms of hyperglycemia or hyperglycemic crisis, random plasma glucose results greater than or equal to 200 mg/dL meet the criteria for diagnosis of diabetes. Reference: Standards of Medical Care in Diabetes 2016, [place] Diabetes Association. Diabetes Care. 2016.39(Suppl 1). Performed By: #### 2 4323-8, 40373-9 ####[facility] LABCLIA [id number] [place] [address] [place] Potassium [Moles/Vol] 4.2 mmol/L Normal 3.7-5.1 [facility] Comment on above: Order Comment: Speci men Type: BLOOD SPECIMENOrdering Facility: [facility] Address: [address] [place] [address] Performed By: #### 2 4323-8, 04523-8 ####[facility] LABCLIA [id number] [place] [address] [place] Protein [Mass/Vol] 7.0 g/dL Normal 6.3-8.0 [facility] Comment on above: Order Comment: Speci men Type: BLOOD SPECIMENOrdering Facility: [facility] Address: [address] [place] [address] Performed By: #### 2 432-8, ####[facility] LABCLIA [id number] [place] [address] [place] Sodium [Moles/Vol] 136 mmol/L Normal 136-144 [facility] Comment on above: Order Comment: Speci men Type: BLOOD SPECIMENOrdering Facility: [facility] Address: [address] [place] [address] Performed By: #### 2 4323-8, ####[facility] LABCLIA [id number] [place] [id number] [place] Urea nitrogen [Mass/Vol] 22 mg/dL Normal 9-24 [facility] Comment on above: Order Comment: Speci men Type: BLOOD SPECIMENOrdering Facility: [facility] Address: [address] [place] [address] Performed By: #### 2 4323-8, 44966-7 ####[facility] LABCLIA [id number] [place] [address] [place] Lipid 1996 panelon 5 Cholesterol [Mass/Vol] 199 mg/dL Normal <200 [facility] Comment on above: Order Comment: Speci men Type: BLOOD SPECIMENOrdering Facility: [facility] Address: [address] [place] [address] Result Comment: <200 mg/dL, Desirable 200-239 mg/dL, Borderline high >239 mg/dL, High Performed By: #### 2 4323-8, 23234-1 ####[facility] LABCLIA [id number] [address] [place] Cholesterol in HDL [Mass/Vol] 69 mg/dL Normal >39 [facility] Comment on above: Order Comment: Speci men Type: BLOOD SPECIMENOrdering Facility: [facility] Address: [address] [place] [address] Result Comment: 40-5 9 mg/dL, Acceptable >59 mg/dL, High: Negative risk factor for coronary heart disease <40 mg/dL, Low: Positive risk factor for coronary heart disease Performed By: #### 2 4323-8, 46138-6 ####[facility] LABCLIA [id number] [place] [address] [place] Cholesterol in LDL [Mass/Vol] 112 mg/dL High <100 [facility] Comment on above: Order Comment: Speci men Type: BLOOD SPECIMENOrdering Facility: [facility] Address: [address] [place] [address] Result Comment: <100 mg/dL, Optimal 100-129 mg/dL, Near optimal/above optimal 130-159 mg/dL, Borderline high 160-189 mg/dL, High >189 mg/dL, Very high Secondary prevention optimal LDL Cholesterol levels are recommended to be < 70 mg/dL Performed By: #### 2 4323-8, 98363-5 ####[facility] LABCLIA [id number] [place] [address] [place] Cholesterol in LDL/Cholesterol in HDL [Mass ratio] 1.62 {ratio} Normal <2.54 [facility] Comment on above: Order Comment: Speci men Type: BLOOD SPECIMENOrdering Facility: [facility] Address: [address] [place] [address] Result Comment: Refe darrickce: 1. National Cholesterol Education Program ATP III Guideline At-A-Glance Quick Desk Reference: National Heart, Lung, and Blood [place]. National Institutes of Health. 2001: NIH Publication No. 01-3305. 2. An International Atherosclerosis Society position paper: global recommendations for the management of dyslipidemia: executive summary, Atherosclerosis. 2014: 232(2):410-413. Performed By: #### 2 4323-8, 79558-9 ####[facility] LABCLIA [id number] [place] [address] [place] Cholesterol in VLDL [Mass/Vol] 18 mg/dL Normal <30 [facility] Comment on above: Order Comment: Speci men Type: BLOOD SPECIMENOrdering Facility: [facility] Address: [address] [place] [address] Performed By: #### 2 4323-8, 71425-2 ####[facility] LABCLIA [id number] [place] [address] [place] Cholesterol non HDL [Mass/Vol] 130 mg/dL High <130 [facility] Comment on above: Order Comment: Speci men Type: BLOOD SPECIMENOrdering Facility: [facility] Address: [address] [place] [address] Result Comment: <130 mg/dL, Optimal 130-159 mg/dL, Near optimal/above optimal 160-189 mg/dL, Borderline high 190-219 mg/dL, High >219 mg/dL, Very high Secondary prevention optimal non HDL Cholesterol levels are recommended to be <100 mg/dL Performed By: #### 2 4323-8, 74408-1 ####[facility] LABCLIA [id number] [place] [address] [place] Cholesterol.total/Cho lesterol in HDL [Mass ratio] 2.88 {ratio} Normal <5.10 [facility] Comment on above: Order Comment: Speci men Type: BLOOD SPECIMENOrdering Facility: [facility] Address: [address] [place] [address] Performed By: #### 2 4323-8, 15575-4 ####[facility] LABIA [id number] [place] [address] [place] FASTING TIME 12 hrs Normal [facility] Comment on above: Order Comment: Speci men Type: BLOOD SPECIMENOrdering Facility: [facility] Address: [address] [place] [address] Performed By: #### 2 4323-8, 25272-0 ####[facility] LABIA [id number] [place] [address] [place] Triglyceride [Mass/Vol] 88 mg/dL Normal <150 [facility] Comment on above: Order Comment: Speci men Type: BLOOD SPECIMENOrdering Facility: [facility] Address: [address] [place] [address] Result Comment: <150 mg/dL, Normal 150-199 mg/dL, Borderline high 200-499 mg/dL, High >499 mg/dL, Very high Performed By: #### 2 4323-8, 30635-4 ####[facility] LABIA [id number] [place] [address] [place] CNOVon 06-29-2024 CNOV Office Visit (UCWSTR ) -- MICHAEL GUTIERREZ ([id number]) 1950 M Date Time Provider Department 06/29/24 8:30 AM LICHA FARLEY [facility] During your visit today, we recorded the following information about you: Temperature Pulse Respiration Blood pressure 97 degrees 76/minute 22/minute 132/67 Weight 71 kg Licha Farley APRN.BUSINESS SYSTEMS ADVISOR 06/29/2024 8:50 AM Signed CC: Patient presents with: Cough: Chest congestion, wheeze, SOB, headache x 1 week Was seen 06/22 no improvement HPI: Michael Gutierrez is a 73 year old male who presents to the office with complaint of cough, nonproductive for a month. Symptoms are improving Associated symptoms includes cough. Denies wheezing, dyspnea, nausea, vomiting , and diarrhea. Treatments tried include nothing so far. with no relief of symptoms. Sick contacts: unknown. History of asthma, frequent episodes of bronchitis, chronic bronchitis, bronchiectasis or COPD: No Smoker: No Seasonal/environmental allergies: No The ROS is otherwise negative. The patient's pmh, medications, allergies, and past visits are reviewed. PHYSICAL EXAM: BP 132/67 Pulse 76 Temp 36.1 ?C (97 ?F) Resp 22 Wt 71 kg (156 lb 8.4 oz) SpO2 94% BMI 23.80 kg/m? General appearance: alert, cooperative, pleasant, in no acute distress Head: Normocephalic Eyes: EOM's intact, conjunctiva pink and moist, no icterus, sclera white, non-injected Ears: Right ear: External ear/canal- Normal, TM - clear with good landmarks. Left ear: External ear/canal- Normal, TM - clear with good landmarks Oropharynx:moist without lesions Heart: Negative. RRR without obvious murmur, gallop, or rubs. No ectopy. Lungs: wheezing mild throughout PAST MEDICAL HISTORY Diagnosis Date Diarrhea HTN (hypertension) OA (osteoarthritis of spine) Prostate cancer (HCC) PAST SURGICAL HISTORY Procedure Laterality Date COLONOSCOPY W/BIOPSY SINGLE/MULTIPLE 05/29/08 PAST SURGICAL HISTORY OF circumcision PAST SURGICAL HISTORY OF nose cauturization PAST SURGICAL HISTORY OF 09/2015 Skin biopsy off forehead, basal cell PAST SURGICAL HISTORY OF Left 07/2019 Skin graft - 07/[address] Tim (left side of neck) ALLERGIES Prednisone MEDICATIONS gabapentin (NEURONTIN) 300 mg capsule Take 1 capsule by mouth two times a day for 180 days. amLODIPine (NORVASC) 5 mg tablet Take 1 tablet by mouth two times a day. meloxicam (MOBIC) 15 mg tablet Take 1 tablet by mouth once daily. With food. albuterol HFA (PROVENTIL HFA, VENTOLIN HFA) 90 mcg/actuation inhaler Inhale 2 Puffs as instructed every 6 hours as needed for wheezing/shortness of breath. Inhalational Spacing Device 1 Device one time only for 1 dose. FAMILY HISTORY Problem Relation Age of Onset No Known Problems Mother COPD Father Hypertension Sister Hypertension Sister Hypertension Sister Diabetes Maternal Grandmother Cancer Maternal Grandfather Skin No Known Problems Paternal Grandmother No Known Problems Paternal Grandfather No Known Problems Brother No Known Problems Brother Social History Tobacco Use Smoking status: Some Days Current packs/day: 0.00 Average packs/day: 0.3 packs/day for 45.0 years (11.3 ttl pk-yrs) Types: Cigarettes Start date: 04/24/1970 Last attempt to quit: 04/24/2015 Years since quittin.1 Smokeless tobacco: Never Tobacco comments: Smoking couple per day Vaping Use Vaping status: Never Used Substance Use Topics Alcohol use: No Comment: last drank in 2003- was hospitalized with pancreatitis Drug use: Never ASSESSMENT/PLAN: 1. Acute cough - ICD9: 786.2, ICD10: R05.1 - ALBUTEROL SULFATE HFA 90 MCG/ACTUATION AEROSOL INHALER Patient did not want to try another antibiotic, or xray, just wanted a inhaler to see if this helps the cough. Prescription instructions reviewed with patient as applicable. Potential red flag symptoms discussed with the patient. Reviewed appropriate action plan to take if red flag symptoms occur. Patient agreeable to treatment plan. Licha Farley APRN.BUSINESS SYSTEMS ADVISOR Allergies As of Date: 06/29/2024 Noted Allergy Reaction PREDNISONE 12/21/2023 14 - Other: See Comments Comments: Chest Pain when taken Prednisone orally only Date Reviewed: 06/29/2024 Reviewed by: Lisy Chavarria LPN - Fully Assessed Reason for Visit: Cough [28] Cmt: Chest congestion, wheeze, SOB, headache x 1 week Was seen 06/22 no improvement Primary Visit Diagnosis:Acute cough [R05.1] Order(s):albuterol HFA (PROVENTIL HFA, VENTOLIN HFA) 90 mcg/actuation inhalerInhale 2 Puffs as instructed every 6 hours as needed for wheezing/shortness of breath.Disp: 1 EachRfl: 0 Inhalational Spacing Device1 Device one time only for 1 dose.Disp: 1 EachRfl: 0 Prescriptions as of 06/29/2024 - albuterol HFA (PROVENTIL HFA, VENTOLIN HFA) 90 mcg/actuation inhaler Inhale 2 Puffs as instructed every 6 hours as needed for whee (more content not included)... Normal [facility] 06-26-2024 CNPN Telephone (UROLWS) -- MICHAEL GUTIERREZ ([id number]) 1950 M Date Time Provider Department 06/26/24 HERI HUMPHRIES During your visit today, we recorded the following information about you: Alma Delia Victor LPN 06/26/2024 8:20 AM Signed Patient called in and is unable to keep his appt tomorrow for his injection. He did however wonder if he still needed it since he had updated blood work. He would either like a call back to cancel or reschedule the appt if it is needed. PATSY Magallon Kimberly, LPN 06/26/2024 1:46 PM Signed Recent PSA done on 06/22/2024: <0.02 Heri Humphries PA-C 06/26/2024 4:46 PM Signed Addended by: HERI HUMPHRIES on: 06/26/2024 04:46 PM Modules accepted: Puja Gregorio LPN 06/26/2024 4:54 PM Signed Heri Humphries PA-C You6 minutes ago (4:45 PM) No Eligard need with PSA undetectable new PSA in 6 months Heri Humphries, [facility], [place], [employer] Called patient- no answer and unable to leave a message. PATSY Putnam Ashley 06/27/2024 8:28 AM Signed Patient returned missed call and received the provider's message. Patient voiced understanding. Patient scheduled 6 month PSA lab appointment for 12/25/24. Allergies As of Date: 06/26/2024 Noted Allergy Reaction PREDNISONE 12/21/2023 14 - Other: See Comments Comments: Chest Pain when taken Prednisone orally only Date Reviewed: 06/22/2024 Reviewed by: Lisy Chavarria LPN - Fully Assessed Reason for Visit: Patient Question [1477] Primary Visit Diagnosis:Prostate cancer (HCC) [C61] Order(s):PROSTATE-SPECIFIC ANTIGEN DIAGNOSTIC [SQPSA] Order #: [id number] FUTURE Prescriptions as of 06/27/2024 - doxycycline monohydrate (MONODOX) 100 mg capsule Take 1 capsule by mouth two times a day for 5 days. - gabapentin (NEURONTIN) 300 mg capsule Take 1 capsule by mouth two times a day for 180 days. - amLODIPine (NORVASC) 5 mg tablet Take 1 tablet by mouth two times a day. - meloxicam (MOBIC) 15 mg tablet Take 1 tablet by mouth once daily. With food. 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] 03/04/2015 07/24/2016 Meatal stenosis [QWE0406] 04/03/2015 07/24/2016 Elevated prostate specific antigen (PSA) [R97.2*04/03/2015 Tobacco abuse [Z72.0] 04/10/2015 07/24/2016 Neoplasm of uncertain behavior of scalp [D48.5] 09/26/2015 07/24/2016 Skin cancer, basal cell [C44.91] 09/29/2015 Neoplasm of uncertain behavior of skin [D48.5] 04/19/2019 Phimosis of penis [N47.1] 12/21/2023 Encounter Status:Closed by ROMANAALMA DELIA on 06/26/24 [facility] CNOVon 06-22-2024 CNOV Office Visit (UCWSTR ) -- MICHAEL GUTIERREZ ([id number]) 1950 M Date Time Provider Department 06/22/24 8:45 AM MARCELLO HILTON [facility] During your visit today, we recorded the following information about you: Temperature Pulse Respiration Blood pressure 96.7 degrees 79/minute 26/minute 128/82 Weight 71 kg Marcello Hilton MD 06/22/2024 9:47 AM Signed Patient presents with: Cough: Chest congestion, SOB, wheeze, Fatigue, pressure in chest x 2 weeks HPI: Coughing for 2-3 weeks. Positive symptoms: Cough (productive green), Shortness of breath, Wheezing, Chest tightness, feverish, Fatigue, vomited today, Rhinorrhea, Negative symptoms: Sore throat, Sinus pressure, Diarrhea, OTC: tried benadryl Had pneumonia remotely 25-30 years ago. Denies asthma. He has a history smoking and emphysema on CT. MEDICATIONS: Current Outpatient Medications Medication Sig gabapentin (NEURONTIN) 300 mg capsule Take 1 capsule by mouth two times a day for 180 days. amLODIPine (NORVASC) 5 mg tablet Take 1 tablet by mouth two times a day. meloxicam (MOBIC) 15 mg tablet Take 1 tablet by mouth once daily. With food. No current facility-administered medications for this visit. ALLERGIES: ALLERGIES Allergen Reactions Prednisone Other: See Comments Chest Pain when taken Prednisone orally only VITALS: BP 128/82 Pulse 79 Temp (!) 35.9 ?C (96.7 ?F) Resp 26 Wt 71 kg (156 lb 8.4 oz) SpO2 92% BMI 23.80 kg/m? 02/09/2023 08/17/2023 12/21/2023 06/22/2024 Vitals PULSE OX 93 % 96 % 97 % 92 % PHYSICAL EXAM: GEN: pleasant, alert, no acute distress HEENT: PERRL, EOMI, conjunctiva clear Ears: Right canal occluded by cerumen. LTM without erythema, bulge, or effusion Sinuses: non-tender frontal sinus, non-tender maxillary sinuses Throat: moist mucous membranes, mild erythema, no exudate Neck: supple, no thyromegaly, no lymphadenopathy HEART: regular rate and rhythm, no murmurs LUNGS: faintly more course breath sounds on the left, no wheezes or crackles, no increased WOB ASSESSMENT/PLAN: 1. Pulmonary emphysema, unspecified emphysema type (HCC) - ICD9: 492.8, ICD10: J43.9 (primary diagnosis) 2. Subacute cough - ICD9: 786.2, ICD10: R05.2 - XR CHEST 2V FRONTAL/LAT - no acute changes. Treat COPD exacerbation with - DOXYCYCLINE MONOHYDRATE 100 MG CAPSULE Emphysema on prior CT discussed - he was not aware he had this condition. Marcello Hilton MD Allergies As of Date: 06/22/2024 Noted Allergy Reaction PREDNISONE 12/21/2023 14 - Other: See Comments Comments: Chest Pain when taken Prednisone orally only Date Reviewed: 06/22/2024 Reviewed by: Lisy Chavarria LPN - Fully Assessed Reason for Visit: Cough [28] Cmt: Chest congestion, SOB, wheeze, Fatigue, pressure in chest x 2 weeks Primary Visit Diagnosis:Pulmonary emphysema, unspecified emphysema type (HCC) [J43.9] Other Visit Diagnosis:Subacute cough [R05.2] Order(s):XR CHEST 2V FRONTAL/LAT [[id number]] Order #: [id number] FUTURE doxycycline monohydrate (MONODOX) 100 mg capsuleTake 1 capsule by mouth two times a day for 5 days.Disp: 10 capsuleRfl: 0 Prescriptions as of 06/22/2024 - doxycycline monohydrate (MONODOX) 100 mg capsule Take 1 capsule by mouth two times a day for 5 days. - gabapentin (NEURONTIN) 300 mg capsule Take 1 capsule by mouth two times a day for 180 days. - amLODIPine (NORVASC) 5 mg tablet Take 1 tablet by mouth two times a day. - meloxicam (MOBIC) 15 mg tablet Take 1 tablet by mouth once daily. With food. 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 Level of Service: OFFICE/OUTPATIENT ESTABLISHED MOD MDM 30 MIN [68849] Encounter Status:Closed by MARCELLO HILTON on 06/22/24 Normal [facility] PSA SerPl-mCncon 06-22-2024 Prostate specific Ag [Mass/Vol] ng/mL Normal <2.60 [facility] Comment on above: Order Comment: Speci men Type: BLOOD SPECIMENOrdering Facility: [facility] Address: [address] [place] [address] Result Comment: [place] z[place] PSA test methodology used is the Electrochemiluminescence Immunoassay by [employer]. Total PSA values by differing methodologies cannot be interchanged. Performed By: #### 2 857-1 ####[facility] LABCLIA [id number] [facility] [id number] [id number] [place] XR CHEST 2V FRONTAL/LATon XR CHEST 2V FRONTAL/LAT * * *Final Report* * * DATE OF EXAM: Jun 22 2024 9:14AM WOX [id number] - XR CHEST 2V FRONTAL/LAT / PROCEDURE REASON: Subacute cough * * * * Physician Interpretation * * * * EXAMINATION: CHEST RADIOGRAPH (2 VIEW FRONTAL and LATERAL) PATIENT/TECHNOLOGIST PROVIDED HISTORY: Cough x 2 weeks CLINICAL HISTORY: 73 years old Male with Subacute cough MQ: XC2_6 EXAM DATE/TIME: 06/22/2024 9:14 AM COMPARISON: Chest radiograph(s) dated 11/23/2022 RESULT: Lines, tubes, and devices: None. Lungs and pleura: Lungs are hyperinflated. Mild bibasilar atelectasis/scarring, unchanged. No consolidation, pleural effusion or pneumothorax. Cardiomediastinal silhouette: Normal cardiomediastinal silhouette. Bones and soft tissues: Degenerative changes in the cervicothoracic spine. IMPRESSION: Stable exam with no acute radiographic abnormality. Supervisor Pressing Department: [facility] Transcribe Date/Time: Jun 22 2024 9:31A Dictated by : MERRILL PEREIRA DO This examination was interpreted and the report reviewed and electronically signed by: MERRILL PEREIRA DO on Jun 22 2024 9:34AM EST [id number] Normal [facility] XR Chest PA and Lateralon IMPRESSION: Stable exam with no acute radiographic abnormality. Supervisor Pressing Department: [facility] Transcribe Date/Time: Jun 22 2024 9:31A Dictated by : MERRILL PEREIRA DO This examination was interpreted and the report reviewed and electronically signed by: MERRILL PEREIRA DO on Jun 22 2024 9:34AM EST DIVISION OF RADIOLOGY * * *Final Report* * * DATE OF EXAM: Jun 22 2024 9:14AM WOX 5291 - XR CHEST 2V FRONTAL/LAT / PROCEDURE REASON: Subacute cough * * * * Physician Interpretation * * * * EXAMINATION: CHEST RADIOGRAPH (2 VIEW FRONTAL & LATERAL) PATIENT/TECHNOLOGIST PROVIDED HISTORY: Cough x 2 weeks CLINICAL HISTORY: 73 years old Male with Subacute cough MQ: XC2_6 EXAM DATE/TIME: 06/22/2024 9:14 AM COMPARISON: Chest radiograph(s) dated 11/23/2022 RESULT: Lines, tubes, and devices: None. Lungs and pleura: Lungs are hyperinflated. Mild bibasilar atelectasis/scarring, unchanged. No consolidation, pleural effusion or pneumothorax. Cardiomediastinal silhouette: Normal cardiomediastinal silhouette. Bones and soft tissues: Degenerative changes in the cervicothoracic spine. DIVISION OF RADIOLOGY Provider, [facility] - 06/22/2024 * * *Final Report* * * DATE OF EXAM: Jun 22 2024 9:14AM WOX [id number] - XR CHEST 2V FRONTAL/LAT / PROCEDURE REASON: Subacute cough * * * * Physician Interpretation * * * * EXAMINATION: CHEST RADIOGRAPH (2 VIEW FRONTAL & LATERAL) PATIENT/TECHNOLOGIST PROVIDED HISTORY: Cough x 2 weeks CLINICAL HISTORY: 73 years old Male with Subacute cough MQ: XC2_6 EXAM DATE/TIME: 06/22/2024 9:14 AM COMPARISON: Chest radiograph(s) dated 11/23/2022 RESULT: Lines, tubes, and devices: None. Lungs and pleura: Lungs are hyperinflated. Mild bibasilar atelectasis/scarring, unchanged. No consolidation, pleural effusion or pneumothorax. Cardiomediastinal silhouette: Normal cardiomediastinal silhouette. Bones and soft tissues: Degenerative changes in the cervicothoracic spine. IMPRESSION IMPRESSION: Stable exam with no acute radiographic abnormality. Supervisor Pressing Department: [facility] Transcribe Date/Time: Jun 22 2024 9:31A Dictated by : MERRILL PEREIRA DO This examination was interpreted and the report reviewed and electronically signed by: MERRILL PEREIRA DO on Jun 22 2024 9:34AM EST [facility] Radiology Study observation (narrative) [facility] XR Chest PA and LateralOrder ed By: [facility] Provider on 06-22-2024 [facility] Orthopedic Visit Reporton Orthopedic Visit Report [facility] [address] [place] [address] OFFICE VISIT Date of Service: 05/23/24 MR#: [id number] Acct: [id number] Name: MICHAEL GUTIERREZ Rep #: [id number] : 1950 Provider: Dr. Luciano Adame MD Age/Sex: 73/M Location: [facility] Status: Signed Intake Vital Signs 03/24/24 09:24 Height 5 ft 8 in Intake Visit Reasons: LUMBAR SPINE Chief Complaint: lumbar spine Accompanied by: Self Is patient in pain?: Yes (Right hip ) Pain scale (1-10): 6 Allergies cortisone Allergy (Verified 05/23/24 10:13) Other Medications ???Medication ???Instructions ???Recorded ???Confirmed ???Type amlodipine 5 mg tablet 5 mg PO DAILY blood pressure 08/05/14 05/23/24 History gabapentin 300 mg capsule 300 tab PO BID nerve pain 08/05/14 05/23/24 History meloxicam 15 mg tablet 15 mg PO QDAY 05/23/24 05/23/24 History Have you fallen in the past year?: No PFSH Medical History Male circumcision Open wound of nose, complicated Basal cell carcinoma of nasal tip Cancer Heartburn Neoplasm of skin of nasal tip Wears glasses Wears partial dentures Wears dentures Arthritis Prostate disease Easy bruising History of stress test Skin cancer Back pain Cataract Surgical History History of basal cell carcinoma excision Hx of foot surgery History of back surgery Family History Other Hypertension Skin cancer Social History Smoking Status: Current every day smoker tobacco type: cigarettes alcohol intake: never substance use type: does not use additional social history: DOES NOT USE ASPIRIN DOES NOT USE IBUPROFEN HPI LUMBAR SPINE Details: This documentation accurately reflects the service provided and the decisions made by me, Dr. Luciano Adame MD 05/23/24 1008. Part of today???s visit was documented by Diana SALGADO , acting as scribe. MICHAEL GUTIERREZ is a 73 year old M here today for MRI Review. Patient is having right hip pain today. Patient states the pain in his back is the same as it was before his MRI. HPI from 03/01/24: MICHAEL GUTIERREZ is a 73 year old M here today for lumbar spine pain. Patient rates his pain a /10 today. Patient is here today to talk about getting an MRI of the lumbar spine. Patient states the lumbar spine pain has gotten worse since the last time he was seen in here. Patient denies any recent injections or physical therapy for the lumbar spine. Patient states he did take some Tylenol today for the pain and states this may have helped him a little bit. Michael continues to have low back pain that goes around the flank into the lateral abdomen and anterior lower abdomen region. He was seen by me previously but was advised physical therapy and epidural injections, but the patient declined both of these. Following his his previous history: 10/22/23: MICHAEL GUTIERREZ is a 72 year old M here today for initial evaluation of lumbar spine pain. He complains of low back pain that has been going on for three months but it has progressively been getting worse. He reports a history of back surgery where he had spacers placed about 5 years ago. He reports the pain came on insidiously, he denies injury. He reports the pain is constant and describes it as a deep ache. He states the pain radiates into his right thigh at times. He denies numbness or tingling. He has done PT in the past which he reports was not helpful. He has seen pain management and has injections but states they only give him about three days of relief. He has not seen pain management in years because it was not helpful, he believes he saw Dr. Torres.Michael had surgery about 5 years ago in [place] for symptoms of low back pain radiating down to the left lower extremity. Prior to the surgery has had physical therapy and injections which did not seem to give him any relief and then he proceeded to surgery. The surgery did help with his radicular symptoms which resolved. About 4 to 5 months ago he started having multiple symptoms that he attributes to having a corn in the plantar aspect of his right foot and walking awkwardly. He denies any heavy lifting or doing anything unusual. He started having pain both at the top and the bottom of the incisional area and radiation towards the right loin and right anterior thigh as well as towards the left buttock region. He denies any difficulty walking distances until 4 months ago when the corn in the foot started bothering him. He routinely went for 1/2 mile walk until 4 months ago but not recently. Recently he has not had any physical therapy or injections but he declines for both of these as he did not (more content not included)... Normal [facility] Spine Lumbar (Routine)on Spine Lumbar (Routine) [facility] Imaging Services [address] [place], [place] [address] Spine Lumbar (Routine) MR#: [id number] Acct: [id number] Name: MICHAEL GUTIERREZ Rep #: [id number] : 1950 M 73 From: G[place] uY PCP: Dr. Heather Gonsalez MD Status: [facility] Study: Spine Lumbar (Routine) Date of Exam: 04/29/24 Exam# [id number] Ordering Dr: Luciano Adame MD [id number] STUDY: MRI LUMBAR SPINE WITHOUT CONTRAST REASON FOR EXAM: Male, 73 years old. pain -- Back pain sometimes radiating into rt leg and rt foot tingling x 6mos. In the small of back per patient TECHNIQUE: Standardized fat and water weighted pulse sequences were obtained in the sagittal and axial planes. Noncontrast images obtained. Contrast: No contrast administered COMPARISON: 07/29/2016 FINDINGS: Vertebral bodies and alignment. 1. Vertebral body height and alignment are unchanged. There however has been interval postoperative change with pedicle screw posterior fixation from L3 to S1. Laminectomy defects are also present at L4-5 and L5-S1. 2. No marrow edema or occult fracture, no evidence of hardware failure.. 3. Paraspinous soft tissue planes have normal appearance with the exception of mild edema within the erector spinae at the level of the surgical bed. No hematoma or seroma noted.. 4. Normal appearance of the sacrum and sacroiliac joints. 5. RIGHT renal cyst is noted. Intervertebral disks levels. T12-L1: Disc desiccation, no evidence of disc herniation or canal stenosis. Endplate: No focal endplate marrow changes or endplate deformity. L1-2: Disc desiccation, broad-based posterior disc bulge and osteophyte complex without evidence of canal or foraminal stenosis. Facet and ligamentum flavum flavum hypertrophic changes are present. Endplate: No focal endplate marrow changes or endplate deformity. L2-3: Disc desiccation, broad-based posterior disc bulge. No disc herniation canal or foraminal stenosis. Endplate: Mild contour deformity of the inferior endplate of L2. No significant Modic changes noted. L3-4: Disc desiccation, postoperative changes pedicle screw and posterior fixation. No evidence of disc herniation canal or foraminal stenosis. Endplate: No focal endplate marrow changes or endplate deformity. L4-5: Postoperative changes, disc desiccation. No evidence of disc herniation or canal stenosis. There is RIGHT foraminal narrowing with contact with the emerging RIGHT L4 nerve root. Endplate: No focal endplate marrow changes or endplate deformity. L5-S1: Loss of disc height, broad-based posterior disc bulge and osteophyte complex. No canal stenosis. Mild deformity of the LEFT lateral recess Endplate: No focal endplate marrow changes or endplate deformity. Spinal cord: Normal appearance of the spinal cord and conus. Conus is located at L1. Cauda equina has normal appearance. No evidence of cord compression or edema. No intramedullary signal abnormality noted. Paraspinous soft tissues: Normal visualized paraspinous soft tissue structures. MRI/Spine Lumbar (Routine) IMPRESSION: 1. Interval postoperative changes with pedicle screw and posterior fixation from L3 to S1. No evidence of marrow edema or occult fracture. No evidence hardware failure. 2. Broad-based disc bulge and mild contour deformity of the inferior endplate at the L2-3 disc space. No evidence however of canal stenosis or nerve root impingement. 3. There is RIGHT foraminal narrowing at L4-5 although partially obscured by susceptibility artifact from metallic fixation hardware, there does appear to be RIGHT L4 nerve root contact within the neural foramen. 4. Normal appearance of visualized spinal cord and conus. Electronically Signed: Gopal Elizabeth MD at 2:05 EDT , CC: Dr. Luciano Adame MD; Dr. Heather Gonsalez MD Supervisor Pressing Department: Signed Normal [facility] CBC W/Diff, Automatedon 08-0 Absolute Lymph 1.19 X10 3/uL Normal 0.83-4.51 [facility] Comment on above: Performed By: #### L 100.0100 #### [facility] [address] [place], [address] Absolute Neut 7.3 X10 3/uL Normal 2.0-7.7 [facility] Comment on above: Performed By: #### L 100.0100 #### [facility] [address] [place], [address] Basophils/100 WBC (Bld) 0.7 % Normal 0-1 [facility] Comment on above: Performed By: #### L 100.0100 #### [facility] [address] [place], [address] Eosinophils/100 WBC (Bld) 3.0 % Normal 0-5 [facility] Comment on above: Performed By: #### L 100.0100 #### [facility] [address] [place], [address] Erythrocyte distribution width (RBC) [Ratio] 14.4 % Normal 11.6-14.6 [facility] Comment on above: Performed By: #### L 100.0100 #### [facility] [address] [place], [address] Hematocrit (Bld) [Volume fraction] 39.6 % Low 40-54 [facility] Comment on above: Performed By: #### L 100.0100 #### [facility] [address] [place], [address] Hemoglobin (Bld) [Mass/Vol] 12.8 g/dL Low 13.0-16.5 [facility] Comment on above: Performed By: #### L 100.0100 #### [facility] [address] [place], [address] IG% 0.400 Normal 0.0-0.9 [facility] Comment on above: Result Comment: IG% - Immature Granulocytes (promyelocytes, myelocytes and metamyelocytes) > 1% indicates that a LEFT SHIFT is Present. Performed By: #### L 100.0100 #### [facility] [address] [place], [address] Lymphocytes/100 WBC (Bld) 12.5 % Low 19-41 [facility] Comment on above: Performed By: #### L 100.0100 #### [facility] [address] [place], [address] MCH (RBC) [Entitic mass] 31.1 pg Normal 27.0-32.0 [facility] Comment on above: Performed By: #### L 100.0100 #### [facility] [address] [place], [address] MCHC (RBC) [Mass/Vol] 32.3 g/dL Normal 32-36 [facility] Comment on above: Performed By: #### L 100.0100 #### [facility] [address] [place], [address] MCV (RBC) [Entitic vol] 96.1 fL High 80-94 [facility] Comment on above: Performed By: #### L 100.0100 #### [facility] [address] [place], [address] Monocytes/100 WBC (Bld) 7.0 % Normal 0-10 [facility] Comment on above: Performed By: #### L 100.0100 #### [facility] [address] [place], [address] Neutrophils/100 WBC (Bld) 76.4 % High 47-70 [facility] Comment on above: Performed By: #### L 100.0100 #### [facility] [address] [place], [address] Nucleated RBC (Bld) [#/Vol] 0 10*3/uL Normal 0-5 [facility] Comment on above: Performed By: #### L 100.0100 #### [facility] [address] [place], [address] Platelet mean volume (Bld) [Entitic vol] 9.1 fL Normal 6.2-12.0 [facility] Comment on above: Performed By: #### L 100.0100 #### [facility] [address] [place], [address] Platelets (Bld) [#/Vol] 308 10*3/uL Normal 150-450 [facility] Comment on above: Performed By: #### L 100.0100 #### [facility] [address] [place], [address] RBC (Bld) [#/Vol] 4.12 10*6/uL Low 4.6-6.2 [facility] Comment on above: Performed By: #### L 100.0100 #### [facility] [address] [place], [address] RDW SD 50.9 fl High 35.1-43.9 [facility] Comment on above: Performed By: #### L 100.0100 #### [facility] [address] [place], [address] WBC (Bld) [#/Vol] 9.6 10*3/uL Normal 4.4-11.0 [facility] Comment on above: Performed By: #### L 100.0100 #### [facility] [address] [place], [address] Emergency Department Summary on 03-24-2024 Emergency Department Summary [facility] Medical Records Department [address] [place] [address] Emergency Department Summary 03/24/24 MR#: [id number] Acct: [id number] Name: MICHAEL GUTIERREZ Rep #: [id number] : 1950 73 From: Kishan Duran MD PCP: Dr. Heather Gonsalez MD Status:REG ER Location: ED HPI History of Present Illness Chief Complaint: Complaint Detail of Chief Complaint: Postop infections secondary to circumcision Informant: patient Onset/Context/Timing Onset: Days Context: Sudden Onset Timing: Continuous Quality: Abnormal appearing wound Location: Incision site Current Severity: Mild Maximum Severity: Moderate Worsened by: Nothing Relieved by: Nothing Associated Symptoms Associated Symptoms: Dysuria Narrative Narrative: Patient is a 73-year-old male. He has history of hypertension, COPD, basal cell carcinoma, chronic back pain who presents because of concern for infection status post circumcision. Patient was circumcised by Dr. Gleason on Wednesday. Patient has been applying Neosporin ointment to the area. He denies fever, chills night sweats. States there is slight discharge. He also complains of burning with urination. He has no other urologic symptoms. Prior similar symptoms: No Recent Illness/Hospitalization: Yes [facility] Medical History Male circumcision Open wound of nose, complicated Basal cell carcinoma of nasal tip Cancer Heartburn Neoplasm of skin of nasal tip Wears glasses Wears partial dentures Wears dentures Arthritis Prostate disease Easy bruising History of stress test Skin cancer Back pain Cataract Home Medications ???Medication ???Instructions ???Recorded ???Last Taken ???Type amlodipine 5 mg tablet 5 mg PO DAILY blood pressure 08/05/14 11/03/23 History gabapentin 300 mg capsule 300 tab PO BID nerve pain 08/05/14 02/13/21 14:00 History ascorbic acid (vitamin C) 1,000 mg 1 g PO DAILY 90 days #90 tabs 11/03/23 Unknown Rx tablet (Vitamin C) Allergy/AdvReac Type Severity Reaction Status Date / Time cortisone Allergy Other Verified 03/24/24 09:24 Family History Other Hypertension Skin cancer Surgical History History of basal cell carcinoma excision Hx of foot surgery History of back surgery Social History Smoking Status: Current every day smoker tobacco type: cigarettes alcohol intake: never substance use type: does not use additional social history: DOES NOT USE ASPIRIN DOES NOT USE IBUPROFEN ROS ROS ED Constitutional Constitutional ED: Denies chills, fever(s), subjective, sweats or weight loss Respiratory/Chest Respiratory/Chest: Denies dyspnea or dyspnea on exertion Gastrointestinal Gastrointestinal: Denies abdominal pain, nausea or vomiting Genitourinary Genitourinary ED: Reports dysuria and other Details: See HPI narrative ; Denies hematuria or urinary frequency Integumentary Reports rash Neurologic Neurologic: Denies headache(s) or paresthesias Hematologic/Lymphatic Hematologic/Lymphatic: Reports systems reviewed and no addt'l complaints, except as documented EXAM Physical Exam Const Vital Signs: 03/24/24 09:24 03/24/24 11:00 03/24/24 12:00 Temperature 96.5 F L 96.8 F L 97.7 F L Temperature Source Temporal Temporal Oral Pulse Rate 98 77 77 Respiratory Rate 18 18 19 H Blood Pressure 152/81 H 159/89 H 143/76 H Blood Pressure Mean 104 112 98 Pulse Ox 92 98 98 Oxygen Delivery Method Room Air Room Air Room Air Positive well nourished and well developed General Appearance ED: well developed and NAD; Negative for cyanotic, diaphoretic or pallor HEENT Reports moist mucous membranes Eyes PERRL and EOMs intact bilaterally General Eye ED: Negative for pale conjunctiva or scleral icterus Neck no lymphadenopathy, supple and no JVD Chest Wall inspection of chest normal and palpation of chest normal Resp normal respiratory effort and clear to auscultation bilaterally Cardio regular rate, regular rhythm, S1 normal heart sound, S2 normal heart sound and no murmurs GI normal to inspection, nondistended, normoactive bowel sounds, non-tender, non-distended and no masses; Negative for hepatosplenomegaly Palpation: soft Narrative: Circumcision is healing nicely without evidence infection. There is granulation tissue. There is slight erythema at the edge of the granulation tissue. There is also some erythema of the glans. Suspect this is due to the Neosporin. There is no warmth, induration, lymphangitis or inguinal lymphadenopathy noted. Testes ascended bilaterally. There is no scrotal swelling or testicular tenderness. B (more content not included)... Normal [facility] Urinalysis, Completeon 03-24 CAST,HYALINE 0-5 SEEN Normal 0-5 [facility] Comment on above: Order Comment: CLEAN CATCH Performed By: #### L 400.0001 #### [facility] [address] [place], [address] EPI,SQUAMOUS 0-5 SEEN Normal 0-5 [facility] Comment on above: Order Comment: CLEAN CATCH Performed By: #### L 400.0001 #### [facility] [address] [place], [address] WBC 0-5 SEEN Normal 0-5 [facility] Comment on above: Order Comment: CLEAN CATCH Performed By: #### L 400.0001 #### [facility] [address] [place], [address] BACTERIA 0 SEEN Normal None Seen [facility] Comment on above: Order Comment: CLEAN CATCH Performed By: #### L 400.0001 #### [facility] [address] [place], [address] Mucus Ql (Urine sed) 0 SEEN Normal [facility] Comment on above: Order Comment: CLEAN CATCH Performed By: #### L 400.0001 #### [facility] [address] [place], [address] RBC 0 SEEN Normal 0-5 [facility] Comment on above: Order Comment: CLEAN CATCH Performed By: #### L 400.0001 #### [facility] [address] [place], [place], [address] Emergency Department Summary on 03-18-2024 Emergency Department Summary [facility] Medical Records Department [address] [place] [address] Emergency Department Summary 03/18/24 MR#: [id number] Acct: [id number] Name: MICHAEL GUTIERREZ Rep #: [id number] : 1950 73 From: Addi Ramires MD PCP: Dr. Heather Gonsalez MD Status:DEP ER Location: ED HPI History of Present Illness Chief Complaint: Other, Pain/Inj Narrative Narrative: 73-year-old male past medical history of recent circumcision, postoperative day [address] Gleason presents with bleeding from his surgical site. He states he had to have a circumcision because his urethral opening was too small, and his foreskin was blocking. While he had a circumcision performed yesterday, he states he was told by the urologist that he could take a shower today. He took a shower early this morning and started having bleeding from around the sutures. He bandaged the area and presents to the emergency department mainly for rebandaging and to get the bleeding controlled. He does not take blood thinners. Denies other complaints. [facility] Medical History Male circumcision Open wound of nose, complicated Basal cell carcinoma of nasal tip Cancer Heartburn Neoplasm of skin of nasal tip Wears glasses Wears partial dentures Wears dentures Arthritis Prostate disease Easy bruising History of stress test Skin cancer Back pain Cataract Home Medications ???Medication ???Instructions ???Recorded ???Last Taken ???Type amlodipine 5 mg tablet 5 mg PO DAILY blood pressure 08/05/14 11/03/23 History gabapentin 300 mg capsule 300 tab PO BID nerve pain 08/05/14 02/13/21 14:00 History ascorbic acid (vitamin C) 1,000 mg 1 g PO DAILY 90 days #90 tabs 11/03/23 Unknown Rx tablet (Vitamin C) Allergy/AdvReac Type Severity Reaction Status Date / Time cortisone Allergy Other Verified 03/18/24 08:01 Family History Other Hypertension Skin cancer Surgical History History of basal cell carcinoma excision Hx of foot surgery History of back surgery Social History Smoking Status: Light Smoker (<10/day) alcohol intake: never substance use type: does not use additional social history: DOES NOT USE ASPIRIN DOES NOT USE IBUPROFEN ROS ROS ED ROS Narrative Focused review of systems includes bleeding from postoperative site on penis between sutures. No gross hematuria. Denies other bleeding diathesis. EXAM Physical Exam Narrative Exam Narrative: Afebrile. Vital signs noted. Regular rate and rhythm. Lungs clear to auscultation bilaterally. Abdomen soft nontender with normal active bowel sounds. Chaperoned genitourinary examination reveals sutures in place circumferentially around the glans penis. No active bleeding. There is noted dried blood on the glans penis. Const Vital Signs: 03/18/24 07:58 03/18/24 08:54 Temperature 97.2 F L 96.0 F L Temperature Source Temporal Pulse Rate 74 71 Respiratory Rate 16 16 Blood Pressure 161/86 H 152/74 H Blood Pressure Mean 111 100 Pulse Ox 97 92 Oxygen Delivery Method Room Air MDM MDM MDM Narrative Medical decision making narrative: No field differential diagnosis is applicable. Hemostasis had already been achieved prior to my examination. He will be given a Vaseline gauze dressing of the penis lightly wrapped. I paged Dr. Gleason to make him aware that the patient was here in the emergency department for postoperative bleeding, as he is postoperative day 1. In discussion with Dr. Gleason, he agrees with Vaseline dressing, and follow-up as an outpatient. Patient is to return with increased bleeding, new or worsening symptoms. He is agreeable to the plan. Disposition is discharged home in stable condition. History Record Review Discussion w/independent historian: Patient Management Discussion w/another healthcare provider: Technical Agronomist (Dr. Gleason) Discharge Plan Triage Chief Complaint: Other, Pain/Inj ED Provider: Addi Ramires Dx/Rx/DC Orders Clinical Impression: Post-op bleeding, Encounter for post surgical wound check Instructions: ED Wound Care Prescriptions: No Action amlodipine 5 MG tablet 5 mg PO DAILY Patient Comments: blood pressure gabapentin 300 MG capsule 300 tab PO BID Patient Comments: neuropathy/pain ascorbic acid (vitamin C) [Vitamin C] 1,000 mg tablet 1 g PO DAILY 90 Days Qty: 90 0RF Primary Care Provider: Heather Gonsalez Referrals: Randal Gleason MD [Med Staff - Active Staff] - 3-5 Days if not improving Heather Gonsalez MD [Primary Care Provider] - Activity Restrictions/Additional Instructions: Return with increased bleeding, (more content not included)... Normal [facility] Basic Metabolic Profile (BMP )on 03-09-2024 BUN/CRE 18.1 RATIO Normal 10-20 [facility] Comment on above: Performed By: #### L 100.0500, L500.2500 ####[facility] [address] [place], [address] CA,Total 9.2 mg/dL Normal 8.5-10.1 [facility] Comment on above: Performed By: #### L 100.0500, L500.2500 ####[facility] [address] [place], [address] Chloride [Moles/Vol] 109 mmol/L High 98-107 [facility] Comment on above: Performed By: #### L 100.0500, L500.2500 ####[facility] [address] [place], [address] CO2 [Moles/Vol] 26.0 mmol/L Normal 21.0-32.0 [facility] Comment on above: Performed By: #### L 100.0500, L500.2500 ####[facility] [address] [place], [address] Creatinine [Mass/Vol] 0.83 mg/dL Normal 0.70-1.30 [facility] Comment on above: Result Comment: The validity of the calculated GFR GFRAA in patients over 70 years has not been determined. Clinical correlation is essential. Performed By: #### L 100.0500, L500.2500 ####[facility] [address] [place], [address] EST GFR - AA 116 mL/min Normal >60 [facility] Comment on above: Result Comment: Afri can [place] GFR Calc Performed By: #### L 100.0500, L500.2500 ####[facility] [address] [place], [address] GAP 4 Low 5-15 [facility] Comment on above: Performed By: #### L 100.0500, L500.2500 ####[facility] [address] [place], [address] GFR/1.73 sq M.predicted among non-blacks MDRD (S/P/Bld) [Vol rate/Area] 96 mL/min/{1.73_m2} Normal >60 [facility] Comment on above: Result Comment: Non- GFR Calc Performed By: #### L 100.0500, L500.2500 ####[facility] [address] [place], [address] Glucose [Mass/Vol] 96 mg/dL Normal 74-106 [facility] Comment on above: Performed By: #### L 100.0500, L500.2500 ####[facility] [address] [place], [address] Potassium [Moles/Vol] 3.5 mmol/L Normal 3.5-5.1 [facility] Comment on above: Performed By: #### L 100.0500, L500.2500 ####[facility] [address] [place], [address] Sodium [Moles/Vol] 139 mmol/L Normal 136-145 [facility] Comment on above: Performed By: #### L 100.0500, L500.2500 ####[facility] [address] [place], [address] Urea nitrogen [Mass/Vol] 15 mg/dL Normal 7-18 [facility] Comment on above: Performed By: #### L 100.0500, L500.2500 ####[facility] [address] [place], [address] CBC-Complete Blood Cnt No Di ffon 03-09-2024 Erythrocyte distribution width (RBC) [Ratio] 14.3 % Normal 11.6-14.6 [facility] Comment on above: Performed By: #### L 100.0500, L500.2500 ####[facility] [address] [place], [address] Hematocrit (Bld) [Volume fraction] 39.3 % Low 40-54 [facility] Comment on above: Performed By: #### L 100.0500, L500.2500 ####[facility] [address] [place], [address] Hemoglobin (Bld) [Mass/Vol] 12.9 g/dL Low 13.0-16.5 [facility] Comment on above: Performed By: #### L 100.0500, L500.2500 ####[facility] [address] [place], [address] MCH (RBC) [Entitic mass] 31.6 pg Normal 27.0-32.0 [facility] Comment on above: Performed By: #### L 100.0500, L500.2500 ####[facility] [address] [place], [address] MCHC (RBC) [Mass/Vol] 32.8 g/dL Normal 32-36 [facility] Comment on above: Performed By: #### L 100.0500, L500.2500 ####[facility] [address] [place], [address] MCV (RBC) [Entitic vol] 96.3 fL High 80-94 [facility] Comment on above: Performed By: #### L 100.0500, L500.2500 ####[facility] [address] [place], [address] Platelet mean volume (Bld) [Entitic vol] 9.3 fL Normal 6.2-12.0 [facility] Comment on above: Performed By: #### L 100.0500, L500.2500 ####[facility] [address] [place], [address] Platelets (Bld) [#/Vol] 254 10*3/uL Normal 150-450 [facility] Comment on above: Performed By: #### L 100.0500, L500.2500 ####[facility] [address] [place], [address] RBC (Bld) [#/Vol] 4.08 10*6/uL Low 4.6-6.2 [facility] Comment on above: Performed By: #### L 100.0500, L500.2500 ####[facility] [address] [place], [address] RDW SD 51.0 fl High 35.1-43.9 [facility] Comment on above: Performed By: #### L 100.0500, L500.2500 ####[facility] [address] [place], [address] WBC (Bld) [#/Vol] 10.9 10*3/uL Normal 4.4-11.0 [facility] Comment on above: Performed By: #### L 100.0500, L500.2500 ####[facility] [address] [place], [address] Orthopedic Visit Reporton Orthopedic Visit Report [facility] [address] [place] [address] [address] [place] [address] OFFICE VISIT Date of Service: 03/01/24 MR#: [id number] Acct: [id number] Name: MICHAEL GUTIERREZ Rep #: [id number] : 1950 Provider: Dr. Luciano Adame MD Age/Sex: 73/M Location: [facility] Status: Signed Intake Vital Signs 11/03/23 06:22 02/08/24 08:02 Height 5 ft 8 in 74 ft 7.2 in Intake Visit Reasons: LUMBAR SPINE Chief Complaint: lumbar spine Accompanied by: Self Is patient in pain?: Yes Pain scale (1-10): 9 Allergies cortisone Allergy (Verified 03/01/24 14:27) Other Medications ???Medication ???Instructions ???Recorded ???Confirmed ???Type amlodipine 5 mg tablet 5 mg PO DAILY blood pressure 08/05/14 03/01/24 History gabapentin 300 mg capsule 300 tab PO BID nerve pain 08/05/14 03/01/24 History celecoxib 200 mg capsule 200 mg PO DAILY anti-inflamatory 05/02/19 03/01/24 History ascorbic acid (vitamin C) 1,000 mg 1 g PO DAILY 90 days #90 tabs 11/03/23 03/01/24 Rx tablet (Vitamin C) aspirin 81 mg capsule 81 mg PO DAILY 30 days #30 caps 11/03/23 03/01/24 Rx calcium carbonate 500 mg-vitamin 1 tab PO DAILY 90 days #90 tabs 11/03/23 03/01/24 Rx D3 15 mcg (600 unit) tablet (Os-Peewee 500 + D3) docusate sodium 100 mg capsule 100 mg PO DAILY 10 days #10 caps 11/03/23 03/01/24 Rx (Colace) hydrocodone 5 mg-acetaminophen 300 1 tab PO Q6H 7 days #28 tabs 11/03/23 03/01/24 Rx mg tablet clotrimazole 1 % topical cream 1 applic topical BID 14 days #15 02/08/24 03/01/24 Rx grams Have you fallen in the past year?: No PFSH Medical History Open wound of nose, complicated Basal cell carcinoma of nasal tip Cancer Heartburn Neoplasm of skin of nasal tip Wears glasses Wears partial dentures Wears dentures Arthritis Prostate disease Easy bruising History of stress test Skin cancer Back pain Cataract Surgical History History of basal cell carcinoma excision Hx of foot surgery History of back surgery Family History Other Hypertension Skin cancer Social History Smoking Status: Current every day smoker tobacco type: cigarettes alcohol intake: never substance use type: does not use additional social history: DOES NOT USE ASPIRIN DOES NOT USE IBUPROFEN HPI LUMBAR SPINE Details: This documentation accurately reflects the service provided and the decisions made by me, Dr. Luciano Adame MD 03/01/24 8240. Part of today???s visit was documented by Mirian Hatch ATC, acting as scribe. MICHAEL GUTIERREZ is a 73 year old M here today for lumbar spine pain. Patient rates his pain a 9/10 today. Patient is here today to talk about getting an MRI of the lumbar spine. Patient states the lumbar spine pain has gotten worse since the last time he was seen in here. Patient denies any recent injections or physical therapy for the lumbar spine. Patient states he did take some Tylenol today for the pain and states this may have helped him a little bit. Michael continues to have low back pain that goes around the flank into the lateral abdomen and anterior lower abdomen region. He was seen by me previously but was advised physical therapy and epidural injections, but the patient declined both of these. Following his his previous history: 10/22/23: MICHAEL GUTIERREZ is a 72 year old M here today for initial evaluation of lumbar spine pain. He complains of low back pain that has been going on for three months but it has progressively been getting worse. He reports a history of back surgery where he had spacers placed about 5 years ago. He reports the pain came on insidiously, he denies injury. He reports the pain is constant and describes it as a deep ache. He states the pain radiates into his right thigh at times. He denies numbness or tingling. He has done PT in the past which he reports was not helpful. He has seen pain management and has injections but states they only give him about three days of relief. He has not seen pain management in years because it was not helpful, he believes he saw Dr. TorresHaja had surgery about 5 years ago in [place] for symptoms of low back pain radiating down to the left lower extremity. Prior to the surgery has had physical therapy and injections which did not seem to give him any relief and then he proceeded to surgery. The surgery did help with his radicular symptoms which resolved. About 4 to 5 months ago he started having multiple symptoms that he attributes to having a corn in the plantar aspect of his right foot and walking awkwardly. He denies any heavy lifting or doing anything unusual. He started having pain both at t (more content not included)... Normal [facility] Emergency Department Summary on 02-08-2024 Emergency Department Summary [facility] Medical Records Department [address] [place] [address] Emergency Department Summary 02/08/24 MR#: [id number] Acct: [id number] Name: MICHAEL GUTIERREZ Rep #: [id number] : 1950 73 From: Eddie Mckinley DO PCP: Dr. Heather Gonsalez MD Status:DEP ER Location: ED HPI History of Present Illness Chief Complaint: Male Pain/Injury Informant: patient Pain Onset: Weeks (2) Context: Gradual Onset Timing: Continuous Worsened by: Nothing Relieved by: Nothing Urinary Symptoms Genitourinary Symptoms: Burning Related History Prostate Cancer: Yes Narrative Narrative: Patient presents with redness and swelling to his penis that has been getting worse over the past 2 weeks. Patient states it is gradually getting worse. Patient does admit to some burning with urination but states that that has been constant since his radiation treatment for his prostate cancer. Patient denies any fevers or chills. Patient admits to some white discharge around the foreskin. Patient denies any abdominal pain. Patient denies any nausea or vomiting. [facility] Medical History Open wound of nose, complicated Basal cell carcinoma of nasal tip Cancer Heartburn Neoplasm of skin of nasal tip Wears glasses Wears partial dentures Wears dentures Arthritis Prostate disease Easy bruising History of stress test Skin cancer Back pain Cataract Home Medications ???Medication ???Instructions ???Recorded ???Last Taken ???Type amlodipine 5 mg tablet 5 mg PO DAILY blood pressure 08/05/14 11/03/23 History gabapentin 300 mg capsule 300 tab PO BID nerve pain 08/05/14 02/13/21 14:00 History celecoxib 200 mg capsule 200 mg PO DAILY anti-inflamatory 05/02/19 02/13/21 14:00 History ascorbic acid (vitamin C) 1,000 mg 1 g PO DAILY 90 days #90 tabs 11/03/23 Unknown Rx tablet (Vitamin C) aspirin 81 mg capsule 81 mg PO DAILY 30 days #30 caps 11/03/23 Unknown Rx calcium carbonate 500 mg-vitamin 1 tab PO DAILY 90 days #90 tabs 11/03/23 Unknown Rx D3 15 mcg (600 unit) tablet (Os-Peewee 500 + D3) docusate sodium 100 mg capsule 100 mg PO DAILY 10 days #10 caps 11/03/23 Unknown Rx (Colace) hydrocodone 5 mg-acetaminophen 300 1 tab PO Q6H 7 days #28 tabs 11/03/23 Unknown Rx mg tablet clotrimazole 1 % topical cream 1 applic topical BID 14 days #15 02/08/24 Unknown Rx grams Allergy/AdvReac Type Severity Reaction Status Date / Time cortisone Allergy Other Verified 02/08/24 08:03 Family History Other Hypertension Skin cancer Surgical History History of basal cell carcinoma excision Hx of foot surgery History of back surgery Social History Smoking Status: Current every day smoker tobacco type: cigarettes alcohol intake: never substance use type: does not use additional social history: DOES NOT USE ASPIRIN DOES NOT USE IBUPROFEN ROS ROS ED Constitutional Constitutional ED: Denies chills or fever(s) Eyes Eyes: Denies blurry vision or change in vision ENT ENT ED: Denies rhinorrhea or sore throat Cardiovascular Cardiovascular: Denies chest pain or palpitations Respiratory/Chest Respiratory/Chest: Denies cough or dyspnea Gastrointestinal Gastrointestinal: Denies nausea or vomiting Genitourinary Genitourinary ED: Reports dysuria; Denies hematuria Musculoskeletal Musculoskeletal: Reports back pain; Denies neck pain Integumentary Denies abscess or rash Neurologic Neurologic: Denies headache(s) or weakness Allergic/Immunologic Allergic/Immunologic ED: Denies mouth swelling or urticaria EXAM Physical Exam Const Vital Signs: 02/08/24 08:02 Temperature 97.2 F L Temperature Source Temporal Pulse Rate 70 Respiratory Rate 14 Blood Pressure 130/76 H Blood Pressure Mean 94 Pulse Ox 98 Oxygen Delivery Method Room Air Positive well nourished and well developed General Appearance ED: well developed and NAD HEENT Reports moist mucous membranes Neck supple and no JVD GI non-tender and non-distended Palpation: soft Narrative: There is edema and mild erythema of the glans penis. There is tenderness to palpation. There is mild amount of white exudate noted. There is no urethral discharge noted. There is no testicular tenderness or masses noted. There is no inguinal lymphadenopathy or tenderness. There are no ulcerations noted. Extremity normal to inspection Neuro oriented x3, CN's II-XII intact bilaterally and no sensory deficits noted Sensorium / Orientation: alert Motor Exam: strength 5/5 throughout Psych mental status grossly normal MDM MDM MDM N (more content not included)... Normal [facility] UA DIP, URINE (POC)on 2023 BILIRUBIN UA (POCT) Negative Negative [facility] CLARITY UA (POCT) Clear [facility] COLOR UA (POCT) Yellow [facility] GLUCOSE UA (POCT) Negative Negative mg/dL [facility] Hemoglobin Ql (U) Negative Negative [facility] Interpretation and review of laboratory results Abnormal [facility] KETONE UA (POCT) Negative Negative mg/dL [facility] LEUKOCYTES UA (POCT) Trace Abnormal Negative [facility] NITRITE UA (POCT) Negative Negative [facility] PH UA (POCT) 5.5 4.5 - 8.0 [facility] Protein Ql (U) Negative Negative mg/dL [facility] SPECIFIC GRAVITY UA (POCT) 1.010 1.005 - 1.030 [facility] UROBILINOGEN UA (POCT) 0.2 Normal E.U./dL [facility] Location:[facility], [address], [place], [address] [facility] POINT OF CARE [facility] Bedside Glucoseon 11-03-2023 FINGERSTICK GLU 101 mg/dL Normal 74-106 [facility] Comment on above: Result Comment: SERGO ZAPATA OF PATIENT CARE PER NURSING PROTOCOL Performed By: #### L 501.080 #### [facility] Laboratory [address] [place], [address] Operative Reporton 4 Operative Report [facility] Medical Records Department [address] [place] [address] Operative Report 11/03/23 0826 MR#: [id number] Acct: [id number] Name: MICHAEL GUTIERREZ Rep #: [id number] : 1950 72 From: Anders Germain DPBobbi PCP: Dr. Heather Gonsalez MD Status[place] [place]: [place] [address] Problems Associated Problem List Diagnoses (1) Other hammer toe(s) (acquired), right foot: (2) Epidermal cyst: Report of Operation Date of Procedure: 11/03/23 Pre-Operative Diagnosis: 1. Hammertoes, fourth digit and fifth digit, right foot 2. Epidermal cyst, fourth digit, right foot Post-Operative Diagnosis: Same as preoperative diagnosis Surgery/Procedure Performed:: 1. Derotational arthroplasty, fifth digit, right foot 2. Condylectomy, fourth digit, right foot Description of Surgical Findings:: 1. The rotation of the fifth digit and after procedure performed, right foot 2. Evidence of arthritic changes appreciated to the PIPJ of the fifth digit, right foot 3. Removal of condyle to the lateral aspect of the proximal phalanx fourth digit, right foot Surgeon: Anders Germain associate curator: Lisa Campbell Type of Anesthesia: General and Local Anesthesiologist: Jacob Meyers Special Medications: Per anesthesia Specimen's removed: None Drains: None Estimated Blood Loss (mL): 10 mL Fluids Replaced: Per anesthesia Description of Procedure: Indications For Operation: Mr. Gutierrez is a 72-year-old male who was admitted to [facility] for elective surgery to the right foot consisting of derotational arthroplasty of the fifth digit and condylectomy of the fourth digit secondary to hammertoe contracture and epidermal cyst to the right foot. Patient was seen in the office and is well-known to me for surgical consultation with a chart review and consent signed. Risk and benefits were discussed with the patient in great detail. Patient elected to move forward with elective right foot surgery. Due to continued right foot pain at the level of the epidermal cyst and deformity of the fifth and fourth digit of the right foot it has been deemed necessary at this time to perform the above procedure to help correct the patient's foot and decrease his constant pain. The nature of the problem, anticipated procedures, postop recovery/convalences and risk/complications include but not limited to infection, wound healing complications, digital amputation, hypertrophic scarring, numbness, tingling, chronic pain, CRPS, over and under correction, recurrence of deformity, DVT and or PE and the need for further surgery have been discussed in great detail with the patient. All questions have been answered to the patient's satisfaction. There are no guarantees given as to the outcome of the procedure. Description of Procedure: Under mild sedation, the patient was brought into the operating room and placed on the operating table in supine position. Once the patient was under general anesthesia with laryngeal mask airway, the right lower extremity was blocked using approximately 20 cc 0.5% Marcaine plain. Next, a well- padded calf tourniquet was applied to the right lower extremity. Next, the right lower extremity was prepped and draped in normal aseptic manner. Next, a timeout was then undertaken verifying the correct patient, extremity, visibility of preoperative markings, availability of the equipment. Next, attention was directed to the right lower extremity. Using a 4 inch Esmarch, right lower extremity was exsanguinated and elevated to 60 degrees for 1 minute. Procedure #1, derotational arthroplasty, fifth digit, right foot Next, attention was directed to the right foot. Using mini C arm fluoroscopy incisions were mapped over the fifth digit. A oblique incision was marked out using a sterile skin marker. Using a #15 blade and pickup the oblique incision was cut down full-thickness to subcutaneous tissue from distal lateral to proximal medial. Using a pickup the oblique incision tissue was removed and passed the back table to be discarded. The proximal interphalangeal joint was identified and all lateral collateral ligaments as well as a extensor tendon was delicate removed from the head of the proximal phalanx. The head of the proximal phalanx was again identified and show evidence of arthritic changes. Using a sagittal saw and #412 blade, the osteotomy was performed across the head of the proximal phalanx. Using sharp dissection the head of the proximal phalanx of the fifth digit right foot was removed and passed the back table to be discarded. After removal of the head there showed evidence of a more mobile fifth digit. Procedure #2, condylectomy, fourth digit, right foot Next, attention was directed to the right foot, using mini C arm fluoroscopy, incision was mapped out over the fourth digit making sure to encompass the condylectomy and the fourth me (more content not included)... Normal [facility] Thin prep Papanicolaou smear with manual screeningOrdered By: Anders Germain on 11-03-2023 Thin prep Papanicolaou smear with manual screening 101 mg/dL 74-106 [facility] Comment on above: MANAGEMENT OF PATIEN T CARE PER NURSING PROTOCOL Toe(s) Min 2 Viewson 024 Toe(s) Min 2 Views [facility] Imaging Services [address] [place] [address] Toe(s) Min 2 Views MR#: [id number] Acct: [id number] Name: MICHAEL GUTIERREZ Rep #: [id number] : 1950 M 72 From: Parker Arevalo MD PCP: Dr. Heather Gonsalez MD Status: [facility] Study: Toe(s) Min 2 Views Date of Exam: 11/03/23 Exam# [id number] Ordering Dr: Anders Germain M [id number] STUDY: X-RAY - RIGHT FOOT CLINICAL: Male, 72 years old. Pain, arthroplasty right 5th digit with 4th digit condylectomy. TECHNIQUE: 1 fluoro image of the right foot, 14 fluoro sec, 0.0652. COMPARISON: None. FINDINGS: Normal metatarsi. Normal metatarsophalangeal joint of the great toe. Normal second through fifth metatarsophalangeal joints. Intact visualized phalanges. There is a metallic surgical instrument overlying the fourth webspace. The soft tissue structures are unremarkable. RAD/Toe(s) Min 2 Views IMPRESSION: Fluoroscopic image of the right foot during surgical procedure. Electronically Signed: Parker Arevalo MD at 9:44 EDT Reading Location ID and State: [address] [place] [address] , Service support , CC: BIANCA Germain; Dr. Heather Gonsalez MD Supervisor Pressing Department: Signed Normal [facility] Nicotine Screen Bloodon 10-14 COTININE BLOOD 205.2 ng/mL Normal . [facility] Comment on above: Result Comment: This test was developed and its performance characteristics determined by [employer]. It has not been cleared or approved by the Food and Drug Administration. Cotinine levels greater than 20.0 are consistent with the use of tobacco or tobacco cessation products. Performed at: [address] [id number] [employer] Coders: Beatrice Nunez MD, Phone: [phone] Performed By: #### L 506.1000, L501.5200, L3600.3400, L501.9985 ####[facility] [address] [place], [place], [address] NICOTINE BLOOD 26.3 ng/mL Normal . [facility] Comment on above: Result Comment: This test was developed and its performance characteristics determined by [employer]. It has not been cleared or approved by the Food and Drug Administration. Nicotine levels greater than 2.0 are consistent with the use of tobacco or tobacco cessation products. Performed By: #### L 506.1000, L501.5200, L3600.3400, L501.9985 ####[facility] [address] [place], [place], [address] Hemoglobin A1con 10-25-2023 HbA1c (Bld) [Mass fraction] 5.4 % Normal 3.8-5.6 [facility] Comment on above: Result Comment: Norm al < 5.7 % Prediabetic 5.7 - 6.4 % Diabetic >or= 6.5 % Please note range changes. Performed By: #### L 506.1000, L501.5200, L3600.3400, L501.9985 ####[facility] [address] [place], [address] Laboratory - Chemistry and C hemistry - challengeOrdered By: Anders Germain on 10-25-2023 Magnesium [Mass/Vol] 2.4 mg/dL 1.6-2.6 [facility] Magnesiumon 10-25-2023 Magnesium [Mass/Vol] 2.4 mg/dL Normal 1.6-2.6 [facility] Comment on above: Performed By: #### L 506.1000, L501.5200, L3600.3400, L501.9985 ####[facility] [address] [place], [address] No Panel InformationOrdered By: Anders Germain on 10-25-2023 Vitamin D 25-Hydroxy 19.7 ng/mL [facility] Comment on above: Vitamin D 25(OH) Sta tus Range Deficiency <20 ng/mL (50nmol/L) Insufficiency 20 - 30 ng/mL (50 - 75 nmol/L) Sufficiency 30 - 100 ng/mL (75 - 250 nmol/L) Toxicity >100 ng/mL (>250 nmol/L) Serum or plasma nicotine woody surement (mass/volume)Ordered By: Anders Germain on 10-25-2023 Nicotine [Mass/Vol] 26.3 ug/mL . [facility] Comment on above: This test was develo ped and its performance characteristicsdetermined by [employer]. It has not been cleared orapproved by the Food and Drug Administration.Nicotine levels greater than 2.0 are consistent with theuse of tobacco or tobacco cessation products. Thin prep Papanicolaou smear with manual screeningOrdered By: Anders Germain on 10-25-2023 Thin prep Papanicolaou smear with manual screening 205.2 ug/mL . [facility] Comment on above: This test was develo ped and its performance characteristicsdetermined by [employer]. It has not been cleared orapproved by the Food and Drug Administration.Cotinine levels greater than 20.0 are consistent with theuse of tobacco or tobacco cessation products.Performed at: [address] [id number] Director: Beatrice Nunez MD, Phone: [phone] Vitamin D,25 Hydroxyon 10-24 Vitamin D 25-OH 19.7 ng/mL Normal [facility] Comment on above: Result Comment: Yoly min D 25(OH) Status Range Deficiency <20 ng/mL (50nmol/L) Insufficiency 20 - 30 ng/mL (50 - 75 nmol/L) Sufficiency 30 - 100 ng/mL (75 - 250 nmol/L) Toxicity >100 ng/mL (>250 nmol/L) Performed By: #### L 506.1000, L501.5200, L3600.3400, L501.3054 ####[facility] [address] [place], [place], [address] Whole blood hemoglobin A1c/t otal hemoglobin ratio (mass fraction)Ordered By: Anders Germain on 10-25-2023 HbA1c (Bld) [Mass fraction] 5.4 % 3.8-5.6 [facility] Comment on above: Normal < 5.7 % Predi abetic 5.7 - 6.4 % Diabetic >or= 6.5 % Please note range changes. L/S Spine Min 4 Viewson L/S Spine Min 4 Views [facility] Radiology [address] [place] [address] L/S Spine Min 4 Views MR#: [id number] Acct: [id number] Name: MICHAEL GUTIERREZ Rep #: [id number] : 1950 M 72 From: Albert Yu PCP: Dr. Heather Gonsalez MD Status: DEP AMB Study: L/S Spine Min 4 Views Date of Exam: 10/22/23 Exam# [id number] Ordering Dr: Luciano Adame MD [id number] INDICATION: lbp -- Please do upright AP lateral flexion-extension EXAMINATION/TECHNIQUE: X-RAY - XR Spine Lumbar Min 4 Views COMPARISON: Prior study dated: 01/13/2021. FINDINGS: VERTEBRAE: Preserved vertebral body height. No fracture. No spondylolisthesis. Preservation of the normal lumbar lordosis. No substantial scoliosis. DISCS: Previous posterior fusion of L3, L4, L5 and S1 with bilateral apical screws and laminectomy at L5. The alignment is unchanged. Narrowing of L1-L2 disc space. Endplate spondylosis at multiple levels. INCLUDED ABDOMEN: Atherosclerotic calcifications of the abdominal aorta. RAD/L/S Spine Min 4 Views IMPRESSION: 1. Fusion of the lower lumbar spine stable since previous exam. 2. Degenerative changes. Electronically Signed: Albert Hernandez MD at 13:46 EST , CC: Dr. Luciano Adame MD; Dr. Heather Gonsalez MD Supervisor Pressing Department: Signed Normal [facility] Orthopedic Visit Reporton Orthopedic Visit Report [facility] [address] [place] [address] OFFICE VISIT Date of Service: 10/22/23 MR#: [id number] Acct: [id number] Name: MICHAEL GUTIERREZ Rep #: [id number] : 1950 Provider: Dr. Luciano Adame MD Age/Sex: 72/M Location: [facility] Status: Signed Intake Vital Signs 09/10/23 07:50 10/22/23 09:49 Height 5 ft 8 in 5 ft 8 in Weight: 165 lb BMI 25.0 Intake Visit Reasons: LUMBAR SPINE Chief Complaint: lumbar spine Is patient in pain?: Yes (lumbar spine ) Pain scale (1-10): 5 Allergies cortisone Allergy (Verified 10/22/23 09:50) Other Medications amlodipine 5 mg tablet 5 mg PO DAILY blood pressure 08/05/14 [History Confirmed 10/22/23] gabapentin 300 mg capsule 300 tab PO BID nerve pain 08/05/14 [History Confirmed 10/22/23] celecoxib 200 mg capsule 200 mg PO DAILY anti-inflamatory 09/17/19 [History Confirmed 10/22/23] [facility] Medical History Arthritis Back pain Basal cell carcinoma of nasal tip Cancer Cataract Easy bruising Heartburn History of stress test Neoplasm of skin of nasal tip Open wound of nose, complicated Prostate disease Skin cancer Wears dentures Wears glasses Wears partial dentures Surgical History History of back surgery History of basal cell carcinoma excision Hx of foot surgery Family History Other Hypertension Skin cancer Social History Smoking Status: Current every day smoker tobacco type: cigarettes alcohol intake: never substance use type: does not use additional social history: DOES NOT USE ASPIRIN DOES NOT USE IBUPROFEN HPI LUMBAR SPINE Details: This documentation accurately reflects the service provided and the decisions made by me, Dr. Luciano Adame MD 10/22/23 0948. Part of today???s visit was documented by Nelly Marinelli, acting as scribe. MICHAEL GUTIERREZ is a 72 year old M here today for initial evaluation of lumbar spine pain. He complains of low back pain that has been going on for three months but it has progressively been getting worse. He reports a history of back surgery where he had spacers placed about 5 years ago. He reports the pain came on insidiously, he denies injury. He reports the pain is constant and describes it as a deep ache. He states the pain radiates into his right thigh at times. He denies numbness or tingling. He has done PT in the past which he reports was not helpful. He has seen pain management and has injections but states they only give him about three days of relief. He has not seen pain management in years because it was not helpful, he believes he saw Dr. Torres. Michael had surgery about 5 years ago in [place] for symptoms of low back pain radiating down to the left lower extremity. Prior to the surgery has had physical therapy and injections which did not seem to give him any relief and then he proceeded to surgery. The surgery did help with his radicular symptoms which resolved. About 4 to 5 months ago he started having multiple symptoms that he attributes to having a corn in the plantar aspect of his right foot and walking awkwardly. He denies any heavy lifting or doing anything unusual. He started having pain both at the top and the bottom of the incisional area and radiation towards the right loin and right anterior thigh as well as towards the left buttock region. He denies any difficulty walking distances until 4 months ago when the corn in the foot started bothering him. He routinely went for 1/2 mile walk until 4 months ago but not recently. Recently he has not had any physical therapy or injections but he declines for both of these as he did not have good relief with these in the past. Ortho Exam General General: Yes no acute distress Neurologic: Yes alert and Yes oriented x3 Spine SPINE TESTING CERVICAL THORACIC LUMBAR Musculoskeletal Strength 0=absent - 5=normal Details: Examination of the lower back shows prior midline incision well-healed. There is midline as well as paraspinal tenderness in the upper as well as the lower portion of the incision which is slightly worse on the right side. Neurologic function lower extremity shows 5 x 5 power lower extremity normal sensations in all dermatomes. Coding Level of Care Code Off vis,new,level 4 Diagnoses Fusion of lumbar spine M43.26 Lumbar radiculopathy M54.16 Time Spent (min) 45 Assessment and Plan Assessment and Plan (1) Fusion of lumbar spine: Status: Acute (2) Lumbar radiculopathy: Status: Acute Orders: Orders L/S Spine Min 4 Views Today M54.50 - Low back pain, unspecified Plan I obtained new x-rays of his jose roberto (more content not included)... Normal [facility] Abdomen/Pelvis without Conto n 09-10-2023 Abdomen/Pelvis without Cont [facility] Imaging Services [address] [place] [address] Abdomen/Pelvis without Cont MR#: [id number] Acct: [id number] Name: MICHAEL GUTIERREZ Rep #: [id number] : 1950 M 72 From: Addi House MD PCP: Dr. Heather Gonsalez MD Status: REG ER Study: Abdomen/Pelvis without Cont Date of Exam: 08/17 02/06 Exam# [id number] Ordering Dr: Eddie Mckinley DO [id number] EXAM: CT ABDOMEN AND PELVIS WITHOUT INTRAVENOUS CONTRAST CLINICAL INDICATION: Right flank pain and hematuria. History of kidney stones. TECHNIQUE: Helically acquired images were obtained of the abdomen and pelvis without intravenous contrast. This CT exam was performed using one or more of the following dose reduction techniques: automated exposure control, adjustment of the mA and/or kV according to patient size, and/or use of iterative reconstruction technique. RADIATION DOSE: CTDIvol = 6.99 mGy, DLP = 335.35 mGy-cm COMPARISON: CTA chest with and without contrast 07/05/2022. No prior CT abdomen and pelvis for comparison. FINDINGS: LOWER THORAX: Mild cardiomegaly. 1.13 cm anterior pericardial effusion and 7 mm posterior pericardial effusion. Increased thickness of curvilinear partial atelectasis in the right lung base containing minimal air bronchograms. ABDOMEN: LIVER: Multiple hypodense lesions throughout the liver parenchyma. Several are too small to confirm cystic or solid. At least [address] number of -10.5 Hounsfield units. 1 dominant cyst in segment 2 of the liver has decreased in size measuring 1.6 cm, previously 3.6 cm. GALLBLADDER AND BILE DUCTS: Unremarkable. No calcified gallstones. No gallbladder distention or wall edema. No intra- or extrahepatic biliary ductal dilation. PANCREAS: Unremarkable. No focal cystic mass. SPLEEN: Unremarkable. Normal size without focal cystic or solid mass. ADRENALS: Right adrenal hypodense lesion measuring 2.9 x 2.[address] number of -6.15 Hounsfield units. This is benign cyst. KIDNEYS AND URETERS: Unremarkable. Normal renal size and position. No stones or hydronephrosis in both kidneys. STOMACH AND BOWEL: Unremarkable. No stomach or bowel distention. No focal inflammatory change. PELVIS: APPENDIX: The appendix is not visualized but there are no secondary signs of acute appendicitis. BLADDER: Unremarkable. Normal urinary bladder. No bladder stone or mass. REPRODUCTIVE: Unremarkable as visualized. No mass. ABDOMEN and PELVIS: INTRAPERITONEAL SPACE: Unremarkable. No ascites or other fluid collection. No free air. BONES/JOINTS: Unremarkable. No suspicious lytic or blastic abnormality. SOFT TISSUES: Pedicular screws and rods causing metallic streak artifacts at L3-L4, L4-L5 and L5-S1 disc space levels. No discrete abdominal or pelvic wall hernia. VASCULATURE: Unremarkable. Abdominal aorta is non-dilated. LYMPH NODES: Unremarkable. No enlarged lymph nodes. CT/Abdomen/Pelvis without Cont IMPRESSION: 1. No CT evidence of stones or hydronephrosis in both kidneys. 2. No CT evidence of suspicious mass in the kidneys and urinary bladder. 3. Nonvisualization of the appendix but no secondary signs of acute appendicitis. 4. Low-attenuation lesion in the right adrenal gland measuring 2.9 x 2.[address] number of -6.15 Hounsfield units is benign cyst. ACR White Paper guidelines (Chanell et al. JACR 2017; 14(8):1173-5198) suggest no follow-up is necessary. 5. Multiple low-attenuation lesions throughout the liver parenchyma are too small to confirm cystic or solid. At least 2 are cysts. One dominant cyst in segment 2 of the liver has decreased in size measuring 1.6 cm, previously 3.6 cm. Electronically Signed: Addi House MD at 9:20 EST , CC: Dr. Eddie Mckinley, DO; Dr. Heather Gonsalez MD Supervisor Pressing Department: Signed Normal [facility] Absolute lymphocyte countOrd ered By: Eddie Mckinley on 09-10-2023 Lymphocytes Auto (Unsp spec) [#/Vol] 0.91 10*3/uL 0.83-4.51 [facility] Automated lymphocyte count a s percentage of total leukocytesOrdered By: Eddie Mckinley on 09-10-2023 Lymphocytes/100 WBC Auto (Unsp spec) 11.5 % 19-41 [facility] Basic Metabolic Profile (BMP )on 09-10-2023 BUN/CRE 21.0 RATIO High 10-20 [facility] Comment on above: Performed By: #### L 500.2500, L100.0100 #### [facility] [address] [place], [place], [id number] CA,Total 9.0 mg/dL Normal 8.5-10.1 [facility] Comment on above: Performed By: #### L 500.2500, L100.0100 #### [facility] [address] [place], [address] Chloride [Moles/Vol] 106 mmol/L Normal 98-107 [facility] Comment on above: Performed By: #### L 500.2500, L100.0100 #### [facility] [address] [place], [address] CO2 [Moles/Vol] 23.0 mmol/L Normal 21.0-32.0 [facility] Comment on above: Performed By: #### L 500.2500, L100.0100 #### [facility] [address] [place], [address] Creatinine [Mass/Vol] 0.76 mg/dL Normal 0.70-1.30 [facility] Comment on above: Result Comment: The validity of the calculated GFR GFRAA in patients over 70 years has not been determined. Clinical correlation is essential. Performed By: #### L 500.2500, L100.0100 #### [facility] [address] [place], [address] ECRCL 78.38 ml/min Normal [facility] Comment on above: Performed By: #### L 500.2500, L100.0100 #### [facility] [address] [place], [address] EST GFR - AA 128 mL/min Normal >60 [facility] Comment on above: Result Comment: Afri can [place] GFR Calc Performed By: #### L 500.2500, L100.0100 #### [facility] [address] [place], [address] GAP 7 Normal 5-15 [facility] Comment on above: Performed By: #### L 500.2500, L100.0100 #### [facility] [address] [place], [address] GFR/1.73 sq M.predicted among non-blacks MDRD (S/P/Bld) [Vol rate/Area] 106 mL/min/{1.73_m2} Normal >60 [facility] Comment on above: Result Comment: Non- GFR Calc Performed By: #### L 500.2500, L100.0100 #### [facility] [address] [place], [address] Glucose [Mass/Vol] 89 mg/dL Normal 74-106 [facility] Comment on above: Performed By: #### L 500.2500, L100.0100 #### [facility] [address] [place], [address] Potassium [Moles/Vol] 3.3 mmol/L Low 3.5-5.1 [facility] Comment on above: Performed By: #### L 500.2500, L100.0100 #### [facility] [address] [place], [address] Sodium [Moles/Vol] 136 mmol/L Normal 136-145 [facility] Comment on above: Performed By: #### L 500.2500, L100.0100 #### [facility] [address] [place], [address] Urea nitrogen [Mass/Vol] 16 mg/dL Normal 7-18 [facility] Comment on above: Performed By: #### L 500.2500, L100.0100 #### [facility] [address] [place], [address] Basophil percentageOrdered B y: Eddie Arlen on 09-10-2023 Basophils/100 WBC (Bld) 0.6 % 0-1 [facility] Chloride [Moles/Vol] 106 mmol/L 98-107 [facility] Eosinophils/100 WBC (Bld) 0.9 % 0-5 [facility] Glucose [Mass/Vol] 89 mg/dL 74-106 [facility] Hemoglobin (Bld) [Mass/Vol] 12.4 g/dL 13.0-16.5 [facility] Monocytes/100 WBC (Bld) 6.6 % 0-10 [facility] Neutrophils (Bld) [#/Vol] 6.3 10*3/uL 2.0-7.7 [facility] Neutrophils/100 WBC (Bld) 80.1 % 47-70 [facility] Potassium [Moles/Vol] 3.3 mmol/L 3.5-5.1 [facility] Sodium [Moles/Vol] 136 mmol/L 136-145 [facility] WBC (Bld) [#/Vol] 7.9 10*3/uL 4.4-11.0 [facility] Basophil percentage 0-5 SEEN /hpf 0-5 [facility] Bilirubin Test strip Ql (U)O rdered By: Eddie Mckinley on 09-10-2023 Bilirubin Ql (U) Negative Negative [facility] CBC W/Diff, Automatedon 08-17 Absolute Lymph 0.91 X10 3/uL Normal 0.83-4.51 [facility] Comment on above: Performed By: #### L 500.2500, L100.0100 #### [facility] [address] [place], [address] Absolute Neut 6.3 X10 3/uL Normal 2.0-7.7 [facility] Comment on above: Performed By: #### L 500.2500, L100.0100 #### [facility] [address] [place], [address] Basophils/100 WBC (Bld) 0.6 % Normal 0-1 [facility] Comment on above: Performed By: #### L 500.2500, L100.0100 #### [facility] [address] [place], [address] Eosinophils/100 WBC (Bld) 0.9 % Normal 0-5 [facility] Comment on above: Performed By: #### L 500.2500, L100.0100 #### [facility] [address] [place], [address] Erythrocyte distribution width (RBC) [Ratio] 14.5 % Normal 11.6-14.6 [facility] Comment on above: Performed By: #### L 500.2500, L100.0100 #### [facility] [address] [place], [address] Hematocrit (Bld) [Volume fraction] 37.3 % Low 40-54 [facility] Comment on above: Performed By: #### L 500.2500, L100.0100 #### [facility] [address] [place], [address] Hemoglobin (Bld) [Mass/Vol] 12.4 g/dL Low 13.0-16.5 [facility] Comment on above: Performed By: #### L 500.2500, L100.0100 #### [facility] [address] [place], [address] IG% 0.300 Normal 0.0-0.9 [facility] Comment on above: Result Comment: IG% - Immature Granulocytes (promyelocytes, myelocytes and metamyelocytes) > 1% indicates that a LEFT SHIFT is Present. Performed By: #### L 500.2500, L100.0100 #### [facility] [address] [place], [address] Lymphocytes/100 WBC (Bld) 11.5 % Low 19-41 [facility] Comment on above: Performed By: #### L 500.2500, L100.0100 #### [facility] [address] [place], [address] MCH (RBC) [Entitic mass] 31.1 pg Normal 27.0-32.0 [facility] Comment on above: Performed By: #### L 500.2500, L100.0100 #### [facility] [address] [place], [address] MCHC (RBC) [Mass/Vol] 33.2 g/dL Normal 32-36 [facility] Comment on above: Performed By: #### L 500.2500, L100.0100 #### [facility] [address] [place], [address] MCV (RBC) [Entitic vol] 93.5 fL Normal 80-94 [facility] Comment on above: Performed By: #### L 500.2500, L100.0100 #### [facility] [address] [place], [address] Monocytes/100 WBC (Bld) 6.6 % Normal 0-10 [facility] Comment on above: Performed By: #### L 500.2500, L100.0100 #### [facility] [address] [place], [address] Neutrophils/100 WBC (Bld) 80.1 % High 47-70 [facility] Comment on above: Performed By: #### L 500.2500, L100.0100 #### [facility] [address] [place], [address] Nucleated RBC (Bld) [#/Vol] 0 10*3/uL Normal 0-5 [facility] Comment on above: Performed By: #### L 500.2500, L100.0100 #### [facility] [address] [place], [address] Platelet mean volume (Bld) [Entitic vol] 9.3 fL Normal 6.2-12.0 [facility] Comment on above: Performed By: #### L 500.2500, L100.0100 #### [facility] [address] [place], [address] Platelets (Bld) [#/Vol] 250 10*3/uL Normal 150-450 [facility] Comment on above: Performed By: #### L 500.2500, L100.0100 #### [facility] [address] [place], [address] RBC (Bld) [#/Vol] 3.99 10*6/uL Low 4.6-6.2 [facility] Comment on above: Performed By: #### L 500.2500, L100.0100 #### [facility] [address] [place], [address] RDW SD 49.7 fl High 35.1-43.9 [facility] Comment on above: Performed By: #### L 500.2500, L100.0100 #### [facility] [address] [place], [address] WBC (Bld) [#/Vol] 7.9 10*3/uL Normal 4.4-11.0 [facility] Comment on above: Performed By: #### L 500.2500, L100.0100 #### [facility] [address] [place], [address] Determination of erythrocyte mean corpuscular volume (MCV)Ordered By: Eddie Mckinley on 09-10-2023 MCV (RBC) [Entitic vol] 93.5 fL 80-94 [facility] Emergency Department Summary on 09-10-2023 Emergency Department Summary [facility] Medical Records Department [address] [place] [address] Emergency Department Summary 09/10/23 MR#: [id number] Acct: [id number] Name: MICHAEL GUTIERREZ Alyssia Rep #: [id number] : [id number] From: Eddie Mckinley DO PCP: Dr. Heather Gonsalez MD Status:DEP ER Location: ED HPI History of Present Illness Chief Complaint: Flank Pain Informant: patient Onset/Context/Timing Onset: Days (3) Context: Sudden Onset Timing: Continuous Quality: Aching Location: Left lower abdomen Worsened by: Bending and laying on his side Relieved by: Nothing Narrative Narrative: Patient presents with left lower abdominal pain that has been getting worse over the past 3 days. Patient states it began rather suddenly. Patient describes it as aching. Patient states it has been constant for the past 3 days. Patient states the pain is mainly over the left lower abdomen. Patient states it is worse when he bends forward and when he lays on his sides. Patient states nothing seems to help with the pain. Patient denies any fevers or chills. Patient denies any nausea or vomiting. Patient denies any diarrhea, melena, or hematochezia. Patient admits to some dysuria but states that is chronic. PFSH PFS Medical History Arthritis Back pain Basal cell carcinoma of nasal tip Cancer Cataract Easy bruising Heartburn History of stress test Neoplasm of skin of nasal tip Open wound of nose, complicated Prostate disease Skin cancer Wears dentures Wears glasses Wears partial dentures Home Medications amlodipine 5 mg tablet 5 mg PO DAILY blood pressure 08/05/14 [History Last Taken 06/03/22 05:00] gabapentin 300 mg capsule 300 tab PO BID nerve pain 08/05/14 [History Last Taken 02/13/21 14:00] celecoxib 200 mg capsule 200 mg PO DAILY anti-inflamatory 05/02/19 [History Last Taken 02/13/21 14:00] Allergy/AdvReac Type Severity Reaction Status Date / Time cortisone Allergy Other Verified 09/10/23 07:50 Family History Other Hypertension Skin cancer Surgical History History of back surgery History of basal cell carcinoma excision Hx of foot surgery Social History Smoking Status: Current every day smoker tobacco type: cigarettes alcohol intake: never substance use type: does not use additional social history: DOES NOT USE ASPIRIN DOES NOT USE IBUPROFEN ROS ROS ED Constitutional Constitutional ED: Denies chills or fever(s) Eyes Eyes: Denies blurry vision or change in vision ENT ENT ED: Denies rhinorrhea or sore throat Cardiovascular Cardiovascular: Denies chest pain or palpitations Respiratory/Chest Respiratory/Chest: Denies cough or dyspnea Gastrointestinal Gastrointestinal: Reports abdominal pain; Denies nausea or vomiting Genitourinary Genitourinary ED: Reports dysuria; Denies hematuria Musculoskeletal Musculoskeletal: Denies back pain or neck pain Integumentary Denies abscess or rash Neurologic Neurologic: Denies headache(s) or weakness Allergic/Immunologic Allergic/Immunologic ED: Denies mouth swelling or urticaria EXAM Physical Exam Const Vital Signs: 09/10/23 07:50 Temperature 96.8 F L Temperature Source Temporal Pulse Rate 66 Respiratory Rate 16 Blood Pressure 120/71 Blood Pressure Mean 87 Pulse Ox 98 Oxygen Delivery Method Room Air Positive well nourished and well developed General Appearance ED: well developed and NAD HEENT Reports moist mucous membranes Neck supple and no JVD Resp normal respiratory effort and clear to auscultation bilaterally Cardio regular rate and regular rhythm GI non-distended Palpation: soft and tender LLQ; Negative for guarding or rebound tenderness present Back/Spine no CVA tenderness Extremity normal to inspection General Extremety ED: Negative for edema or tenderness General Extremity: Negative for edema Neuro oriented x3, CN's II-XII intact bilaterally and no sensory deficits noted Sensorium / Orientation: alert Motor Exam: strength 5/5 throughout Psych mental status grossly normal MDM MDM MDM Narrative Medical decision making narrative: Differential diagnosis includes diverticulitis, urinary tract infection, ureteral calculus, gastroenteritis, bowel obstruction, perforation, and pyelonephritis. CT scan of the abdomen pelvis will be obtained to assess for ureteral calculus, bowel obstruction, and perforation. CBC will be obtained to assess for leukocytosis and anemia. Basic metabolic profile will be obtained to assess for electrolyte abnormality and renal function. Urinalysis will be obtained to assess for urinary (more content not included)... Normal [facility] Erythrocyte distribution wid th ratioOrdered By: Eddie Mckinley on 09-10-2023 Erythrocyte distribution width (RBC) [Ratio] 14.5 % 11.6-14.6 [facility] Erythrocyte distribution wid th standard deviationOrdered By: Eddie Mckinley on 09-10-2023 Erythrocyte distribution width (RBC) [Entitic vol] 49.7 fL 35.1-43.9 [facility] Hematocrit Auto (Bld) [Volum e fraction]Ordered By: Eddie Mckinley on 09-10-2023 Hematocrit (Bld) [Volume fraction] 37.3 % 40-54 [facility] Immature granulocytes/100 WB C Auto (Bld)Ordered By: Eddie Mckinley on 09-10-2023 Immature granulocytes/100 WBC (Bld) 0.300 % 0.0-0.9 [facility] Comment on above: IG% - Immature Granu locytes (promyelocytes, myelocytes and metamyelocytes) > 1% indicates that a LEFT SHIFT is Present. Ketones Test strip Ql (U)Ord ered By: Eddie Mckinley on 09-10-2023 Ketones Ql (U) Negative Negative [facility] L501.4020on 09-10-2023 TROPONIN-I HS 10 pg/mL Normal 3.0-78.0 [facility] Comment on above: Order Comment: 'TROP ' Serial specimen #1, #2 or #3: 1 Result Comment: Alice carranza Note: New Test Units and Gender Specific Reference Ranges. For more information see Policy Stat Procedure [place] High Sensitivity Troponin (TNIH) and attachments. Performed By: #### L 501.4020 #### [facility] [address] [place], [address] Laboratory - Chemistry and C hemistry - challengeOrdered By: Eddie Mckinley on 09-10-2023 CO2 [Moles/Vol] 23.0 mmol/L 21.0-32.0 [facility] Urea nitrogen/Creatinine [Mass ratio] 21.0 mg/mg 10-20 [facility] Laboratory - Hematology and Cell countsOrdered By: Eddie Mckinley on 09-10-2023 MCH (RBC) [Entitic mass] 31.1 pg 27.0-32.0 [facility] MCHC (RBC) [Mass/Vol] 33.2 g/dL 32-36 [facility] Nucleated RBC/100 WBC (Bld) [Ratio] 0 % 0-5 [facility] Platelets (Bld) [#/Vol] 250 10*3/uL 150-450 [facility] Mucus LM Ql (Urine sed)Order ed By: Eddie Mckinley on 09-10-2023 Mucus Ql (Urine sed) 0 SEEN /hpf [facility] Nitrite Test strip Ql (U)Ord ered By: Eddie Mckinley on 09-10-2023 Nitrite Ql (U) Negative Negative [facility] No Panel InformationOrdered By: Eddie Mckinley on 09-10-2023 Estimated Creatinine Clearance Calc 78.38 ml/min [facility] Estimated GFR (MDRD) Amer 128 mL/min >60 [facility] Comment on above: GFR Calc Estimated GFR (MDRD) Non-Af Amer 106 mL/min >60 [facility] Comment on above: Non- GFR Calc Troponin I High Sensitivity 10 pg/mL 3.0-78.0 [facility] Comment on above: Please Note: New Shirley t Units and Gender Specific Reference Ranges. For more information see Policy Stat Procedure [place] High Sensitivity Troponin (TNIH) and attachments. Urine RBC 0 SEEN /hpf 0-5 [facility] Platelet mean volume Goldy-Ec ker (Bld) [Entitic vol]Ordered By: Eddie Mckinley on 09-10-2023 Platelet mean volume (Bld) [Entitic vol] 9.3 fL 6.2-12.0 [facility] Protein Test strip Ql (U)Ord ered By: Eddie Mckinley on 09-10-2023 Protein Ql (U) Negative Negative [facility] RBC Auto (Bld) [#/Vol]Ordere d By: Eddie Mckilney on 09-10-2023 RBC (Bld) [#/Vol] 3.99 10*6/uL 4.6-6.2 [facility] Serum or plasma calcium guadalupe urement (mass/volume)Ordered By: Eddie Mckinley on 09-10-2023 Calcium [Mass/Vol] 9.0 mg/dL 8.5-10.1 [facility] Serum or plasma creatinine m easurement (mass/volume)Ordered By: Eddie Mckinley on 09-10-2023 Creatinine [Mass/Vol] 0.76 mg/dL 0.70-1.30 [facility] Comment on above: The validity of the calculated GFR & GFRAA in patients over 70 years has not been determined. Clinical correlation is essential. Serum or plasma urea nitroge n measurement (mass/volume)Ordered By: Eddie Mckinley on 09-10-2023 Urea nitrogen [Mass/Vol] 16 mg/dL 7-18 [facility] Squamous epithelial cells de tection in urine sediment by light microscopyOrdered By: Eddie Mckinley on 09-10-2023 Epithelial cells.squamous LM Ql (Urine sed) 0-5 SEEN /hpf 0-5 [facility] Thin prep Papanicolaou smear with manual screeningOrdered By: Eddie Mckinley on 09-10-2023 Thin prep Papanicolaou smear with manual screening 7 5-15 [facility] Urinalysis, Completeon 09-10 EPI,SQUAMOUS 0-5 SEEN Normal 0-5 [facility] Comment on above: Order Comment: CLEAN CATCH Performed By: #### L 400.0001 #### [facility] [address] [place], [address] WBC 0-5 SEEN Normal 0-5 [facility] Comment on above: Order Comment: CLEAN CATCH Performed By: #### L 400.0001 #### [facility] [address] [place], [address] BACTERIA 0 SEEN Normal None Seen [facility] Comment on above: Order Comment: CLEAN CATCH Performed By: #### L 400.0001 #### [facility] [address] [place], [address] Mucus Ql (Urine sed) 0 SEEN Normal [facility] Comment on above: Order Comment: CLEAN CATCH Performed By: #### L 400.0001 #### [facility] [address] [place], [address] RBC 0 SEEN Normal 0-5 [facility] Comment on above: Order Comment: CLEAN CATCH Performed By: #### L 400.0001 #### [facility] [address] [place], [address] Urine blood detectionOrdered By: Eddie Mckinley on 09-10-2023 RBC Ql (U) Negative Negative [facility] Urine clarityOrdered By: Monica Mckinley on 09-10-2023 Clarity (U) Clear Clear [facility] Urine color determinationOrd ered By: Eddie Mckinley on 09-10-2023 Color (U) Yellow Yellow [facility] Urine glucose detectionOrder ed By: Eddie Mckinley on 09-10-2023 Glucose Ql (U) Normal mg/dl Normal [facility] Urine leukocyte esterase det ection by dipstickOrdered By: Eddie Mckinley on 09-10-2023 Leukocyte esterase Test strip Ql (U) 25 /ul Negative [facility] Urine pHOrdered By: Eddie christy on 09-10-2023 pH (U) 6.5 [pH] 5.0 - 8.0 [facility] Urine sediment bacteria coun t by microscopy (number/high power field)Ordered By: Eddie Mckinley on 09-10-2023 Bacteria LM.HPF (Urine sed) [#/Area] 0 /[HPF] None Seen [facility] Urine specific gravity measu rementOrdered By: Eddiejessenia Mckinley on 09-10-2023 Specific gravity (U) [Rel density] 1.005 1.002-1.03 0 [facility] Urine urobilinogen measureme ntOrdered By: Eddie Mckinley on 09-10-2023 Urobilinogen Ql (U) Normal mg/dl Normal [facility] Urine Cultureon 08-06-2023 URC Culture exhibits no growth. Normal [facility] Comment on above: Performed By: #### M [id number] ####[facility] [id number] [facility] [place], [address] Basophil percentageOrdered B y: Richard Goff on 08-05-2023 Basophil percentage 5-10 SEEN /hpf 0-5 [facility] Bilirubin Test strip Ql (U)O rdered By: Richard Goff on 08-05-2023 Bilirubin Ql (U) Negative Negative [facility] Culture, urineOrdered By: Lewis Goff on 08-05-2023 Bacteria identified Cx Nom (U) Culture exhibits no growth. [facility] Bacteria identified Cx Nom (U) Culture exhibits no growth. [facility] Emergency Department Summary on 08-05-2023 Emergency Department Summary [facility] Medical Records Department [address] [place] [address] Emergency Department Summary 08/05/23 MR#: [id number] Acct: [id number] Name: MICHAEL GUTIERREZ Rep #: [id number] : [id number] From: Richard Goff MD PCP: Dr. Heather Gonsalez MD Status:REG ER Location: ED HPI History of Present Illness Chief Complaint: Complaint Detail of Chief Complaint: Dysuria and hematuria for 1 week. Informant: patient Pain Onset: Weeks Context: Gradual Onset Timing: Intermittent Current Severity: Mild Maximum Severity: Mild Narrative Narrative: 72-year-old male history of prostate cancer for which he underwent radiation therapy about a year and a half ago. States that he has had hematuria and dysuria for approximately 1 week. No fever. He is able to urinate. No prior history of UTI. Denies being on any blood thinners. Prior similar symptoms: No Recent Illness/Hospitalization: No PFSH PFSH Medical History Arthritis Back pain Basal cell carcinoma of nasal tip Cancer Cataract Easy bruising Heartburn History of stress test Neoplasm of skin of nasal tip Open wound of nose, complicated Prostate disease Skin cancer Wears dentures Wears glasses Wears partial dentures Home Medications amlodipine 5 mg tablet 5 mg PO DAILY blood pressure 08/05/14 [History Last Taken 06/03/22 05:00] gabapentin 300 mg capsule 300 tab PO BID nerve pain 08/05/14 [History Last Taken 02/13/21 14:00] celecoxib 200 mg capsule 200 mg PO DAILY anti-inflamatory 05/02/19 [History Last Taken 02/13/21 14:00] Allergy/AdvReac Type Severity Reaction Status Date / Time cortisone Allergy Other Verified 08/05/23 12:45 Family History Other Hypertension Skin cancer Surgical History History of back surgery History of basal cell carcinoma excision Hx of foot surgery Social History Smoking Status: Current every day smoker tobacco type: cigarettes alcohol intake: never substance use type: does not use additional social history: DOES NOT USE ASPIRIN DOES NOT USE IBUPROFEN ROS ROS ED ROS Narrative Dysuria. Hematuria. Review of Systems ROS Unobtainable: Denies due to encephalopathy Constitutional Constitutional ED: Denies chills or fever(s) Eyes Eyes: Denies blurry vision ENT ENT ED: Denies ear pain Cardiovascular Cardiovascular: Denies chest pain or palpitations Respiratory/Chest Respiratory/Chest: Denies cough or dyspnea Gastrointestinal Gastrointestinal: Denies abdominal pain, constipation, diarrhea, melena, nausea or vomiting Genitourinary Genitourinary ED: Reports hematuria Musculoskeletal Musculoskeletal: Denies arthralgias or myalgias Integumentary Denies rash Neurologic Neurologic: Denies headache(s) Psychiatric Psychiatric: Denies anxiety Endocrine Endocrinology: Denies polydipsia Hematologic/Lymphatic Hematologic/Lymphatic: Denies easy bleeding, easy bruising or lymphadenopathy Allergic/Immunologic Allergic/Immunologic ED: Denies mouth swelling, tongue swelling or urticaria EXAM Physical Exam Narrative Exam Narrative: Well-appearing 72-year-old male. Vital signs are stable afebrile. H EENT exam unremarkable. Neck nontender. Lungs are clear. Heart regular rhythm no murmur. Abdomen is soft and nontender. Moving all 4 extremities. Calves are nontender without edema. Neurologically is awake and alert with no focal motor deficits. Const Vital Signs: 08/05/23 12:44 Temperature 97.4 F L Temperature Source Temporal Pulse Rate 72 Respiratory Rate 14 Blood Pressure 132/98 H Blood Pressure Mean 109 Pulse Ox 95 Oxygen Delivery Method Room Air Positive well nourished and well developed; Negative for obese, cachectic, contractures or unkempt General Appearance ED: well developed and NAD; Negative for unkempt, cachectic, contractures or pallor Nutritional Appearance: Negative for cachectic or obese HEENT Reports moist mucous membranes normocephalic and atraumatic; Negative for trauma or tenderness Eyes PERRL and EOMs intact bilaterally General Eye ED: Negative for pale conjunctiva or scleral icterus Neck no lymphadenopathy, supple and no JVD General: Negative for tenderness Resp normal respiratory effort and clear to auscultation bilaterally Effort and Inspection: Negative for retractions Auscultation: Negative for rales, rhonchi or wheezes Cardio regular rate, regular rhythm, S1 normal heart sound, S2 normal heart sound and no murmurs Rate: Negative for bradycardia or tachycardic Rhythm: Negative for abnormal rhythm Heart Sounds: Negative for other GI non-tender, (more content not included)... Normal [facility] Ketones Test strip Ql (U)Ord ered By: Richard Goff on 08-05-2023 Ketones Ql (U) Negative Negative [facility] Mucus LM Ql (Urine sed)Order ed By: Richard Goff on 08-05-2023 Mucus Ql (Urine sed) RARE /hpf [facility] Nitrite Test strip Ql (U)Ord ered By: Richard Goff on 08-05-2023 Nitrite Ql (U) Negative Negative [facility] Protein Test strip Ql (U)Ord ered By: Richard Goff on 08-05-2023 Protein Ql (U) Negative Negative [facility] Squamous epithelial cells de tection in urine sediment by light microscopyOrdered By: Richard Goff on 08-05-2023 Epithelial cells.squamous LM Ql (Urine sed) 0-5 SEEN /hpf 0-5 [facility] Urinalysis, Completeon 08-05 BACTERIA RARE Normal None Seen [facility] Comment on above: Order Comment: CLEAN CATCH Performed By: #### L [id number] #### [facility] [address] [place], [address] Mucus Ql (Urine sed) RARE Normal [facility] Comment on above: Order Comment: CLEAN CATCH Performed By: #### L [id number] #### [facility] [address] [place], [address] EPI,SQUAMOUS 0-5 SEEN Normal 0-5 [facility] Comment on above: Order Comment: CLEAN CATCH Performed By: #### L [id number] #### [facility] [address] [place], [address] RBC 10-25 SEEN Normal 0-5 [facility] Comment on above: Order Comment: CLEAN CATCH Performed By: #### L [id number] #### [facility] [address] [place], [address] WBC 5-10 SEEN Normal 0-5 [facility] Comment on above: Order Comment: CLEAN CATCH Performed By: #### L [id number] #### [facility] [address] [place], [address] Urine blood detectionOrdered By: Richard Goff on 08-05-2023 RBC Ql (U) 250 /ul Negative [facility] RBC Ql (U) 10-25 SEEN /hpf 0-5 [facility] Urine clarityOrdered By: Darrin Goff on 08-05-2023 Clarity (U) Sl. Cloudy Clear [facility] Urine color determinationOrd ered By: Richard Goff on 08-05-2023 Color (U) Yellow Yellow [facility] Urine glucose detectionOrder ed By: Richard Goff on 08-05-2023 Glucose Ql (U) Normal mg/dl Normal [facility] Urine leukocyte esterase det ection by dipstickOrdered By: Richard Goff on 08-05-2023 Leukocyte esterase Test strip Ql (U) 500 /ul Negative [facility] Urine pHOrdered By: Richard Meek ght on 08-05-2023 pH (U) 5.0 [pH] 5.0 - 8.0 [facility] Urine sediment bacteria coun t by microscopy (number/high power field)Ordered By: Richard Goff on 08-05-2023 Bacteria LM.HPF (Urine sed) [#/Area] RARE /hpf None Seen [facility] Urine specific gravity measu rementOrdered By: Richard Goff on 08-05-2023 Specific gravity (U) [Rel density] 1.015 1.002-1.03 0 [facility] Urobilinogen Auto test strip Ql (U)Ordered By: Richard Goff on 08-05-2023 Urobilinogen Ql (U) Normal mg/dl Normal [facility] UA DIP, URINE (POC)on 2022 BILIRUBIN UA (POCT) Negative Negative [facility] CLARITY UA (POCT) Clear [facility] COLOR UA (POCT) Light yellow [facility] GLUCOSE UA (POCT) Negative Negative mg/dL [facility] HEMOGLOBIN/BLOOD UA (POCT) Negative Negative [facility] KETONE UA (POCT) Negative Negative mg/dL [facility] LEUKOCYTES UA (POCT) Negative Negative [facility] NITRITE UA (POCT) Negative Negative [facility] PH UA (POCT) 5.0 4.5 - 8.0 [facility] Protein Ql (U) Negative Negative mg/dL [facility] SPECIFIC GRAVITY UA (POCT) <=1.005 Abnormal 1.005 - 1.030 [facility] UROBILINOGEN UA (POCT) 0.2 E.U./dL Normal E.U./dL [facility] XR CHEST 2V FRONTAL/LATon [facility] XR Chest PA and Lateralon IMPRESSION: No acute radiographic abnormality. Supervisor Pressing Department: [facility]ISON Transcribe Date/Time: Nov 23 2022 8:17A Dictated by : DEVAN CHUNG MD This examination was interpreted and the report reviewed and electronically signed by: DEVAN CHUNG MD on Nov 23 2022 8:19AM [facility] DIVISION OF RADIOLOGY * * *Final Report* * * DATE OF EXAM: Nov 23 2022 8:12AM WOX 5291 - XR CHEST 2V FRONTAL/LAT / PROCEDURE REASON: Acute cough * * * * Physician Interpretation * * * * EXAMINATION: CHEST RADIOGRAPH (2 VIEW FRONTAL & LATERAL) CLINICAL HISTORY: Acute cough MQ: XC2_6 EXAM DATE/TIME: 11/23/2022 8:12 AM COMPARISON: 10/30/2020 RESULT: Lines, tubes, and devices: None. Lungs and pleura: No consolidation. No lung mass. No pleural effusion. No pneumothorax. Cardiomediastinal silhouette: Normal cardiomediastinal silhouette. Bones and soft tissues: Unremarkable. DIVISION OF RADIOLOGY Provider, [facility] - 11/23/2022 * * *Final Report* * * DATE OF EXAM: Nov 23 2022 8:12AM WOX 5291 - XR CHEST 2V FRONTAL/LAT / PROCEDURE REASON: Acute cough * * * * Physician Interpretation * * * * EXAMINATION: CHEST RADIOGRAPH (2 VIEW FRONTAL & LATERAL) CLINICAL HISTORY: Acute cough MQ: XC2_6 EXAM DATE/TIME: 11/23/2022 8:12 AM COMPARISON: 10/30/2020 RESULT: Lines, tubes, and devices: None. Lungs and pleura: No consolidation. No lung mass. No pleural effusion. No pneumothorax. Cardiomediastinal silhouette: Normal cardiomediastinal silhouette. Bones and soft tissues: Unremarkable. IMPRESSION IMPRESSION: No acute radiographic abnormality. Supervisor Pressing Department: ALLISON Transcribe Date/Time: Nov 23 2022 8:17A Dictated by : DEVAN CHUNG MD This examination was interpreted and the report reviewed and electronically signed by: DEVAN CHUNG MD on Nov 23 2022 8:19AM EST [facility] Radiology Study observation (narrative) [facility] XR Chest PA and LateralOrder ed By: [facility] Provider on 11-23-2022 [facility] Absolute lymphocyte counton 04-26-2022 Lymphocytes Auto (Unsp spec) [#/Vol] 0.54 10*3/uL 0.83-4.51 [facility] Work Phone: [phone] Basophil percentageon 2021 Basophils/100 WBC (Bld) 0.4 % 0-1 [facility] Work Phone: [phone] Bilirubin [Mass/Vol] 0.30 mg/dL 0.20-1.00 [facility] Work Phone: [phone] Comment on above: For patients on eltr ombopag therapy, use of Dimension [place] TBIL is not recommended. Chloride [Moles/Vol] 103 mmol/L 98-107 [facility] Work Phone: [phone] Eosinophils/100 WBC (Bld) 1.0 % 0-5 [facility] Work Phone: [phone] Glucose [Mass/Vol] 136 mg/dL 74-106 [facility] Work Phone: [phone] Comment on above: Fasting Glucose resu lt greater than or equal to 126 mg/dL suggests DIABETES MELLITUS per A.D.A. criteria. Neutrophils (Bld) [#/Vol] 6.6 10*3/uL 2.0-7.7 [facility] Work Phone: [phone] Neutrophils/100 WBC (Bld) 82.5 % 47-70 [facility] Work Phone: [phone] Potassium [Moles/Vol] 3.5 mmol/L 3.5-5.1 [facility] Work Phone: [phone] Protein [Mass/Vol] 6.9 g/dL 6.4-8.2 [facility] Work Phone: Sodium [Moles/Vol] 136 mmol/L 136-145 [facility] Work Phone: [phone] WBC (Bld) [#/Vol] 8.0 10*3/uL 4.4-11.0 [facility] Work Phone: Blood erythrocytes count (nu mber/volume)on 04-26-2022 RBC (Bld) [#/Vol] 3.71 10*6/uL 4.6-6.2 [facility] Work Phone: Blood hemoglobin measurement (mass/volume)on 04-26-2022 Hemoglobin (Bld) [Mass/Vol] 12.1 g/dL 13.0-16.5 [facility] Work Phone: Blood lymphocytes/100 leukoc yteson 04-26-2022 Lymphocytes/100 WBC (Bld) 6.8 % 19-41 [facility] Work Phone: Blood manual differential co mment interpretation (narrative result)on 04-26-2022 Manual differential comment Manfred (Bld) [Interp] SCANNED [facility] Work Phone: Blood monocytes/100 leukocyt eson 04-26-2022 Monocytes/100 WBC (Bld) 8.8 % 0-10 [facility] Work Phone: Blood platelet mean volumeon 04-26-2022 Platelet mean volume (Bld) [Entitic vol] 9.2 fL 6.2-12.0 [facility] Work Phone: Determination of erythrocyte mean corpuscular volume (MCV)on 04-26-2022 MCV (RBC) [Entitic vol] 96.8 fL 80-94 [facility] Work Phone: Hematocrit Auto (Bld) [Volum e fraction]on 04-26-2022 Hematocrit (Bld) [Volume fraction] 35.9 % 40-54 [facility] Work Phone: INR in Blood by Coagulation assayon 04-26-2022 INR Coag (Bld) [Relative time] 1.0 {INR} [facility] Work Phone: Laboratory - Chemistry and C hemistry - challengeon 04-26-2022 ALP [Catalytic activity/Vol] 90 U/L 45-117 [facility] Phone: ALT [Catalytic activity/Vol] 19 U/L 16-61 [facility] Work Phone: [phone] CO2 [Moles/Vol] 25.0 mmol/L 21.0-32.0 [facility] Work Phone: [phone] Globulin (S) [Mass/Vol] 3.9 g/dL 2.2-4.2 [facility] Work Phone: [phone] Urea nitrogen/Creatinine [Mass ratio] 14.5 mg/mg 10-20 [facility] Work Phone: [phone] Laboratory - Coagulationon 0 04-26-2022 aPTT Coag (Bld) [Time] 29.8 s 24.1-36.2 [facility] Work Phone: [phone] PT Coag (PPP) [Time] 13.3 s 11.7-14.9 [facility] Work Phone: Laboratory - Hematology and Cell countson 04-26-2022 Erythrocyte distribution width (RBC) [Entitic vol] 53.8 fL 35.1-43.9 [facility] Work Phone: [phone] Erythrocyte distribution width (RBC) [Ratio] 15.0 % 11.6-14.6 [facility] Work Phone: [phone] Immature granulocytes/100 WBC (Bld) 0.500 % 0.0-0.9 [facility] Work Phone: Comment on above: IG% - Immature Granu locytes (promyelocytes, myelocytes and metamyelocytes) > 1% indicates that a LEFT SHIFT is Present. MCH (RBC) [Entitic mass] 32.6 pg 27.0-32.0 [facility] Work Phone: [phone] Nucleated RBC/100 WBC (Bld) [Ratio] 0 % 0-5 [facility] Work Phone: [phone] MCHC Auto (RBC) [Mass/Vol]on 04-26-2022 MCHC (RBC) [Mass/Vol] 33.7 g/dL 32-36 [facility] Work Phone: No Panel Informationon 04-26 D-Dimer Quantitative (PE/DVT) 1.17 FEU/ug/m 0.27-0.49 [facility] Work Phone: Comment on above: D-Dimer ELEVATED (>0 .49): Additional studies and clinicalassessments are indicated to conclude diagnosis of:Deep Vein Thrombosis (DVT) or Pulmonary Embolism (PE)CRITICAL VALUE VERIFIED. CALLED TO CRISTY MONTELONGO04/26/22 0826 Beverley Longo.RESULTS READ BACK BY SAME . Estimated Creatinine Clearance Calc 76.69 ml/min [facility] Work Phone: Estimated GFR (MDRD) Amer 117 mL/min >60 [facility] Work Phone: Comment on above: GFR Calc Estimated GFR (MDRD) Non-Af Amer 97 mL/min >60 [facility] Work Phone: Comment on above: Non- GFR Calc Troponin I High Sensitivity 6 pg/mL 3.0-78.0 [facility] Work Phone: Comment on above: Please Note: New Shirley t Units and Gender Specific Reference Ranges. For more information see Policy Stat Procedure [place] High Sensitivity Troponin (TNIH) and attachments. Platelets bldon 04-26-2022 Platelets (Bld) [#/Vol] 236 10*3/uL 150-450 [facility] Work Phone: Serum or plasma albumin guadalupe urement (mass/volume)on 04-26-2022 Albumin [Mass/Vol] 3.0 g/dL 3.2-5.0 [facility] Work Phone: Serum or plasma albumin/glob ulin mass ratioon 04-26-2022 Albumin/Globulin [Mass ratio] 0.8 {ratio} 0.9-2.4 [facility] Work Phone: Serum or plasma calcium guadalupe urement (mass/volume)on 04-26-2022 Calcium [Mass/Vol] 8.5 mg/dL 8.5-10.1 [facility] Work Phone: Serum or plasma creatinine m easurement (mass/volume)on 04-26-2022 Creatinine [Mass/Vol] 0.83 mg/dL 0.70-1.30 [facility] Work Phone: Comment on above: The validity of the calculated GFR & GFRAA in patients over 70 years has not been determined. Clinical correlation is essential. Serum or plasma urea nitroge n measurement (mass/volume)on 04-26-2022 Urea nitrogen [Mass/Vol] 12 mg/dL 7-18 [facility] Work Phone: Thin prep Papanicolaou smear with manual screeningon 04-26-2022 Thin prep Papanicolaou smear with manual screening 12 U/L 15-37 [facility] Work Phone: Thin prep Papanicolaou smear with manual screening 8 5-15 [facility] Work Phone: UA DIP, URINE (POC)on 2021 BILIRUBIN UA (POCT) Negative Negative [facility] CLARITY UA (POCT) Clear [facility] COLOR UA (POCT) Yellow [facility] GLUCOSE UA (POCT) Negative Negative mg/dL [facility] HEMOGLOBIN/BLOOD UA (POCT) Negative Negative [facility] KETONE UA (POCT) Negative Negative mg/dL [facility] LEUKOCYTES UA (POCT) Negative Negative [facility] NITRITE UA (POCT) Negative Negative [facility] PH UA (POCT) 6.5 4.5 - 8.0 [facility] Protein Ql (U) Negative Negative mg/dL [facility] SPECIFIC GRAVITY UA (POCT) 1.010 1.005 - 1.030 [facility] UROBILINOGEN UA (POCT) 0.2 E.U./dL Normal E.U./dL [facility] CT ABD/PEL W IVCONon [facility] NM BONE WHOLE BODYon [facility] UA DIP, URINE (POC)on 2021 BILIRUBIN UA (POCT) Negative Negative [place] CLARITY UA (POCT) Clear [facility] COLOR UA (POCT) Yellow [facility] GLUCOSE UA (POCT) Negative Negative mg/dL [facility] HEMOGLOBIN/BLOOD UA (POCT) Negative Negative [facility] KETONE UA (POCT) Negative Negative mg/dL [facility] LEUKOCYTES UA (POCT) Trace Abnormal Negative [facility] NITRITE UA (POCT) Negative Negative [facility] PH UA (POCT) 6.0 4.5 - 8.0 [facility] Protein Ql (U) Negative Negative mg/dL [facility] SPECIFIC GRAVITY UA (POCT) 1.015 1.005 - 1.030 [facility] UROBILINOGEN UA (POCT) 0.2 E.U./dL Normal E.U./dL [facility] XR Chest PA and Lateralon IMPRESSION: Overall findings unchanged. Supervisor Pressing Department: ALLISON Transcribe Date/Time: Oct 30 2020 10:04A Dictated by : DEEPAK STOKES MD This examination was interpreted and the report reviewed and electronically signed by: DEEPAK STOKES MD on Oct 30 2020 10:07AM [facility] DIVISION OF RADIOLOGY * * *Final Report* * * DATE OF EXAM: Oct 30 2020 10:02AM WOX 5291 - XR CHEST 2V FRONTAL/LAT / PROCEDURE REASON: Suspected COVID-19 virus infection * * * * Physician Interpretation * * * * EXAMINATION: CHEST RADIOGRAPH (2 VIEW FRONTAL & LATERAL) CLINICAL HISTORY: Suspected COVID-19 virus infection MQ: XC2_6 EXAM DATE/TIME: 10/30/2020 10:02 AM COMPARISON: Chest x-ray on 10/10/2019. RESULT: Lines, tubes, and devices: None. Lungs and pleura: Mild left bibasilar atelectasis unchanged. No new consolidation. No lung mass. No pleural effusion. No pneumothorax. Cardiomediastinal silhouette: There appears to be small pericardial effusion. Tortuosity of the thoracic aorta is demonstrated. Bones and soft tissues: The spine shows degenerative changes. DIVISION OF RADIOLOGY Provider, [facility] - 10/30/2020 * * *Final Report* * * DATE OF EXAM: Oct 30 2020 10:02AM WOX 5291 - XR CHEST 2V FRONTAL/LAT / PROCEDURE REASON: Suspected COVID-19 virus infection * * * * Physician Interpretation * * * * EXAMINATION: CHEST RADIOGRAPH (2 VIEW FRONTAL & LATERAL) CLINICAL HISTORY: Suspected COVID-19 virus infection MQ: XC2_6 EXAM DATE/TIME: 10/30/2020 10:02 AM COMPARISON: Chest x-ray on 10/10/2019. RESULT: Lines, tubes, and devices: None. Lungs and pleura: Mild left bibasilar atelectasis unchanged. No new consolidation. No lung mass. No pleural effusion. No pneumothorax. Cardiomediastinal silhouette: There appears to be small pericardial effusion. Tortuosity of the thoracic aorta is demonstrated. Bones and soft tissues: The spine shows degenerative changes. IMPRESSION IMPRESSION: Overall findings unchanged. Supervisor Pressing Department: [facility] Transcribe Date/Time: Oct 30 2020 10:04A Dictated by : DEEPAK STOKES MD This examination was interpreted and the report reviewed and electronically signed by: DEEPAK STOKES MD on Oct 30 2020 10:07AM EST [facility] Radiology Study observation (narrative) [facility] XR Chest PA and LateralOrder ed By: [facility] Provider on 10-30-2020 [facility] Office Visit: Spine Visiton 06-08-2017 Documentation of current medications (procedure) Done Invalid Interpretation Code [facility] Work Phone: Smoking cessation education (procedure) yes Invalid Interpretation Code [facility] Work Phone: Tobacco use [facility] Current every day smoker Invali d Interpretation Code [facility] Work Phone: Office Visit: Spine Visiton 03-09-2017 Protein mass conc Done Invalid Interpretation Code [facility] Work Phone: Protein mass conc yes Invalid Interpretation Code [facility] Work Phone: Tobacco smoking status NHIS Current every day smoker Invalid Interpretation Code [facility] Work Phone: Office Visiton 12-21-2016 Documentation of current medications (procedure) Done Invalid Interpretation Code [facility] Work Phone: Protein mass conc Done [facility] Work Phone: [phone] [facility]: [phone] Smoking cessation education (procedure) yes Invalid Interpretation Code [facility] Work Phone: [phone] Tobacco smoking status NHIS Current every day [facility] Work Phone: [phone] Tobacco use CP Current every day smoker Invali d Interpretation Code [facility] Work Phone: [phone] Office Visit: Spine Visiton 11-16-2016 Documentation of current medications (procedure) Done Invalid Interpretation Code [facility] Work Phone: [phone] Smoking cessation education (procedure) yes Invalid Interpretation Code [facility] Work Phone: [phone] Tobacco use [facility] Current every day smoker Invali d Interpretation Code [facility] Work Phone: [phone] Vital Signs Date Time Vital Sign Value Performing Clinician Facility 04-11-2025 09:59-0400 Body mass index (BMI) [Ratio] 23.43 kg/m2 Serjio Julien ADVERTISING SALES EXECUTIVE.BUSINESS SYSTEMS ADVISOR Work Phone: [facility] 04-11-2025 09:59-0400 Body temperature 96.91 [degF] Serjio Julien ADVERTISING SALES EXECUTIVE.BUSINESS SYSTEMS ADVISOR Work Phone: [facility] 04-11-2025 09:59-0400 Body weight 69.9 kg Serjio Julien ADVERTISING SALES EXECUTIVE.BUSINESS SYSTEMS ADVISOR Work Phone: [facility] 04-11-2025 09:59-0400 Diastolic blood pressure 70 mm[Hg] Serjio Julien ADVERTISING SALES EXECUTIVE.BUSINESS SYSTEMS ADVISOR Work Phone: [facility] 04-11-2025 09:59-0400 Heart rate 72 /min Serjio Julien ADVERTISING SALES EXECUTIVE.BUSINESS SYSTEMS ADVISOR Work Phone: [facility] 04-11-2025 09:59-0400 Respiratory rate 16 /min Serjio Julien ADVERTISING SALES EXECUTIVE.BUSINESS SYSTEMS ADVISOR Work Phone: [facility] 04-11-2025 09:59-0400 SaO2% (BldA) [Mass fraction] 96 % Serjio Wily ADVERTISING SALES EXECUTIVE.BUSINESS SYSTEMS ADVISOR Work Phone: [facility] 04-11-2025 09:59-0400 Systolic blood pressure 126 mm[Hg] Serjio Wily ADVERTISING SALES EXECUTIVE.BUSINESS SYSTEMS ADVISOR Work Phone: [facility] 01-08-2025 13:10-0400 Body mass index (BMI) [Ratio] 23.53 kg/m2 Alma Delia Calzada ADVERTISING SALES EXECUTIVE.BUSINESS SYSTEMS ADVISOR Work Phone: [facility] 01-08-2025 13:10-0400 Body temperature 97.11 [degF] Alma Delia Calzada ADVERTISING SALES EXECUTIVE.BUSINESS SYSTEMS ADVISOR Work Phone: [facility] 01-08-2025 13:10-0400 Body weight 70.2 kg Alma Delia Calzada ADVERTISING SALES EXECUTIVE.BUSINESS SYSTEMS ADVISOR Work Phone: [facility] 01-08-2025 13:10-0400 Diastolic blood pressure 72 mm[Hg] Alma Delia Calzada ADVERTISING SALES EXECUTIVE.BUSINESS SYSTEMS ADVISOR Work Phone: [facility] 01-08-2025 13:10-0400 Heart rate 70 /min Alma Delia Calzada ADVERTISING SALES EXECUTIVE.BUSINESS SYSTEMS ADVISOR Work Phone: [facility] 01-08-2025 13:10-0400 Respiratory rate 16 /min Alma Delia Calzada ADVERTISING SALES EXECUTIVE.BUSINESS SYSTEMS ADVISOR Work Phone: [facility] 01-08-2025 13:10-0400 SaO2% (BldA) [Mass fraction] 96 % Alma Delia Calzada ADVERTISING SALES EXECUTIVE.BUSINESS SYSTEMS ADVISOR Work Phone: [facility] 01-08-2025 13:10-0400 Systolic blood pressure 130 mm[Hg] Alma Delia Calzada ADVERTISING SALES EXECUTIVE.BUSINESS SYSTEMS ADVISOR Work Phone: [facility] 12-26-2024 09:43-0400 Body height 172.7 cm Heri Humphries PA-C Work Phone: [facility] 12-26-2024 09:43-0400 Body mass index (BMI) [Ratio] 23.42 kg/m2 Heri Humphries PA-C Work Phone: [facility] 12-26-2024 09:43-0400 Body temperature 97.3 [degF] Heri Humphries PA-C Work Phone: [facility] 12-26-2024 09:43-0400 Body weight 69.85 kg Heri Humphries PA-C Work Phone: [facility] 12-26-2024 09:43-0400 Diastolic blood pressure 68 mm[Hg] Heri Humphries PA-C Work Phone: [facility] 12-26-2024 09:43-0400 Heart rate 74 /min Heri Humphries PA-C Work Phone: [facility] 12-26-2024 09:43-0400 Respiratory rate 14 /min Heri Humphries PA-C Work Phone: [facility] 12-26-2024 09:43-0400 SaO2% (BldA) [Mass fraction] 97 % Heri Humphries PA-C Work Phone: [facility] 12-26-2024 09:43-0400 Systolic blood pressure 116 mm[Hg] Heri Humphries PA-C Work Phone: [facility] 10-12-2024 10:53-0500 Body mass index (BMI) [Ratio] 23.77 kg/m2 Heather Gonsalez MD Work Phone: [facility] 10-12-2024 10:53-0500 Body weight 70.9 kg Heather Gonsalez MD Work Phone: [facility] 10-12-2024 10:53-0500 Diastolic blood pressure 78 mm[Hg] Heather Gonsalez MD Work Phone: [facility] 10-12-2024 10:53-0500 Heart rate 60 /min Heather Gonsalez MD Work Phone: [facility] 10-12-2024 10:53-0500 Respiratory rate 16 /min Heather Gonsalez MD Work Phone: [facility] 10-12-2024 10:53-0500 SaO2% (BldA) [Mass fraction] 99 % Heather Gonsalez MD Work Phone: [facility] 10-12-2024 10:53-0500 Systolic blood pressure 124 mm[Hg] Heather Gonsalez MD Work Phone: [facility] 06-29-2024 08:33-0500 Body mass index (BMI) [Ratio] 23.8 kg/m2 Licha Farley APRN.BUSINESS SYSTEMS ADVISOR Work Phone: [facility] 06-29-2024 08:33-0500 Body temperature 97 [degF] Licha Farley APRN.BUSINESS SYSTEMS ADVISOR Work Phone: [facility] 06-29-2024 08:33-0500 Body weight 71 kg Licha Farley APRN.BUSINESS SYSTEMS ADVISOR Work Phone: [facility] 06-29-2024 08:33-0500 Diastolic blood pressure 67 mm[Hg] Licha Farley APRN.BUSINESS SYSTEMS ADVISOR Work Phone: [facility] 06-29-2024 08:33-0500 Heart rate 76 /min Licha Farley APRN.BUSINESS SYSTEMS ADVISOR Work Phone: [facility] 06-29-2024 08:33-0500 Respiratory rate 22 /min Licha Farley APRN.BUSINESS SYSTEMS ADVISOR Work Phone: [facility] 06-29-2024 08:33-0500 SaO2% (BldA) [Mass fraction] 94 % Licha Farley APRN.BUSINESS SYSTEMS ADVISOR Work Phone: [facility] 06-29-2024 08:33-0500 Systolic blood pressure 132 mm[Hg] Licha Farley APRN.BUSINESS SYSTEMS ADVISOR Work Phone: [facility] 06-22-2024 08:56-0500 Body mass index (BMI) [Ratio] 23.8 kg/m2 Marcello Hilton MD Work Phone: [facility] 06-22-2024 08:56-0500 Body temperature 96.69 [degF] Marcello Hilton MD Work Phone: [facility] 06-22-2024 08:56-0500 Body weight 71 kg Marcello Hilton MD Work Phone: [facility] 06-22-2024 08:56-0500 Diastolic blood pressure 82 mm[Hg] Marcello Hilton MD Work Phone: [facility] 06-22-2024 08:56-0500 Heart rate 79 /min Marcello Hilton MD Work Phone: [facility] 06-22-2024 08:56-0500 Respiratory rate 26 /min Marcello Hilton MD Work Phone: [facility] 06-22-2024 08:56-0500 SaO2% (BldA) [Mass fraction] 92 % Marcello Hilton MD Work Phone: [facility] 06-22-2024 08:56-0500 Systolic blood pressure 128 mm[Hg] Marcello Hilton MD Work Phone: [facility] 04-07-2024 10:51-0400 Body mass index (BMI) [Ratio] 23.9 kg/m2 Heather Gonsalez MD Work Phone: [facility] 04-07-2024 10:51-0400 Body weight 71.3 kg Heather Gonsalez MD Work Phone: [facility] 04-07-2024 10:51-0400 Diastolic blood pressure 68 mm[Hg] Heather Gonsalez MD Work Phone: [facility] 04-07-2024 10:51-0400 Heart rate 70 /min Heather Gonsalez MD Work Phone: [facility] 04-07-2024 10:51-0400 Respiratory rate 18 /min Heather Gonsalez MD Work Phone: [facility] 04-07-2024 10:51-0400 Systolic blood pressure 106 mm[Hg] Heather Gonsalez MD Work Phone: [facility] 12-21-2023 10:57-0400 Body mass index (BMI) [Ratio] 24.94 kg/m2 Heri Humphries PA-C Work Phone: [facility] 12-21-2023 10:57-0400 Body weight 74.39 kg Heri Humphries PA-C Work Phone: [facility] 12-21-2023 10:57-0400 Diastolic blood pressure 76 mm[Hg] Heri Humphries PA-C Work Phone: [facility] 12-21-2023 10:57-0400 Heart rate 79 /min Heri Humphries PA-C Work Phone: [facility] 12-21-2023 10:57-0400 SaO2% (BldA) [Mass fraction] 97 % Heri Humphries PA-C Work Phone: [facility] 12-21-2023 10:57-0400 Systolic blood pressure 136 mm[Hg] Heri Humphries PA-C Work Phone: [facility] 11-03-2023 09:00-0400 Body temperature 97.9 [degF] Dr. Heather Gonsalez Work Phone: [facility] 11-03-2023 09:00-0400 Diastolic blood pressure 82 mm[Hg] Dr. Heather Gonsalez Work Phone: [facility] 11-03-2023 09:00-0400 Heart rate 67 /min Dr. Heather Gonsalez Work Phone: [facility] 11-03-2023 09:00-0400 Inhaled oxygen flow rate 4 L/min Dr. Heather Gonsalez Work Phone: [facility] 11-03-2023 09:00-0400 Respiratory rate 16 /min Dr. Heather Gonsalez Work Phone: [facility] 11-03-2023 09:00-0400 SaO2% (BldA) [Mass fraction] 100 % Dr. Heather Gonsalez Work Phone: [facility] 11-03-2023 09:00-0400 Systolic blood pressure 120 mm[Hg] Dr. Heather Gonsalez Work Phone: [facility] 11-03-2023 06:22-0400 Body height 172.[address] Heather Gonsalez Work Phone: [facility] 11-03-2023 06:22-0400 Body mass index (BMI) [Ratio] 24.7 kg/m2 Dr. Heather Gonsalez Work Phone: [facility] 11-03-2023 06:22-0400 Body weight [address] Heather Gonsalez Work Phone: [facility] 10-22-2023 09:49-0500 Body mass index (BMI) [Ratio] 25 kg/m2 Dr. Heather Gonsalez Work Phone: [facility] 10-22-2023 09:49-0500 Body weight 74.[address] Heather Gonsalez Work Phone: [facility] 10-05-2023 11:05-0500 Body weight 73.3 kg Heather Gonsalez MD Work Phone: [facility] 10-05-2023 11:05-0500 Diastolic blood pressure 82 mm[Hg] Heather Gonsalez MD Work Phone: [facility] 10-05-2023 11:05-0500 Heart rate 74 /min Heather Gonsalez MD Work Phone: [facility] 10-05-2023 11:05-0500 Respiratory rate 18 /min Heather Gonsalez MD Work Phone: [facility] 10-05-2023 11:05-0500 Systolic blood pressure 126 mm[Hg] Heather Gonsalez MD Work Phone: [facility] 09-10-2023 12:16-0500 Diastolic blood pressure 72 mm[Hg] [facility] 09-10-2023 12:16-0500 Heart rate 81 /min [facility] 09-10-2023 12:16-0500 Respiratory rate 16 /min [facility] 09-10-2023 12:16-0500 SaO2% (BldA) [Mass fraction] 98 % [facility] 09-10-2023 12:16-0500 Systolic blood pressure 138 mm[Hg] [facility] 09-10-2023 07:50-0500 Body height 172.72 cm [facility] 09-10-2023 07:50-0500 Body mass index (BMI) [Ratio] 25.4 kg/m2 [facility] 09-10-2023 07:50-0500 Body temperature 96.8 [degF] [facility] 09-10-2023 07:50-0500 Body weight 75.74 kg [facility] 08-05-2023 15:42-0500 Heart rate 81 /min [facility] 08-05-2023 15:42-0500 Respiratory rate 16 /min [facility] 08-05-2023 15:42-0500 SaO2% (BldA) [Mass fraction] 97 % [facility] 08-05-2023 12:44-0500 Body height 172.72 cm [facility] 08-05-2023 12:44-0500 Body mass index (BMI) [Ratio] 25.4 kg/m2 [facility] 08-05-2023 12:44-0500 Body temperature 97.4 [degF] [facility] 08-05-2023 12:44-0500 Body weight 75.94 kg [facility] 08-05-2023 12:44-0500 Diastolic blood pressure 98 mm[Hg] [facility] 08-05-2023 12:44-0500 Systolic blood pressure 132 mm[Hg] [facility] 04-06-2023 11:01-0400 Body weight 75.75 kg Heather Gonsalez MD Work Phone: [facility] 04-06-2023 11:01-0400 Diastolic blood pressure 82 mm[Hg] Heather Gonsalez MD Work Phone: [facility] 04-06-2023 11:01-0400 Heart rate 76 /min Heather Gonsalez MD Work Phone: [facility] 04-06-2023 11:01-0400 Respiratory rate 16 /min Heather Gonsalez MD Work Phone: [facility] 04-06-2023 11:01-0400 Systolic blood pressure 126 mm[Hg] Heather Gonsalez MD Work Phone: [facility] 02-09-2023 10:25-0400 Body height 172.7 cm Heri Humphries PA-C Work Phone: [facility] 02-09-2023 10:25-0400 Body temperature 97.11 [degF] Heri Humphries PA-C Work Phone: [facility] 02-09-2023 10:25-0400 Body weight 75.75 kg Heri Humphries PA-C Work Phone: [facility] 02-09-2023 10:25-0400 Diastolic blood pressure 90 mm[Hg] Heri Humphries PA-C Work Phone: [facility] 02-09-2023 10:25-0400 Heart rate 79 /min Heri Humphries PA-C Work Phone: [facility] 02-09-2023 10:25-0400 Respiratory rate 18 /min Heri Humphries PA-C Work Phone: [facility] 02-09-2023 10:25-0400 SaO2% (BldA) [Mass fraction] 93 % Heri Humphries PA-C Work Phone: [facility] 02-09-2023 10:25-0400 Systolic blood pressure 130 mm[Hg] Heri Humphries PA-C Work Phone: [facility] 11-23-2022 07:51-0400 Body temperature 96.8 [degF] Margarita Athy PA-C Work Phone: [facility] 11-23-2022 07:51-0400 Body weight 77.02 kg Margarita Athy PA-C Work Phone: [facility] 11-23-2022 07:51-0400 Diastolic blood pressure 62 mm[Hg] Margarita Athy PA-C Work Phone: [facility] 11-23-2022 07:51-0400 Heart rate 82 /min Margarita Athy PA-C Work Phone: [facility] 11-23-2022 07:51-0400 Respiratory rate 21 /min Margarita Athy PA-C Work Phone: [facility] 11-23-2022 07:51-0400 SaO2% (BldA) [Mass fraction] 95 % Margarita Athy PA-C Work Phone: [facility] 11-23-2022 07:51-0400 Systolic blood pressure 142 mm[Hg] Margarita Athy PA-C Work Phone: [facility] 10-06-2022 10:32-0500 Body weight 75.3 kg Heather Gonsalez MD Work Phone: [facility] 10-06-2022 10:32-0500 Diastolic blood pressure 80 mm[Hg] Heather Gonsalez MD Work Phone: [facility] 10-06-2022 10:32-0500 Heart rate 68 /min Heather Gonsalez MD Work Phone: [facility] 10-06-2022 10:32-0500 Respiratory rate 16 /min Heather Gonsalez MD Work Phone: [facility] 10-06-2022 10:32-0500 Systolic blood pressure 126 mm[Hg] Heather Gonsalez MD Work Phone: [facility] 07-23-2022 12:21-0500 Body height 172.7 cm Vanessa Dodson DO Work Phone: [facility] 07-23-2022 12:21-0500 Body weight 74.39 kg Vanessa Dodson DO Work Phone: [facility] 06-03-2022 09:59-0400 Body temperature 97.3 [degF] Dr. Heather Gonsalez Work Phone: [facility] Work Phone: 06-03-2022 09:59-0400 Diastolic blood pressure 65 mm[Hg] Dr. Heather Gonsalez Work Phone: [facility] Work Phone: 06-03-2022 09:59-0400 Heart rate 83 /min Dr. Heather Gonsalez Work Phone: [facility] Work Phone: 06-03-2022 09:59-0400 Respiratory rate 16 /min Dr. Heather Gonsalez Work Phone: [facility] Work Phone: 06-03-2022 09:59-0400 SaO2% (BldA) [Mass fraction] 92 % Dr. Heather Gonsalez Work Phone: [facility] Work Phone: 06-03-2022 09:59-0400 Systolic blood pressure 149 mm[Hg] Dr. Heather Gonsalez Work Phone: [facility] Work Phone: 06-03-2022 06:04-0400 Body height 172.[address] Heather Gonsalez Work Phone: [facility] Work Phone: 06-03-2022 06:04-0400 Body mass index (BMI) [Ratio] 24.7 kg/m2 Dr. Heather Gonsalez Work Phone: [facility] Work Phone: 06-03-2022 06:04-0400 Body weight [address] Heather Gonsalez Work Phone: [facility] Work Phone: 05-19-2022 10:42-0400 Body mass index (BMI) [Ratio] 24.8 kg/m2 Dr. Heather Gonsalez Work Phone: [facility] Work Phone: 05-19-2022 10:42-0400 Body temperature 97.6 [degF] Dr. Heather Gonsalez Work Phone: [facility] Work Phone: 05-19-2022 10:42-0400 Body weight 74.[address] Heather Gonsalez Work Phone: [facility] Work Phone: 05-19-2022 10:42-0400 Diastolic blood pressure 80 mm[Hg] Dr. Heather Gonsalez Work Phone: [facility] Work Phone: 05-19-2022 10:42-0400 Heart rate 78 /min Dr. Heather Gonsalez Work Phone: [facility] Work Phone: 05-19-2022 10:42-0400 Respiratory rate 16 /min Dr. Heather Gonsalez Work Phone: [facility] Work Phone: 05-19-2022 10:42-0400 SaO2% (BldA) [Mass fraction] 95 % Dr. Heather Gonsalez Work Phone: [facility] Work Phone: 05-19-2022 10:42-0400 Systolic blood pressure 131 mm[Hg] Dr. Heather Gonsalez Work Phone: [facility] Work Phone: 04-26-2022 07:14-0400 Body height 172.72 cm [facility] Work Phone: 04-26-2022 07:14-0400 Body mass index (BMI) [Ratio] 24.7 kg/m2 [facility] Work Phone: 04-26-2022 07:14-0400 Body temperature 97.9 [degF] [facility] Work Phone: 04-26-2022 07:14-0400 Body weight 73.93 kg [facility] Work Phone: 04-26-2022 07:14-0400 Diastolic blood pressure 124 mm[Hg] [facility] Work Phone: 04-26-2022 07:14-0400 Heart rate 81 /min [facility] Work Phone: 04-26-2022 07:14-0400 Respiratory rate 18 /min [facility] Work Phone: 04-26-2022 07:14-0400 SaO2% (BldA) [Mass fraction] 98 % [facility] Work Phone: 04-26-2022 07:14-0400 Systolic blood pressure 166 mm[Hg] [facility] Work Phone: 04-07-2022 10:22-0400 Diastolic blood pressure 87 mm[Hg] Abimael Arevalo MD, MD Work Phone: [facility] 04-07-2022 10:22-0400 Heart rate 70 /min Abimael Arevalo MD, MD Work Phone: [facility] 04-07-2022 10:22-0400 Systolic blood pressure 172 mm[Hg] Abimael Arevalo MD, MD Work Phone: [facility] 04-07-2022 10:10-0400 Body temperature 97.59 [degF] Abimael Arevalo MD, MD Work Phone: [facility] 04-07-2022 10:10-0400 Body weight 75.07 kg Abimael Arevalo MD, MD Work Phone: [facility] 04-07-2022 10:10-0400 Respiratory rate 15 /min Abimael Arevalo MD, MD Work Phone: [facility] 04-07-2022 10:10-0400 SaO2% (BldA) [Mass fraction] 97 % Abimael Arevalo MD, MD Work Phone: [facility] 04-02-2022 14:02-0400 Body weight 75.61 kg Heather Gonsalez MD Work Phone: [facility] 04-02-2022 14:02-0400 Diastolic blood pressure 84 mm[Hg] Heather Gonsalez MD Work Phone: [facility] 04-02-2022 14:02-0400 Heart rate 68 /min Heather Gonsalez MD Work Phone: [facility] 04-02-2022 14:02-0400 Respiratory rate 16 /min Heather Gonsalez MD Work Phone: [facility] 04-02-2022 14:02-0400 Systolic blood pressure 136 mm[Hg] Heather Gonsalez MD Work Phone: [facility] 03-24-2022 10:17-0400 Diastolic blood pressure 88 mm[Hg] Abimael Arevalo MD, MD Work Phone: [facility] 03-24-2022 10:17-0400 Heart rate 76 /min Abimael Arevalo MD, MD Work Phone: [facility] 03-24-2022 10:17-0400 Systolic blood pressure 170 mm[Hg] Abimael Arevalo MD, MD Work Phone: [facility] 03-24-2022 10:09-0400 Body temperature 97.39 [degF] Abimael Arevalo MD, MD Work Phone: [facility] 03-24-2022 10:09-0400 Body weight 75.75 kg Abimael Arevalo MD, MD Work Phone: [facility] 03-24-2022 10:09-0400 Respiratory rate 15 /min Abimael Arevalo MD, MD Work Phone: [facility] 03-24-2022 10:09-0400 SaO2% (BldA) [Mass fraction] 99 % Abimeal Arevalo MD, MD Work Phone: [facility] 03-17-2022 10:07-0400 Body temperature 97.81 [degF] Abimael Arevalo MD, MD Work Phone: [facility] 03-17-2022 10:07-0400 Body weight 74.12 kg Abimael Arevalo MD, MD Work Phone: [facility] 03-17-2022 10:07-0400 Diastolic blood pressure 83 mm[Hg] Abimael Arevalo MD, MD Work Phone: [facility] 03-17-2022 10:07-0400 Heart rate 68 /min Abimael Arevalo MD, MD Work Phone: [facility] 03-17-2022 10:07-0400 Respiratory rate 16 /min Abimael Arevalo MD, MD Work Phone: [facility] 03-17-2022 10:07-0400 SaO2% (BldA) [Mass fraction] 95 % Abimael Arevalo MD, MD Work Phone: [facility] 03-17-2022 10:07-0400 Systolic blood pressure 139 mm[Hg] Abimael Arevalo MD, MD Work Phone: [facility] 03-03-2022 10:25-0400 Body temperature 97.5 [degF] Abimael Arevalo MD, MD Work Phone: [facility] 03-03-2022 10:25-0400 Body weight 73.85 kg Abimael Arevalo MD, MD Work Phone: [facility] 03-03-2022 10:25-0400 Diastolic blood pressure 88 mm[Hg] Abimael Arevalo MD, MD Work Phone: [facility] 03-03-2022 10:25-0400 Heart rate 69 /min Abimael Arevalo MD, MD Work Phone: [facility] 03-03-2022 10:25-0400 Respiratory rate 20 /min Abimael Arevalo MD, MD Work Phone: [facility] 03-03-2022 10:25-0400 SaO2% (BldA) [Mass fraction] 96 % Abimael Arevalo MD, MD Work Phone: [facility] 03-03-2022 10:25-0400 Systolic blood pressure 168 mm[Hg] Abimael Arevalo MD, MD Work Phone: [facility] 12-31-2021 13:50-0400 Diastolic blood pressure 87 mm[Hg] Abimael Arevalo MD, MD Work Phone: [facility] 12-31-2021 13:50-0400 Heart rate 70 /min Abimael Arevalo MD, MD Work Phone: [facility] 12-31-2021 13:50-0400 Systolic blood pressure 159 mm[Hg] Abimael Arevalo MD, MD Work Phone: [facility] 12-31-2021 13:44-0400 Body temperature 97.81 [degF] Abimael Arevalo MD, MD Work Phone: [facility] 12-31-2021 13:44-0400 Body weight 76.89 kg Abimael Arevalo MD, MD Work Phone: [facility] 12-31-2021 13:44-0400 Respiratory rate 16 /min Abimael Arevalo MD, MD Work Phone: [facility] 12-31-2021 13:44-0400 SaO2% (BldA) [Mass fraction] 95 % Abimael Arevalo MD, MD Work Phone: [facility] 12-25-2021 09:27-0400 Body height 174 cm Vanessa Dodson DO Work Phone: [facility] 12-25-2021 09:27-0400 Body weight 73.94 kg Marcellojeremiah EsparzaWest DO Work Phone: [facility] 12-05-2021 10:58-0400 Body height 174 cm Delvis Isidro MD Work Phone: [facility] 12-05-2021 10:58-0400 Body weight 77.56 kg Delvis Isidro MD Work Phone: [facility] 12-05-2021 10:58-0400 Diastolic blood pressure 72 mm[Hg] Delvis Isidro MD Work Phone: [facility] 12-05-2021 10:58-0400 Heart rate 66 /min Delvis Isidro MD Work Phone: [facility] 12-05-2021 10:58-0400 Respiratory rate 18 /min Delvis Isidro MD Work Phone: [facility] 12-05-2021 10:58-0400 Systolic blood pressure 128 mm[Hg] Delvis Isidro MD Work Phone: [facility] 11-11-2021 13:32-0400 Body height 174 cm Heri Humphries PA-C Work Phone: [facility] 11-11-2021 13:32-0400 Body temperature 97.7 [degF] Heri Humphries PA-C Work Phone: [facility] 11-11-2021 13:32-0400 Body weight 77.11 kg Heri Humphries PA-C Work Phone: [facility] 11-11-2021 13:32-0400 Diastolic blood pressure 80 mm[Hg] Heri Humphries PA-C Work Phone: [facility] 11-11-2021 13:32-0400 Heart rate 72 /min Heri Humphries PA-C Work Phone: [facility] 11-11-2021 13:32-0400 Respiratory rate 16 /min Heri Humphries PA-C Work Phone: [facility] 11-11-2021 13:32-0400 SaO2% (BldA) [Mass fraction] 95 % Heri Humphries PA-C Work Phone: [facility] 11-11-2021 13:32-0400 Systolic blood pressure 150 mm[Hg] Heri Humphries PA-C Work Phone: [facility] 07-20-2016 15:12-0500 BMI (Body Mass Index) 23.87 kg/m2 [facility] Work Phone: 07-20-2016 15:12-0500 Height 172.72 cm [facility] Work Phone: 07-20-2016 15:12-0500 Weight 71.22 kg Alma Delia Velasco [facility] Orth[facility] Work Phone: Encounters Encounter Date Encounter Type Care Provider Facility Start: 04-17-2025 End: 04-17-2025 Nursing evaluation of patient and report Nurse Urol [facility] Work Phone: Urology Comment on above: Prostate cancer (HCC ) (Primary Dx) Start: 04-17-2025 End: 04-17-2025 ambulatory [facility] Facility:[facility] Start: 04-11-2025 End: 04-11-2025 Follow-up encounter Serjio Julien APRN.BUSINESS SYSTEMS ADVISOR Work Phone: [facility] [place] Comment on above: Results Start: 04-11-2025 End: 04-11-2025 Subsequent hospital visit by physician Xr [facility] [place] Work Phone: Radiology Comment on above: Foot pain, right [M7 9.671] Start: 04-11-2025 End: 04-11-2025 Office outpatient visit 15 minutes Serjio Julien APRN.BUSINESS SYSTEMS ADVISOR Work Phone: [facility] [place] Comment on above: Foot pain, right (Pr imary Dx) Start: 04-11-2025 End: 04-11-2025 ambulatory [facility] Facility:[facility] Start: 04-10-2025 End: 04-11-2025 Telephone encounter Heri Humphries PA-C Work Phone: Urology Comment on above: Injections Start: 04-09-2025 End: 04-09-2025 ambulatory HERI HUMPHRIES Facility:[facility] Start: 03-06-2025 End: 03-06-2025 ambulatory Carlie Terry MA [facility] [place] Start: 03-06-2025 End: 03-06-2025 Patient encounter procedure Carlie Terry MA [facility] [place] Comment on above: Population Health Na vigation Outreach ([place]/Workbench/ACO ) Start: 01-08-2025 End: 01-08-2025 Patient encounter procedure Alma Delia Calzada APRN.BUSINESS SYSTEMS ADVISOR Work Phone: [facility] Comment on above: Pain, dental (Primar y Dx) Start: 01-08-2025 End: 01-08-2025 ambulatory [facility] Facility:[facility] Start: 01-03-2025 End: 01-03-2025 ambulatory [facility] Facility:[facility] Start: 12-26-2024 End: 12-26-2024 Patient encounter procedure Heri Humphries PA-C Work Phone: Urology Comment on above: Hx of malignant neop lasm of prostate (Primary Dx); Screening for genitourinary condition; Other symptoms and signs involving the genitourinary system Start: 12-26-2024 End: 12-26-2024 ambulatory HERI HUMPHRIES Facility:[facility] Start: 12-20-2024 End: 12-20-2024 ambulatory HERI HUMPHRIES Facility:[facility] Start: 11-17-2024 End: 11-17-2024 Refill Heather Gonsalez MD Work Phone: [facility] [place] Comment on above: Refill Request Start: 10-12-2024 End: 10-12-2024 ambulatory HEATHER Gigi [facility] Facility:[facility] Start: 10-12-2024 End: 10-12-2024 Patient encounter procedure Heather Gonsalez MD Work Phone: [facility] [place] Comment on above: Essential hypertensi on, benign (Primary Dx); Need for vaccination; Degeneration of intervertebral disc of lumbar region, unspecified whether pain present; Prostate cancer (HCC) Start: 10-04-2024 End: 10-04-2024 ambulatory HEATHER GONSALEZ Facility:[facility] Start: 06-29-2024 End: 06-29-2024 [facility] Start: 06-29-2024 End: 06-29-2024 Patient encounter procedure Licha Farley APRN.BUSINESS SYSTEMS ADVISOR Work Phone: [facility] Comment on above: Acute cough (Primary Dx) Start: 06-26-2024 End: 06-26-2024 Telephone encounter Heri Humphries PA-C Work Phone: Urology Comment on above: Patient Question Start: 06-22-2024 End: 06-22-2024 Subsequent hospital visit by physician Conchis [facility] Work Phone: Radiology Comment on above: Subacute cough [R05. 2] Start: 06-22-2024 End: 06-22-2024 Office outpatient visit 25 minutes Marcello Hilton MD Work Phone: [facility] Comment on above: Pulmonary emphysema, unspecified emphysema type (HCC) (Primary Dx); Subacute cough Start: 06-22-2024 End: 06-22-2024 ambulatory HERI HUMPHRIES Facility:[facility] Start: 05-23-2024 End: 05-23-2024 ambulatory Heather Gonsalez Facility:[facility] Start: 04-29-2024 End: 04-29-2024 ambulatory Heather [facility] Facility:[facility] Start: 04-07-2024 End: 04-07-2024 Patient encounter procedure Heather Gonsalez MD Work Phone: [facility] Comment on above: Essential hypertensi on, benign (Primary Dx); Elevated glucose; Elevated LDL cholesterol level; DDD (degenerative disc disease), lumbar; Lumbar radiculopathy; Prostate cancer (HCC); Elevated PSA; Screening for depression; Encounter for screening examination for other mental health and behavioral disorders Start: 04-03-2024 Encounter for preprocedural laboratory examination Randal Gleason [facility] Start: 03-24-2024 End: 03-24-2024 Emergency department patient visit Kishan Duran Facility:[facility] Start: 03-18-2024 End: 03-18-2024 Emergency department patient visit Addi Ramires Facility:[facility] Start: 03-10-2024 ambulatory Heather Gonsalez Facilit y:[facility] Start: 03-09-2024 End: 03-09-2024 ambulatory Heather Gonsalez Facility:[facility] Start: 03-01-2024 End: 03-01-2024 [facility] Start: 02-08-2024 End: 02-08-2024 Emergency department patient visit Eddie Mckinley Facility:[facility] Start: 12-21-2023 End: 12-21-2023 Patient encounter procedure Heri Humphries PA-C Work Phone: Urology Comment on above: Hx of malignant neop lasm of prostate (Primary Dx); Phimosis of penis; Prostate cancer (HCC) Start: 11-03-2023 End: 11-03-2023 Admission to same day surgery center Dr. Heather Gonsalez Work Phone: [facility] Start: 11-03-2023 End: 11-03-[address] Heather Gonsalez Work Phone: [facility] Work Phone: Start: 10-22-2023 End: 10-22-[address] Heather Gonsalez Work Phone: [facility] Work Phone: Start: 10-22-2023 End: 10-22-2023 ambulatory Heather Gonsalez Facility:[facility] Start: 10-13-2023 Telephone encounter Heather fox MD Work Phone: Family [facility] Comment on above: Requesting OV Notes Start: 10-11-2023 Telephone encounter Heather fox MD Work Phone: Family [facility] Comment on above: Forms ([facility]urgical [facility] Start: 10-05-2023 End: 10-05-2023 Patient encounter procedure Heather Gonsalez MD Work Phone: Family [facility] Comment on above: Essential hypertensi on, benign (Primary Dx); Elevated glucose; Elevated LDL cholesterol level; DDD (degenerative disc disease), lumbar; Lumbar radiculopathy; Prostate cancer (HCC); LLQ pain Start: 09-29-2023 Telephone encounter Heather fox MD Work Phone: [facility] [place] Comment on above: Orders Start: 09-10-2023 End: 09-10-2023 Emergency department patient visit [facility] Work Phone: Start: 08-05-2023 End: 08-05-2023 Emergency department patient visit [facility] Work Phone: Start: 07-22-2023 Telephone encounter Heri VOSS-C Work Phone: Urology Comment on above: Results Start: 07-20-2023 Telephone encounter Heather fox MD Work Phone: [address] [place] [address] Comment on above: psa order Start: 07-19-2023 Telephone encounter Heri VOSS-C Work Phone: Urology Comment on above: Patient Update; Appo intment Start: 04-06-2023 End: 04-06-2023 Patient encounter procedure Heather Gonsalez MD Work Phone: [facility] Comment on above: DDD (degenerative di sc disease), lumbar (Primary Dx); Lumbar radiculopathy; Essential hypertension, benign; Elevated glucose; Prostate cancer (HCC); Elevated prostate specific antigen (PSA) Start: 02-10-2023 Telephone encounter Heather fox MD Work Phone: [facility] Comment on above: Patient Update; Opal ent Question Start: 02-09-2023 End: 02-09-2023 Patient encounter procedure Heri Humphries PA-C Work Phone: Urology Comment on above: Prostate cancer (HCC ) (Primary Dx) Start: 11-26-2022 Telephone encounter Heather fox MD Work Phone: [facility] Comment on above: Medication Problem Start: 11-23-2022 End: 11-23-2022 Subsequent hospital visit by physician Xr [facility] [place] Work Phone: Radiology Comment on above: Acute cough [R05.1] Start: 11-23-2022 End: 11-23-2022 Patient encounter procedure Margarita VOSS-C Work Phone: [facility] Comment on above: Sinobronchitis (Prim vazquez Dx) Start: 11-05-2022 End: 11-05-2022 Follow-up encounter Abimael Arevalo MD Work Phone: Radiation Oncology Comment on above: Radiotherapy follow- up (Primary Dx); Prostate cancer (HCC) Start: 11-05-2022 End: 11-05-2022 Telemedicine consultation with patient Abimael Arevalo MD, MD Work Phone: [facility] Start: 10-06-2022 End: 10-06-2022 Patient encounter procedure Heather Gonsalez MD Work Phone: [facility] Comment on above: Essential hypertensi on, benign (Primary Dx); DDD (degenerative disc disease), lumbar; Prostate cancer (HCC); Elevated PSA Start: 08-19-2022 Telephone encounter Abimael Etienne MD Work Phone: Radiation Oncology Comment on above: UTI Start: 07-30-2022 ambulatory Margo De La Torre [facility] [place] Comment on above: Population Health Na vigation Outreach ([facility]) Start: 07-23-2022 End: 07-23-2022 Patient encounter procedure Vanessa Dodson DO Work Phone: Urology Comment on above: Prostate cancer (HCC ) (Primary Dx) Start: 06-03-2022 End: 06-03-2022 Admission to same day surgery center Dr. Heather Gonsalez Work Phone: [facility] Start: 06-03-2022 End: 06-03-[address] Heather Gonsalez Work Phone: [facility] Work Phone: Start: 05-27-2022 Orders Only Abimael Arevalo MD Work Phone: Radiation Oncology Comment on above: Dysuria (Primary Dx) Start: 05-20-2022 Refill Heather coleman MD Work Phone: [facility] Comment on above: Refill Request; Refi ll Request Start: 05-19-2022 End: 05-19-[address] Heather Gonsalez Work Phone: [facility] Start: 05-13-2022 Telephone encounter Abimael Etienne MD Work Phone: Radiation Oncology Comment on above: Results question on getting a hormone injection Start: 04-28-2022 Telephone encounter Heather fox MD Work Phone: [facility] Comment on above: Actionable Findings Follow Up; Patient Update (Incidental finding of nodule) Start: 04-26-2022 End: 04-26-2022 Emergency department patient visit [facility] Start: 04-10-2022 Patient encounter procedure Abimael Arevalo MD, MD Work Phone: [facility] Start: 04-10-2022 Radiation Oncology Note Zoe Arevalo MD Work Phone: Radiation Oncology Comment on above: Completion Note Start: 04-07-2022 End: 04-07-2022 Patient encounter procedure Abimael Arevalo MD Work Phone: Radiation Oncology Comment on above: Prostate cancer (HCC ) (Primary Dx) Start: 04-02-2022 End: 04-02-2022 Patient encounter procedure Heather Gonsalez MD Work Phone: [facility] Comment on above: Essential hypertensi on, benign (Primary Dx); DDD (degenerative disc disease), lumbar; Prostate cancer (HCC) Start: 03-26-2022 Orders Only Abimael Arevalo MD Work Phone: Radiation Oncology Comment on above: Dysuria (Primary Dx) Start: 03-24-2022 End: 03-24-2022 Patient encounter procedure Abimael Arevalo MD Work Phone: Radiation Oncology Comment on above: Prostate cancer (HCC ) (Primary Dx) Start: 03-17-2022 End: 03-17-2022 Patient encounter procedure Abimael Arevalo MD Work Phone: Radiation Oncology Comment on above: Prostate cancer (HCC ) (Primary Dx) Start: 03-13-2022 Orders Only Abimael Arevalo MD Work Phone: Radiation Oncology Comment on above: Prostate cancer (HCC ) (Primary Dx) Start: 03-03-2022 End: 03-03-2022 Patient encounter procedure Abimael Arevalo MD Work Phone: Radiation Oncology Comment on above: Prostate cancer (HCC ) (Primary Dx) Start: 02-23-2022 ambulatory Abimael Arevalo MD Work Phone: Radiation Oncology Comment on above: Patient Education Start: 02-23-2022 Patient encounter procedure Abimael Arevalo MD, MD Work Phone: [place] [facility] Start: 02-23-2022 Radiation Oncology Note Zoe Arevalo MD Work Phone: Radiation Oncology Comment on above: Treatment Planning Start: 02-23-2022 End: 02-23-2022 Subsequent hospital visit by physician Mri [facility] (I-Stat/1.5t) Work Phone: Radiology Comment on above: Prostate cancer (HCC ) [C61] Start: 02-19-2022 Orders Only Abimael Arevalo MD Work Phone: Radiation Oncology Comment on above: Prostate cancer (HCC ) (Primary Dx) Start: 12-31-2021 Chart abstracting Niesha Souza RN Hematology/Oncology Start: 12-31-2021 End: 12-31-2021 Patient encounter procedure Abimael Arevalo MD Work Phone: Radiation Oncology Comment on above: Prostate cancer (HCC ) Start: 12-25-2021 Telephone encounter Abimael Etienne MD Work Phone: Radiation Oncology Comment on above: Appointment Start: 12-25-2021 End: 12-25-2021 Patient encounter procedure Vanessa Dodson DO Work Phone: Urology Comment on above: Prostate cancer (HCC ) (Primary Dx); Elevated prostate specific antigen (PSA) Start: 12-18-2021 Telephone encounter Theo zabala APRN.CNP Work Phone: [facility] [place] Comment on above: Results Start: 12-18-2021 End: 12-18-2021 Subsequent hospital visit by physician [facility] (I-Stat) Work Phone: Cat Scan Comment on above: Malignant neoplasm o f prostate (HCC) [C61] Start: 12-15-2021 Refill Heather coleman MD Work Phone: [facility] Comment on above: Refill Request Start: 12-12-2021 Telephone encounter Delvis rivera MD Work Phone: Urology Comment on above: Results Opened In Error Start: 12-05-2021 End: 12-05-2021 Patient encounter procedure Delvis Isidro MD Work Phone: Urology Comment on above: Elevated prostate sp ecific antigen (PSA) (Primary Dx) Start: 11-11-2021 End: 11-11-2021 Patient encounter procedure Heri Humphries PA-C Work Phone: Urology Comment on above: Elevated prostate sp ecific antigen (PSA) (Primary Dx); Feeling of incomplete bladder emptying Start: 10-30-2020 End: 10-30-2020 Subsequent hospital visit by physician Xr [facility] [place] Work Phone: Radiology Comment on above: Suspected COVID-19 v irus infection [Z20.822] Procedures Date Procedure Procedure Detail Performing Clinician Start: 04-11-2025 Radex foot complete minimum 3 views Serjio Julien APRN.CNP Work Phone: Start: 12-26-2024 Urnls dip stick/tabl et rgnt auto w/o microscopy Heri Humphries PA-C Work Phone: Start: 10-12-2024 PFIZER-BIONTECH COVI D-19 VACCINE AGE 12+ YR (COMIRNATY) Heather Gonsalez MD Work Phone: Start: 10-04-2024 Lipid 1996 panel - S donnell or Plasma Heather Gonsalez MD Work Phone: Start: 06-22-2024 Radiologic exam ches t 2 views Marcello Hilton MD Work Phone: Start: 04-07-2024 Adult depression screening assessment Heather Gonsalez MD Work Phone: Start: 12-21-2023 Urnls dip stick/tabl et rgnt auto w/o microscopy Heri VOSS-C Work Phone: Start: 11-03-2023 Fluoroscopic guidance Gigi Gonsalez Work Phone: Start: 11-03-[address] Heather Gonsalez Work Phone: Start: 10-22-2023 X-ray of lumbosacral spine Dr. Heather Gonsalez Work Phone: Start: 10-01-2023 Lipid 1996 panel - S donnell or Plasma Heather Gonsalez MD Work Phone: Start: 09-10-2023 CT of abdomen and pe lvis without contrast Start: 08-05-2023 Urine culture Start: 03-29-2023 Lipid 1996 panel - S donnell or Plasma Heri VOSS-C Work Phone: Start: 02-09-2023 Urnls dip stick/tabl et rgnt auto w/o microscopy Heri VOSS-C Work Phone: Start: 11-23-2022 Radiologic exam ches t 2 views Margarita VOSS-C Work Phone: Start: 06-03-[address] Heather jon Work Phone: Start: 04-26-2022 CT angiography of ch est with contrast Start: 04-26-2022 Plain chest X-ray Start: 04-02-2022 Adult depression screening assessment Heather Gonsalez MD Work Phone: Start: 02-23-2022 Unlisted magnetic resonance procedure Abimael Arevalo MD Work Phone: Start: 12-25-2021 Urnls dip stick/tabl et rgnt auto w/o microscopy Vanessa Dodson DO Work Phone: Start: 12-18-2021 Ct abdomen & pelvis w/contrast material Delvis Isidro MD Work Phone: Start: 04-22-2022 Us pelvic nonobstetr ic image dcmtn limited/f/u Delvis Isidro MD Work Phone: Start: 11-11-2021 Urnls dip stick/tabl et rgnt auto w/o microscopy Heri Humphries PA-C Work Phone: Start: 02-01-2021 Adult depression screening assessment Delvis Isidro MD Work Phone: Start: 10-30-2020 Radiologic exam ches t 2 views Serjio Wily ADVERTISING SALES EXECUTIVE.BUSINESS SYSTEMS ADVISOR Work Phone: Start: 05-29-2008 Colonoscopy Delvis rivera MD Work Phone: H/O: surgery History of basal cell carcinoma excision Plan of Treatment Date Care Activity Detail Author Start: 10-04-2029 Lipid panel Lipid Screening [facility] Start: 10-01-2028 Lipid panel Lipid Screening [facility] Start: 03-29-2028 Lipid 1996 panel - Serum or Plasma Lipid Screening [facility] Start: 03-29-2028 Lipid panel Lipid Screening [facility] Start: 03-29-2028 LIPID SCREEN LIPID SCREEN [facility] Start: 10-04-2027 [facility] Start: 03-09-2027 LIPID SCREEN LIPID SCREEN [facility] Start: 10-01-2026 Diabetes Screening Diabetes [facility] Start: 03-29-2026 DIABETES SCREEN DIABETES SCREEN [facility] Start: 03-29-2026 [facility] Start: 10-15-2025 End: 10-15-2025 Patient encounter procedure 10/15/2025 12:00 PM EST Office Visit [facility] [place] [address] [place] [phone] Anibal Elliott MD [address] [place] [phone] SULLY from [facility] [place] Comment on above: SULLY from [facility] Start: 10-12-2025 Annual PCP Team Double [facility] [place] amando Disease Visit Annual PCP Team Chronic Disease Visit [facility] Start: 10-12-2025 BP Controlled (<130/80) BP Controlle d (<130/80) [facility] Start: 10-12-2025 Covid-19 Vaccine ( season) Covid-19 Vaccine ( season) [facility] Comment on above: Postponed from 04/11 (Declined at this time) Start: 08-21-2025 End: 08-21-2025 Nursing evaluation of patient and report 08/21/2025 10:40 AM EST Nurse Visit Urology [address] [place] [phone] Wstr, Nurse Urol [facility] [address] [place] [phone] FU: 4 mo Urology Comment on above: FU: 4 mo Start: 04-28-2025 End: 07-28-2025 Prostate specific Ag [Mass/volume] in Serum or Plasma PROSTATE-SPECIFIC ANTIGEN DIAGNOSTIC Lab Routine Hx of malignant neoplasm of prostate Expected: 04/28/2025 (Approximate), Expires: 07/28/2025 [facility] Comment on above: Expected: 04/28/2025 (Approximate), Expires: 07/28/2025 Start: 04-17-2025 End: 04-17-2025 Patient encounter procedure Urology Comment on above: 4 month f/u FU: MXA December, check P SA; possible injection? [facility] Start: 04-16-2025 Influenza vaccination Influenza Vacc ine (#1) [facility] Start: 04-07-2025 Annual PCP Team Double Cut [facility] amando Disease Visit Annual PCP Team Chronic Disease Visit [facility] Start: 04-07-2025 Anxiety Screening Anxiety Screening [facility] Start: 04-07-2025 BP Controlled (<130/80) BP Controlle d (<130/80) [facility] Start: 04-07-2025 Depression Screening Depression Scre ening [facility] Start: 02-27-2025 LIPID SCREEN LIPID SCREEN [facility] Start: 12-25-2024 End: 12-25-2024 ambulatory 12/25/2024 11:30 AM EDT Results Only [place] [facility] [address] [place] [address] PSA [facility] [facility] Comment on above: PSA Start: 12-18-2024 DIABETES SCREEN DIABETES SCREEN [facility] Start: 10-12-2024 End: 10-12-2024 Patient encounter procedure 10/12/2024 11:00 AM EST Office Visit [facility] [place] [address] [place] [address] Heather Gonsalez MD [address] [place], [place] [phone] 6 mo f/u [facility] [place] Comment on above: 6 mo f/u Start: 10-08-2024 End: 01-07-2025 CBC panel - Blood by Automated count COMPLETE BLOOD COUNT Lab Routine Essential hypertension, benign Expected: 10/08/2024 (Approximate), Expires: 01/07/2025 [facility] Comment on above: Expected: 10/08/2024 (Approximate), Expires: 01/07/2025 Start: 10-08-2024 End: 01-07-2025 Comprehensive metabolic 2000 panel - Serum or Plasma COMPREHENSIVE METABOLIC PANEL Lab Routine Essential hypertension, benign Elevated glucose Elevated LDL cholesterol level Expected: 10/08/2024 (Approximate), Expires: 01/07/2025 [facility] Work Phone: Comment on above: Expected: 10/08/2024 (Approximate), Expires: 01/07/2025 Start: 10-08-2024 End: 01-07-2025 Lipid 1996 panel - Serum or Plasma LIPID PANEL BASIC Lab Routine Essential hypertension, benign Elevated glucose Elevated LDL cholesterol level Expected: 10/08/2024 (Approximate), Expires: 01/07/2025 [facility] Comment on above: Expected: 10/08/2024 (Approximate), Expires: 01/07/2025 Start: 10-08-2024 RSV Vaccine (1 - 1-d ose 60+ series) RSV Vaccine (1 - 1-dose 60+ series) [facility] Comment on above: Postponed from 11/06 (Insurance Coverage) Start: 10-08-2024 RSV Vaccine (1 - 1-d ose 75+ series) RSV Vaccine (1 - 1-dose 75+ series) [facility] Comment on above: Postponed from 11/06 (Insurance Coverage) Start: 10-08-2024 Screening for malign ant neoplasm of colon Colorectal Cancer Screening [facility] Comment on above: Postponed from 11/06 (Declined at this time) Start: 10-08-2024 Shingrix Vaccine (1 of 2) Shingrix Vaccine (1 of 2) [facility] Comment on above: Postponed from 11/06 (Insurance Coverage) Start: 10-05-2024 Annual PCP Team Double Cut Sawyer amando Disease Visit Annual PCP Team Chronic Disease Visit [facility] Start: 07-08-2024 Covid-19 Vaccine () Covid-19 Vaccine () [facility] Comment on above: Postponed from (Not Currently Available) Start: 06-27-2024 End: 06-27-2024 Patient encounter procedure 06/27/2024 11:30 AM EST Office Visit Urology [address] [place], [place] [phone] Heri Humphries PA-C [address] [place] [address] 6 month f/u Urology Comment on above: 6 month f/u Start: 06-27-2024 End: 06-27-2024 Nursing evaluation of patient and report 06/27/2024 10:40 AM EST Nurse Visit Urology [address] [place], [place] [phone] Wstr, Nurse Urol [facility] [address] [place], [place] [phone] Elig[facility] Injection [facility] Comment on above: Eligard Injection Start: 06-22-2024 End: 09-21-2024 Prostate specific Ag [Mass/volume] in Serum or Plasma PROSTATE-SPECIFIC ANTIGEN DIAGNOSTIC Lab Routine Hx of malignant neoplasm of prostate Expected: 06/22/2024 (Approximate), Expires: 09/21/2024 [facility] Work Phone: Comment on above: Expected: 06/22/2024 (Approximate), Expires: 09/21/2024 Start: 06-22-2024 End: 06-22-2024 ambulatory 06/22/2024 10:30 AM EST Results Only [facility] [address] [place] [address] lab-PSA [facility] Comment on above: lab-PSA Start: 04-16-2024 Covid-19 Vaccine () Covid-19 Vaccine () [facility] Start: 04-16-2024 Influenza vaccination Influenza Vacc ine (#1) [facility] Start: 04-07-2024 End: 04-07-2024 Patient encounter procedure 04/07/2024 11:00 AM EDT Office Visit [facility] [place] [address] [facility] [place] [address] Heather Gonsalez MD [address] [facility] [facility] [place] [id number] 6 mo f/u [facility] [place] Comment on above: 6 mo f/u Start: 04-06-2024 ANNUAL PCP TEAM LINE MANAGER AMANDO DISEASE VISIT ANNUAL PCP TEAM CHRONIC DISEASE VISIT [facility] Start: 04-06-2024 SHINGRIX VACCINE (1 of 2) SHINGRIX VACCINE (1 of 2) [facility] Comment on above: Postponed from 11/06 (Declined at this time) Start: 02-05-2024 DIABETES SCREEN DIABETES SCREEN [facility] Start: 11-07-2023 RSV Vaccine (1 - 1-d ose 75+ series) RSV Vaccine (1 - 1-dose 75+ series) [facility] Start: 11-03-2023 [facility] Start: 11-03-2023 Plain X-ray of toe Toe(s) Min 2 View s [facility] Start: 11-03-2023 XR Toes Views [facility] Start: 10-14-2023 Covid-19 Vaccine ( season) Covid-19 Vaccine () [facility] Start: 10-06-2023 ANNUAL PCP TEAM LINE MANAGER AMANDO DISEASE VISIT ANNUAL PCP TEAM CHRONIC DISEASE VISIT [facility] Start: 10-06-2023 COLORECTAL CANCER SCREENING COLORECTAL CANCER SCREENING [facility] Comment on above: Postponed from 11/06 (Declined at this time) Start: 10-06-2023 Screening for malign ant neoplasm of colon Colorectal Cancer Screening [facility] Comment on above: Postponed from 11/06 (Declined at this time) Start: 09-29-2023 End: 12-29-2023 CBC W Auto Differential panel - Blood CBC + DIFF Lab Routine Essential hypertension, benign Expected: 09/29/2023, Expires: 12/29/2023 [facility] Work Phone: Comment on above: Expected: 09/29/2023 , Expires: 12/29/2023 Start: 09-29-2023 End: 12-29-2023 Comprehensive metabolic 2000 panel - Serum or Plasma COMP METABOLIC PANEL Lab Routine Essential hypertension, benign Expected: 09/29/2023, Expires: 12/29/2023 [facility] Work Phone: Comment on above: Expected: 09/29/2023 , Expires: 12/29/2023 Start: 09-29-2023 End: 12-29-2023 Lipid 1996 panel - Serum or Plasma LIPID PANEL BASIC Lab Routine Elevated LDL cholesterol level Expected: 09/29/2023, Expires: 12/29/2023 [facility] Work Phone: Comment on above: Expected: 09/29/2023 , Expires: 12/29/2023 Start: 09-10-2023 End: 09-10-2023 [facility] Start: 08-16-2023 Advance Directive Discussion Advance Directive Discussion [facility] Start: 08-16-2023 Behavioral Health Screening Behavioral Health Screening [facility] Start: 08-16-2023 Depression Assessment Depression Ass essment [facility] Start: 08-05-2023 End: 08-05-2023 [facility] Start: 07-20-2023 End: 10-19-2023 Prostate specific Ag [Mass/volume] in Serum or Plasma PSA/PROSTSPECAG DIAG Lab Routine Prostate cancer (HCC) Expected: 07/20/2023, Expires: 10/19/2023 [facility] Work Phone: Comment on above: Expected: 07/20/2023 , Expires: 10/19/2023 Start: 07-19-2023 End: 10-18-2023 Bacteria identified in Urine by Culture URINE CULTURE Microbiology Routine Hematuria, unspecified type Gross hematuria Expected: 07/19/2023 (Approximate), Expires: 10/18/2023 [facility] Work Phone: Comment on above: Expected: 07/19/2023 (Approximate), Expires: 10/18/2023 Start: 04-16-2023 Covid-19 Vaccine () Covid-19 Vaccine () [facility] Start: 04-16-2023 Influenza vaccination [facility] Start: 04-05-2023 End: 06-05-2023 CBC W Auto Differential panel - Blood CBC + DIFF Lab Routine Prostate cancer (HCC) Elevated PSA Expected: 04/05/2023 (Approximate), Expires: 06/05/2023 [facility] Work Phone: Comment on above: Expected: 04/05/2023 (Approximate), Expires: 06/05/2023 Start: 04-05-2023 End: 06-05-2023 Comprehensive metabolic 2000 panel - Serum or Plasma COMP METABOLIC PANEL Lab Routine Essential hypertension, benign Expected: 04/05/2023 (Approximate), Expires: 06/05/2023 [facility] Work Phone: Comment on above: Expected: 04/05/2023 (Approximate), Expires: 06/05/2023 Start: 04-05-2023 End: 06-05-2023 Lipid 1996 panel - Serum or Plasma LIPID PANEL BASIC Lab Routine Essential hypertension, benign Expected: 04/05/2023 (Approximate), Expires: 06/05/2023 [facility] Work Phone: Comment on above: Expected: 04/05/2023 (Approximate), Expires: 06/05/2023 Start: 04-02-2023 Adult depression screening assessment DEPRESSION SCREENING [facility] Start: 04-02-2023 ANNUAL PCP TEAM LINE MANAGER AMANDO DISEASE VISIT ANNUAL PCP TEAM CHRONIC DISEASE VISIT [facility] Start: 12-05-2022 BP CONTROLLED (<130/80) BP CONTROLLE D (<130/80) [facility] Start: 10-24-2022 COVID-19 VACCINE (5 - Pfizer series) COVID-19 VACCINE (5 - Pfizer series) [facility] Start: 10-03-2022 ANNUAL PCP TEAM LINE MANAGER AMANDO DISEASE VISIT ANNUAL PCP TEAM CHRONIC DISEASE VISIT [facility] Start: 08-19-2022 End: 10-19-2022 Bacteria identified in Urine by Culture URINE CULTURE Microbiology Routine Dysuria Expected: 08/19/2022, Expires: 10/19/2022 [facility] Work Phone: Comment on above: Expected: 08/19/2022 , Expires: 10/19/2022 Start: 08-16-2022 ADVANCE DIRECTIVE DISCUSSION ADVANCE DIRECTIVE DISCUSSION [facility] Start: 08-16-2022 DEPRESSION ASSESSMENT DEPRESSION ASS ESSMENT [facility] Start: 07-23-2022 End: 09-22-2022 Prostate specific Ag [Mass/volume] in Serum or Plasma PSA/PROSTSPECAG DIAG Lab Routine Prostate cancer (HCC) Expected: 07/23/2022, Expires: 09/22/2022 [facility] Work Phone: Comment on above: Expected: 07/23/2022 , Expires: 09/22/2022 Start: 06-03-2022 Patient discharge [facility] Work Phone: Start: 05-27-2022 End: 07-27-2022 Bacteria identified in Urine by Culture URINE CULTURE Microbiology Routine Dysuria Expected: 05/27/2022, Expires: 07/27/2022 [facility] Work Phone: Comment on above: Expected: 05/27/2022 , Expires: 07/27/2022 Start: 04-16-2022 Influenza vaccination INFLUENZA (#1) [facility] Start: 03-26-2022 End: 05-26-2022 Bacteria identified in Urine by Culture [facility] Work Phone: Comment on above: Expected: 03/26/2022 , Expires: 05/26/2022 Start: 03-13-2022 End: 05-13-2022 Urinalysis complete panel - Urine [facility] Work Phone: Comment on above: Expected: 03/13/2022 , Expires: 05/13/2022 Start: 02-06-2022 COLORECTAL CANCER SCREENING COLORECTAL CANCER SCREENING [facility] Comment on above: Postponed from 11/06 (Declined at this time) Start: 02-01-2022 Adult depression screening assessment DEPRESSION SCREENING [facility] Start: 12-25-2021 End: 02-24-2022 Prostate specific Ag [Mass/volume] in Serum or Plasma PSA/PROSTSPECAG DIAG Lab Routine Prostate cancer (HCC) Expected: 12/25/2021, Expires: 02/24/2022 [facility] Work Phone: Comment on above: Expected: 12/25/2021 , Expires: 02/24/2022 Start: 11-14-2021 COVID-19 VACCINE (4 - Booster for Pfizer series) COVID-19 VACCINE (4 - Booster for Pfizer series) [facility] Start: 09-10-2021 COVID-19 VACCINE (4 - Booster for Pfizer series) COVID-19 VACCINE (4 - Booster for Pfizer series) [facility] Start: 08-16-2021 ADVANCE DIRECTIVE DISCUSSION ADVANCE DIRECTIVE DISCUSSION [facility] Start: 08-16-2021 DEPRESSION ASSESSMENT DEPRESSION ASS ESSMENT [facility] Start: 12-31-2019 BP CONTROLLED (<130/80) BP CONTROLLE D (<130/80) [facility] Start: 05-29-2018 Colonoscopy COLONOSCOPY [facility] Start: 05-29-2018 COLORECTAL CANCER SCREENING COLORECTAL CANCER SCREENING [facility] Start: 05-29-2018 Screening for malign ant neoplasm of colon [facility] Start: 06-08-2017 End: 06-08-2017 Appointment Appointment [facility] Work Phone: Start: 06-07-2017 End: 06-07-2017 Radex spine lumbscrl compl w/bending views min 6 X-Ray, Spine, Lumbar, complete with bending views [facility] Work Phone: Start: 03-10-2017 End: 03-10-2017 Physical Therapy General Physical Therapy General Rehab [facility], [address] [place] [address], [id number] [facility] Work Phone: Start: 03-10-2017 End: 03-10-2017 Physical Therapy General Physical Therapy [facility], [address] [place] [address], [id number] [facility] Work Phone: Start: 03-09-2017 End: 03-09-2017 Radex spine lumbosacral minimum 4 views X-Ray, Spine, Lumbosacral 2-3 views [facility] Work Phone: Start: 03-09-2017 End: 03-09-2017 X-ray exam of lower spine X-Ray, Spine, Lumbosacral 2-3 views [facility] Work Phone: Start: 02-15-2017 End: 02-15-2017 Appointment Appointment [facility] Work Phone: Start: 01-19-2017 End: 01-19-2017 Appointment Appointment [facility] Work Phone: Start: 12-21-2016 End: 12-21-2016 Radiologic exam knee complete 4/more views X-Ray, Knee [facility] Work Phone: Start: 12-21-2016 End: 12-21-2016 Appointment Appointment [facility] Work Phone: Start: 12-21-2016 End: 12-21-2016 X-ray exam, knee, 4 or more X-Ray, Knee [facility] Work Phone: Start: 12-15-2016 End: 12-15-2016 Appointment Appointment [facility] Work Phone: Start: 12-14-2016 End: 12-14-2016 Radex spine lumbosacral minimum 4 views X-Ray, Spine, Lumbosacral 2-3 views [facility] Work Phone: Start: 12-14-2016 End: 12-14-2016 X-ray exam of lower spine X-Ray, Spine, Lumbosacral 2-3 views [facility] Work Phone: Start: 07-20-2016 End: 07-20-2016 Mri spinal canal lumbar w/o contrast material MRI Lumbar Spine [facility] Work Phone: Start: 07-20-2016 End: 07-20-2016 Radex spine lumbscrl compl w/bending views min 6 X-Ray, Spine, Lumbar, complete with bending views [facility] Work Phone: Start: 07-20-2016 End: 07-20-2016 Mri lumbar spine w/o dye MRI Lumbar Spine [facility] Work Phone: Start: 07-20-2016 End: 07-20-2016 X-ray exam l-s spine bending X-Ray, Spine, Lumbar, complete with bending views [facility] Work Phone: Start: 2008 RSV Vaccine (1 - 1-d ose 60+ series) RSV Vaccine (1 - 1-dose 60+ series) [facility] Start: 12-14-2005 Medicare Annual Wellness Visit Medicare Annual Wellness Visit [facility] Start: 1998 SHINGRIX VACCINE (1 of 2) SHINGRIX VACCINE (1 of 2) [facility] Start: 1993 COLOGUARD (FIT-DNA) COLOGUARD (FIT-D NA) [facility] Start: [address] COLONOGRAPHY [facility] Start: 1993 FECAL OCCULT BLOOD FECAL OCCULT BLOO D [facility] Start: 1993 Screening for malign ant neoplasm of colon [facility] Start: 1993 SIGMOIDOSCOPY SIGMOIDOSCOPY [facility] Start: 11-07-1967 Urine microalbumin profile [facility] Bacteria identified in Urine by Culture URINE CULTURE Microbiology Routine Dysuria 08/20/2022 8:19 AM EST [facility] Work Phone: CT SIM PLANNING RADIATION ONCOLOGY CT SIM PLANNING RADIATION ONCOLOGY Radiology Routine Prostate cancer (HCC) Ordered: 02/20/2022 [facility] Work Phone: Comment on above: Ordered: 02/20/2022 Patient Education [facility] Work Phone: Patient referral [facility] Work Phone: POST VOID RESIDUAL POST VOID RES IDUAL Procedures Routine Elevated prostate specific antigen (PSA) Feeling of incomplete bladder emptying Ordered: 11/11/2021 [facility] Work Phone: Comment on above: Ordered: 11/11/2021 POST VOID RESIDUAL POST VOID RES IDUAL Procedures Routine Hx of malignant neoplasm of prostate Screening for genitourinary condition Other symptoms and signs involving the genitourinary system Ordered: 12/26/2024 [facility] Work Phone: Comment on above: Ordered: 12/26/2024 SURGICAL PATHOLOGY SURGICAL PATH OLOGY Lab Routine Elevated prostate specific antigen (PSA) Ordered: 12/05/2021 [facility] Work Phone: Comment on above: Ordered: 12/05/2021 UA DIP W/MICRO B/O UA DIP W/MICR O B/O Lab Routine Ordered: 02/09/2023 [facility] Work Phone: Comment on above: Ordered: 02/09/2023 End: 02-01-2023 Unlisted magnetic resonance procedure MRI TREATMENT PLANNING WO IVCON NR Radiology Routine Prostate cancer (HCC) 1 Occurrences starting 01/02/2022 until 02/01/2023 [facility] Work Phone: Comment on above: 1 Occurrences starti ng 01/02/2022 until 02/01/2023 Unlisted magnetic resonance procedure MRI TREATMENT PLANNING WO IVCON NR Radiology Routine Prostate cancer (HCC) 02/23/2022 12:06 PM EDT [facility] Work Phone: US PROSTATE BIOPSY GUKI US PROST ATE BIOPSY GUKI Procedures Routine Elevated prostate specific antigen (PSA) Ordered: 11/11/2021 [facility] Work Phone: Comment on above: Ordered: 11/11/2021 [facility] Immunizations Immunization Date Immunization Notes Care Provider [facility] 10-12-2024 COVID-19 vaccine, ag e 12+ yr (PFIZER-BIONTECH COMIRNATY) Heather Gonsalez MD Work Phone: [facility] 07-03-2024 influenza, high dose seasonal, preservative-free Heather Gonsalez MD Work Phone: [facility] 07-03-2024 influenza virus vacc ine, unspecified formulation Carlie Terry MA [facility] 06-14-2023 influenza virus vacc ine, unspecified formulation Heather Gonsalez MD Work Phone: [facility] 06-11-2022 influenza virus vacc ine, unspecified formulation Heri Humphries PA-C Work Phone: [facility] 08-05-2021 pneumococcal polysaccharide vaccine, 23 valent Delvis Isidro MD Work Phone: [facility] 06-04-2021 influenza, high-dose , quadrivalent vaccine (FLUZONE HIGH DOSE QUADRIVALENT) Delvis Isidro MD Work Phone: [facility] 12-11-2020 COVID-19 vaccine, ag e 12+ yr (PFIZER-BIONTECH - PURPLE TOP) Delvis Isidro MD Work Phone: [facility] 11-02-2020 COVID-19 vaccine, ag e 12+ yr (PFIZER-BIONTECH - PURPLE TOP) Delvis Isidro MD Work Phone: [facility] 06-06-2020 influenza, high-dose , quadrivalent vaccine (FLUZONE HIGH DOSE QUADRIVALENT) Delvis Isidro MD Work Phone: [facility] 06-26-2019 influenza, seasonal, injectable Delvis Isidro MD Work Phone: [facility] 05-20-2017 influenza, high dose seasonal, preservative-free Delvis Isidro MD Work Phone: [facility] 07-24-2016 pneumococcal conjuga te vaccine, 13 valent Delvis Isidro MD Work Phone: [facility] 06-25-2016 influenza, high dose seasonal, preservative-free Delvis Isidro MD Work Phone: [facility] 05-30-2015 influenza, high dose seasonal, preservative-free Delvis Isidro MD Work Phone: [facility] 05-16-2014 Influenza virus vaccine [facility] Payers Date Payer Category Payer Self-pay [id number] 2015 Medicaid [place] [id number] 2015-Present [phone] [address] [place] [address] Medicaid [id number] 2015 Medicaid [id number] 2015 Medicaid [id number] 2005 Medicare MEDICARE MEDICAR E A AND B [id number] 2005-Present [phone] [address] [address] [place] [address] Medicare [id number] 2005 Medicare [id number] 1987 Medicare [id number] Unknown [id number] Unknown [id number] Unknown [id number] Unknown [id number] Unknown [id number] Unknown [id number] Unknown [id number] Unknown [id number] Unknown [id number] Unknown [id number] Unknown [id number] Unknown [id number] Unknown [id number] Social History Date Type Detail Facility Start: 04-24-1970 End: 04-07-2024 Tobacco smoking status NHIS Occasional tobacco smoker [facility] Start: 04-24-1970 End: 04-24-2015 History of tobacco use Cigarette Smoker [facility] Start: 09-06-2019 End: 02-09-2023 Cigarettes smoked current (pack per day) - Reported 0.25 [facility] Work Phone: Start: 09-06-2019 End: 08-23-2024 Tobacco use and exposure Smokeless tobacco non-user [facility] Start: 12-05-2021 End: 04-11-2025 Alcohol intake Current non-drinker of alcohol (finding) [facility] Start: 02-29-2012 History SDOH Alcohol Comment last drank in 2003- was hospitalized with pancreatitis [facility] Start: 1950 Sex Assigned At Not on file [facility] Start: 09-30-2020 End: 05-12-2022 Exposure to SARS-CoV-2 (event) Not sure [facility] Start: 04-26-2022 End: 10-22-2023 Tobacco smoking status NHIS Unknown if ever smoked [facility] Start: 08-05-2014 None [facility] Start: 07-03-2019 Cigarettes [facility] Start: 1950 Sex Assigned At Male [facility] Start: 10-06-2022 End: 08-17-2023 Tobacco Comment Smoking couple per day [facility] Start: 02-09-2023 End: 04-06-2023 Tobacco use panel [facility] Work Phone: Start: 07-17-2012 Adult Depression Screening Assessment 0 [facility] Work Phone: Goals Date Patient Goal Desired Activity /State Functional Status Date Assessment Result Facility 06-03-2022 Functional status Ambulates [facility] Work Phone: 03-04-2015 Are you deaf, or do you have serious difficulty hearing No 03/04/2015 8:37 AM HYACINTHT Jayna Terry LPN No [facility] 03-04-2015 Are you blind, or do you have serious difficulty seeing, even when wearing glasses No 03/04/2015 8:37 AM HYACINTHT Jayna Terry LPN No [facility] 03-04-2015 Do you have serious difficulty walking or climbing stairs No 03/04/2015 8:37 AM Jayna Enriquez LPN No [facility] 03-04-2015 Do you have difficul ty dressing or bathing No 03/04/2015 8:37 AM Jayna Enriquez LPN No [facility] 03-04-2015 Because of a physica l, mental, or emotional condition, do you have difficulty doing errands alone such as visiting a physician's office or shopping No 03/04/2015 8:37 AM EDT Jayna Terry LPN No [facility] Mental Status Date Assessment Result Facility 11-03-2023 Cognitive function Voice/Name [facility] Work Phone: 06-03-2022 Cognitive function Voice/Name [facility] Work Phone: 04-26-2022 Cognitive function Level Of Cons ciousness Awake;Alert;Appropriate;Fol lows Commands [facility] Work Phone: 03-04-2015 Because of a physica l, mental, or emotional condition, do you have serious difficulty concentrating, remembering, or making decisions No 03/04/2015 8:37 AM EDT Jayna Terry LPN No [facility] Clinical Notes 09-26-2015 to 04-11-2025 Telephone Encounter - Puja King LPN - 04/11/2025 2:14 PM EDTTelephone Encounter - Puja King LPN - 04/11/2025 2:14 PM EDTTelephone Encounter - Linda Gilmore LPN - 04/11/2025 11:23 AM EDT Note Date & Type Note Facility 04-11-2025 Telephone encounter Note Called patient. No answer- if patient calls back I will call him once provider addresses message. If he does not need to see provider and nurse only I can change the visit type to nurse visit. Patient did see provider in December 26, 2024. Puja King LPN [facility] 04-11-2025 Miscellaneous Notes Called patient. No answer- if patient calls back I will call him once provider addresses message. If he does not need to see provider and nurse only I can change the visit type to nurse visit. Patient did see provider in December 26, 2024. Puja King LPN Patient called into office wanted to speak to travis. Please call patient back for further detail. Linda Gilmore LPN Patient has appointment scheduled next week on Wednesday. He is asking if he needs to come in for the injection. Please reach out to the patient at [phone]. documented in this encounter [facility] 04-11-2025 Telephone encounter Note Patient given results and verbalized understanding of instructions given. Lorene Cotto MA [facility] 04-11-2025 Miscellaneous Notes Patient given results and verbalized understanding of instructions given. Lorene Cotto MA ----- Message from Serjio Julien APRN.CNP sent at 04/11/2025 11:13 AM EDT ----- ----- Message ----- From: Radiology, Oru In Sent: 04/11/2025 10:55 AM EDT To: [facility] Please inform patient that no acute findings were noted on imaging. Follow-up with podiatry as discussed Serjio Julien APRN.GALINA documented in this encounter [facility] 04-11-2025 Telephone encounter Note ----- Message from Serjio Julien APRN.BUSINESS SYSTEMS ADVISOR sent at 04/11/2025 11:13 AM EDT ----- ----- Message ----- From: Radiology, Nirav In Sent: 04/11/2025 10:55 AM EDT To: [facility] 04-11-2025 Telephone encounter Note Patient called into office wanted to speak to travis. Please call patient back for further detail. Linda Gilmore LPN [facility] Work Phone: 04-11-2025 Telephone encounter Note Please inform patient that no acute findings were noted on imaging. Follow-up with podiatry as discussed Serjio Julien APRN.BUSINESS SYSTEMS ADVISOR [facility] 04-11-2025 History of Presen t illness Narrative Radiology Service Progress Note PATIENT NAME: Michael Gutierrez DATE OF SERVICE: April 11, 2025 TIME: 10:33 AM PATIENT IDENTITY VERIFICATION COMPLETED USING TWO (2) IDENTIFIERS: Name and Date of confirmed by patient verbally. FALL SCREENING: Has the patient had 2 falls in the last year or 1 fall with injury or currently using an Ambulatory Assistive Device (Walker, Cane, Wheelchair, Crutches, etc.)? No PATIENT GENDER DATA: Assigned male at PATIENT RELEVANT IMPLANT DATA REVIEWED: Yes PATIENT PRESENTS WITH AN IMPLANTABLE OR ATTACHED INFLATABLE BUILDINGS LAMINATOR: No RADIOLOGY DEPARTMENT: General X-ray: Exam(s) Completed: Lower Extremity X-Ray(s): Foot, Right PERIPHERAL IV DATA: Not applicable SIGNED BY: RT Rm(R) April 11, 2025 10:33 AM documented in this encounter [facility] 04-11-2025 Note HNO ID: [id number] Author: MONCHO RAHMAN RT(R) Service: ? Author Type: Roller Skate Repairer Type: Progress Notes Filed: 04/11/2025 10:33 Note Text: Radiology Service Progress Note PATIENT NAME: Michael Gutierrez DATE OF SERVICE: April 11, 2025 TIME: 10:33 AM PATIENT IDENTITY VERIFICATION COMPLETED USING TWO (2) IDENTIFIERS: Name and Date of confirmed by patient verbally. FALL SCREENING: Has the patient had 2 falls in the last year or 1 fall with injury or currently using an Ambulatory Assistive Device (Walker, Cane, Wheelchair, Crutches, etc.)? No PATIENT GENDER DATA: Assigned male at PATIENT RELEVANT IMPLANT DATA REVIEWED: Yes PATIENT PRESENTS WITH AN IMPLANTABLE OR ATTACHED INFLATABLE BUILDINGS LAMINATOR: No RADIOLOGY DEPARTMENT: General X-ray: Exam(s) Completed: Lower Extremity X-Ray(s): Foot, Right PERIPHERAL IV DATA: Not applicable SIGNED BY: RT Rm(R) April 11, 2025 10:33 AM [facility] 04-11-2025 Note HNO ID: [id number] Author: SERJIO JULIEN APRN.BUSINESS SYSTEMS ADVISOR Service: ? Author Type: Nurse Practitioner Type: Progress Notes Filed: 04/11/2025 11:12 Note Text: [facility] Subjective Michael Gutierrez is a 74 year old male. Patient presents with: Toe Pain (Toe): 4th toe on right foot swollen x 2-3 days HPI Nontoxic-appearing male presents urgent care chief complaint right toe pain and swelling. Duration of symptoms 2 to 3 days. Associated symptoms right toe pain and swelling. Has been present for around a week. Has been more noticeably tender in the last few days. OTC medications none. No known injuries. Risk factor surgery on this toe. Denies any numbness or tingling. Is not diabetic. No fevers. No decreased range of motion. Past medical history prescription medications allergies reviewed. Review of Systems Constitutional: Negative for activity change, diaphoresis, fatigue and fever. Musculoskeletal: Positive for joint swelling. Negative for arthralgias, back pain, gait problem, myalgias, neck pain and neck stiffness. Skin: Negative for pallor, rash and wound. Neurological: Negative for dizziness, seizures, syncope, weakness, light-headedness, numbness and headaches. Psychiatric/Behavioral: Negative for confusion. Objective BP 126/70 Pulse 72 Temp 36.1 ?C (96.9 ?F) Resp 16 Wt 69.9 kg (154 lb 1.6 oz) SpO2 96% BMI 23.43 kg/m? Physical Exam Constitutional: Appearance: Normal appearance. He is normal weight. HENT: Head: Normocephalic. Eyes: Conjunctiva/sclera: Conjunctivae normal. Cardiovascular: Rate and Rhythm: Normal rate. Pulmonary: Effort: Pulmonary effort is normal. Musculoskeletal: Cervical back: Normal range of motion. Comments: No tenderness to palpation over ankle. No tenderness to palpation over metatarsals right. Mild tenderness to palpation over fourth interphalangeal joint right foot. Neurovascular intact. No open wounds. Skin: Findings: No rash. Neurological: General: No focal deficit present. Mental Status: He is alert and oriented to person, place, and time. Mental status is at baseline. {ASSESSMENT/PLAN: 1. Foot pain, right - ICD9: 729.5, ICD10: M79.671 - XR FOOT GENERAL 3V AP/LAT/OBL RIGHT IMPRESSION: No acute osseous abnormality. Postoperative and degenerative changes as described. No acute findings noted on imaging. Treat as right foot pain. Due to operation of this toe referred to podiatry. Patient was educated on supportive therapies. Patient will follow up with primary care provider as needed. Patient was instructed to immediately proceed to emergency room for any new, worsening, or symptoms lasting longer than anticipated. The patient's clinical presentation is otherwise unremarkable at this time. Based on exam and clinical finding, the patient is stable for discharge. Plan of care was discussed with patient. Patient verbalizes understanding and agrees to plan of care. This note was generated using [employer] software. It may contain errors in wording, punctuation, or spelling. Serjio Julien APRN.BUSINESS SYSTEMS ADVISOR History and Record Review Clinical information obtained from an independent historian. History obtained from or confirmed by: parent. External record(s) reviewed: prior outpatient record. Disposition The patient was discharged. OTC Medications were advised: Procedures [facility] 04-11-2025 History of Presen t illness Narrative [facility] Lucero Michael Gutierrez is a 74 year old male. Patient presents with: Toe Pain (Toe): 4th toe on right foot swollen x 2-3 days HPI Nontoxic-appearing male presents urgent care chief complaint right toe pain and swelling. Duration of symptoms 2 to 3 days. Associated symptoms right toe pain and swelling. Has been present for around a week. Has been more noticeably tender in the last few days. OTC medications none. No known injuries. Risk factor surgery on this toe. Denies any numbness or tingling. Is not diabetic. No fevers. No decreased range of motion. Past medical history prescription medications allergies reviewed. Review of Systems Constitutional: Negative for activity change, diaphoresis, fatigue and fever. Musculoskeletal: Positive for joint swelling. Negative for arthralgias, back pain, gait problem, myalgias, neck pain and neck stiffness. Skin: Negative for pallor, rash and wound. Neurological: Negative for dizziness, seizures, syncope, weakness, light-headedness, numbness and headaches. Psychiatric/Behavioral: Negative for confusion. Objective BP 126/70 Pulse 72 Temp 36.1 C (96.9 F) Resp 16 Wt 69.9 kg (154 lb 1.6 oz) SpO2 96% BMI 23.43 kg/m Physical Exam Constitutional: Appearance: Normal appearance. He is normal weight. HENT: Head: Normocephalic. Eyes: Conjunctiva/sclera: Conjunctivae normal. Cardiovascular: Rate and Rhythm: Normal rate. Pulmonary: Effort: Pulmonary effort is normal. Musculoskeletal: Cervical back: Normal range of motion. Comments: No tenderness to palpation over ankle. No tenderness to palpation over metatarsals right. Mild tenderness to palpation over fourth interphalangeal joint right foot. Neurovascular intact. No open wounds. Skin: Findings: No rash. Neurological: General: No focal deficit present. Mental Status: He is alert and oriented to person, place, and time. Mental status is at baseline. {ASSESSMENT/PLAN: 1. Foot pain, right - ICD9: 729.5, ICD10: M79.671 - XR FOOT GENERAL 3V AP/LAT/OBL RIGHT IMPRESSION: No acute osseous abnormality. Postoperative and degenerative changes as described. No acute findings noted on imaging. Treat as right foot pain. Due to operation of this toe referred to podiatry. Patient was educated on supportive therapies. Patient will follow up with primary care provider as needed. Patient was instructed to immediately proceed to emergency room for any new, worsening, or symptoms lasting longer than anticipated. The patient's clinical presentation is otherwise unremarkable at this time. Based on exam and clinical finding, the patient is stable for discharge. Plan of care was discussed with patient. Patient verbalizes understanding and agrees to plan of care. This note was generated using [employer] software. It may contain errors in wording, punctuation, or spelling. Serjio Julien APRN.GALINA History and Record Review Clinical information obtained from an independent historian. History obtained from or confirmed by: parent. External record(s) reviewed: prior outpatient record. Disposition The patient was discharged. OTC Medications were advised: Procedures documented in this encounter [facility] 04-10-2025 Telephone encounter Note Patient has appointment scheduled next week on Wednesday. He is asking if he needs to come in for the injection. Please reach out to the patient at [phone]. [facility] 03-06-2025 Note HNO ID: [id number] Author: CARLIE TERRY MA Service: ? Author Type: Hyster Machine Operator Type: Progress Notes Filed: 03/06/2025 14:34 Note Text: POPULATION HEALTH NAVIGATION OUTREACH Action/FYI Contacted patient to schedule HCC care gaps and health maintenance. 1st attempt: NO answer at home phone and no answering machine 2nd attempt: Letter sent Topic Due (Y or N) Comments Annual Wellness Exam Yes PCP Follow up No Colorectal Cancer Screening No A1C No HTN/Controlling BP No HCC No Updated appointment notes No Reason for Outreach Care Gap/HCC or Scheduling Wellness Visits Care Gaps due: Medicare Annual Wellness Visit Patient Contacted: Unable or unnecessary to reach patient: Unable to leave message Letter mailed Navigation Signature: Carlie Terry MA March 06, 2025 2:33 PM [facility] 03-06-2025 History of Presen t illness Narrative POPULATION HEALTH NAVIGATION OUTREACH Action/FYI Contacted patient to schedule HCC care gaps and health maintenance. 1st attempt: NO answer at home phone and no answering machine 2nd attempt: Letter sent Topic Due (Y or N) Comments Annual Wellness Exam Yes PCP Follow up No Colorectal Cancer Screening No A1C No HTN/Controlling BP No HCC No Updated appointment notes No Reason for Outreach Care Gap/HCC or Scheduling Wellness Visits Care Gaps due: Medicare Annual Wellness Visit Patient Contacted: Unable or unnecessary to reach patient: Unable to leave message Letter mailed Navigation Signature: Carlie Terry MA March 06, 2025 2:33 PM documented in this encounter [facility] 03-06-2025 Note Patient Outreach (NE TNAV) MICHAEL GUTIERREZ ([id number]) 1950 M Date Time Provider Department 03/06/25 CARLIE TERRY NETADOLFOV During your visit today, we recorded the following information about you: Carlie Terry MA 03/06/2025 2:34 PM Signed POPULATION HEALTH NAVIGATION OUTREACH Action/FYI Contacted patient to schedule HCC care gaps and health maintenance. 1st attempt: NO answer at home phone and no answering machine 2nd attempt: Letter sent Topic Due (Y or N) Comments Annual Wellness Exam Yes PCP Follow up No Colorectal Cancer Screening No A1C No HTN/Controlling BP No HCC No Updated appointment notes No Reason for Outreach Care Gap/HCC or Scheduling Wellness Visits Care Gaps due: Medicare Annual Wellness Visit Patient Contacted: Unable or unnecessary to reach patient: Unable to leave message Letter mailed Navigation Signature: Carlie Terry MA March 06, 2025 2:33 PM Allergies As of Date: 03/06/2025 Noted Allergy Reaction PREDNISONE 12/21/2023 14 - Other: See Comments Comments: Chest Pain when taken Prednisone orally only Date Reviewed: 01/08/2025 Reviewed by: Lorene Cotto MA - Fully Assessed Reason for Visit: Population Health Navigation Outreach [3910] Cmt: Jerrell/Workbench/ACO Prescriptions as of 03/06/2025 - gabapentin (NEURONTIN) 300 mg capsule Take 1 capsule by mouth two times a day for 180 days. - albuterol HFA (PROVENTIL HFA, VENTOLIN HFA) 90 mcg/actuation inhaler Inhale 2 Puffs as instructed every 6 hours as needed for wheezing/shortness of breath. - amLODIPine (NORVASC) 5 mg tablet Take 1 tablet by mouth two times a day. - meloxicam (MOBIC) 15 mg tablet Take 1 tablet by mouth once daily. With food. 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 Author Type: Nurse Practitioner Type: Progress Notes Filed: 01/08/2025 13:26 Note Text: [facility] Subjective Michael Gutierrez is a 74 year old male. Patient presents with: Dental Problem: right lower tooth pain and swelling x 3 days Dental Problem Tooth Pain: - Onset 4 days ago. - Localized to the right anterior tooth. +pain with touching, chewing and eating - + sensitivity to hot and cold, Denies fever, chills, trismus, or sialorrhea. - No current dentist. hoping to get to [facility] - Allergic to prednisone. - Denies history of asthma or diabetes. PAST MEDICAL HISTORY Diagnosis Date Diarrhea HTN (hypertension) OA (osteoarthritis of spine) Prostate cancer (HCC) PAST SURGICAL HISTORY Procedure Laterality Date COLONOSCOPY W/BIOPSY SINGLE/MULTIPLE 05/29/08 PAST SURGICAL HISTORY OF circumcision PAST SURGICAL HISTORY OF nose cauturization PAST SURGICAL HISTORY OF 09/2015 Skin biopsy off forehead, basal cell PAST SURGICAL HISTORY OF Left 07/2019 Skin graft - 07/[address] Tim (left side of neck) ALLERGIES Prednisone MEDICATIONS amoxicillin-clavulanate potassium (AUGMENTIN) 875-125 mg per tablet Take 1 tablet by mouth two times a day for 7 days. gabapentin (NEURONTIN) 300 mg capsule Take 1 capsule by mouth two times a day for 180 days. albuterol HFA (PROVENTIL HFA, VENTOLIN HFA) 90 mcg/actuation inhaler Inhale 2 Puffs as instructed every 6 hours as needed for wheezing/shortness of breath. (Patient not taking: Reported on 01/03/2025) amLODIPine (NORVASC) 5 mg tablet Take 1 tablet by mouth two times a day. meloxicam (MOBIC) 15 mg tablet Take 1 tablet by mouth once daily. With food. FAMILY HISTORY Problem Relation Age of Onset No Known Problems Mother COPD Father Hypertension Sister Hypertension Sister Hypertension Sister Diabetes Maternal Grandmother Cancer Maternal Grandfather Skin No Known Problems Paternal Grandmother No Known Problems Paternal Grandfather No Known Problems Brother No Known Problems Brother Social History Tobacco Use Smoking status: Some Days Current packs/day: 0.00 Average packs/day: 0.3 packs/day for 45.0 years (11.3 ttl pk-yrs) Types: Cigarettes Start date: 04/24/1970 Last attempt to quit: 04/24/2015 Years since quittin.7 Smokeless tobacco: Never Tobacco comments: Smoking couple per day Vaping Use Vaping status: Never Used Substance Use Topics Alcohol use: No Comment: last drank in 2003- was hospitalized with pancreatitis Drug use: Never Review of Systems Constitutional: (-) fever, (-) chills Ears/Nose/Mouth/Throat: (+) tooth pain (front right), (-) sensitivity to hot and cold, (-) difficulty opening/closing mouth, (-) difficulty swallowing Objective BP 130/72 Pulse 70 Temp 36.2 ?C (97.1 ?F) Resp 16 Wt 70.2 kg (154 lb 12.2 oz) SpO2 96% BMI 23.53 kg/m? Physical Exam Vitals and nursing note reviewed. Constitutional: General: He is not in acute distress. Appearance: Normal appearance. He is not ill-appearing, toxic-appearing or diaphoretic. HENT: Head: Normocephalic and atraumatic. Right Ear: External ear normal. Left Ear: External ear normal. Nose: Nose normal. No congestion or rhinorrhea. Mouth/Throat: Mouth: Mucous membranes are moist. Pharynx: Oropharynx is clear. No oropharyngeal exudate or posterior oropharyngeal erythema. Comments: Tooth 26 with diffuse decay noted Inflamed and recessed gum Multiple missing teeth Partial dentures noted Eyes: General: Right eye: No discharge. Left eye: No discharge. Extraocular Movements: Extraocular movements intact. Conjunctiva/sclera: Conjunctivae normal. Pupils: Pupils are equal, round, and reactive to light. Cardiovascular: Rate and Rhythm: Normal rate and regular rhythm. Pulses: Normal pulses. Heart sounds: Normal heart sounds. No murmur heard. No friction rub. No gallop. Pulmonary: Effort: Pulmonary effort is normal. No respiratory distress. Breath sounds: Normal breath sounds. No stridor. No wheezing, rhonchi or rales. Chest: Chest wall: No tenderness. Abdominal: General: Abdomen is flat. There is no distension. Palpations: Abdomen is soft. There is no mass. Tenderness: There is no abdominal tenderness. There is no guarding or rebound. Hernia: No hernia is present. Musculoskeletal: General: No swelling, tenderness, deformity or signs of injury. Normal range of motion. Cervical back: Normal range of motion and neck supple. No rigidity or tenderness. Right lower leg: No edema. Left lower leg: No edema. Lymphadenopathy: Cervical: No cervical adenopathy. Skin: General: Skin is warm and dry. Capillary Refill: Capillary refill takes less than 2 seconds. Coloration: Skin is not jaundiced or pale. Findings: No bruising, lesion or rash. Neurological: General: No focal deficit (more content not included)... [facility] 01-08-2025 History of Presen t illness Narrative [facility] Subjective Michael Gutierrez is a 74 year old male. Patient presents with: Dental Problem: right lower tooth pain and swelling x 3 days Dental Problem Tooth Pain: - Onset 4 days ago. - Localized to the right anterior tooth. +pain with touching, chewing and eating - + sensitivity to hot and cold, Denies fever, chills, trismus, or sialorrhea. - No current dentist. hoping to get to [facility] - Allergic to prednisone. - Denies history of asthma or diabetes. PAST MEDICAL HISTORY Diagnosis Date Diarrhea HTN (hypertension) OA (osteoarthritis of spine) Prostate cancer (HCC) PAST SURGICAL HISTORY Procedure Laterality Date COLONOSCOPY W/BIOPSY SINGLE/MULTIPLE 05/29/08 PAST SURGICAL HISTORY OF circumcision PAST SURGICAL HISTORY OF nose cauturization PAST SURGICAL HISTORY OF 09/2015 Skin biopsy off forehead, basal cell PAST SURGICAL HISTORY OF Left 07/2019 Skin graft - 07/[address] Tim (left side of neck) ALLERGIES Prednisone MEDICATIONS amoxicillin-clavulanate potassium (AUGMENTIN) 875-125 mg per tablet Take 1 tablet by mouth two times a day for 7 days. gabapentin (NEURONTIN) 300 mg capsule Take 1 capsule by mouth two times a day for 180 days. albuterol HFA (PROVENTIL HFA, VENTOLIN HFA) 90 mcg/actuation inhaler Inhale 2 Puffs as instructed every 6 hours as needed for wheezing/shortness of breath. (Patient not taking: Reported on 01/03/2025) amLODIPine (NORVASC) 5 mg tablet Take 1 tablet by mouth two times a day. meloxicam (MOBIC) 15 mg tablet Take 1 tablet by mouth once daily. With food. FAMILY HISTORY Problem Relation Age of Onset No Known Problems Mother COPD Father Hypertension Sister Hypertension Sister Hypertension Sister Diabetes Maternal Grandmother Cancer Maternal Grandfather Skin No Known Problems Paternal Grandmother No Known Problems Paternal Grandfather No Known Problems Brother No Known Problems Brother Social History Tobacco Use Smoking status: Some Days Current packs/day: 0.00 Average packs/day: 0.3 packs/day for 45.0 years (11.3 ttl pk-yrs) Types: Cigarettes Start date: 04/24/1970 Last attempt to quit: 04/24/2015 Years since quittin.7 Smokeless tobacco: Never Tobacco comments: Smoking couple per day Vaping Use Vaping status: Never Used Substance Use Topics Alcohol use: No Comment: last drank in 2003- was hospitalized with pancreatitis Drug use: Never Review of Systems Constitutional: (-) fever, (-) chills Ears/Nose/Mouth/Throat: (+) tooth pain (front right), (-) sensitivity to hot and cold, (-) difficulty opening/closing mouth, (-) difficulty swallowing Objective BP 130/72 Pulse 70 Temp 36.2 C (97.1 F) Resp 16 Wt 70.2 kg (154 lb 12.2 oz) SpO2 96% BMI 23.53 kg/m Physical Exam Vitals and nursing note reviewed. Constitutional: General: He is not in acute distress. Appearance: Normal appearance. He is not ill-appearing, toxic-appearing or diaphoretic. HENT: Head: Normocephalic and atraumatic. Right Ear: External ear normal. Left Ear: External ear normal. Nose: Nose normal. No congestion or rhinorrhea. Mouth/Throat: Mouth: Mucous membranes are moist. Pharynx: Oropharynx is clear. No oropharyngeal exudate or posterior oropharyngeal erythema. Comments: Tooth 26 with diffuse decay noted Inflamed and recessed gum Multiple missing teeth Partial dentures noted Eyes: General: Right eye: No discharge. Left eye: No discharge. Extraocular Movements: Extraocular movements intact. Conjunctiva/sclera: Conjunctivae normal. Pupils: Pupils are equal, round, and reactive to light. Cardiovascular: Rate and Rhythm: Normal rate and regular rhythm. Pulses: Normal pulses. Heart sounds: Normal heart sounds. No murmur heard. No friction rub. No gallop. Pulmonary: Effort: Pulmonary effort is normal. No respiratory distress. Breath sounds: Normal breath sounds. No stridor. No wheezing, rhonchi or rales. Chest: Chest wall: No tenderness. Abdominal: General: Abdomen is flat. There is no distension. Palpations: Abdomen is soft. There is no mass. Tenderness: There is no abdominal tenderness. There is no guarding or rebound. Hernia: No hernia is present. Musculoskeletal: General: No swelling, tenderness, deformity or signs of injury. Normal range of motion. Cervical back: Normal range of motion and neck supple. No rigidity or tenderness. Right lower leg: No edema. Left lower leg: No edema. Lymphadenopathy: Cervical: No cervical adenopathy. Skin: General: Skin is warm and dry. Capillary Refill: Capillary refill takes less than 2 seconds. Coloration: Skin is not jaundiced or pale. Findings: No bruising, lesion or rash. Neurological: General: No focal deficit present. Mental Status: He is alert and oriented to person, place, and time. Cranial Nerves: No cranial nerve deficit. Sensory: No sensory deficit. Motor: No weakness. Coordination: Coordination normal. Gait: Gait normal. Deep Tendon Reflexes: Reflexes normal. Psychiatric: Mood and Affect: Mood normal. Behavior: Behavior normal. Thought Content: Thought content normal. {1. Pain, dental (K08.89) - Acute dental pain in the anterior right tooth, no sensitivity to hot or cold, no fever, chills, or trismus. - Prescribed Augmentin 875 mg orally twice daily for 7 days; prescription sent electronically to [facility] pharmacy. - Advised that antibiotic treatment is temporary and emphasized the importance of dental evaluation and treatment. - Recommended scheduling an appointment with [facility] for definitive dental care. and Recording using [employer] software for draft documentation of the visit was discussed with the patient/authorized medical customer service representative; all questions welcomed and answered. Patient/authorized medical customer service representative agreed to proceed History and Record Review External record(s) reviewed: prior inpatient record and prior outpatient record. Contributing Factors Chronic conditions affecting care: cancer (see comments) and hypertension Disposition The patient was discharged. Procedures documented in this encounter [facility] 01-03-2025 Note HNO ID: [id number] Author: MARCELLO HILTON MD Service: ? Author Type: Physician Type: Progress Notes Filed: 01/03/2025 09:50 Note Text: [facility] Subjective Michael Gutierrez is a 74 year old male. Patient presents with: Ear Pain: right x 4 days Patient presents with plugged right ear which began 4 days ago. Hearing is usually decreased. Denies any recent illness, nasal congestion, rhinorrhea, sore throat, fever, or otorrhea. He has not tried any medication. He has put twisted paper towel wads in the canal without successfully removing anything. Pressure at the tragus occasionally relieves the clogged symptom. No prior issues with cerumen impactions Ear Pain Review of Systems Objective BP 124/70 Pulse (!) 56 Temp 36.6 ?C (97.8 ?F) Resp 16 Wt 71.6 kg (157 lb 13.6 oz) SpO2 96% BMI 24.00 kg/m? Physical Exam Constitutional: General: He is not in acute distress. Appearance: He is not ill-appearing. HENT: Right Ear: There is impacted cerumen. Left Ear: Tympanic membrane and ear canal normal. Nose: No congestion or rhinorrhea. Eyes: Extraocular Movements: Extraocular movements intact. Conjunctiva/sclera: Conjunctivae normal. Pupils: Pupils are equal, round, and reactive to light. Cardiovascular: Rate and Rhythm: Normal rate and regular rhythm. Heart sounds: No murmur heard. Pulmonary: Effort: No respiratory distress. Breath sounds: No wheezing, rhonchi or rales. Musculoskeletal: Cervical back: Neck supple. Lymphadenopathy: Cervical: No cervical adenopathy. Neurological: Mental Status: He is alert. {ASSESSMENT/PLAN: 1. Impacted cerumen of right ear - ICD9: 380.4, ICD10: H61.21 Marcello Hilton MD [facility] Cerumen Removal Performed by: Marcello Hilton MD Authorized by: Marcello Hilton MD Informed Consent Consent Obtained: Verbal [place] Protocol SIGN IN Personnel directly involved with the procedure wore the appropriate PPE. Special Equipment: Yes (Lighted curette) TIME OUT Procedure details: Location: R ear Post-procedure details: Inspection: TM intact Hearing quality: Normal Patient tolerance of procedure: Tolerated well, no immediate complications Comments: Moderate to large cerumen impaction successfully removed with lighted curette resulting in resolution of patient's symptoms. SIGN OUT All instruments, equipment, possible retained foreign bodies accounted for. [facility] 12-26-2024 Note HNO ID: [id number] Author: HERI HUMPHRIES PA-C Service: ? Author Type: Physician Booky Type: Progress Notes Filed: 01/09/2025 23:04 Note Text: [facility] EST PATIENT CLINIC NOTE (M) Some elements copied from his previous note, which have been updated where appropriate, and all reflect current medical decision making from date of this visit. Note was generated by [employer] and edited as appropriate SERVICE DATE: December 26, 2024 NAME: Michael Gutierrez GENDER: male CHIEF COMPLAINT: history of prostate cancer, presenting for follow-up. HISTORY OF PRESENT ILLNESS: The patient is a 74-year-old male with a history of prostate cancer, presenting for follow-up. Prostate Cancer: - Last Eligard injection was a few months ago. - Most recent PSA level was 0.12 on December 20; previous level was 0.2. - Denies urinary issues; reports stable condition. Chin Surgery: - Underwent chin surgery 3-4 months ago. LABS: PSA (ng/mL) Date Value 12/20/2024 0.12 06/22/2024 <0.02 12/17/2023 0.02 10/03/2021 41.52 02/04/2021 31.64 04/18/2015 3.10 Creatinine Date Value Ref Range Status 10/04/2024 0.81 0.73 - 1.22 mg/dL Final 10/01/2023 0.82 0.73 - 1.22 mg/dL Final 03/29/2023 0.80 0.73 - 1.22 mg/dL Final No results found for: TESTOST Hematocrit (%) Date Value 10/04/2024 41.0 10/01/2023 41.0 03/29/2023 40.4 02/04/2021 47.4 02/28/2020 46.1 04/03/2015 43.6 PSA (ng/mL) Date Value 12/20/2024 0.12 06/22/2024 <0.02 12/17/2023 0.02 10/03/2021 41.52 02/04/2021 31.64 04/18/2015 3.10 MEDICATIONS: gabapentin (NEURONTIN) 300 mg capsule Take 1 capsule by mouth two times a day for 180 days. (Patient taking differently: Take 300 mg by mouth once daily.) amLODIPine (NORVASC) 5 mg tablet Take 1 tablet by mouth two times a day. meloxicam (MOBIC) 15 mg tablet Take 1 tablet by mouth once daily. With food. albuterol HFA (PROVENTIL HFA, VENTOLIN HFA) 90 mcg/actuation inhaler Inhale 2 Puffs as instructed every 6 hours as needed for wheezing/shortness of breath. PAST MEDICAL HISTORY: PAST MEDICAL HISTORY Diagnosis Date Diarrhea HTN (hypertension) OA (osteoarthritis of spine) Prostate cancer (HCC) REVIEW OF SYSTEMS: Genitourinary: (-) urinary symptoms PHYSICAL EXAMINATION: General: Alert AND oriented, no acute distress Skin: Normal HEENT: Pupils equal, round. Oral cavity, oropharynx clear Neck: Supple, no mass Breast: Deferred Respiratory: Clear to auscultation, bilaterally Cardiovascular: Regular rate and rhythm, no murmurs, rubs, or gallops Abdomen: Soft, non-tender, non-distended, no masses palpable, no hepatosplenomegaly, normal bowel sounds Genitourinary: Deferred MSK: Back is non-tender Extremities: No clubbing, cyanosis, or edema PROBLEM LIST REVIEW: Yes LABS: Results for orders placed or performed in visit on 12/26/24 UA DIP, URINE (POC) Result Value Ref Range GLUCOSE UA (POCT) Negative Negative mg/dL BILIRUBIN UA (POCT) Negative Negative KETONE UA (POCT) Negative Negative mg/dL SPECIFIC GRAVITY UA (POCT) <=1.005 (A) 1.005 - 1.030 HEMOGLOBIN/BLOOD UA (POCT) Trace-lysed (A) Negative PH UA (POCT) 5.5 4.5 - 8.0 PROTEIN UA (POCT) Negative Negative mg/dL UROBILINOGEN UA (POCT) 0.2 Normal E.U./dL NITRITE UA (POCT) Negative Negative LEUKOCYTES UA (POCT) Negative Negative COLOR UA (POCT) Light yellow CLARITY UA (POCT) Clear PROCEDURES: PVR - 0 ml ASSESSMENT/PLAN: 1. Hx of malignant neoplasm of prostate (Z85.46) - PSA level decreased from 0.2 to 0.12 ng/mL as of December 20. Last Eligard injection was several months ago; no further injections recommended unless PSA exceeds 0.6-0.7 ng/mL. Ordered PSA test in 4 months (April). Advised patient to schedule the test a week before the follow-up appointment and to notify the office of the results. If PSA remains below 1 ng/mL, the appointment can be canceled, and the next follow-up will be scheduled in another 4 months. 2. Screening for genitourinary condition (Z13.89) 3. Other symptoms and signs involving the genitourinary system (R39.89) Chronic stable > 4 mo Follow-up with DANIEL Mays MT, ANGELLA after PSA Patient Instructions (AVS) - printed for patient Purchase chair cushions for your chairs at home to improve your seating comfort. Arrange to have a PSA blood test done in about four months (in April). After you have the PSA drawn, please call the clinic (ask for Nurse Fu) to inform us, so your test result can be reviewed. Based on your PSA result, if it remains low, no injection will be scheduled; if there is an increase, further appointment details will be discussed. DANIEL Castro MT, ANGELLA [facility] 12-26-2024 History of Presen t illness Narrative Images from the original note were not included. [facility] EST PATIENT CLINIC NOTE (M) Some elements copied from his previous note, which have been updated where appropriate, and all reflect current medical decision making from date of this visit. Note was generated by [employer] and edited as appropriate SERVICE DATE: December 26, 2024 NAME: Michael Gutierrez GENDER: male CHIEF COMPLAINT: history of prostate cancer, presenting for follow-up. HISTORY OF PRESENT ILLNESS: The patient is a 74-year-old male with a history of prostate cancer, presenting for follow-up. Prostate Cancer: - Last Eligard injection was a few months ago. - Most recent PSA level was 0.12 on December 20; previous level was 0.2. - Denies urinary issues; reports stable condition. Chin Surgery: - Underwent chin surgery 3-4 months ago. LABS: PSA (ng/mL) Date Value 12/20/2024 0.12 06/22/2024 <0.02 12/17/2023 0.02 10/03/2021 41.52 02/04/2021 31.64 04/18/2015 3.10 Creatinine Date Value Ref Range Status 10/04/2024 0.81 0.73 - 1.22 mg/dL Final 10/01/2023 0.82 0.73 - 1.22 mg/dL Final 03/29/2023 0.80 0.73 - 1.22 mg/dL Final No results found for: TESTOST Hematocrit (%) Date Value 10/04/2024 41.0 10/01/2023 41.0 03/29/2023 40.4 02/04/2021 47.4 02/28/2020 46.1 04/03/2015 43.6 PSA (ng/mL) Date Value 12/20/2024 0.12 06/22/2024 <0.02 12/17/2023 0.02 10/03/2021 41.52 02/04/2021 31.64 04/18/2015 3.10 MEDICATIONS: gabapentin (NEURONTIN) 300 mg capsule Take 1 capsule by mouth two times a day for 180 days. (Patient taking differently: Take 300 mg by mouth once daily.) amLODIPine (NORVASC) 5 mg tablet Take 1 tablet by mouth two times a day. meloxicam (MOBIC) 15 mg tablet Take 1 tablet by mouth once daily. With food. albuterol HFA (PROVENTIL HFA, VENTOLIN HFA) 90 mcg/actuation inhaler Inhale 2 Puffs as instructed every 6 hours as needed for wheezing/shortness of breath. PAST MEDICAL HISTORY: PAST MEDICAL HISTORY Diagnosis Date Diarrhea HTN (hypertension) OA (osteoarthritis of spine) Prostate cancer (HCC) REVIEW OF SYSTEMS: Genitourinary: (-) urinary symptoms PHYSICAL EXAMINATION: General: Alert & oriented, no acute distress Skin: Normal HEENT: Pupils equal, round. Oral cavity, oropharynx clear Neck: Supple, no mass Breast: Deferred Respiratory: Clear to auscultation, bilaterally Cardiovascular: Regular rate and rhythm, no murmurs, rubs, or gallops Abdomen: Soft, non-tender, non-distended, no masses palpable, no hepatosplenomegaly, normal bowel sounds Genitourinary: Deferred MSK: Back is non-tender Extremities: No clubbing, cyanosis, or edema PROBLEM LIST REVIEW: Yes LABS: Results for orders placed or performed in visit on 12/26/24 UA DIP, URINE (POC) Result Value Ref Range GLUCOSE UA (POCT) Negative Negative mg/dL BILIRUBIN UA (POCT) Negative Negative KETONE UA (POCT) Negative Negative mg/dL SPECIFIC GRAVITY UA (POCT) <=1.005 (A) 1.005 - 1.030 HEMOGLOBIN/BLOOD UA (POCT) Trace-lysed (A) Negative PH UA (POCT) 5.5 4.5 - 8.0 PROTEIN UA (POCT) Negative Negative mg/dL UROBILINOGEN UA (POCT) 0.2 Normal E.U./dL NITRITE UA (POCT) Negative Negative LEUKOCYTES UA (POCT) Negative Negative COLOR UA (POCT) Light yellow CLARITY UA (POCT) Clear PROCEDURES: PVR - 0 ml ASSESSMENT/PLAN: 1. Hx of malignant neoplasm of prostate (Z85.46) - PSA level decreased from 0.2 to 0.12 ng/mL as of December 20. Last Eligard injection was several months ago; no further injections recommended unless PSA exceeds 0.6-0.7 ng/mL. Ordered PSA test in 4 months (April). Advised patient to schedule the test a week before the follow-up appointment and to notify the office of the results. If PSA remains below 1 ng/mL, the appointment can be canceled, and the next follow-up will be scheduled in another 4 months. 2. Screening for genitourinary condition (Z13.89) 3. Other symptoms and signs involving the genitourinary system (R39.89) Chronic stable > 4 mo Follow-up with DANIEL Mays MT, PA-C after PSA Patient Instructions (AVS) - printed for patient Purchase chair cushions for your chairs at home to improve your seating comfort. Arrange to have a PSA blood test done in about four months (in April). After you have the PSA drawn, please call the clinic (ask for Nurse Fu) to inform us, so your test result can be reviewed. Based on your PSA result, if it remains low, no injection will be scheduled; if there is an increase, further appointment details will be discussed. DANIEL Castro MT, PA-C Verified name and date of . CC Post Void Residual HPI: Michael Gutierrez is a 74 year old male. The patient is here [...] Appointment with Heri. documented in this encounter [facility] 12-26-2024 Note HNO ID: [id number] Author: PUJA KING LPN Service: ? Author Type: LICENSED NURSE Type: Progress Notes Filed: 01/09/2025 23:04 Note Text: Verified name and date of . CC Post Void Residual HPI: Michael Gutierrez is a 74 year old male. The patient is here now for an appointment with DANIEL Castro MT, PA-COV. Procedure: Explained procedure to patient and verbalizes understanding. Performed a PVR. Patient urinated and instructed to empty bladder as much as possible just prior to having PVR done using bladder ultrasound scanner. Results of scan: 0 mL The patient tolerated the procedure well. Plan: Appointment with Heri. [facility] 11-17-2024 Telephone encounter Note The following approved medication requests have been transmitted electronically. Requested Prescriptions Pending Prescriptions Disp Refills gabapentin (NEURONTIN) 300 mg capsule 180 capsule 1 Sig: Take 1 capsule by mouth two times a day for 180 days. Theo Byrd APRN.CNP [facility] 11-17-2024 Miscellaneous Notes The following approved medication requests have been transmitted electronically. Requested Prescriptions Pending Prescriptions Disp Refills gabapentin (NEURONTIN) 300 mg capsule 180 capsule 1 Sig: Take 1 capsule by mouth two times a day for 180 days. Theo Byrd APRN.CNP Prescription Refill Information The patient has been identified by name and date of : Yes Caregiver verified no other encounters exist for this prescription request: Yes Caregiver confirmed with patient/requestor that no other refills are due, in the near future, with this provider at this time: Yes The last office visit in the department: 10/12/2024 Does the patient have a future office visit with this provider/department: No Requested Prescriptions Pending Prescriptions Disp Refills gabapentin (NEURONTIN) 300 mg capsule 180 capsule 1 Sig: Take 1 capsule by mouth two times a day for 180 days. Xochilt Whitaker November 17, 2024 11:36 AM documented in this encounter [facility] 11-17-2024 Telephone encounter Note Prescription Refill Information The patient has been identified by name and date of : Yes Caregiver verified no other encounters exist for this prescription request: Yes Caregiver confirmed with patient/requestor that no other refills are due, in the near future, with this provider at this time: Yes The last office visit in the department: 10/12/2024 Does the patient have a future office visit with this provider/department: No Requested Prescriptions Pending Prescriptions Disp Refills gabapentin (NEURONTIN) 300 mg capsule 180 capsule 1 Sig: Take 1 capsule by mouth two times a day for 180 days. Xochilt Whitaker November 17, 2024 11:36 AM [facility] 10-12-2024 History of Presen t illness Narrative Chief Complaint Patient presents with: 6 Month Exam HPI Michael Gutierrez is a 73 year old male who presents here today for a 6 month follow up. Pt here today for his routine follow up. No advanced directive. Smoking a couple cigarettes per day, trying to quit. Denies any stomach or bowel issues. Has declined colorectal screening at previous visits. Follows with Urology, BIPIN Wu for prostate cancer. Gets Leuprolide injections every 6 months based on PSA. HTN: Denies checking his BP at home. Occasional chest pain, but resolves quickly, feels this is related to gas. Denies any sob or dizziness. On current regimen of Norvasc 5 mg 1 tab po bid. Lipid/Glucose: On no current medications at this time, monitoring through routine labs. Hx of elevated LDL and elevated glucose. Tries to watch diet and walk for exercise. Pain: Chronic back pain due to DDD. Pt was switched from Celebrex to Mobic 15 mg once daily at previous visit in addition to Gabapentin 300 mg 1 tab po bid. Jackson Celebrex was not working well for him and requested a switch in medication. Followed with Spine, Dr. Adame; not currently seeing anyone. Prostate cancer: previously treated, last PS undectectable; follows with Urology for monitoring Bruising easily. Past medical history, appointments, medications, allergies reviewed. [...] Problems Brother Patient Allergies ALLERGIES Allergen Reactions Prednisone Other: See Comments Chest Pain when taken Prednisone orally only Current Medications Current Outpatient Medications on File Prior to Visit Medication Sig albuterol HFA (PROVENTIL HFA, VENTOLIN HFA) 90 mcg/actuation inhaler Inhale 2 Puffs as instructed every 6 hours as needed for wheezing/shortness of breath. gabapentin (NEURONTIN) 300 mg capsule Take 1 capsule by mouth two times a day for 180 days. amLODIPine (NORVASC) 5 mg tablet Take 1 tablet by mouth two times a day. meloxicam (MOBIC) 15 mg tablet Take 1 tablet by mouth once daily. With food. No current facility-administered medications on file prior to visit. Social History Social History Tobacco Use Smoking status: Some Days Current packs/day: 0.00 Average packs/day: 0.3 packs/day for 45.0 years (11.3 ttl pk-yrs) Types: Cigarettes Start date: 04/24/1970 Last attempt to quit: 04/24/2015 Years since quittin.4 Smokeless tobacco: Never Tobacco comments: Smoking couple per day Vaping Use Vaping status: Never Used Substance Use Topics Alcohol use: No Comment: last drank in 2003- was hospitalized with pancreatitis Drug use: Never EXAM: BP 124/78 Pulse 60 Resp 16 Wt 70.9 kg (156 lb 4.9 oz) SpO2 99% BMI 23.77 kg/m General Appearance: Well appearing, alert, in no acute distress, well-hydrated, well nourished.. Lungs: Lungs clear to auscultation. No wheezing, rhonchi, rales.. Heart: RRR without murmur, gallop, or rubs. No ectopy. Health Maintenance List DTaP,Tdap,Td Vaccine(1 - Tdap) Never done Shingrix Vaccine(1 of 2) Never done Colorectal Cancer Screening due on 05/29/2018 BP Controlled (<130/80) due on 12/31/2019 RSV Vaccine(1 - 1-dose 75+ series) Never done Advance Directive Discussion due on 08/16/2024 Covid-19 Vaccine( season) due on 10/12/2025 Annual PCP Team Chronic Disease Visit due on 04/07/2025 Depression Screening due on 04/07/2025 Anxiety Screening due on 04/07/2025 Diabetes Screening due on 10/04/2027 Lipid Screening due on 10/04/2029 Influenza Vaccine Completed Hepatitis C Screening Completed Pneumococcal Vaccine: 50+ Completed Data reviewed Appointment on 10/04/2024 Component Date Value Protein, Total 10/04/2024 7.0 Albumin 10/04/2024 4.2 Calcium, Total 10/04/2024 9.6 Bilirubin, Total 10/04/2024 0.3 Alkaline Phosphatase 10/04/2024 104 AST 10/04/2024 22 ALT 10/04/2024 14 Glucose 10/04/2024 89 BUN 10/04/2024 22 Creatinine 10/04/2024 0.81 Sodium 10/04/2024 136 Potassium 10/04/2024 4.2 Chloride 10/04/2024 103 CO2 10/04/2024 22 Anion Gap 10/04/2024 11 Estimated Glomerular Jaylan* 10/04/2024 92 Cholesterol, Total 10/04/2024 199 Triglyceride 10/04/2024 88 HDL Cholesterol 10/04/2024 69 Non HDL Cholesterol 10/04/2024 130 (H) Fasting Time 10/04/2024 12 VLDL Cholesterol 10/04/2024 18 TC:HDL Ratio 10/04/2024 2.88 LDL Cholesterol 10/04/2024 112 (H) LDL:HDL Ratio 10/04/2024 1.62 WBC 10/04/2024 9.11 RBC 10/04/2024 4.22 Hemoglobin 10/04/2024 13.2 Hematocrit 10/04/2024 41.0 MCV 10/04/2024 97.2 MCH 10/04/2024 31.3 MCHC 10/04/2024 32.2 RDW-CV 10/04/2024 14.6 Platelet Count 10/04/2024 258 MPV 10/04/2024 10.0 Absolute nRBC 10/04/2024 <0.01 ASSESSMENT/PLAN: 1. Essential hypertension, benign - ICD9: 401.1, ICD10: I10 (primary diagnosis) - Controlled - Continue current medications - Recommend home blood pressure monitoring, to bring results to next visit - Encouraged sodium restriction, DASH or Mediterranean diet - Recommend regular aerobic exercise 2. Need for vaccination - ICD9: V05.9, ICD10: Z23 - PFIZER-BIONTECH COVID-19 VACCINE AGE 12+ YR (COMIRNATY) 3. Degeneration of intervertebral disc of lumbar region, unspecified whether pain present - ICD9: 722.52, ICD10: M51.369 Continue current medications. 4. Prostate cancer (HCC) - ICD9: 185, ICD10: C61 Follow with Urology for monitoroing Follow up in 1 year I agree with the Chief Complaint, ROS, and Past Histories independently gathered by the clinical director sales support and the remaining scribed note accurately describes my personal service to the patient. Medical Decision Making: Problems: Moderate: 2+ stable chronic illnesses Data: Unique test result(s) reviewed: 3+ Risk: Moderate: Drug management Medical Decision Making Level: 4 - Moderate Heather Gonsalez MD The documentation for this note was completed by Elza Belcher MA acting as scribe for Heather Gonsalez MD. October 12, 2024 10:53 AM. Elza Belcher MA documented in this encounter [facility] 10-12-2024 Note HNO ID: [id number] Author: HEATHER GONSALEZ MD Service: ? Author Type: Physician Type: Progress Notes Filed: 10/12/2024 14:27 Note Text: Chief Complaint Patient presents with: 6 Month Exam HPI Michael Gutierrez is a 73 year old male who presents here today for a 6 month follow up. Pt here today for his routine follow up. No advanced directive. Smoking a couple cigarettes per day, trying to quit. Denies any stomach or bowel issues. Has declined colorectal screening at previous visits. Follows with Urology, BIPIN Wu for prostate cancer. Gets Leuprolide injections every 6 months based on PSA. HTN: Denies checking his BP at home. Occasional chest pain, but resolves quickly, feels this is related to gas. Denies any sob or dizziness. On current regimen of Norvasc 5 mg 1 tab po bid. Lipid/Glucose: On no current medications at this time, monitoring through routine labs. Hx of elevated LDL and elevated glucose. Tries to watch diet and walk for exercise. Pain: Chronic back pain due to DDD. Pt was switched from Celebrex to Mobic 15 mg once daily at previous visit in addition to Gabapentin 300 mg 1 tab po bid. Jackson Celebrex was not working well for him and requested a switch in medication. Followed with Spine, Dr. Adame; not currently seeing anyone. Prostate cancer: previously treated, last PS undectectable; follows with Urology for monitoring Bruising easily. Past medical history, appointments, medications, allergies reviewed. [...] Problems Brother Patient Allergies ALLERGIES Allergen Reactions Prednisone Other: See Comments Chest Pain when taken Prednisone orally only Current Medications Current Outpatient Medications on File Prior to Visit Medication Sig albuterol HFA (PROVENTIL HFA, VENTOLIN HFA) 90 mcg/actuation inhaler Inhale 2 Puffs as instructed every 6 hours as needed for wheezing/shortness of breath. gabapentin (NEURONTIN) 300 mg capsule Take 1 capsule by mouth two times a day for 180 days. amLODIPine (NORVASC) 5 mg tablet Take 1 tablet by mouth two times a day. meloxicam (MOBIC) 15 mg tablet Take 1 tablet by mouth once daily. With food. No current facility-administered medications on file prior to visit. Social History Social History Tobacco Use Smoking status: Some Days Current packs/day: 0.00 Average packs/day: 0.3 packs/day for 45.0 years (11.3 ttl pk-yrs) Types: Cigarettes Start date: 04/24/1970 Last attempt to quit: 04/24/2015 Years since quittin.4 Smokeless tobacco: Never Tobacco comments: Smoking couple per day Vaping Use Vaping status: Never Used Substance Use Topics Alcohol use: No Comment: last drank in 2003- was hospitalized with pancreatitis Drug use: Never EXAM: BP 124/78 Pulse 60 Resp 16 Wt 70.9 kg (156 lb 4.9 oz) SpO2 99% BMI 23.77 kg/m? General Appearance: Well appearing, alert, in no acute distress, well-hydrated, well nourished.. Lungs: Lungs clear to auscultation. No wheezing, rhonchi, rales.. Heart: RRR without murmur, gallop, or rubs. No ectopy. Health Maintenance List DTaP,Tdap,Td Vaccine(1 - Tdap) Never done Shingrix Vaccine(1 of 2) Never done Colorectal Cancer Screening due on 05/29/2018 BP Controlled (<130/80) due on 12/31/2019 RSV Vaccine(1 - 1-dose 75+ series) Never done Advance Directive Discussion due on 08/16/2024 Covid-19 Vaccine( season) due on 10/12/2025 Annual PCP Team Chronic Disease Visit due on 04/07/2025 Depression Screening due on 04/07/2025 Anxiety Screening due on 04/07/2025 Diabetes Screening due on 10/04/2027 Lipid Screening due on 10/04/2029 Influenza Vaccine Completed Hepatitis C Screening Completed Pneumococcal Vaccine: 50+ Completed Data reviewed Appointment on 10/04/2024 Component Date Value Protein, Total 10/04/2024 7.0 Albumin 10/04/2024 4.2 Calcium, Total 10/04/2024 9.6 Bilirubin, Total 10/04/2024 0.3 Alkaline Phosphatase 10/04/2024 104 AST 10/04/2024 22 ALT 10/04/2024 14 Glucose 10/04/2024 89 BUN 10/04/2024 22 Creatinine 10/04/2024 0.81 Sodium (more content not included)... [facility] 06-29-2024 Note HNO ID: [id number] Author: LICHA FARLEY APRN.BUSINESS SYSTEMS ADVISOR Service: ? Author Type: Nurse Practitioner Type: Progress Notes Filed: 06/29/2024 08:50 Note Text: CC: Patient presents with: Cough: Chest congestion, wheeze, SOB, headache x 1 week Was seen 06/22 no improvement HPI: Michael Gutierrez is a 73 year old male who presents to the office with complaint of cough, nonproductive for a month. Symptoms are improving Associated symptoms includes cough. Denies wheezing, dyspnea, nausea, vomiting , and diarrhea. Treatments tried include nothing so far. with no relief of symptoms. Sick contacts: unknown. History of asthma, frequent episodes of bronchitis, chronic bronchitis, bronchiectasis or COPD: No Smoker: No Seasonal/environmental allergies: No The ROS is otherwise negative. The patient's pmh, medications, allergies, and past visits are reviewed. PHYSICAL EXAM: BP 132/67 Pulse 76 Temp 36.1 ?C (97 ?F) Resp 22 Wt 71 kg (156 lb 8.4 oz) SpO2 94% BMI 23.80 kg/m? General appearance: alert, cooperative, pleasant, in no acute distress Head: Normocephalic Eyes: EOM's intact, conjunctiva pink and moist, no icterus, sclera white, non-injected Ears: Right ear: External ear/canal- Normal, TM - clear with good landmarks. Left ear: External ear/canal- Normal, TM - clear with good landmarks Oropharynx:moist without lesions Heart: Negative. RRR without obvious murmur, gallop, or rubs. No ectopy. Lungs: wheezing mild throughout PAST MEDICAL HISTORY Diagnosis Date Diarrhea HTN (hypertension) OA (osteoarthritis of spine) Prostate cancer (HCC) PAST SURGICAL HISTORY Procedure Laterality Date COLONOSCOPY W/BIOPSY SINGLE/MULTIPLE 05/29/08 PAST SURGICAL HISTORY OF circumcision PAST SURGICAL HISTORY OF nose cauturization PAST SURGICAL HISTORY OF 09/2015 Skin biopsy off forehead, basal cell PAST SURGICAL HISTORY OF Left 07/2019 Skin graft - 07/[address] iTm (left side of neck) ALLERGIES Prednisone MEDICATIONS gabapentin (NEURONTIN) 300 mg capsule Take 1 capsule by mouth two times a day for 180 days. amLODIPine (NORVASC) 5 mg tablet Take 1 tablet by mouth two times a day. meloxicam (MOBIC) 15 mg tablet Take 1 tablet by mouth once daily. With food. albuterol HFA (PROVENTIL HFA, VENTOLIN HFA) 90 mcg/actuation inhaler Inhale 2 Puffs as instructed every 6 hours as needed for wheezing/shortness of breath. Inhalational Spacing Device 1 Device one time only for 1 dose. FAMILY HISTORY Problem Relation Age of Onset No Known Problems Mother COPD Father Hypertension Sister Hypertension Sister Hypertension Sister Diabetes Maternal Grandmother Cancer Maternal Grandfather Skin No Known Problems Paternal Grandmother No Known Problems Paternal Grandfather No Known Problems Brother No Known Problems Brother Social History Tobacco Use Smoking status: Some Days Current packs/day: 0.00 Average packs/day: 0.3 packs/day for 45.0 years (11.3 ttl pk-yrs) Types: Cigarettes Start date: 04/24/1970 Last attempt to quit: 04/24/2015 Years since quittin.1 Smokeless tobacco: Never Tobacco comments: Smoking couple per day Vaping Use Vaping status: Never Used Substance Use Topics Alcohol use: No Comment: last drank in 2003- was hospitalized with pancreatitis Drug use: Never ASSESSMENT/PLAN: 1. Acute cough - ICD9: 786.2, ICD10: R05.1 - ALBUTEROL SULFATE HFA 90 MCG/ACTUATION AEROSOL INHALER Patient did not want to try another antibiotic, or xray, just wanted a inhaler to see if this helps the cough. Prescription instructions reviewed with patient as applicable. Potential red flag symptoms discussed with the patient. Reviewed appropriate action plan to take if red flag symptoms occur. Patient agreeable to treatment plan. Licha Farley APRN.[facility] 06-29-2024 History of Presen t illness Narrative CC: Patient presents with: Cough: Chest congestion, wheeze, SOB, headache x 1 week Was seen 06/22 no improvement HPI: Michael Gutierrez is a 73 year old male who presents to the office with complaint of cough, nonproductive for a month. Symptoms are improving Associated symptoms includes cough. Denies wheezing, dyspnea, nausea, vomiting , and diarrhea. Treatments tried include nothing so far. with no relief of symptoms. Sick contacts: unknown. History of asthma, frequent episodes of bronchitis, chronic bronchitis, bronchiectasis or COPD: No Smoker: No Seasonal/environmental allergies: No The ROS is otherwise negative. The patient's pmh, medications, allergies, and past visits are reviewed. PHYSICAL EXAM: BP 132/67 Pulse 76 Temp 36.1 C (97 F) Resp 22 Wt 71 kg (156 lb 8.4 oz) SpO2 94% BMI 23.80 kg/m General appearance: alert, cooperative, pleasant, in no acute distress Head: Normocephalic Eyes: EOM's intact, conjunctiva pink and moist, no icterus, sclera white, non-injected Ears: Right ear: External ear/canal- Normal, TM - clear with good landmarks. Left ear: External ear/canal- Normal, TM - clear with good landmarks Oropharynx:moist without lesions Heart: Negative. RRR without obvious murmur, gallop, or rubs. No ectopy. Lungs: wheezing mild throughout PAST MEDICAL HISTORY Diagnosis Date Diarrhea HTN (hypertension) OA (osteoarthritis of spine) Prostate cancer (HCC) PAST SURGICAL HISTORY Procedure Laterality Date COLONOSCOPY W/BIOPSY SINGLE/MULTIPLE 05/29/08 PAST SURGICAL HISTORY OF circumcision PAST SURGICAL HISTORY OF nose cauturization PAST SURGICAL HISTORY OF 09/2015 Skin biopsy off forehead, basal cell PAST SURGICAL HISTORY OF Left 07/2019 Skin graft - 07/[address] Tim (left side of neck) ALLERGIES Prednisone MEDICATIONS gabapentin (NEURONTIN) 300 mg capsule Take 1 capsule by mouth two times a day for 180 days. amLODIPine (NORVASC) 5 mg tablet Take 1 tablet by mouth two times a day. meloxicam (MOBIC) 15 mg tablet Take 1 tablet by mouth once daily. With food. albuterol HFA (PROVENTIL HFA, VENTOLIN HFA) 90 mcg/actuation inhaler Inhale 2 Puffs as instructed every 6 hours as needed for wheezing/shortness of breath. Inhalational Spacing Device 1 Device one time only for 1 dose. FAMILY HISTORY Problem Relation Age of Onset No Known Problems Mother COPD Father Hypertension Sister Hypertension Sister Hypertension Sister Diabetes Maternal Grandmother Cancer Maternal Grandfather Skin No Known Problems Paternal Grandmother No Known Problems Paternal Grandfather No Known Problems Brother No Known Problems Brother Social History Tobacco Use Smoking status: Some Days Current packs/day: 0.00 Average packs/day: 0.3 packs/day for 45.0 years (11.3 ttl pk-yrs) Types: Cigarettes Start date: 04/24/1970 Last attempt to quit: 04/24/2015 Years since quittin.1 Smokeless tobacco: Never Tobacco comments: Smoking couple per day Vaping Use Vaping status: Never Used Substance Use Topics Alcohol use: No Comment: last drank in 2003- was hospitalized with pancreatitis Drug use: Never ASSESSMENT/PLAN: 1. Acute cough - ICD9: 786.2, ICD10: R05.1 - ALBUTEROL SULFATE HFA 90 MCG/ACTUATION AEROSOL INHALER Patient did not want to try another antibiotic, or xray, just wanted a inhaler to see if this helps the cough. Prescription instructions reviewed with patient as applicable. Potential red flag symptoms discussed with the patient. Reviewed appropriate action plan to take if red flag symptoms occur. Patient agreeable to treatment plan. Licha Farley APRN.[facility] documented in this encounter [facility] 06-26-2024 Telephone encounter Note Patient called in and is unable to keep his appt tomorrow for his injection. He did however wonder if he still needed it since he had updated blood work. He would either like a call back to cancel or reschedule the appt if it is needed. Alma Delia Victor LPN [facility] 06-26-2024 Miscellaneous Notes Patient called in and is unable to keep his appt tomorrow for his injection. He did however wonder if he still needed it since he had updated blood work. He would either like a call back to cancel or reschedule the appt if it is needed. Alma Delia Victor LPN documented in this encounter [facility] 06-22-2024 History of Presen t illness Narrative Radiology Service Progress Note PATIENT NAME: Michael Gutierrez DATE OF SERVICE: June 22, 2024 TIME: 9:09 AM PATIENT IDENTITY VERIFICATION COMPLETED USING TWO (2) IDENTIFIERS: Name and Date of confirmed by patient verbally. FALL SCREENING: Has the patient had 2 falls in the last year or 1 fall with injury or currently using an Ambulatory Assistive Device (Walker, Cane, Wheelchair, Crutches, etc.)? No PATIENT GENDER DATA: Male PATIENT RELEVANT IMPLANT DATA REVIEWED: Yes PATIENT PRESENTS WITH AN IMPLANTABLE OR ATTACHED INFLATABLE BUILDINGS LAMINATOR: No RADIOLOGY DEPARTMENT: General X-ray: Exam(s) Completed: Chest X-Ray PERIPHERAL IV DATA: Not applicable SIGNED BY: MICHEL Stark) June 22, 2024 9:09 AM documented in this encounter [facility] 06-22-2024 Note HNO ID: [id number] Author: TONYA BECKMAN RT(R) Service: Radiology Author Type: Technologist Type: Progress Notes Filed: 06/22/2024 09:15 Note Text: Radiology Service Progress Note PATIENT NAME: Michael Gutierrez DATE OF SERVICE: June 22, 2024 TIME: 9:09 AM PATIENT IDENTITY VERIFICATION COMPLETED USING TWO (2) IDENTIFIERS: Name and Date of confirmed by patient verbally. FALL SCREENING: Has the patient had 2 falls in the last year or 1 fall with injury or currently using an Ambulatory Assistive Device (Walker, Cane, Wheelchair, Crutches, etc.)? No PATIENT GENDER DATA: Male PATIENT RELEVANT IMPLANT DATA REVIEWED: Yes PATIENT PRESENTS WITH AN IMPLANTABLE OR ATTACHED INFLATABLE BUILDINGS LAMINATOR: No RADIOLOGY DEPARTMENT: General X-ray: Exam(s) Completed: Chest X-Ray PERIPHERAL IV DATA: Not applicable SIGNED BY: Tonya Beckman RT(R) June 22, 2024 9:09 AM [facility] 06-22-2024 Note HNO ID: [id number] Author: MARCELLO HILTON MD Service: ? Author Type: Physician Type: Progress Notes Filed: 06/22/2024 09:47 Note Text: Patient presents with: Cough: Chest congestion, SOB, wheeze, Fatigue, pressure in chest x 2 weeks HPI: Coughing for 2-3 weeks. Positive symptoms: Cough (productive green), Shortness of breath, Wheezing, Chest tightness, feverish, Fatigue, vomited today, Rhinorrhea, Negative symptoms: Sore throat, Sinus pressure, Diarrhea, OTC: tried benadryl Had pneumonia remotely 25-30 years ago. Denies asthma. He has a history smoking and emphysema on CT. MEDICATIONS: Current Outpatient Medications Medication Sig gabapentin (NEURONTIN) 300 mg capsule Take 1 capsule by mouth two times a day for 180 days. amLODIPine (NORVASC) 5 mg tablet Take 1 tablet by mouth two times a day. meloxicam (MOBIC) 15 mg tablet Take 1 tablet by mouth once daily. With food. No current facility-administered medications for this visit. ALLERGIES: ALLERGIES Allergen Reactions Prednisone Other: See Comments Chest Pain when taken Prednisone orally only VITALS: BP 128/82 Pulse 79 Temp (!) 35.9 ?C (96.7 ?F) Resp 26 Wt 71 kg (156 lb 8.4 oz) SpO2 92% BMI 23.80 kg/m? 02/09/2023 08/17/2023 12/21/2023 06/22/2024 Vitals PULSE OX 93 % 96 % 97 % 92 % PHYSICAL EXAM: GEN: pleasant, alert, no acute distress HEENT: PERRL, EOMI, conjunctiva clear Ears: Right canal occluded by cerumen. LTM without erythema, bulge, or effusion Sinuses: non-tender frontal sinus, non-tender maxillary sinuses Throat: moist mucous membranes, mild erythema, no exudate Neck: supple, no thyromegaly, no lymphadenopathy HEART: regular rate and rhythm, no murmurs LUNGS: faintly more course breath sounds on the left, no wheezes or crackles, no increased WOB ASSESSMENT/PLAN: 1. Pulmonary emphysema, unspecified emphysema type (HCC) - ICD9: 492.8, ICD10: J43.9 (primary diagnosis) 2. Subacute cough - ICD9: 786.2, ICD10: R05.2 - XR CHEST 2V FRONTAL/LAT - no acute changes. Treat COPD exacerbation with - DOXYCYCLINE MONOHYDRATE 100 MG CAPSULE Emphysema on prior CT discussed - he was not aware he had this condition. Marcello Hilton MD [facility] 06-22-2024 History of Presen t illness Narrative Patient presents with: Cough: Chest congestion, SOB, wheeze, Fatigue, pressure in chest x 2 weeks HPI: Coughing for 2-3 weeks. Positive symptoms: Cough (productive green), Shortness of breath, Wheezing, Chest tightness, feverish, Fatigue, vomited today, Rhinorrhea, Negative symptoms: Sore throat, Sinus pressure, Diarrhea, OTC: tried benadryl Had pneumonia remotely 25-30 years ago. Denies asthma. He has a history smoking and emphysema on CT. MEDICATIONS: Current Outpatient Medications Medication Sig gabapentin (NEURONTIN) 300 mg capsule Take 1 capsule by mouth two times a day for 180 days. amLODIPine (NORVASC) 5 mg tablet Take 1 tablet by mouth two times a day. meloxicam (MOBIC) 15 mg tablet Take 1 tablet by mouth once daily. With food. No current facility-administered medications for this visit. ALLERGIES: ALLERGIES Allergen Reactions Prednisone Other: See Comments Chest Pain when taken Prednisone orally only VITALS: BP 128/82 Pulse 79 Temp (!) 35.9 C (96.7 F) Resp 26 Wt 71 kg (156 lb 8.4 oz) SpO2 92% BMI 23.80 kg/m 02/09/2023 08/17/2023 12/21/2023 06/22/2024 Vitals PULSE OX 93 % 96 % 97 % 92 % PHYSICAL EXAM: GEN: pleasant, alert, no acute distress HEENT: PERRL, EOMI, conjunctiva clear Ears: Right canal occluded by cerumen. LTM without erythema, bulge, or effusion Sinuses: non-tender frontal sinus, non-tender maxillary sinuses Throat: moist mucous membranes, mild erythema, no exudate Neck: supple, no thyromegaly, no lymphadenopathy HEART: regular rate and rhythm, no murmurs LUNGS: faintly more course breath sounds on the left, no wheezes or crackles, no increased WOB ASSESSMENT/PLAN: 1. Pulmonary emphysema, unspecified emphysema type (HCC) - ICD9: 492.8, ICD10: J43.9 (primary diagnosis) 2. Subacute cough - ICD9: 786.2, ICD10: R05.2 - XR CHEST 2V FRONTAL/LAT - no acute changes. Treat COPD exacerbation with - DOXYCYCLINE MONOHYDRATE 100 MG CAPSULE Emphysema on prior CT discussed - he was not aware he had this condition. Marcello Hilton MD documented in this encounter [facility] 04-07-2024 Instructions Heather Gonsalez MD - 04/07/2024 11:19 AM EDT Stop taking Celebrex, use Meloxicam instead. documented in this encounter [facility] 04-07-2024 History of Presen t illness Narrative Chief Complaint Patient presents with: F/U 6 Month HPI Michael Gutierrez is a 73 year old male who presents here today for 6 month follow up. Pt here today for his routine follow up. No new labs through this office, had some through [facility]. Smokes 2-3 cigarettes per day, trying to quit. No bowel, Gi, or urinary issues. Declines Colonoscopy at this time. Following with Urologist Heri Humphries for Prostate Cancer, has appt in June. Getting Leuprolide injections 45 mg every 6 months based on PSA. Had Circumcision surgery done a few weeks ago, stilhealing from this. Lipid/Glucose: Hx of elevated LDL and elevated glucose. Currently on no medications and monitoring through routine labs. Tries to watch diet. Does do some walking for exercise HTN: Taking Norvasc 5 mg 1 tab po bid. Denies checking BP at home, overall pretty good on his current regimen when checked. Notes occasional chest pain, but quickly go away. Feels this is related to gas. Denies any dizziness or sob. Pain: DDD; Taking Gabapentin 300 mg 1 pill BID and Celebrex 200 mg daily. Pt asking if he could try Meloxicam as he feels his medication is not working as well for him. Has a lot of stiffness and inflammation. Has to take Tylenol also. Following with Neurosurg at [facility], may be getting MRI done. - Depression/Anxiety screening completed, negative. Plans on getting Covid vaccine when new one is available. Discussed Shingles and RSV vaccines through Pharmacy due to Medicare Insurance. Declines Colorectal screening at this time. Denies having Adv Dir/Living Will. Past medical history, appointments, medications, allergies reviewed. Previous Medical History PAST MEDICAL HISTORY No date: Diarrhea No date: HTN (hypertension) No date: OA (osteoarthritis of spine) No date: Prostate cancer (HCC) Previous Surgical History PAST SURGICAL HISTORY 05/29/08: COLONOSCOPY W/BIOPSY SINGLE/MULTIPLE No date: PAST SURGICAL HISTORY OF Comment: circumcision No date: PAST SURGICAL HISTORY OF Comment: nose cauturization 09/2015: PAST SURGICAL HISTORY OF Comment: Skin biopsy off forehead, basal cell 07/2019: PAST SURGICAL HISTORY OF; Left Comment: Skin graft - 07/[address] Tim (left side of neck) Family History FAMILY HISTORY Problem Relation Age of Onset No Known Problems Mother COPD Father Hypertension Sister Hypertension Sister Hypertension Sister Diabetes Maternal Grandmother Cancer Maternal Grandfather Skin No Known Problems Paternal Grandmother No Known Problems Paternal Grandfather No Known Problems Brother No Known Problems Brother Patient Allergies ALLERGIES Allergen Reactions Prednisone Other: See Comments Chest Pain when taken Prednisone orally only Current Medications Current Outpatient Medications on File Prior to Visit Medication Sig celecoxib (CELEBREX) 200 mg capsule Take 1 capsule by mouth once daily. gabapentin (NEURONTIN) 300 mg capsule Take 1 capsule by mouth two times a day for 180 days. amLODIPine (NORVASC) 5 mg tablet Take 1 tablet by mouth twice daily. No current facility-administered medications on file prior to visit. Social History Social History Tobacco Use Smoking status: Some Days Current packs/day: 0.00 Average packs/day: 0.3 packs/day for 45.0 years (11.3 ttl pk-yrs) Types: Cigarettes Start date: 04/24/1970 Last attempt to quit: 04/24/2015 Years since quittin.9 Smokeless tobacco: Never Tobacco comments: Smoking couple per day Vaping Use Vaping status: Never Used Substance Use Topics Alcohol use: No Comment: last drank in 2003- was hospitalized with pancreatitis Drug use: Never EXAM: BP 106/68 (BP Site: Left Arm, BP Position: Sitting, BP Cuff Size: Regular Adult) Pulse 70 Resp 18 Wt 71.3 kg (157 lb 3 oz) BMI 23.90 kg/m General Appearance: Well appearing, alert, in no acute distress, well-hydrated, well nourished.. Lungs: Lungs clear to auscultation. No wheezing, rhonchi, rales.. Heart: RRR without murmur, gallop, or rubs. No ectopy. Genitalia: healing circumcision. Health Maintenance List Depression Screening Never done Anxiety Screening Never done DTaP,Tdap,Td Vaccine(1 - Tdap) Never done Shingrix Vaccine(1 of 2) Never done RSV Vaccine(1 - 1-dose 60+ series) Never done Colorectal Cancer Screening due on 05/29/2018 BP Controlled (<130/80) due on 12/31/2019 Advance Directive Discussion due on 08/16/2023 Covid-19 Vaccine( - 2022- season) due on 10/14/2023 Influenza Vaccine(1) due on 04/16/2024 Annual PCP Team Chronic Disease Visit due on 10/05/2024 Diabetes Screening due on 10/01/2026 Lipid Screening due on 10/01/2028 Hepatitis C Screening Completed Pneumococcal Vaccine: 65+ Completed HPV Vaccine Aged Out Data reviewed External labs ASSESSMENT/PLAN: 1. Essential hypertension, benign - ICD9: 401.1, ICD10: I10 (primary diagnosis) - Controlled - Continue current medications - Recommend home blood pressure monitoring, to bring results to next visit - Encouraged sodium restriction, DASH or Mediterranean diet - Recommend regular aerobic exercise - AMLODIPINE 5 MG TABLET - COMPREHENSIVE METABOLIC PANEL - LIPID PANEL BASIC - HEMOGLOBIN A1C - COMPLETE BLOOD COUNT 2. Elevated glucose - ICD9: 790.29, ICD10: R73.09 Check labs in 6 months - COMPREHENSIVE METABOLIC PANEL - LIPID PANEL BASIC 3. Elevated LDL cholesterol level - ICD9: 272.0, ICD10: E78.00 - COMPREHENSIVE METABOLIC PANEL - LIPID PANEL BASIC 4. DDD (degenerative disc disease), lumbar - ICD9: 722.52, ICD10: M51.36 - GABAPENTIN 300 MG CAPSULE - MELOXICAM 15 MG TABLET 5. Lumbar radiculopathy - ICD9: 724.4, ICD10: M54.16 Change from Celebrex to Mobic - MELOXICAM 15 MG TABLET 6. Prostate cancer (HCC) - ICD9: 185, ICD10: C61 Follow with Urology 7. Elevated PSA - ICD9: 790.93, ICD10: R97.20 8. Screening for depression - ICD9: V79.0, ICD10: Z13.31 - DEPRESSION SCREENING 9. Encounter for screening examination for other mental health and behavioral disorders - ICD9: V79.8, ICD10: Z13.39 - ANXIETY SCREENING Follow up in 6 months Medical Decision Making: Problems: Moderate: 2+ stable chronic illnesses Data: Unique test(s) ordered: 3+ Risk: Moderate: Drug management Medical Decision Making Level: 4 - Moderate Heather Gonsalez MD documented in this encounter [facility] 12-21-2023 History of Presen t illness Narrative Patient's post-void bladder scan: 15 ML. Jaylyn Lau MA Images from the original note were not included. [facility] CC : Prostate Cancer on ADT (Lupron) HPI: This is a 73 year old male with a history of prostate cancer and is currently on ADT (Eligard), depending on his PSA we will determine if he needs to Have the Injection today: PSA today 0.02 Lupron Injection not given today and repeat his PSA in 6 months. He has had difficulty urinating due to phimosis the edge of the foreskin is attached to the the glans And to the point only a pinhole of meatus is showing Will try Lotrisone twice daily x 1 month with mild stretching of foreskin without tearing skin LAB RESULTS: PSA (ng/mL) Date Value 12/17/2023 0.02 07/21/2023 0.02 08/20/2022 0.16 05/12/2022 0.73 10/03/2021 41.52 02/04/2021 31.64 04/18/2015 3.10 03/04/2015 3.05 Results for orders placed or performed in visit on 12/21/23 UA DIP, URINE (POC) Result Value Ref Range GLUCOSE UA (POCT) Negative Negative mg/dL BILIRUBIN UA (POCT) Negative Negative KETONE UA (POCT) Negative Negative mg/dL SPECIFIC GRAVITY UA (POCT) 1.010 1.005 - 1.030 HEMOGLOBIN/BLOOD UA (POCT) Negative Negative PH UA (POCT) 5.5 4.5 - 8.0 PROTEIN UA (POCT) Negative Negative mg/dL UROBILINOGEN UA (POCT) 0.2 Normal E.U./dL NITRITE UA (POCT) Negative Negative LEUKOCYTES UA (POCT) Trace (A) Negative COLOR UA (POCT) Yellow CLARITY UA (POCT) Clear Physical Exam: General appearance: cooperative, pleasant, no acute distress, alert and oriented, well hydrated, well nourished male. Penis Glans and foreskin are fused at one edge and covering the meatus , This hasw been there since 2014 and refused surgerical intervention at that time IMPRESSION / PLAN: > Phimosis - > Lotrisone cream x 1 mo > Malignant neoplasm of prostate on ADT ( Lupron 4 month) based on PSA value > PSA today 0.2 > Hold Injection today given low PSA and pt having a lot of hot flashes > Repeat PSA in 6 months, PSA order in EPIC > 6 month Follow-up with PSA and possible Lupron Injection DANIEL Castro, [place], ANGELLA documented in this encounter [facility] 12-21-2023 Instructions Heri Humphries PA-C - 12/21/2023 11:34 AM EDT > Lotrisone x 1 month > PSA in 6 months and appt for Lupron Injection documented in this encounter [facility] 11-03-2023 Procedure note [facility] 10-13-2023 Miscellaneous Notes Juarez from [facility] requesting MAX notes from appt for surgical clearance on 10/05/23. Faxed to [phone] attn Juarez Walton LPN documented in this encounter [facility] 10-12-2023 Miscellaneous Notes Form faxed to information below. Elin Gordon Ma [place] for surgery; was just seen on 10/05 for office visit Form signed Heather Gonsalez MD Type of form: Surgical Clearance from [facility] Form received via fax When form is completed, Fax form to [phone] Form has been forwarded to Physician Desk: Dr. Wallace Gordon Ma documented in this encounter [facility] 10-05-2023 History of Presen t illness Narrative Chief Complaint Patient presents with: F/U 6 Month HPI Michael Gutierrez is a 72 year old male who presents here today for 6 month follow up. Pt here today for a 6 month follow up Tobacco - Smokes 2-3 cigarettes per day. Thinking about quitting might get the patch. No bowel, Gi, or urinary issues. Following with Urologist Heri Humphries for Prostate Cancer. Getting Leuprolide injections 45 mg every 6 months based on PSA. HTN: Taking Norvasc 5 mg 1 tab po bid. Notes occasional chest pain, but quickly go away. Feels this is related to gas. Denies any dizziness or sob. Lipid/Glucose - Hx of elevated LDL and elevated glucose. Currently on no medications and monitoring through routine labs. Tries to watch diet. Does do some walking for exercise, when weather permits. Pain: DDD; Taking Gabapentin 300 mg 1 pill BID and Celebrex 200 mg daily. Overall stable with use of medication. LLQ pain for the past 1.5 months. Was seen in ED on 09/10/23 (records scanned into chart) and had work up done but nothing was found. CT was unremarkable. Pain worse at night when he lays on his left side. Pain described as an agonizing pain. Not sharp, but just described as pain. Pain is always there. Thought maybe this was related to getting radiation from his prostate possibly. HM - Declines depression (score 0). Depression screening tool completed and reviewed. Based on score and interview, patient is not at risk for depression. Screening tool discussed with patient, and I recommended no further intervention at this time. Declines having Adv Dir/Living Will. RSV vaccine through Pharmacy due to Medicare Insurance. Past medical history, appointments, medications, allergies reviewed. [...] on File Prior to Visit Medication Sig leuprolide (ELIGARD, 6 MONTH,) 45 mg injection Inject 45 mg subcutaneously one time only. Every six months as ordered based on PSA gabapentin (NEURONTIN) 300 mg capsule Take 1 capsule by mouth twice daily for 180 days. amLODIPine (NORVASC) 5 mg tablet Take 1 tablet by mouth twice daily. celecoxib (CELEBREX) 200 mg capsule Take 1 capsule by mouth once daily. No current facility-administered medications on file prior to visit. Social History Social History Tobacco Use Smoking status: Some Days Packs/day: 0.25 Years: 45.00 Additional pack years: 0.00 Total pack years: 11.25 Types: Cigarettes Last attempt to quit: 04/24/2015 Years since quittin.4 Smokeless tobacco: Never Tobacco comments: Smoking couple per day Vaping Use Vaping Use: Never used Substance Use Topics Alcohol use: No Comment: last drank in 2003- was hospitalized with pancreatitis Drug use: Never EXAM: BP 126/82 (BP Site: Left Arm, BP Position: Sitting, BP Cuff Size: Regular Adult) Pulse 74 Resp 18 Wt 73.3 kg (161 lb 9.6 oz) BMI 24.57 kg/m General Appearance: Well appearing, alert, in no acute distress, well-hydrated, well nourished.. Lungs: Lungs clear to auscultation. No wheezing, rhonchi, rales.. Heart: RRR without murmur, gallop, or rubs. No ectopy. Abdomen: Normal abdominal exam, Abdomen soft, non-tender. Bowel sounds normal. No masses, organomegaly. Health Maintenance List DTaP,Tdap,Td Vaccine(1 - Tdap) Never done RSV Vaccine(1 - 1-dose 60+ series) Never done BP Controlled (<130/80) due on 12/31/2019 Advance Directive Discussion due on 08/16/2023 Depression Assessment due on 08/16/2023 Colorectal Cancer Screening due on 10/06/2023 Shingrix Vaccine(1 of 2) due on 04/06/2024 Annual PCP Team Chronic Disease Visit due on 04/06/2024 Diabetes Screening due on 03/29/2026 Lipid Screening due on 03/29/2028 Abdominal Aortic Aneurysm Screening Completed Influenza Vaccine Completed Hepatitis C Screening Completed Covid-19 Vaccine Completed Pneumococcal Vaccine: 65+ Completed HPV Vaccine Aged Out Data reviewed Appointment on 10/01/2023 Component Date Value WBC 10/01/2023 9.24 RBC 10/01/2023 4.22 Hemoglobin 10/01/2023 13.2 Hematocrit 10/01/2023 41.0 MCV 10/01/2023 97.2 MCH 10/01/2023 31.3 MCHC 10/01/2023 32.2 RDW-CV 10/01/2023 14.5 Platelet Count 10/01/2023 259 MPV 10/01/2023 10.0 Neutrophils % 10/01/2023 75.2 Abs Neut 10/01/2023 6.94 Lymphocytes % 10/01/2023 14.5 Abs Lymph 10/01/2023 1.34 Monocytes % 10/01/2023 8.2 Abs [place] 10/01/2023 0.76 Eosinophils % 10/01/2023 1.2 Abs Eosin 10/01/2023 0.11 Basophils % 10/01/2023 0.6 Abs Baso 10/01/2023 0.06 Immature Granulocytes % 10/01/2023 0.3 Abs Immature Gran 10/01/2023 0.03 NRBC 10/01/2023 0.0 Absolute nRBC 10/01/2023 <0.01 Diff Type 10/01/2023 Auto Protein, Total 10/01/2023 7.0 Albumin 10/01/2023 4.0 Calcium, Total 10/01/2023 9.4 Bilirubin, Total 10/01/2023 0.4 Alkaline Phosphatase 10/01/2023 116 (H) AST 10/01/2023 18 ALT 10/01/2023 11 Glucose 10/01/2023 91 BUN 10/01/2023 16 Creatinine 10/01/2023 0.82 Sodium 10/01/2023 134 (L) Potassium 10/01/2023 3.9 Chloride 10/01/2023 99 CO2 10/01/2023 22 Anion Gap 10/01/2023 13 Estimated Glomerular Jaylan* 10/01/2023 92 Cholesterol, Total 10/01/2023 188 Triglyceride 10/01/2023 52 HDL Cholesterol 10/01/2023 73 Non HDL Cholesterol 10/01/2023 115 Fasting Time 10/01/2023 20 VLDL Cholesterol 10/01/2023 10 TC:HDL Ratio 10/01/2023 2.58 LDL Cholesterol 10/01/2023 105 (H) LDL:HDL Ratio 10/01/2023 1.44 Office Visit on 08/17/2023 Component Date Value GLUCOSE UA (POCT) 08/17/2023 Negative BILIRUBIN UA (POCT) 08/17/2023 Negative KETONE UA (POCT) 08/17/2023 Negative SPECIFIC GRAVITY UA (POC* 08/17/2023 1.010 HEMOGLOBIN/BLOOD UA (PO* 08/17/2023 Trace-intact (A) PH UA (POCT) 08/17/2023 5.5 PROTEIN UA (POCT) 08/17/2023 Negative UROBILINOGEN UA (POCT) 08/17/2023 0.2 NITRITE UA (POCT) 08/17/2023 Negative LEUKOCYTES UA (POCT) 08/17/2023 Negative COLOR UA (POCT) 08/17/2023 Light yellow CLARITY UA (POCT) 08/17/2023 Slightly Cloudy ASSESSMENT/PLAN: 1. Essential hypertension, benign - ICD9: 401.1, ICD10: I10 (primary diagnosis) - Controlled - Continue current medications - Recommend home blood pressure monitoring, to bring results to next visit - Encouraged sodium restriction, DASH or Mediterranean diet - Recommend regular aerobic exercise 2. Elevated glucose - ICD9: 790.29, ICD10: R73.09 Stable; monitor annually 3. Elevated LDL cholesterol level - ICD9: 272.0, ICD10: E78.00 Stable, monitor annually 4. DDD (degenerative disc disease), lumbar - ICD9: 722.52, ICD10: M51.36 Continue current medications. - CELECOXIB 200 MG CAPSULE - GABAPENTIN 300 MG CAPSULE 5. Lumbar radiculopathy - ICD9: 724.4, ICD10: M54.16 6. Prostate cancer (HCC) - ICD9: 185, ICD10: C61 Follow with Urology 7. LLQ pain - ICD9: 789.04, ICD10: R10.32 Most likely from radiation treatment; symptomatic treatment Follow up in 6 months; labs annually Medical Decision Making: Problems: Moderate: 2+ stable chronic illnesses Data: Unique test result(s) reviewed: 3+ Risk: Moderate: Drug management Medical Decision Making Level: 4 - Moderate Heather Gonsalez MD documented in this encounter [facility] 09-30-2023 Miscellaneous Notes Message left that fasting labs were ordered for pt to get completed. Elza Belcher Ma TC to pt. LM to call office, ask for triage nurse to get update. Selam Nicole LPN T/C line busy . Will need to try back. Can you please call the patient and let him know that I placed fasting lab orders for him to complete. No food for 10 to 12 hours prior. He may have black coffee and water. Thank you. Bea Plasencia APRN.BUSINESS SYSTEMS ADVISOR Summary: blood work Pt came in to get blood work done and states had placed it in his profile and that it needs done prior to the appointment on 10/05/23. Please advise and contact patient at phone number we have on file for him. documented in this encounter [facility] 08-05-2023 Discharge summary Note Date/Time August 05, 2023 1:52pm [facility] Medical Records Department [address] [place] [id number] Emergency Department Summary 08/05/23 MR#: [id number] Acct: [id number] Name: MICHAEL GUTIERREZ Rep #:[id number] : [id number] From: Richard Goff MD PCP: Dr. Heather Gonsalez MD Status:RE G ER Location: ED HPI History of Present Illness Chief Complaint: Complaint Detail of Chief Complaint: Dysuria and hematuria for 1 week. Informant: patient Pain Onset: Weeks Context: Gradual Onset Timing: Intermittent Current Severity: Mild Maximum Severity: Mild Narrative Narrative: 72-year-old male history of prostate cancer for which he underwent radiation therapy about a year and a half ago. States that he has had hematuria and dysuria for approximately 1 week. No fever. He is able to urinate. No prior history of UTI. Denies being on any blood thinners. Prior similar symptoms: No Recent Illness/Hospitalization: No [facility] Medical History Arthritis Back pain Basal cell carcinoma of nasal tip Cancer Cataract Easy bruising Heartburn History of stress test Neoplasm of skin of nasal tip Open wound of nose, complicated Prostate disease Skin cancer Wears dentures Wears glasses Wears partial dentures Home Medications amlodipine 5 mg tablet 5 mg PO DAILY blood pressure 08/05/14 [History Last Taken 06/03/22 05:00] gabapentin 300 mg capsule 300 tab PO BID nerve pain 08/05/14 [History Last Taken 02/13/21 14:00] celecoxib 200 mg capsule 200 mg PO DAILY anti-inflamatory 05/02/19 [History Last Taken 02/13/21 14:00] Allergy/AdvReac Type Severity Reaction Status Date / Time cortisone Allergy Other Verified 08/05/23 12:45 Family History Other Hypertension Skin cancer Surgical History History of back surgery History of basal cell carcinoma excision Hx of foot surgery Social History Smoking Status: Current every day smoker tobacco type: cigarettes alcohol intake: never substance use type: does not use additional social history: DOES NOT USE ASPIRIN DOES NOT USE IBUPROFEN ROS ROS ED ROS Narrative Dysuria. Hematuria. Review of Systems ROS Unobtainable: Denies due to encephalopathy Constitutional Constitutional ED: Denies chills or fever(s) Eyes Eyes: Denies blurry vision ENT ENT ED: Denies ear pain Cardiovascular Cardiovascular: Denies chest pain or palpitations Respiratory/Chest Respiratory/Chest: Denies cough or dyspnea Gastrointestinal Gastrointestinal: Denies abdominal pain, constipation, diarrhea, melena, nausea or vomiting Genitourinary Genitourinary ED: Reports hematuria Musculoskeletal Musculoskeletal: Denies arthralgias or myalgias Integumentary Denies rash Neurologic Neurologic: Denies headache(s) Psychiatric Psychiatric: Denies anxiety Endocrine Endocrinology: Denies polydipsia Hematologic/Lymphatic Hematologic/Lymphatic: Denies easy bleeding, easy bruising or lymphadenopathy Allergic/Immunologic Allergic/Immunologic ED: Denies mouth swelling, tongue swelling or urticaria EXAM Physical Exam Narrative Exam Narrative: Well-appearing 72-year-old male. Vital signs are stable afebrile. H EENT exam unremarkable. Neck nontender. Lungs are clear. Heart regular rhythm no murmur. Abdomen is soft and nontender. Moving all 4 extremities. Calves are nontender without edema. Neurologically is awake and alert with no focal motor deficits. Const Vital Signs: 08/05/23 12:44 Temperature 97.4 F L Temperature Source Temporal Pulse Rate 72 Respiratory Rate 14 Blood Pressure 132/98 H Blood Pressure Mean 109 Pulse Ox 95 Oxygen Delivery Method Room Air Positive well nourished and well developed; Negative for obese, cachectic, contractures or unkempt General Appearance ED: well developed and NAD; Negative for unkempt, cachectic, contractures or pallor Nutritional Appearance: Negative for cachectic or obese HEENT Reports moist mucous membranes normocephalic and atraumatic; Negative for trauma or tenderness Eyes PERRL and EOMs intact bilaterally General Eye ED: Negative for pale conjunctiva or scleral icterus Neck no lymphadenopathy, supple and no JVD General: Negative for tenderness Resp normal respiratory effort and clear to auscultation bilaterally Effort and Inspection: Negative for retractions Auscultation: Negative for rales, rhonchi or wheezes Cardio regular rate, regular rhythm, S1 normal heart sound, S2 normal heart sound and no murmurs Rate: Negative for bradycardia or tachycardic Rhythm: Negative for abnormal rhythm Heart Sounds: Negative for other GI non-tender, non-distended and no masses Inspection: Negative for abdominal distention Auscultation: normoactive bowel sounds Palpation: soft; Negative for tender or guarding no CVA tenderness Bladder / Kidney Exam: No CVA tenderness Groin / Perineum Exam: Negative for edema or lesions Back/Spine no CVA tenderness General Back: Negative for CVA tenderness Cervical Spine: Negative for cervical spine tenderness Thoracic Spine / Upper Back: Negative for thoracic spinal tenderness Lumbar Spine / Lower Back: Negative for lumbar spinal tenderness Extremity normal to inspection General Extremety ED: Negative for edema or pulses abnormal General Extremity: Negative for edema or pulses abnormal Neuro oriented x3, CN's II-XII intact bilaterally, moves all extremities and no focal motor deficits Sensorium / Orientation: alert, oriented to person, oriented to place and oriented to time; Negative for orientation impaired, confused, lethargic or stuporous Motor Exam: strength 5/5 throughout Psych mental status grossly normal Appearance: Negative for unkempt Attitude: No agitated Mood & Affect: Negative for depressed Thought Process: normal thought process Thought Content: normal thought content Skin General Skin Exam: Negative for jaundice or pallor Lesions: no lesions Rashes: no rashes Trauma: Negative for abrasion or laceration MDM MDM MDM Narrative Medical decision making narrative: [id number] male with gross hematuria and dysuria. Urinalysis will be obtained. Consider UTI versus lesion versus secondary to history of prior prostate cancer. He has an appointment to see his urologist in the next 2 weeks. Having blood inhis urine with a history of prostate cancer could be secondary to that versus aninfection but there is no obvious infection on the urinalysis or sending a urineculture. Versus it could be from his bladder and he may need a cystoscopy. Plenty of fluids to wash out his bladder. Lab Data Attestation: I reviewed the patient's lab results. Lab results narrative: Alysis shows 250 occult blood. 10-25 red cells. 5-10 white cells. Rare bacteria. No nitrites. Will send a urine culture. If it is positive will be treated with antibiotics but this time I am not getting treated with antibiotics. Discussed that with patient is comfortable with the plan. Labs: Laboratory Results - last 24 hr 08/05/23 13:35 Urine Color Yellow Urine Clarity Sl. Cloudy Urine pH 5.0 Ur Specific [place] 1.015 Urine Protein Negative Urine Glucose (UA) Normal Urine Ketones Negative Urine Occult Blood 250 H Urine Nitrite Negative Urine Bilirubin Negative Urine Urobilinogen Normal Ur Leukocyte Esterase 500 H Urine RBC 10-25 SEEN Urine WBC 5-10 SEEN Ur Squamous Epith Cells 0-5 SEEN Urine Bacteria RARE Urine Mucus RARE Discharge Plan Triage Chief Complaint: Complaint ED Provider: Richard Goff Dx/Rx/DC Orders Clinical Impression: History of prostate cancer, Hematuria Instructions: ED Hematuria Prescriptions: No Action celecoxib 200 mg capsule 200 mg PO DAILY amlodipine 5 MG tablet 5 mg PO DAILY Patient Comments: blood pressure gabapentin 300 MG capsule 300 tab PO BID Patient Comments: neuropathy/pain Primary Care Provider: Heather Gonsalez Referrals: Heather Gonsalez MD [Primary Care Provider] - Activity Restrictions/Additional Instructions: Keep and follow-up with your urologist. Let him know that you have had blood inyour urine and they may want to do a cystoscopy to look inside your bladder. Plenty of fluids to prevent you from getting large blood clots that could prevent you from urinating. Currently there is no signs of infection. We sent a urine culture. If that comes back positive we will notify you and treat you with antibiotics. Return if unable to urinate. Disposition Disposition: Home, Self Care What to do if you have Problems For any increased pain, shortness of breath, bleeding, nausea or vomiting, chestpain, or any unexpected problems, contact your Primary Care Provider. Call [facility] ([phone]) or report to the closest Emergency Room. Call 911 if necessary. 08/05/23 1531 <Electronically signed by Richard Goff MD> Cosigner Signature (if applicable): CC: Dr. Heather Gonsalez MD ~ Signed [facility] Work Phone: [phone] 538-551312-07-2023 Miscellaneous Notes* Telephone Encounter - Nicole Mohamud - 07/22/2023 10:23 AM EST Patient returned offices call. Message below relayed verbatim. Patient verbalized understanding. Hereports upcoming appointment scheduled with provider. Nicole Mohamud MA * Telephone Encounter - Puja King LPN - 07/22/2023 9:53 AM EST Called patient. No answer- left message to call clinic for results. Puja King LPN * Telephone Encounter - Puja King LPN - 07/22/2023 9:52 AM EST ----- Message from Heri Humphries PA-C sent at 07/21/2023 5:44 PM EST ----- No infection in the urine Heri Ally Humphries MPAS, MT, ANGELLA [facility] Miscellaneous Notes* Telephone Encounter - Elza Belcher Ma - 07/20/2023 4:32 PM EST Pt notified. Elza Belcher Ma * Telephone Encounter - Heather Gonsalez MD - 07/20/2023 4:03 PM EST PSA ordered Heather Gonsalez MD * Telephone Encounter - Elza Belcher Ma - 07/20/2023 2:36 PM EST Pt follows with Urology. Do you want to order PSA? Lats PSA done 08/20/2022 at 0.16. Elza Belcher Ma * Telephone Encounter - Karen Avalos - 07/20/2023 2:27 PM EST Pt was in for lab work and requested to contact pcp to see if he could have a PSA order put in. Please review and advise pt. Thanks! Karen PSS [facility]23 Miscellaneous Notes* Telephone Encounter - Puja King LPN - 07/19/2023 11:10 AM EST Patient called. Verified name and date of . Patient informed- verbalizes understanding. Stateshe has not had a full work up previously. Will call to check for appointment availability at intervals. Will submit urine tomorrow as he is not able today. Puja King LPN * Telephone Encounter - Puja King LPN - 07/19/2023 10:49 AM EST Called patient- no answer. Message left to call clinic. (No appointments available tomorrow- did add patient to jump list for appointment). Puja King LPN * Telephone Encounter - Heri Humphries PA-C - 07/19/2023 10:29 AM EST Signed order, but he has gross hematuria we need to discuss and get started on full hematuria work up Unless he had one in last 5 yrs Cysto, CT and Urine Cytology and Culture DANIEL Castro, SCANGELLA * Telephone Encounter - Puja King LPN - 07/19/2023 10:06 AM EST Patient called. Verified name and date of . Patient reports blood in urine once daily for past two days. No other symptoms. No appointments available tomorrow and patient does not want to travel outside of [place]. Aware that urgent care, or ED, is open if pain or other symptoms present. Pended urine culture. Please review and advise. Puja King LPN [facility] Instructions* Patient Instructions* Elin Gordon Ma - 04/06/2023 11:10 AM EDT Do not use Ibuprofen with Celebrex. Okay to use Tylenol with Celebrex if needed. Check back in 6 months, labs once a year. [facility] in [facility] History of Present illness Narrative* Heather Gonsalez MD - 04/06/2023 11:00 AM EDT Chief Complaint Patient presents with: F/U 6 [...] at home, no chest pains, dizziness, or SOB.Thought about reducing medication to once a day, no issues with mediation but was told this some where previously. Glucose - Elevated, currently on no medication. Tries to stay active do some exercises at home. Notable to walk much. Pain: Chronic back pain. [...] out. Discussed Shingrix vaccine and able to receiveat the Pharmacy, pt declines wanting this. Past [...] murmur, gallop, or rubs. No ectopy. Foot: [place] located between 3rd and 4th toe on [...] 03/29/2023 1.00 Monocytes % 03/29/2023 7.1 Abs [place] 03/29/2023 0.51 Eosinophils % 03/29/2023 2.4 Abs [...] Past Histories independently gathered by the clinical director sales support and the remaining scribed note accurately describes my personal service to the patient. Medical Decision Making: Problems: Moderate: 2+ stable chronic illnesses Data: Unique test result(s) reviewed: 3+ Risk: Moderate: Drug management Medical Decision Making Level: 4 - Moderate Heather Gonsalez MD The documentation for this note was completed by Elin Gordon Ma acting as scribe for Heather Gonsalez MD. April 06, 2023 11:03 AM. Elin Gordon Ma [facility] Miscellaneous Notes* Telephone Encounter - Selam Nicole LPN - 02/11/2023 2:10 PM EDT Patient notified of results, verbalizes understanding of instructions. Selam Nicole LPN * Telephone Encounter - Heather Gonsalez MD - 02/11/2023 2:05 PM EDT The night sweats are probably from the Eligard injection that he gets for the prostate cancer. OK to use Imodium for the diarrhea Heather Gonsalez MD * Telephone Encounter - Josefina Jensen RN - 02/10/2023 8:18 AM EDT Patient calling for Dr. Gonsalez's advise only. Does not prefer message be sent to other providertoday. Pt aware that provider is out of [...] had 4 episodes of loose/watery BM's in last24 hours. Has not changed his diet, no new medications and has no other changes. Reports he has started to take Imodium AD yesterday and will continue to take it as directed. Pt plans to continue Home Care of diarrhea and will call if sx's worsen. Asking if he should try Pepto Bismal as well? Please advise patient. Thank you. documented in this [facility]06[facility]23 History of Present illness Narrative* Puja King LPN - 02/09/2023 11:36 AM EDT Verified name and date of . Patient given Eligard 45 MG SQ in left buttock at left upper abdominal quadrant, verified with nurse Jessica Carvalho RN. Explained and patient tolerated well. Site without redness or swelling. Bandaid applied. Patient discharged ambulatory and to follow up as directed by BIPIN Wu. Puja King LPN * Heri Humphries PA-C - 02/09/2023 10:45 AM EDT Images from the original note were not included. [facility] ESTABLISHED PATIENT CLINIC NOTE [...] patient reports he has been going to [place] for Eligard Injection every 6 months, we will transfer his care to [place] and do 6 month PSA And ADT [...] resp. rate 18, height 172.7 cm (5' 8), weight 75.8 kg (167 lb), SpO2 93 [...] appointment and injection DANIEL Castro MT, PA-C * Flo Phillip MA - 02/09/2023 10:28 AM EDT CC Post Void Residual HPI: Michael Gutierrez The patient is here now for an appointment with DANIEL Castro MT, PA- COV. Procedure: Explained procedure to patient and verbalizes understanding. Performed a PVR. Patient urinated and instructed to empty bladder as much as possible just prior to having PVR done using bladder ultrasound scanner. Results of scan: 0 mL The patient tolerated the procedure well. Plan: Appointment with Heri. documented in [facility]06[facility]23 Instructions* Patient Instructions* Heri Humphries PA-C - 02/09/2023 10:57 AM EDT > 6 months PSA, for Eligard Injection (45 g) > Injection today and in Jul 2023 > 6 month Follow-up with PSA and ADT Injection ( Eligard) documented in this encounterSy[facility]04-[facility]-2023 Miscellaneous Notes* Telephone Encounter - Marli Gutierrez RN - 11/26/2022 9:28 AM EDT Called and spoke with Vern from [facility]. Vern states that the prescription they have on file isfor patient to take medication twice daily. Vern states to have patient follow what he is supposedto be taking and then when he needs a refill they will refill medication correctly. Patient called back and notified of this. Patient voiced understanding. Marli Gutierrez RN * Telephone Encounter - Marli Gutierrez RN - 11/26/2022 8:35 AM EDT Patient calls and states that he refilled amlodipine on 11/14/2022. Patient is confused because bottle states take one tablet once daily. Patient knows that he should be taking medication twice daily. Prescription was sent to [facility] on 10/06/2022 with directions for patient to take medication 1 tablet twice daily. Patient states that on bottle it gives the date 11/14/2022. Tried to call pharmacy and clarify what order they have for medication. Pharmacy not open till 9. Will call back then. Marli Gutierrez RN documented in this encounterSy[facility]04-[facility]-2023 History of Present illness Narrative* Margarita Franco PA-C - 11/23/2022 8:32 AM EDT This note was created using [employer]. Subjective Michael Gutierrez is a 72 year old male. HPI Patient presents with cough and nasal congestion over the past 2 weeks. He denies any vomiting or diarrhea. He feels feverish in the morning. No temp taken. No OTC meds used. No home COVID test done.Denies chest pain or shortness of breath. He [...] mouth twice daily for 180 days. 180 capsule1 amLODIPine (NORVASC) 5 mg tablet Take 1 [...] mg SUBCUTANEOUS Q 6 MONTH Vanessa Dodson 45 mg at 07/23/22 1238 PAST SURGICAL [...] or worsen. - XR CHEST 2V FRONTAL/LAT Margarita Franco PA-C documented in this encounterSy[facility]04-10-2023 History of Present illness Narrative* Tonya Beckman RT(R) - 11/23/2022 8:00 AM EDT Radiology Service Progress Note PATIENT NAME: Michael Gutierrez DATE OF SERVICE: November 23, 2022 TIME: 8:06 AM PATIENT IDENTITY VERIFICATION COMPLETED USING TWO (2) IDENTIFIERS: Name and Date of confirmedby patient verbally. FALL SCREENING: Has the patient [...] RT Mi(R) November 23, 2022 8:06 AM documented in this encounterSycam[facility] Center03-23-2023 History of Present illness Narrative* Abimael Arevalo MD, MD - 11/05/2022 9:35 AM EDT AMBULATORY TELEPHONE VISIT Michael Gutierrez has consented [...] needed. Total Time Spent: 5 minutes Abimael Arevalo MD documented in this encounterSy[facility]02-21-2023 History of Present illness Narrative* Heather Gonsalez MD - 10/06/2022 10:40 AM EST Chief Complaint Patient presents with: F/U 6 Month HPI Michael Gutierrez is a 71 year old male who presents here today for 6 month follow up. Tobacco - Still smoking couple cigarettes per day, wants to quit. No bowel, Gi, or urinary issues. Follows with Urologist Dr. Dodson for Prostate Cancer, completedradiation 2 months ago. Is seen every 6 [...] this improves. Has been following with Dr. Tim/Maye and had basal cell removed from the [...] Past Histories independently gathered by the clinical director sales support and the remaining scribed note accurately describes my personal service to the patient. Medical Decision Making: Problems: Moderate: 2+ stable chronic illnesses Data: Unique test(s) ordered: 3+ Risk: Moderate: Drug management Medical Decision Making Level: 4 - Moderate Heather Gonsalez MD The documentation for this note was completed by Elin Gordon Ma acting as scribe for Heather Gonsalez MD. October 06, 2022 10:42 AM. Elin Gordon Ma documented in this encounterSy[facility]01-04-2023 Miscellaneous Notes* Telephone Encounter - Светлана Copeland RN - 08/19/2022 9:54 AM EST Pt notified and will do urine in next couple of days. We are to call with results. Instructed to try AZO again after he does the urine. Pt states understanding. * Telephone Encounter - Abimael Arevalo MD, MD - 08/19/2022 9:50 AM EST We'll check urine culture and if negative, he can take pyridium as needed. * Telephone Encounter - Lorene Grajeda Pss - 08/19/2022 8:39 AM EST Patient called stating he is having burning with urination. Please call patient. documented in this encounterSycamore Medical Center12-15-2022 History of Present illness Narrative* Margo De La Torre MA - 07/30/2022 10:07 AM EST POPULATION HEALTH NAVIGATION OUTREACH Action/ FAST BUSY [...] 30, 2022 10:07 AM documented in this encounterSycamore Medical Center12-08-2022 History of Present illness Narrative* Vanessa Dodson, - 07/23/2022 12:40 PM EST Images from the original note were not included. Formerly [facility] [place] [facility] LOCATION: [address] [place] [address] ESTABLISHED PATIENT PATIENT INFO: Michael Gutierrez 71 year old Chief Complaint: Prostate Cancer HPI Here for prostate cancer discussion. Had prostate biopsy on 12/05/21. Bone scan and CT scan negative. PSA down to 0.[address] Arevalo on 04/10/2022 Here for Jada. 1-Duration: 2021 2-Location: prostate 3-Severity: N/A 4-Quality: Not applicable 5-Context: N/A 6-Timing: N/A 7-Modifying factors: No treatment prior to referral 8-Associated signs & symptoms: no additional symptoms PATHOLOGY: FINAL DIAGNOSIS A. Prostate, right base, biopsy: - Prostatic adenocarcinoma, Hamilton score 3+4=7, grade group 2, with intraductal features, involving 2 of 2 cores (14 mm, 95%; 11 mm, 90%). - Alise pattern 4 comprises approximately 20% of the carcinoma. B. Prostate, right mid, biopsy: - Prostatic adenocarcinoma, Alise score 3+4=7, grade group 2, with intraductal features, involving 2 of 2 cores (7 mm, 95%; 11 mm, 80%). - Hamilton pattern 4 comprises approximately 20% of the carcinoma. - Small gland cribriform morphology is identified. C. Prostate, right apex, biopsy: - Prostatic adenocarcinoma, Hamilton score 3+4=7, grade group 2, with intraductal features, involving 2 of 2 cores (4 mm, 95%; 9 mm, 80%). - Ailse pattern 4 comprises approximately 40% of the carcinoma. - Small gland cribriform morphology is identified. D. Prostate, left base, biopsy: - Prostatic adenocarcinoma, Hamilton score 3+4=7, grade group 2, with intraductal features, involving 2 of 2 cores (13 mm, 90%; 13 mm, 100%). - Hamilton pattern 4 comprises approximately 30% of the carcinoma. E. Prostate, left mid, biopsy: - Prostatic adenocarcinoma, Alise score 3+4=7, grade group 2, with intraductal features, involving 2 of 2 cores (13 mm, 95%; 11 mm, 95%). - Hamilton pattern 4 comprises approximately 30% of the carcinoma. F. Prostate, left apex, biopsy: - Prostatic adenocarcinoma, Hamilton score 3+4=7, grade group 2, with intraductal features, involving 2 of 2 cores (10 mm, 85%; 2 mm, 40%). - Hamilton pattern 4 comprises approximately 20% of the carcinoma. - Small gland cribriform morphology is identified. Prostate Cancer Biopsy Summary Number of cores examined: 12 Number of cores positive: 12 Highest Grade Group: 2 Highest % of core involvement: 100% Cribriform pattern 4: Present Intraductal carcinoma: Present Body Technician tumor block to use for additional studies: [...] 72.1 Lymph% (%) Date Value 03/09/2022 18.1 [place]% (%) Date Value 03/09/2022 7.1 Eosin% (%) Date Value 02/04/2021 2.4 Baso% (%) Date Value 03/09/2022 0.7 Abs Neut (k/uL) Date Value 03/09/2022 5.31 Abs Klickitat (k/uL) Date Value 03/09/2022 0.52 Abs Eosin [...] negative. PHYSICAL EXAMINATION Ht 172.7 cm (5' 8) Wt 74.4 kg (164 lb) BMI 24.94 kg/m General appearance: Well appearing, alert, in no acute distress and well- hydrated, well nourished Skin: Skin color, texture, turgor normal, no suspicious rashes or lesions Head: Normocephalic, no masses, lesions, tenderness or abnormalities Abdomen: Normal abdominal exam, Abdomen soft, non-tender. Bowel sounds normal. No masses, organomegaly Genitourinary: MALE EXAM: Exam NOT Indicated PVR: NA IMPRESSION/PLAN: Hamilton 3+4=7 Grade group 2 prostate cancer PSA 41. Metastatic workup negative. Completed XRT with Dr. Arevalo /Jerrell Elias 6 month preparation given today. F/U with me in 6 months with PSA prior. I spent 30 minutes in the visit, with more than 50% of the total [id number]-zu-[id number] time of the visit in counseling / coordination of care. Vanessa Dodson DO MBA documented in this encounterSycamore Medical Center10-06-2022 Miscellaneous Notes* Telephone Encounter - Mayuri Walton LPN - 05/21/2022 8:51 AM EDT Pt notified Rx has been sent to pharm & he is to continue taking 2 tabs daily, pt verbalizes understanding. Mayuri Walton LPN * Telephone Encounter - Bea Plasencia APRN.GALINA - 05/21/2022 7:46 AM EDT The following approved medication requests have been transmitted electronically. Requested Prescriptions Pending Prescriptions Disp Refills amLODIPine (NORVASC) 5 mg tablet 180 tablet 1 Sig: Take 1 tablet by mouth twice daily. Bea Plasencia APRN.GALINA * Telephone Encounter - Bobbi Castellon RN - 05/20/2022 11:02 AM EDT Patient reports he has been taking amlodipine 5 mg TWICE a day, for the past month, per Size Worker recommendation. Med list does not reflect this. Reports he has 6 pills left and needs provider to send refill to [facility]. Pended for the twice daily. Reports he is doing well on the twice a day dose, BP running 131/80 (checks it at pharmacy). documented in this encounterSycamore Medical Center09-30-2022 Miscellaneous Notes* Telephone Encounter - Ludy Valles RN - 05/15/2022 9:11 AM EDT Pt called and is notified of providers message. Pt voices understanding. States he has an appointment set up in [place]. Ludy Valles RN * Telephone Encounter - Heather Gonsalez MD - 05/14/2022 5:17 PM EDT We do not give those shots here. .mne * Telephone Encounter - Elin Gordon Ma - 05/13/2022 12:59 PM EDT This is something that office staff would not be able to do in office. Did discuss with Nurse here and she's not able to give these either. Elin Gordon Ma * Telephone Encounter - Jaylyn Lisa LPN - 05/13/2022 11:54 AM EDT Pt calling into see if he can get a hormone shot thru Dr. Gonsalez's office. Dr. Arevalo wants pt to have this done and he can not go to [place] to do this. Please see Dr. Arevalo's l phone encounter dated today 05/13/22. Please advise pt back. Jaylyn Lisa LPN documented in this encounterSycamore Medical Center09-28-2022 Miscellaneous Notes* Telephone Encounter - Светлана Copeland RN - 05/13/2022 11:10 AM EDT Pt notified of PSA results in normal range now and that he needs f/u appointment with urologist Dr Peoples and to get hormone shot in Jun. He is reluctant to get shot and go to [place]. He states he isnot sure if he can get there. 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 I stressed importance of follow up with urologist. documented in this encounterSycamore Medical Center09-13-2022 Miscellaneous Notes* Telephone Encounter - Elin Gordon Ma - 04/28/2022 12:01 PM EDT See External documents. Routed to PCP Team due to PCP being out of the office. Scan on 04/26/2022 4:40 PM by External Provider: Consultation - Emergency Medicine Scan on 04/26/2022 9:16 AM by External Provider: CT Scan Scan on 04/26/2022 8:16 AM by External Provider: X-ray Elin Gordon Ma * Telephone Encounter - Elza Belcher Ma - 04/28/2022 10:38 AM EDT Pt has CT scan chest done at [facility] 04/26/22 showing incidental finding of 2.2 cm nodule to right adrenal. Recommend hormonal workup and/or Endocrinology consult. Report on PCP's desk to review. Elza Belcher Ma documented in this encounterSycamore Medical Center08-26-2022 History of Present illness Narrative* Abimael Arevalo MD, MD - 04/10/2022 12:00 AM EDT MICHAEL GUTIERREZ. [id number] : 1950 04/10/2022 [facility] Department of Radiation Oncology RADIATION ONCOLOGY - COMPLETION NOTE DATE OF SIMULATION: 02/23/22 DATES OF TREATMENT: 03/02/22 - 04/10/22 [facility] T[facility]ATED: Pelvis/prostate DISEASE: Clinical stage IIIA, [...] week follow-up with me. Staff Physician ABIMAEL AREVALO M.D. / 1:14 AM Electronically Signed cc: Heather Gonsalez [address] [place] [address] Vanessa Dodson [facility] [address] documented in this encounterSycamore Medical Center08-23-2022 History of Present illness Narrative* Abimael Arevalo MD, MD - 04/07/2022 10:23 AM EDT Radiation Oncology - On Treatment Review (OTR) Note PATIENT NAME: Michael Gutierrez PATIENT DIAGNOSIS: Clinical stage IIIA, T1c, prostate adenocarcinoma with Hamilton score 7 (3+4), grade group 2, PSA [...] parameters. Continue radiation treatment as planned. Abimael Arevalo MD documented in this encounterSycamore Medical Center08-23-2022 Nurse Note* Zaria Cam RN - 04/07/2022 10:16 AM EDT Radiation Therapy - Nursing Note (OTV) PATIENT NAME: Michael Gutierrez PATIENT April 07, 2022 [facility] FACILITY/LOCATION: [place] NURSING NOTE TYPE: PROSTATE - MALE PELVIS Subjective Data No c/o Additional Data Do you want to see a Middle School English Teacher? No Status: Patient is male Stress Scale: On a scale of 0 to 10, what number best describes how much distress you have experienced in the past week?(0 being no distress and 10 being extreme distress) 1 Social work notified: Pt denied need to see oncology social worker at this time. Nursing Assessment Fatigue: increased [...] by: Zaria Cam RN documented in this encounterSycamore Medical Center08-18-2022 History of Present illness Narrative* Heather Gonsalez MD - 04/02/2022 2:00 PM EDT Chief Complaint Patient presents with: F/U 6 Month HPI Michael Gutierrez is a 71 year old male who presents here today for 6 month follow up. No bowel, Gi, or urinary issues. Following with Urologist Dr. Dodson for prostate cancer and currently getting radiation. Also seeing Dr. Arevalo for treatment. Last day is 04/09/22. Tobacco [...] described as a throbbing type pain. Has resolvednow. HM - Depression questions completed. Denies having [...] BP Cuff Size: Regular Adult) Pulse 68 Resp16 Wt 75.6 kg (166 lb 11.2 oz) [...] Decision Making Level: 4 - Moderate Heather Gonsalez MD documented in this encounterSycamore Medical Center08-09-2022 History of Present illness Narrative* Abimael Arevalo MD, - 03/24/2022 10:20 AM EDT Radiation Oncology - On Treatment Review (OTR) Note PATIENT NAME: Michael Gutierrez PATIENT DIAGNOSIS: Clinical stage IIIA, T1c, prostate adenocarcinoma with Hamilton score 7 (3+4), grade group 2, PSA [...] Pyridium. Continue radiation treatment as planned. Abimael Arevalo MD documented in this encounterSycamore Medical Center08-09-2022 Nurse Note* Zaria Cam RN - 03/24/2022 10:15 AM EDT Radiation Therapy - Nursing Note (OTV) PATIENT NAME: Michael Gutierrez PATIENT March 24, 2022 [facility] FACILITY/LOCATION: [facility] NOTE TYPE: PROSTATE - MALE PELVIS Subjective Data No c/o Additional Data Do you want to see a Middle School English Teacher? No Status: Patient is male Stress Scale: [...] No. Rectal pain: No. Bladder function: urgency, frequency,nocturia. Urinary frequency (D/N): 5-6/4. SIGNED by: Zaria Cam RN documented in this encounterSycamore Medical Center08-02-2022 History of Present illness Narrative* Abimael Arevalo MD, MD - 03/17/2022 10:18 AM EDT Radiation Oncology - On Treatment Review (OTR) [...] medications. Continue radiation treatment as planned. Abimael Arevalo MD documented in this encounterSycamore Medical Center08-02-2022 Nurse Note* Светлана Copeland RN - 03/17/2022 10:09 AM EDT Radiation Therapy - Nursing Note (OTV) PATIENT NAME: Michael Gutierrez PATIENT March 17, 2022 [facility] FACILITY/LOCATION: [facility] NOTE TYPE: PROSTATE - MALE PELVIS Subjective Data slight burning on urination, no more blood note Additional Data Do you want to see a Middle School English Teacher? No Status: Patient is male Stress Scale: [...] painful urination. Urinary frequency (D/N): multiple in daytime/3- 4. States slight burning on urination SIGNED by: Светлана Copeland RN documented in this encounterSycamore Medical Center07-19-2022 History of Present illness Narrative* Abimael Arevalo MD, MD - 03/03/2022 10:28 AM EDT Radiation Oncology - On Treatment Review (OTR) Note PATIENT NAME: Michael Gutierrez PATIENT DIAGNOSIS: Clinical stage IIIA, T1c, prostate adenocarcinoma with Hamilton score 7 (3+4), grade group 2, PSA [...] six months. I recommended evaluation by a lithographic press feeder as it can beskin cancer. I offered a referral to a lithographic press feeder but he told me that he will see his physician.Continue radiation treatment as planned. Abimael Arevalo MD documented in this encounterSycamore Medical Center07-19-2022 Nurse Note* Светлана Copeland RN - 03/03/2022 10:23 AM EDT Radiation Therapy - Nursing Note (OTV) PATIENT NAME: Michael Gutierrez PATIENT March 03, 2022 [facility] FACILITY/LOCATION: [place] NURSING NOTE TYPE: PROSTATE - MALE PELVIS Subjective Data no complaints Additional Data Do you want to see a Middle School English Teacher? No Status: Patient is male Stress Scale: [...] by: Светлана Copeland RN documented in this encounterSycamore Medical Center07-11-2022 History of Present illness Narrative* MICHEL Magdaleno) - 02/23/2022 11:20 AM EDT Radiology Service Progress Note PATIENT NAME: Michael Gutierrez DATE OF SERVICE: February 23, 2022 TIME: 11:52 AM PATIENT IDENTITY VERIFICATION COMPLETED USING TWO (2) IDENTIFIERS: Name and Date of confirmedby patient verbally. FALL SCREENING: Has the patient had 2 falls in the last year or 1 fall with injury or currently using an Ambulatory Assistive Device (Walker, Cane, Wheelchair, Crutches, etc.)? No PATIENT GENDER DATA: Male PATIENT RELEVANT IMPLANT DATA REVIEWED: Yes RADIOLOGY DEPARTMENT: MR; Exam(s) Completed: Body: Treatment Planning for prostate ca PERIPHERAL IV DATA: Not applicable SIGNED BY: RT Sharla(Mamie) February 23, 2022 11:52 AM documented in this encounterSycamore Medical Center07-11-2022 Nurse Note* Zaria Cam RN - 02/23/2022 11:19 AM EDT Radiation Therapy - Patient Education Note PATIENT NAME: Michael Gutierrez PATIENT February 23, 2022 [facility] FACILITY/LOCATION: [place] READINESS TO LEARN Cognitive Ability: Alert and [...] handouts on Department phone list, Bladder function, Diarrhea,Fatigue and [place] instructions, XRT sheet and Aquaphor handout. Referral (recommendation): None, Pt denied need for social work, van service, and contact center engineer. Was approved? unknown Signed by: Zaria Cam RN documented in this encounterSycamore Medical Center07-11-2022 History of Present illness Narrative* Abimael Arevalo MD, - 02/23/2022 12:00 AM EDT MICHAEL GUTIERREZ [id number] 02/23/2022 [facility] Department of Radiation Oncology Treatment Planning Note For reasons stated in the consult note, Michael Gutierrez is a candidate for radiation therapy. Based onreview and interpretation of the relevant diagnostic studies [...] and 3 vmat perales. Custom MLC for IMRTwere the treatment device(s) used to shape/modify the beams. Limiting dose to normal tissue was confirmed upon review of the calculated dose volume histogram. IMRT planning was used because it best met the dose/volume constraints for the organs at risk for this patient, better than what could be achieved using conventional or 3D planning. The specific doserequirements for the PTV, organs at risk and dose-volume histograms are contained in this treatmentplan and/or elsewhere in the medical record. A completed summary of this plan dated 02/26/22 incorporated herein by reference includes dose, beamarrangements, energy, blocking, isodose distribution, and/or ports and DVH. Electronically Signed Abimael Arevalo M.D. 1:23 AM documented in this encounterSycamore Medical Center05-18-2022 History of Present illness Narrative* Niesha Souza RN - 12/31/2021 2:15 PM EDT Clinical Trial Informed Consent IRB# [id number] Title: A PROSPECTIVE COMPARATIVE STUDY OF OUTCOMES [...] life expectancy as discussed with Dr. Abimael Arevalo M.D. . All study related questions have been addressed or answered at this time. Contact information for research nurse and [facility] HospitalOn [facility] on-call for after hours contact given to patient. Patient verbalizes understanding of all aforementioned information and decline at this time to proceed with this clinical trial. Niesha Souza RN documented in this encounterSycamore Medical Center05-18-2022 Nurse Note* Zaria Cam RN - 12/31/2021 1:46 PM EDT Radiation Therapy - Nursing Note (Consult) PATIENT NAME: Michael Gutierrez PATIENT December 31, 2021 [facility] FACILITY/LOCATION: [place] Chief Complaint: consult Reason for visit: Consult. Referring physician: Internal provider Dr Dodson Subjective Data: no c/o Additional Data Do you want to see a Middle School English Teacher? No Are you interested in information about fertility? No Status: Patient is male Stress Scale: On a scale of 0 to 10, what number best describes how much distress you have experienced in the past week?(0 being no distress and 10 being extreme distress) 8 Social work notified: Pt denied need to see oncology social worker at this time. Radiation therapy teaching initiated. [facility] external beam radiation therapy handout given. Departmentphone numbers given & patient encouraged to verbalize questions. SIGNED by: Zaria Cam RN documented in this encounterSycamore Medical Center05-18-2022 History of Present illness Narrative* Abimael Arevalo MD, MD - 12/31/2021 1:32 PM EDT Radiation Oncology - New Patient/Consult Note PATIENT [...] 02/04/21. It further increased to 41.52 on 10/13/21.He underwent TRUS and prostate biopsy on 12/05/21. Prostate was moderately enlarged measuring 34 cc.There was no focal lesions within the peripheral zone of the prostate gland. Pathology reports is as follows: FINAL DIAGNOSIS A. Prostate, right base, biopsy: - Prostatic adenocarcinoma, Hamilton score 3+4=7, grade group 2, with intraductal features, involving 2 of 2 cores (14 mm, 95%; 11 mm, 90%). - Hamilton pattern 4 comprises approximately 20% of the carcinoma. B. Prostate, right mid, biopsy: - Prostatic adenocarcinoma, Hamilton score 3+4=7, grade group 2, with intraductal features, involving 2 of 2 cores (7 mm, 95%; 11 mm, 80%). - Hamilton pattern 4 comprises approximately 20% of the carcinoma. - Small gland cribriform morphology is identified. C. Prostate, right apex, biopsy: - Prostatic adenocarcinoma, Alise score 3+4=7, grade group 2, with intraductal features, involving 2 of 2 cores (4 mm, 95%; 9 mm, 80%). - Hamilton pattern 4 comprises approximately 40% of the carcinoma. - Small gland cribriform morphology is identified. D. Prostate, left base, biopsy: - Prostatic adenocarcinoma, Alise score 3+4=7, grade group 2, with intraductal features, involving 2 of 2 cores (13 mm, 90%; 13 mm, 100%). - Alise pattern 4 comprises approximately 30% of the carcinoma. E. Prostate, left mid, biopsy: - Prostatic adenocarcinoma, Alise score 3+4=7, grade group 2, with intraductal features, involving 2 of 2 cores (13 mm, 95%; 11 mm, 95%). - Alise pattern 4 comprises approximately 30% of the carcinoma. F. Prostate, left apex, biopsy: - Prostatic adenocarcinoma, Hamilton score 3+4=7, grade group 2, with intraductal features, involving 2 of 2 cores (10 mm, 85%; 2 mm, 40%). - Hamilton pattern 4 comprises approximately 20% of the [...] He has some post-void dribbling. He denies anyurinary hesitancy or urgency. He denies any problems [...] clinical stage IIIA, T1c, prostate adenocarcinoma with Hamilton score 7 (3+4), grade group 2, PSA [...] that other personnel such as radiation therapists, salesperson recreational vehicles, and physicists will participate in planning and delivery of radiation treatment. Permanent tattoo fritz will be placed to aid with positioning for daily treatment and the patient consented. Patient will have a simulation procedure in about two months. Thank you very much for allowing us to participate in his care. Signed by: Abimael Arevalo MD cc: Heather Gonsalez [address] [place] [address] Vanessa Dodson [facility] [address] documented in this encounterSycamore Medical Center05-13-2022 Miscellaneous Notes* Telephone Encounter - Marli Owens - 12/26/2021 2:35 PM EDT Spoke with patient and scheduled. Marli Owens * Telephone Encounter - Kay Graf - 12/25/2021 1:30 PM EDT Called pt to schedule rad consult per , phone just rang and line was busy was not able to leave a message. Kay Graf PSS documented in this encounterSycamore Medical Center05-12-2022 Nurse Note* Myrna Webb RN - 12/25/2021 11:56 AM EDT The patient is here for an injection of Eligard Dose: 45 mg Route: Subcutaneous Lot# [id number] Expiration date [facility]: 67406-734-72 Given without incident. Site: left upper quadrant [...] back. Myrna Webb RN documented in this encounterSycamore Medical Center05-12-2022 History of Present illness Narrative* Vanessa Dodson DO - 12/25/2021 10:05 AM EDT Images from the original note were not included. Formerly [facility] [place] [facility] LOCATION: [address] [place] [address] ESTABLISHED PATIENT PATIENT INFO: Michael Gutierrez 71 [...] Prostate, right mid, biopsy: - Prostatic adenocarcinoma, Hamilton score 3+4=7, grade group 2, with intraductal [...] Prostate, left base, biopsy: - Prostatic adenocarcinoma, Hamilton score 3+4=7, grade group 2, with intraductal features, involving 2 of 2 cores (13 mm, 90%; 13 mm, 100%). - Hamilton pattern 4 comprises approximately 30% of the carcinoma. E. Prostate, left mid, biopsy: - Prostatic adenocarcinoma, Alise score 3+4=7, grade group 2, with intraductal features, involving 2 of 2 cores (13 mm, 95%; 11 mm, 95%). - Alise pattern 4 comprises approximately 30% of the carcinoma. F. Prostate, left apex, biopsy: - Prostatic adenocarcinoma, Hamilton score 3+4=7, grade group 2, with intraductal [...] Cribriform pattern 4: Present Intraductal carcinoma: Present Body Technician tumor block to use for additional studies: [...] 70.7 Lymph% (%) Date Value 02/04/2021 19.1 [place]% (%) Date Value 02/04/2021 6.9 Eosin% (%) Date Value 02/04/2021 2.4 Baso% (%) Date Value 02/04/2021 0.9 Abs Neut (ANC) (k/uL) Date Value 02/04/2021 6.10 Abs [place] (k/uL) Date Value 02/04/2021 0.60 Abs Eosin [...] negative. PHYSICAL EXAMINATION Ht 174 cm (5' 8.5) Wt 73.9 kg (163 lb) BMI 24.42 kg/m General appearance: Well appearing, alert, in no acute distress and well- hydrated, well nourished Skin: Skin color, texture, turgor normal, no suspicious rashes or lesions Head: Normocephalic, no masses, lesions, tenderness or abnormalities Abdomen: Normal abdominal exam, Abdomen soft, non-tender. Bowel sounds normal. No masses, organomegaly Genitourinary: MALE EXAM: Exam NOT Indicated PVR: NA IMPRESSION/PLAN: Hamilton 3+4=7 Grade group 2 prostate cancer PSA 41. Metastatic workup negative. Options reviewed. Interested in ADT+ radiation. Referral to Dr. Arevalo in [place] for XRT. Jada 6 month preparation given today. F/U with me in 6 months with PSA prior. I spent 30 minutes in the visit, with more than 50% of the total [id number] time of the visit in counseling / coordination of care. Vanessa Dodson DO MBA documented in this encounterSycamore Medical Center05-05-2022 History of Present illness Narrative* RT Nora(Mamie) - 12/18/2021 2:20 PM EDT Radiology Service Progress Note PATIENT NAME: Michael Gutierrez DATE OF SERVICE: December 18, 2021 TIME: 12:01 PM PATIENT IDENTITY VERIFICATION COMPLETED USING TWO (2) IDENTIFIERS: Name and Date of confirmedby patient verbally. FALL SCREENING: Has the patient had 2 falls in the last year or 1 fall with injury or currently using an Ambulatory Assistive Device (Walker, Cane, Wheelchair, Crutches, etc.)? No PATIENT GENDER DATA: Male PATIENT RELEVANT IMPLANT DATA REVIEWED: Yes RADIOLOGY DEPARTMENT: CT; Exam(s) Completed: Abdomen/Pelvis PERIPHERAL IV DATA: iv started in nuc med SIGNED BY: RT Demarco(Mamie) December 18, 2021 12:01 PM documented in this encounterSy[facility]-2022 Miscellaneous Notes* Telephone Encounter - Elza Belcher Ma - 12/18/2021 10:52 AM EDT Letter mailed to pt home of results. Elza Belcher MA * Telephone Encounter - Theo Byrd APRN.CNP - 12/18/2021 10:40 AM EDT Please let the patient know that his lab shows normal kidney function, electrolytes, glucose and liver enzymes. Theo Byrd APRN.CNP documented in this encounterSycamore [facility] Center05-02-2022 Miscellaneous Notes* Telephone Encounter - Theo Byrd APRN.CNP - 12/15/2021 10:03 AM EDT The following approved medication requests have been transmitted electronically. Signed Prescriptions Disp Refills amLODIPine (NORVASC) 5 mg tablet 90 tablet 3 Sig: Take 1 tablet by mouth once daily. MARISABEL: No Authorizing Provider: THEO BYRD APRN.BUSINESS SYSTEMS ADVISOR * Telephone Encounter - Nicole Parra - 12/15/2021 8:56 AM EDT Pharmacy verified in Epic Patient has been [...] advise. Nicole Osorio Pss documented in this encounterSycamore Medical Center04-29-2022 Miscellaneous Notes* Telephone Encounter - Kacy Parra - 12/12/2021 2:11 PM EDT Sending to the Pool for follow up Thank you * Telephone Encounter - Myrna Webb RN - 12/12/2021 11:00 AM EDT Spoke with patient and he states he can only get to the [facility] for the imaging. I made him aware that our schedulers will reach out to assist with scheduling the imaging and then getting the Dr. Dodson appt after to go over his treatment plan based on results. Kacy will help patient get scheduled. * Telephone Encounter - Myrna Webb RN - 12/12/2021 10:59 AM EDT ----- Message from Delvis Isidro MD sent at 12/11/2021 2:11 PM EDT ----- Pt requesting call with results of biopsy. Please let patient know that we will need to get a CT and bone scan and follow up with Dr. Dodson for prostate cancer conference to discuss next steps. Thanks documented in this encounterSycamore Medical Center04-29-2022 Miscellaneous Notes* Telephone Encounter - Elza Belcher Ma - 12/12/2021 2:01 PM EDT Pt notified. He asked what they do to treat prostate cancer. Advised pt that that is something he would have to discuss with Urologist, that is out of our practice. Offered to transfer pt to scheduleto set up CT and Bone scan but pt denied. Stated they are suppose to call me. Elza Belcher Ma * Telephone Encounter - Heather Gonsalez MD - 12/12/2021 1:54 PM EDT His biopsy did show that he has prostate cancer, so he should get the CT and bone scan done; which can be done here in [place] and then follow up with the Urologist to talk about treatment Heather Gonsalez MD * Telephone Encounter - Mandi Glez RN - 12/12/2021 11:42 AM EDT Patient calls in to ask provider to review and advise on US results. Patient was notified at 11:[address] Isirdo's office that patient will need to get a CT and bone scan and follow up with Dr. Dodson for prostate cancer conferenece to discuss next step. [place] up with Dr. Dodson. Patient specifically asking if he has prostate cancer and asking to speak to provider. Please review and advise, Mandi Glez RN documented in this encounterSycamore Medical Center04-22-2022 Nurse Note* Kirk Gutierrez Ma - 12/05/2021 11:49 AM EDT STRO TRANS RECTAL TRUSP - PROSTATE WITH [...] resp. rate 18, height 174 cm (5' 8.5), weight 77.6 kg (171 lb). Pain Rating: on a scale of 0-10: 0 Pre-Procedure Anesthetic given: Administered by MD - see Procedure Physician Note. Instruction sheet given and reviewed: Yes Patient verbalizes understanding: Yes Post-Procedure vital signs: BP 160/79 Pulse 70 Respirations 16. Pain Rating: on a scale of 0-10: 0 Post-Procedure Antibiotics: No Nurse's signature: Kirk Gutierrez Ma documented in this encounterSycamore Medical Center04-22-2022 History of Present illness Narrative* Delvis Isidro MD - 12/05/2021 10:21 AM EDT PROSTATE BIOPSY WITH ULTRASOUND GUIDANCE Tillmanmelia Gutierrez a 71 year old. History and Physical reviewed and is unchanged. . Informed Consent Discussed: Yes. Risks, benefits, alternatives and personnel discussed with patientwho consents to proceed. Discussed [facility]. UNIVERSAL PROTOCOL [...] discuss Delvis Isidro MD documented in this encounterSycamore Medical Center03-29-2022 History of Present illness Narrative* Heri Humphries PA-C - 11/11/2021 1:52 PM EDT Unable to tra[place]wl to [place] or [place], will schedule with DANIEL Ribeiro MT, PA-C * Puja King LPN - 11/11/2021 1:31 PM EDT CC Post Void Residual HPI: Michael Gutierrez is a 71 year old [...] Plan: Appointment with Heri. documented in this encounterSycamore Medical Center03-17-2021 History of Present illness Narrative* Radha PérezRt)Angela - 10/30/2020 9:40 AM EDT Radiology Service Progress Note PATIENT NAME: Michael Gutierrez DATE OF SERVICE: October 30, 2020 TIME: 10:02 AM PATIENT IDENTITY VERIFICATION COMPLETED USING TWO (2) IDENTIFIERS: Name and Date of confirmedby patient verbally. FALL SCREENING: Has the patient had 2 falls in the last year or 1 fall with injury or currently using an Ambulatory Assistive Device (Walker, Cane, Wheelchair, Crutches, etc.)? 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/2016 Tobacco abuse 04/10/2015 07/24/2016 Meatal stenosis 04/03/2015 07/24/2016 Penile adhesions w/skin bridging 03/04/2015 07/24/2016 Lumbar disc herniation 08/21/2013 6 Diarrhea 07/24/2016 documented as of this encounter (statuses as of 12/05/2021) [facility] Narrative* Problem Noted Date Resolved Date 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 07/24/2016 Tobacco abuse 04/10/2015 07/24/2016 Meatal stenosis 04/03/2015 07/24/2016 Penile adhesions w/skin bridging 03/04/2015 07/24/2016 Lumbar disc herniation 08/21/2013 6 Diarrhea 07/24/2016 documented as of this encounter (statuses as of 12/09/2021) [facility] Narrative* Problem Noted Date Resolved Date 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 07/24/2016 Tobacco abuse 04/10/2015 07/24/2016 Meatal stenosis 04/03/2015 07/24/2016 Penile adhesions w/skin bridging 03/04/2015 07/24/2016 Lumbar disc herniation 08/21/2013 6 Diarrhea 07/24/2016 documented as of this encounter (statuses as of 12/12/2021) [facility] Narrative* Problem Noted Date Resolved Date 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 07/24/2016 Tobacco abuse 04/10/2015 07/24/2016 Meatal stenosis 04/03/2015 07/24/2016 Penile adhesions w/skin bridging 03/04/2015 07/24/2016 Lumbar disc herniation 08/21/2013 6 Diarrhea 07/24/2016 documented as of this encounter (statuses as of 12/15/2021) [facility] Narrative* Problem Noted Date Resolved Date 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 07/24/2016 Tobacco abuse 04/10/2015 07/24/2016 Meatal stenosis 04/03/2015 07/24/2016 Penile adhesions w/skin bridging 03/04/2015 07/24/2016 Lumbar disc herniation 08/21/2013 6 Diarrhea 07/24/2016 documented as of this encounter (statuses as of 12/18/2021) [facility] Narrative* Problem Noted Date Resolved Date 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 07/24/2016 Tobacco abuse 04/10/2015 07/24/2016 Meatal stenosis 04/03/2015 07/24/2016 Penile adhesions w/skin bridging 03/04/2015 07/24/2016 Lumbar disc herniation 08/21/2013 6 Diarrhea 07/24/2016 documented as of this encounter (statuses as of 12/19/2021) [facility] Narrative* Problem Noted Date Resolved Date 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 07/24/2016 Tobacco abuse 04/10/2015 07/24/2016 Meatal stenosis 04/03/2015 07/24/2016 Penile adhesions w/skin bridging 03/04/2015 07/24/2016 Lumbar disc herniation 08/21/2013 6 Diarrhea 07/24/2016 documented as of this encounter (statuses as of 12/19/2021) [facility] Narrative* Problem Noted Date Resolved Date 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 07/24/2016 Tobacco abuse 04/10/2015 07/24/2016 Meatal stenosis 04/03/2015 07/24/2016 Penile adhesions w/skin bridging 03/04/2015 07/24/2016 Lumbar disc herniation 08/21/2013 6 Diarrhea 07/24/2016 documented as of this encounter (statuses as of 12/25/2021) [facility] Narrative* Problem Noted Date Resolved Date 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 07/24/2016 Tobacco abuse 04/10/2015 07/24/2016 Meatal stenosis 04/03/2015 07/24/2016 Penile adhesions w/skin bridging 03/04/2015 07/24/2016 Lumbar disc herniation 08/21/2013 6 Diarrhea 07/24/2016 documented as of this encounter (statuses as of 12/26/2021) [address]2016 History of Past illness Narrative* Problem Noted Date Resolved Date 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 07/24/2016 Tobacco abuse 04/10/2015 07/24/2016 Meatal stenosis 04/03/2015 07/24/2016 Penile adhesions w/skin bridging 03/04/2015 07/24/2016 Lumbar disc herniation 08/21/2013 6 Diarrhea 07/24/2016 documented as of this encounter (statuses as of 12/31/2021) [facility] Narrative* Problem Noted Date Resolved Date 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 07/24/2016 Tobacco abuse 04/10/2015 07/24/2016 Meatal stenosis 04/03/2015 07/24/2016 Penile adhesions w/skin bridging 03/04/2015 07/24/2016 Lumbar disc herniation 08/21/2013 6 Diarrhea 07/24/2016 documented as of this encounter (statuses as of 01/02/2022) [facility] Narrative* Problem Noted Date Resolved Date 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 07/24/2016 Tobacco abuse 04/10/2015 07/24/2016 Meatal stenosis 04/03/2015 07/24/2016 Penile adhesions w/skin bridging 03/04/2015 07/24/2016 Lumbar disc herniation 08/21/2013 6 Diarrhea 07/24/2016 documented as of this encounter (statuses as of 02/20/2022) [facility] Narrative* Problem Noted Date Resolved Date 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 07/24/2016 Tobacco abuse 04/10/2015 07/24/2016 Meatal stenosis 04/03/2015 07/24/2016 Penile adhesions w/skin bridging 03/04/2015 07/24/2016 Lumbar disc herniation 08/21/2013 6 Diarrhea 07/24/2016 documented as of this encounter (statuses as of 02/23/2022) [facility] Narrative* Problem Noted Date Resolved Date 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 07/24/2016 Tobacco abuse 04/10/2015 07/24/2016 Meatal stenosis 04/03/2015 07/24/2016 Penile adhesions w/skin bridging 03/04/2015 07/24/2016 Lumbar disc herniation 08/21/2013 6 Diarrhea 07/24/2016 documented as of this encounter (statuses as of 02/24/2022) [facility] Narr[facility]* Problem Noted Date Resolved Date 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 07/24/2016 Tobacco abuse 04/10/2015 07/24/2016 Meatal stenosis 04/03/2015 07/24/2016 Penile adhesions w/skin bridging 03/04/2015 07/24/2016 Lumbar disc herniation 08/21/2013 6 Diarrhea 07/24/2016 documented as of this encounter (statuses as of 02/27/2022) [facility]arr[facility]* Problem Noted Date Resolved Date 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 07/24/2016 Tobacco abuse 04/10/2015 07/24/2016 Meatal stenosis 04/03/2015 07/24/2016 Penile adhesions w/skin bridging 03/04/2015 07/24/2016 Lumbar disc herniation 08/21/2013 6 Diarrhea 07/24/2016 documented as of this encounter (statuses as of 03/03/2022) [facility]arr[facility]* Problem Noted Date Resolved Date 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 07/24/2016 Tobacco abuse 04/10/2015 07/24/2016 Meatal stenosis 04/03/2015 07/24/2016 Penile adhesions w/skin bridging 03/04/2015 07/24/2016 Lumbar disc herniation 08/21/2013 6 Diarrhea 07/24/2016 documented as of this encounter (statuses as of 03/13/2022) [facility]* Problem Noted Date Resolved Date 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 07/24/2016 Tobacco abuse 04/10/2015 07/24/2016 Meatal stenosis 04/03/2015 07/24/2016 Penile adhesions w/skin bridging 03/04/2015 07/24/2016 Lumbar disc herniation 08/21/2013 6 Diarrhea 07/24/2016 documented as of this encounter (statuses as of 03/17/2022) [facility] Narrative* Problem Noted Date Resolved Date 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 07/24/2016 Tobacco abuse 04/10/2015 07/24/2016 Meatal stenosis 04/03/2015 07/24/2016 Penile adhesions w/skin bridging 03/04/2015 07/24/2016 Lumbar disc herniation 08/21/2013 6 Diarrhea 07/24/2016 documented as of this encounter (statuses as of 03/24/2022) [facility]arrative* Problem Noted Date Resolved Date 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 07/24/2016 Tobacco abuse 04/10/2015 07/24/2016 Meatal stenosis 04/03/2015 07/24/2016 Penile adhesions w/skin bridging 03/04/2015 07/24/2016 Lumbar disc herniation 08/21/2013 6 Diarrhea 07/24/2016 documented as of this encounter (statuses as of 03/26/2022) [facility]* Problem Noted Date Resolved Date 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 07/24/2016 Tobacco abuse 04/10/2015 07/24/2016 Meatal stenosis 04/03/2015 07/24/2016 Penile adhesions w/skin bridging 03/04/2015 07/24/2016 Lumbar disc herniation 08/21/2013 6 Diarrhea 07/24/2016 documented as of this encounter (statuses as of 04/03/2022) [facility]arrative* Problem Noted Date Resolved Date 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 07/24/2016 Tobacco abuse 04/10/2015 07/24/2016 Meatal stenosis 04/03/2015 07/24/2016 Penile adhesions w/skin bridging 03/04/2015 07/24/2016 Lumbar disc herniation 08/21/2013 6 Diarrhea 07/24/2016 documented as of this encounter (statuses as of 04/07/2022) [address]2016 History of Past illness Narrative* Problem Noted Date Resolved Date 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 07/24/2016 Tobacco abuse 04/10/2015 07/24/2016 Meatal stenosis 04/03/2015 07/24/2016 Penile adhesions w/skin bridging 03/04/2015 07/24/2016 Lumbar disc herniation 08/21/2013 6 Diarrhea 07/24/2016 documented as of this encounter (statuses as of 04/15/2022) [facility]* Problem Noted Date Resolved Date 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 07/24/2016 Tobacco abuse 04/10/2015 07/24/2016 Meatal stenosis 04/03/2015 07/24/2016 Penile adhesions w/skin bridging 03/04/2015 07/24/2016 Lumbar disc herniation 08/21/2013 6 Diarrhea 07/24/2016 documented as of this encounter (statuses as of 05/13/2022) [facility]* Problem Noted Date Resolved Date 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 07/24/2016 Tobacco abuse 04/10/2015 07/24/2016 Meatal stenosis 04/03/2015 07/24/2016 Penile adhesions w/skin bridging 03/04/2015 07/24/2016 Lumbar disc herniation 08/21/2013 6 Diarrhea 07/24/2016 documented as of this encounter (statuses as of 05/13/2022) [facility]* Problem Noted Date Resolved Date 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 07/24/2016 Tobacco abuse 04/10/2015 07/24/2016 Meatal stenosis 04/03/2015 07/24/2016 Penile adhesions w/skin bridging 03/04/2015 07/24/2016 Lumbar disc herniation 08/21/2013 6 Diarrhea 07/24/2016 documented as of this encounter (statuses as of 05/15/2022) [facility]* Problem Noted Date Resolved Date 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 07/24/2016 Tobacco abuse 04/10/2015 07/24/2016 Meatal stenosis 04/03/2015 07/24/2016 Penile adhesions w/skin bridging 03/04/2015 07/24/2016 Lumbar disc herniation 08/21/2013 6 Diarrhea 07/24/2016 documented as of this encounter (statuses as of 05/21/2022) [facility]* Problem Noted Date Resolved Date 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 07/24/2016 Tobacco abuse 04/10/2015 07/24/2016 Meatal stenosis 04/03/2015 07/24/2016 Penile adhesions w/skin bridging 03/04/2015 07/24/2016 Lumbar disc herniation 08/21/2013 6 Diarrhea 07/24/2016 documented as of this encounter (statuses as of 05/27/2022) [facility]* Problem Noted Date Resolved Date 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 07/24/2016 Tobacco abuse 04/10/2015 07/24/2016 Meatal stenosis 04/03/2015 07/24/2016 Penile adhesions w/skin bridging 03/04/2015 07/24/2016 Lumbar disc herniation 08/21/2013 6 Diarrhea 07/24/2016 documented as of this encounter (statuses as of 07/23/2022) [facility]* Problem Noted Date Resolved Date 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 07/24/2016 Tobacco abuse 04/10/2015 07/24/2016 Meatal stenosis 04/03/2015 07/24/2016 Penile adhesions w/skin bridging 03/04/2015 07/24/2016 Lumbar disc herniation 08/21/2013 6 Diarrhea 07/24/2016 documented as of this encounter (statuses as of 08/03/2022) [facility]* Problem Noted Date Resolved Date 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 07/24/2016 Tobacco abuse 04/10/2015 07/24/2016 Meatal stenosis 04/03/2015 07/24/2016 Penile adhesions w/skin bridging 03/04/2015 07/24/2016 Lumbar disc herniation 08/21/2013 6 Diarrhea 07/24/2016 documented as of this encounter (statuses as of 08/20/2022) [facility]* Problem Noted Date Resolved Date 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 07/24/2016 Tobacco abuse 04/10/2015 07/24/2016 Meatal stenosis 04/03/2015 07/24/2016 Penile adhesions w/skin bridging 03/04/2015 07/24/2016 Lumbar disc herniation 08/21/2013 6 Diarrhea 07/24/2016 documented as of this encounter (statuses as of 10/06/2022) [facility]* Problem Noted Date Resolved Date 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 07/24/2016 Tobacco abuse 04/10/2015 07/24/2016 Meatal stenosis 04/03/2015 07/24/2016 Penile adhesions w/skin bridging 03/04/2015 07/24/2016 Lumbar disc herniation 08/21/2013 6 Diarrhea 07/24/2016 documented as of this encounter (statuses as of 11/05/2022) [facility]* Problem Noted Date Resolved Date 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 07/24/2016 Tobacco abuse 04/10/2015 07/24/2016 Meatal stenosis 04/03/2015 07/24/2016 Penile adhesions w/skin bridging 03/04/2015 07/24/2016 Lumbar disc herniation 08/21/2013 6 Diarrhea 07/24/2016 documented as of this encounter (statuses as of 11/23/2022) [facility]* Problem Noted Date Resolved Date 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 07/24/2016 Tobacco abuse 04/10/2015 07/24/2016 Meatal stenosis 04/03/2015 07/24/2016 Penile adhesions w/skin bridging 03/04/2015 07/24/2016 Lumbar disc herniation 08/21/2013 6 Diarrhea 07/24/2016 documented as of this encounter (statuses as of 11/27/2022) [facility]* Problem Noted Date Resolved Date 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 07/24/2016 Tobacco abuse 04/10/2015 07/24/2016 Meatal stenosis 04/03/2015 07/24/2016 Penile adhesions w/skin bridging 03/04/2015 07/24/2016 Lumbar disc herniation 08/21/2013 6 Diarrhea 07/24/2016 documented as of this encounter (statuses as of 02/10/2023) [facility]* Problem Noted Date Resolved Date 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 07/24/2016 Tobacco abuse 04/10/2015 07/24/2016 Meatal stenosis 04/03/2015 07/24/2016 Penile adhesions w/skin bridging 03/04/2015 07/24/2016 Lumbar disc herniation 08/21/2013 6 Diarrhea 07/24/2016 documented as of this encounter (statuses as of 02/17/2023) [facility]* Problem Noted Date Diagnosed Date Resolved Date 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 07/24/2016 Tobacco abuse 04/10/2015 07/24/2016 Meatal stenosis 04/03/2015 07/24/2016 Penile adhesions w/skin bridging 03/04/2015 07/24/2016 Lumbar disc herniation 08/21/201307/24 Diarrhea 07/24/2016 documented as of this encounter (statuses as of 04/06/2023) [facility]* Problem Noted Date Diagnosed Date Resolved Date 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 07/24/2016 Tobacco abuse 04/10/2015 07/24/2016 Meatal stenosis 04/03/2015 07/24/2016 Penile adhesions w/skin bridging 03/04/2015 07/24/2016 Lumbar disc herniation 08/21/201307/24 Diarrhea 07/24/2016 documented as of this encounter (statuses as of 07/19/2023) [facility]* Problem Noted Date Diagnosed Date Resolved Date 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 07/24/2016 Tobacco abuse 04/10/2015 07/24/2016 Meatal stenosis 04/03/2015 07/24/2016 Penile adhesions w/skin bridging 03/04/2015 07/24/2016 Lumbar disc herniation 08/21/201307/24 Diarrhea 07/24/2016 documented as of this encounter (statuses as of 07/21/2023) [address]2016 History of Past illness Narrative* Problem Noted Date Diagnosed Date Resolved Date 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 07/24/2016 Tobacco abuse 04/10/2015 07/24/2016 Meatal stenosis 04/03/2015 07/24/2016 Penile adhesions w/skin bridging 03/04/2015 07/24/2016 Lumbar disc herniation 08/21/201307/24 Diarrhea 07/24/2016 documented as of this encounter (statuses as of 07/22/2023) [address]2016 History of Past illness Narrative* Problem Noted Date Diagnosed Date Resolved Date 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 07/24/2016 Tobacco abuse 04/10/2015 07/24/2016 Meatal stenosis 04/03/2015 07/24/2016 Penile adhesions w/skin bridging 03/04/2015 07/24/2016 Lumbar disc herniation 08/21/201307/24 Diarrhea 07/24/2016 documented as of this encounter (statuses as of 09/30/2023) [facility]* Problem Noted Date Diagnosed Date Resolved Date 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 07/24/2016 Tobacco abuse 04/10/2015 07/24/2016 Meatal stenosis 04/03/2015 07/24/2016 Penile adhesions w/skin bridging 03/04/2015 07/24/2016 Lumbar disc herniation 08/21/201307/24 Diarrhea 07/24/2016 documented as of this encounter (statuses as of 10/05/2023) [address]2016 History of Past illness Narrative* Problem Noted Date Diagnosed Date Resolved Date 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 07/24/2016 Tobacco abuse 04/10/2015 07/24/2016 Meatal stenosis 04/03/2015 07/24/2016 Penile adhesions w/skin bridging 03/04/2015 07/24/2016 Lumbar disc herniation 08/21/201307/24 Diarrhea 07/24/2016 documented as of this encounter (statuses as of 10/13/2023) [facility] Elevated prostate specific antigen (PSA)- Primary documented [facility] encounter [facility]* Diagnosis Elevated prostate specific antigen (PSA)- Primary Feeling of incomplete bladder emptying Incomplete bladder emptying [facility] foundation note* Diagnosis Essential hypertension, benign documented in this encounter [facility] note* Diagnosis Malignant neoplasm of prostate (HCC) Malignant neoplasm of prostate documented in this encounter [facility] note* Diagnosis Prostate cancer (HCC)- Primary Malignant neoplasm of prostate Elevated prostate specific antigen (PSA) [facility] Diagnosis Prostate cancer (HCC) Malignant neoplasm of prostate [facility]* Diagnosis Prostate cancer (HCC)- Primary Malignant neoplasm of prostate [facility]* Diagnosis Prostate cancer (HCC) Malignant neoplasm of prostate documented in this encounter [facility] note* Diagnosis Prostate cancer (HCC)- Primary Malignant neoplasm of prostate [facility]* Diagnosis Prostate cancer (HCC)- Primary Malignant neoplasm of prostate [facility]* Diagnosis Prostate cancer (HCC)- Primary Malignant neoplasm of prostate [facility]* Diagnosis Prostate cancer (HCC)- Primary Malignant neoplasm of prostate [facility] Diagnosis Dysuria- Primary [facility]* Diagnosis Essential hypertension, benign- Primary DDD (degenerative disc disease), lumbar Degeneration of lumbar or lumbosacral intervertebral disc Prostate cancer (HCC) Malignant neoplasm of prostate [facility]* Diagnosis Prostate cancer (HCC)- Primary Malignant neoplasm of prostate documented in this encounter [facility] noteNo assessment information [facility] Work [facility]: [facility]* Diagnosis Essential hypertension, benign [facility]* Diagnosis Dysuria- Primary documented in this encounter [facility] note* Diagnosis Onset Date Resolution Status Family history of skin cancer chronic 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 Work Phone: Evaluation note* Diagnosis Prostate cancer (HCC)- Primary Malignant neoplasm of prostate [facility]* Diagnosis Dysuria- Primary documented [facility]* Diagnosis Essential hypertension, benign- Primary DDD (degenerative disc disease), lumbar Degeneration of lumbar or lumbosacral intervertebral disc Prostate cancer (HCC) Malignant neoplasm of prostate Elevated PSA Elevated prostate specific antigen (PSA) documented in this encounter [facility] note* Diagnosis Radiotherapy follow-up- Primary Radiotherapy follow-up examination Prostate cancer (HCC) Malignant neoplasm of prostate documented in this encounter [facility] note* Diagnosis Sinobronchitis- Primary Unspecified sinusitis (chronic) documented [facility]* Diagnosis Prostate cancer (HCC)- Primary Malignant neoplasm of prostate [facility]* Diagnosis DDD (degenerative disc disease), lumbar- Primary Degeneration of lumbar or lumbosacral intervertebral disc Lumbar radiculopathy Thoracic or lumbosacral neuritis or radiculitis, unspecified Essential hypertension, benign Elevated glucose Other abnormal glucose Prostate cancer (HCC) Malignant neoplasm of prostate Elevated prostate specific antigen (PSA) documented [facility]* Diagnosis Hematuria, unspecified type- Primary Gross hematuria documented in this encounter [facility] note* Diagnosis Prostate cancer (HCC)- Primary Malignant neoplasm of prostate documented in this encounter [facility] note* Diagnosis Essential hypertension, benign- Primary Elevated LDL cholesterol level Pure hypercholesterolemia documented in this encounter [facility] note* Diagnosis Essential hypertension, benign- Primary Elevated glucose Other abnormal glucose Elevated LDL cholesterol level Pure hypercholesterolemia DDD (degenerative disc disease), lumbar Degeneration of lumbar or lumbosacral intervertebral disc Lumbar radiculopathy Thoracic or lumbosacral neuritis or radiculitis, unspecified Prostate cancer (HCC) Malignant neoplasm of prostate LLQ pain Abdominal pain, left lower quadrant documented [facility]* Diagnosis Onset Date Resolution Status Fusion of lumbar spine acute Lumbar radiculopathy acute Epidermal cyst acute Other hammer toe(s) (acquired), right foot acute [facility] Work Phone: Evaluation note* Diagnosis Hx of malignant neoplasm of prostate- Primary Personal history of malignant neoplasm of prostate Phimosis of penis Prostate cancer (HCC) [facility]ignant neoplasm of prostate [facility] Essential hypertension, benign- Primary Elevated glucose Other abnormal glucose Elevated LDL cholesterol level Pure hypercholesterolemia DDD (degenerative disc disease), lumbar Degeneration of lumbar or lumbosacral intervertebral disc Lumbar radiculopathy Thoracic or lumbosacral neuritis or radiculitis, unspecified Prostate cancer (HCC) Malignant neoplasm of prostate Elevated PSA Elevated prostate specific antigen (PSA) Screening for depression Encounter for screening examination for other mental health and behavioral disorders [facility] Diagnosis Acute cough [facility] Diagnosis Suspected COVID-19 virus infection [facility] Diagnosis Pulmonary emphysema, unspecified emphysema type (HCC)- Primary Subacute cough Cough Subacute cough Cough [facility] Diagnosis Subacute cough Cough [facility] Diagnosis Acute cough- Primary [facility] Diagnosis Essential hypertension, benign- Primary Need for vaccination Need for prophylactic vaccination and inoculation against unspecified single disease Degeneration of intervertebral disc of lumbar region, unspecified whether pain present Prostate cancer (HCC) Malignant neoplasm of prostate [facility]* Diagnosis DDD (degenerative disc disease), lumbar Degeneration of lumbar or lumbosacral intervertebral disc [facility] Diagnosis Pain, dental- Primary Unspecified disorder of the teeth and supporting structures [facility]* Diagnosis Hx of malignant neoplasm of prostate- Primary Personal history of malignant neoplasm of prostate Screening for genitourinary condition Screening for other and unspecified genitourinary condition Other symptoms and signs involving the genitourinary system [facility] Diagnosis Prostate cancer (HCC) Malignant neoplasm of prostate [facility]* Diagnosis Foot pain, right- Primary Pain in limb Foot pain, right Pain in limb [facility] Diagnosis Foot pain, right Pain in limb [facility] Diagnosis Prostate cancer (HCC)- Primary Malignant neoplasm of prostate documented in this encounter [facility] Discharge instructions Additional Instructions Implant Used?: [facility] Work Phone: Hospital Discharge instructions Additional Instructions Keep and follow-up with your urologist. Let him know that you have had blood in your urine and they may want to do a cystoscopy to look inside your bladder. Plenty of fluids to prevent you from getting large blood clots that could prevent you from urinating. Currently there is no signs of infection. We sent a urine culture. If that comes back positive we will notify you and treat you with antibiotics. Return if unable to urinate.[facility] Work Phone: Hospital Discharge instructions Additional Instructions 1. Please keep your surgical dressing clean dry and intact. Do not remove. Do not get it wet. 2. Continue rest, ice (behind your operative knee0 and elevate per your postoperative instructions that were given to you at the day of your surgical consultation while in office. 3. Partial weightbearing to heel to the right lower extremity with surgical shoe. Full weightbearing left lower extremity. 4. Please take all pain medication and prescriptions as written. 5. If you are a diabetic patient please continue tight glucose control while in the postoperative phase. 6. Please continue to follow-up with all your doctors visits prior and after surgery. 7. Please reach out to Dr. Germain, through the paging system in the hospital or private office with any questions or concerns. 8. Thank you for letting me be involved in your surgical care! Implant Used?: [facility] Work Phone: Reason for referral (narrative)* Outpatient Procedure (Routine) - Pending Review Specialty Diagnoses / Procedures Referred By Johanna kapoor Referred To Contact [facility] Diagnoses Elevated prostate specific antigen (PSA) Procedures US PROSTATE BIOPSY GUKI PROSTATE NEEDLE BIOPSY ANY APPROACH US, TRANSRECTAL URNLS DIP STICK/TABLET RGNT AUTO W/O MICROSCOPY US GUIDANCE NEEDLE PLACEMENT IMG S&I Heri Humphries PA-C [address] [place] [address] [facility] [address] [place] [address] Referral ID Status Reason Start Date Expiration Date Visits Requested Visits Authorized [id number] Pending Review Auto-Generat ed Referral 11/11/2021 11/11/2022 1 1 [facility] for visit Narrative* Diagnostic Procedure Only (Routine) - Closed Specialty Diagnoses / Procedures Referred By Contac t Referred To Contact MOLECULAR & FUNCTIONAL IMAGING Diagnoses Malignant neoplasm of prostate (HCC) Procedures NM BONE WHOLE BODY BONE &/JOINT IMAGING WHOLE BODY Delvis Isidro MD [address] [place] [address] Molecular & Functional Imaging [address] [place] [address] Referral ID Status Reason Start Date Expiration Date V isits Requested Visits Authorized [id number] Closed Auto-Generate d Referral 12/11/2021 01/10/2023 1 1 [facility] for visit Narrative* Diagnostic Procedure Only (Urgent) - Closed Specialty Diagnoses / Procedures Referred By Johanna kapoor Referred To Contact XR IMAGING Diagnoses Foot pain, right Procedures XR FOOT GENERAL 3V AP/LAT/OBL RIGHT RADEX FOOT COMPLETE MINIMUM 3 VIEWS Serjio Julien APRN.[employer] [address] [place] [address] Phone: tel: fax: [place] [phone] Referral ID Status Reason Start Date Expiration Date V isits Requested Visits Authorized [id number] Closed Auto-Generate d Referral 04/11/2025 05/11/2026 1 1 [facility] Medications Administered Section Inactive Administered Medications - [...] 6 MONTHS, 2 doses, First dose on Wed02/09/23 at 1100, Last dose on 08/08/23 at 1100, Hazardous Chemotherapy Drug: Use appropriate PPE. Given 02/09/2023 11:37 AM EDT 45 mg Abdomen, LUQ Reason for Referral Specialty Diagnoses / Procedures Referred By Contac t Referred To Contact CT IMAGING Diagnoses Malignant neoplasm of prostate (HCC) Procedures CT ABD/PEL W IVCON CT ABD & PELVIS W/CONTRAST Delvis Isidro MD [address] [place] [address] Ct Imaging Referral ID Status Reason Start Date Expiration Date V isits Requested Visits Authorized [id number] Closed Auto-Generate d Referral 12/11/2021 01/10/2023 1 1 Specialty Diagnoses / Procedures Referred By Contac t Referred To Contact Radiation Oncology Diagnoses Prostate cancer (HCC) Procedures RAD/ONC CONSULT OFFICE/OUTPATIENT [facility] 60-74 MINUTES Vanessa Dodson DO [address] [place] [address] Referral ID Status Reason Start Date Expiration Date Visits Requested Visits Authorized [id number] Authorized PCP Requested Referral 12/25/2021 12/25/2022 1 1 Specialty Diagnoses / Procedures Referred By Contac t Referred To Contact MR IMAGING Diagnoses Prostate cancer (HCC) Procedures MRI TREATMENT PLANNING WO IVCON NR UNLISTED MAGNETIC RESONANCE PROCED Abimael Arevalo MD, [address] [place] [address] Mr Imaging Referral ID Status Reason Start Date Expiration Date Visits Requested Visits Authorized [id number] Authorized Auto-Generat ed Referral 01/02/2022 02/01/2023 1 1 Referral ID Status Reason Start Date Expiration Date V isits Requested Visits Authorized [id number] Closed Auto-Generate d Referral 01/02/2022 02/01/2023 1 1 Chief Complaint and Reason for Visit Chief Complaint neck pain Chief Complaint neck pain Consult EXCISION LESION,POSS PARTIAL RHINECTOMY Reason for Visit Family history of sk in cancer Neoplasm of skin of nasal tip Personal history of skin cancer Smoker Family history of skin cancer Neoplasm of skin of nasal tip Personal history of skin cancer Smoker Chief Complaint hematuria Chief Complaint hematuria r flank pain Chief Complaint hematuria r flank pain LUMBAR SPINE room 6 Derotational arthroplasty of the ri Reason for Visit Fusion of lumbar spi ne Lumbar radiculopathy Epidermal cyst Other hammer toe(s) (acquired), right foot Family History No Family History Records Found Relationship Condition Age at Onset Recorded Date/T dami Not Specified Malignant neoplasm of skin Unknown Hypertension Unknown Advance Directives No Advanced Directives Records Found Advance Directive Response Recorded Date/ Time Advance Directives No July 11:01am Living Will No April 26, 2022 7:31am Power of Winder Fixer No April 7:31am Advance Directive Response Recorded Date/ Time Advance Directives No July 11:01am Living Will No May 27 11:16am Power of Winder Fixer No May 27, 2022 11:16am Advance Directive Response Recorded Date/ Time Advance Directives No July 10:01am Living Will No August 05, 2 023 1:39pm Power of Winder Fixer No August 05, 2023 1:39pm Advance Directive Response Recorded Date/ Time Advance Directives No July 10:01am Living Will No September 10 24 8:43am Power of Winder Fixer No September 10, 2023 8:43am Advance Directive Response Recorded Date/ Time Advance Directives No July 11:01am Living Will No October 21, 2023 3:07pm Power of Winder Fixer No October 20 3:07pm Summary Purpose Additional Source Comments Source Comments (unrecognize d section and content) In the event this informatio n is protected by the Federal Confidentiality of Alcohol and Drug Abuse Patient Records regulations: The Federal rules restrict any use of the information to criminally investigate or prosecute any alcohol or drug abuse patient.[facility] the event this information is protected by the Federal Confidentiality of Alcohol and Drug Abuse Patient Records regulations: The Federal rules restrict any use of the information to criminally investigate or prosecute any alcohol or drug abuse patient.[facility] Center[facility] the event this information is protected by the Federal Confidentiality of Alcohol and Drug Abuse Patient Records regulations: The Federal rules restrict any use of the information to criminally investigate or prosecute any alcohol or drug abuse patient.[facility] Center[facility] the event this information is protected by the Federal Confidentiality of Alcohol and Drug Abuse Patient Records regulations: The Federal rules restrict any use of the information to criminally investigate or prosecute any alcohol or drug abuse patient.[facility] Center[facility] the event this information is protected by the Federal Confidentiality of Alcohol and Drug Abuse Patient Records regulations: The Federal rules restrict any use of the information to criminally investigate or prosecute any alcohol or drug abuse patient.[facility] Center[facility] the event this information is protected by the Federal Confidentiality of Alcohol and Drug Abuse Patient Records regulations: The Federal rules restrict any use of the information to criminally investigate or prosecute any alcohol or drug abuse patient.[facility] Center[facility] the event this information is protected by the Federal Confidentiality of Alcohol and Drug Abuse Patient Records regulations: The Federal rules restrict any use of the information to criminally investigate or prosecute any alcohol or drug abuse patient.[facility] Center[facility] the event this information is protected by the Federal Confidentiality of Alcohol and Drug Abuse Patient Records regulations: The Federal rules restrict any use of the information to criminally investigate or prosecute any alcohol or drug abuse patient.[facility] Center[facility] the event this information is protected by the Federal Confidentiality of Alcohol and Drug Abuse Patient Records regulations: The Federal rules restrict any use of the information to criminally investigate or prosecute any alcohol or drug abuse patient.[facility] CenterIn the event this information is protected by the Federal Confidentiality of Alcohol and Drug Abuse Patient Records regulations: The Federal rules restrict any use of the information to criminally investigate or prosecute any alcohol or drug abuse patient.[facility] Center[facility] the event this information is protected by the Federal Confidentiality of Alcohol and Drug Abuse Patient Records regulations: The Federal rules restrict any use of the information to criminally investigate or prosecute any alcohol or drug abuse patient.[facility] CenterIn the event this information is protected by the Federal Confidentiality of Alcohol and Drug Abuse Patient Records regulations: The Federal rules restrict any use of the information to criminally investigate or prosecute any alcohol or drug abuse patient.[facility] CenterIn the event this information is protected by the Federal Confidentiality of Alcohol and Drug Abuse Patient Records regulations: The Federal rules restrict any use of the information to criminally investigate or prosecute any alcohol or drug abuse patient.[facility] CenterIn the event this information is protected by the Federal Confidentiality of Alcohol and Drug Abuse Patient Records regulations: The Federal rules restrict any use of the information to criminally investigate or prosecute any alcohol or drug abuse patient.[facility] CenterIn the event this information is protected by the Federal Confidentiality of Alcohol and Drug Abuse Patient Records regulations: The Federal rules restrict any use of the information to criminally investigate or prosecute any alcohol or drug abuse patient.[facility] CenterIn the event this information is protected by the Federal Confidentiality of Alcohol and Drug Abuse Patient Records regulations: The Federal rules restrict any use of the information to criminally investigate or prosecute any alcohol or drug abuse patient.[facility] CenterIn the event this information is protected by the Federal Confidentiality of Alcohol and Drug Abuse Patient Records regulations: The Federal rules restrict any use of the information to criminally investigate or prosecute any alcohol or drug abuse patient.[facility] CenterIn the event this information is protected by the Federal Confidentiality of Alcohol and Drug Abuse Patient Records regulations: The Federal rules restrict any use of the information to criminally investigate or prosecute any alcohol or drug abuse patient.[facility] CenterIn the event this information is protected by the Federal Confidentiality of Alcohol and Drug Abuse Patient Records regulations: The Federal rules restrict any use of the information to criminally investigate or prosecute any alcohol or drug abuse patient.[facility] CenterIn the event this information is protected by the Federal Confidentiality of Alcohol and Drug Abuse Patient Records regulations: The Federal rules restrict any use of the information to criminally investigate or prosecute any alcohol or drug abuse patient.[facility] CenterIn the event this information is protected by the Federal Confidentiality of Alcohol and Drug Abuse Patient Records regulations: The Federal rules restrict any use of the information to criminally investigate or prosecute any alcohol or drug abuse patient.[facility] CenterIn the event this information is protected by the Federal Confidentiality of Alcohol and Drug Abuse Patient Records regulations: The Federal rules restrict any use of the information to criminally investigate or prosecute any alcohol or drug abuse patient.[facility] CenterIn the event this information is protected by the Federal Confidentiality of Alcohol and Drug Abuse Patient Records regulations: The Federal rules restrict any use of the information to criminally investigate or prosecute any alcohol or drug abuse patient.[facility] CenterIn the event this information is protected by the Federal Confidentiality of Alcohol and Drug Abuse Patient Records regulations: The Federal rules restrict any use of the information to criminally investigate or prosecute any alcohol or drug abuse patient.[facility] CenterIn the event this information is protected by the Federal Confidentiality of Alcohol and Drug Abuse Patient Records regulations: The Federal rules restrict any use of the information to criminally investigate or prosecute any alcohol or drug abuse patient.[facility] CenterIn the event this information is protected by the Federal Confidentiality of Alcohol and Drug Abuse Patient Records regulations: The Federal rules restrict any use of the information to criminally investigate or prosecute any alcohol or drug abuse patient.[facility] CenterIn the event this information is protected by the Federal Confidentiality of Alcohol and Drug Abuse Patient Records regulations: The Federal rules restrict any use of the information to criminally investigate or prosecute any alcohol or drug abuse patient.[facility] CenterIn the event this information is protected by the Federal Confidentiality of Alcohol and Drug Abuse Patient Records regulations: The Federal rules restrict any use of the information to criminally investigate or prosecute any alcohol or drug abuse patient.[facility] CenterIn the event this information is protected by the Federal Confidentiality of Alcohol and Drug Abuse Patient Records regulations: The Federal rules restrict any use of the information to criminally investigate or prosecute any alcohol or drug abuse patient.[facility] CenterIn the event this information is protected by the Federal Confidentiality of Alcohol and Drug Abuse Patient Records regulations: The Federal rules restrict any use of the information to criminally investigate or prosecute any alcohol or drug abuse patient.[facility] CenterIn the event this information is protected by the Federal Confidentiality of Alcohol and Drug Abuse Patient Records regulations: The Federal rules restrict any use of the information to criminally investigate or prosecute any alcohol or drug abuse patient.[facility] CenterIn the event this information is protected by the Federal Confidentiality of Alcohol and Drug Abuse Patient Records regulations: The Federal rules restrict any use of the information to criminally investigate or prosecute any alcohol or drug abuse patient.[facility] CenterIn the event this information is protected by the Federal Confidentiality of Alcohol and Drug Abuse Patient Records regulations: The Federal rules restrict any use of the information to criminally investigate or prosecute any alcohol or drug abuse patient.[facility] CenterIn the event this information is protected by the Federal Confidentiality of Alcohol and Drug Abuse Patient Records regulations: The Federal rules restrict any use of the information to criminally investigate or prosecute any alcohol or drug abuse patient.[facility] CenterIn the event this information is protected by the Federal Confidentiality of Alcohol and Drug Abuse Patient Records regulations: The Federal rules restrict any use of the information to criminally investigate or prosecute any alcohol or drug abuse patient.[facility] CenterIn the event this information is protected by the Federal Confidentiality of Alcohol and Drug Abuse Patient Records regulations: The Federal rules restrict any use of the information to criminally investigate or prosecute any alcohol or drug abuse patient.[facility] CenterIn the event this information is protected by the Federal Confidentiality of Alcohol and Drug Abuse Patient Records regulations: The Federal rules restrict any use of the information to criminally investigate or prosecute any alcohol or drug abuse patient.[facility] CenterIn the event this information is protected by the Federal Confidentiality of Alcohol and Drug Abuse Patient Records regulations: The Federal rules restrict any use of the information to criminally investigate or prosecute any alcohol or drug abuse patient.[facility] CenterIn the event this information is protected by the Federal Confidentiality of Alcohol and Drug Abuse Patient Records regulations: The Federal rules restrict any use of the information to criminally investigate or prosecute any alcohol or drug abuse patient.[facility] CenterIn the event this information is protected by the Federal Confidentiality of Alcohol and Drug Abuse Patient Records regulations: The Federal rules restrict any use of the information to criminally investigate or prosecute any alcohol or drug abuse patient.[facility] CenterIn the event this information is protected by the Federal Confidentiality of Alcohol and Drug Abuse Patient Records regulations: The Federal rules restrict any use of the information to criminally investigate or prosecute any alcohol or drug abuse patient.[facility] CenterIn the event this information is protected by the Federal Confidentiality of Alcohol and Drug Abuse Patient Records regulations: The Federal rules restrict any use of the information to criminally investigate or prosecute any alcohol or drug abuse patient.[facility] CenterIn the event this information is protected by the Federal Confidentiality of Alcohol and Drug Abuse Patient Records regulations: The Federal rules restrict any use of the information to criminally investigate or prosecute any alcohol or drug abuse patient.[facility] CenterIn the event this information is protected by the Federal Confidentiality of Alcohol and Drug Abuse Patient Records regulations: The Federal rules restrict any use of the information to criminally investigate or prosecute any alcohol or drug abuse patient.[facility] CenterIn the event this information is protected by the Federal Confidentiality of Alcohol and Drug Abuse Patient Records regulations: The Federal rules restrict any use of the information to criminally investigate or prosecute any alcohol or drug abuse patient.[facility] CenterIn the event this information is protected by the Federal Confidentiality of Alcohol and Drug Abuse Patient Records regulations: The Federal rules restrict any use of the information to criminally investigate or prosecute any alcohol or drug abuse patient.[facility] CenterIn the event this information is protected by the Federal Confidentiality of Alcohol and Drug Abuse Patient Records regulations: The Federal rules restrict any use of the information to criminally investigate or prosecute any alcohol or drug abuse patient.[facility] CenterIn the event this information is protected by the Federal Confidentiality of Alcohol and Drug Abuse Patient Records regulations: The Federal rules restrict any use of the information to criminally investigate or prosecute any alcohol or drug abuse patient.[facility] CenterIn the event this information is protected by the Federal Confidentiality of Alcohol and Drug Abuse Patient Records regulations: The Federal rules restrict any use of the information to criminally investigate or prosecute any alcohol or drug abuse patient.[facility] CenterIn the event this information is protected by the Federal Confidentiality of Alcohol and Drug Abuse Patient Records regulations: The Federal rules restrict any use of the information to criminally investigate or prosecute any alcohol or drug abuse patient.[facility] CenterIn the event this information is protected by the Federal Confidentiality of Alcohol and Drug Abuse Patient Records regulations: The Federal rules restrict any use of the information to criminally investigate or prosecute any alcohol or drug abuse patient.[facility] CenterIn the event this information is protected by the Federal Confidentiality of Alcohol and Drug Abuse Patient Records regulations: The Federal rules restrict any use of the information to criminally investigate or prosecute any alcohol or drug abuse patient.[facility] CenterIn the event this information is protected by the Federal Confidentiality of Alcohol and Drug Abuse Patient Records regulations: The Federal rules restrict any use of the information to criminally investigate or prosecute any alcohol or drug abuse patient.[facility] CenterIn the event this information is protected by the Federal Confidentiality of Alcohol and Drug Abuse Patient Records regulations: The Federal rules restrict any use of the information to criminally investigate or prosecute any alcohol or drug abuse patient.[facility] CenterIn the event this information is protected by the Federal Confidentiality of Alcohol and Drug Abuse Patient Records regulations: The Federal rules restrict any use of the information to criminally investigate or prosecute any alcohol or drug abuse patient.[facility] CenterIn the event this information is protected by the Federal Confidentiality of Alcohol and Drug Abuse Patient Records regulations: The Federal rules restrict any use of the information to criminally investigate or prosecute any alcohol or drug abuse patient.[facility] CenterIn the event this information is protected by the Federal Confidentiality of Alcohol and Drug Abuse Patient Records regulations: The Federal rules restrict any use of the information to criminally investigate or prosecute any alcohol or drug abuse patient.[facility] CenterIn the event this information is protected by the Federal Confidentiality of Alcohol and Drug Abuse Patient Records regulations: The Federal rules restrict any use of the information to criminally investigate or prosecute any alcohol or drug abuse patient.[facility] CenterIn the event this information is protected by the Federal Confidentiality of Alcohol and Drug Abuse Patient Records regulations: The Federal rules restrict any use of the information to criminally investigate or prosecute any alcohol or drug abuse patient.[facility] CenterIn the event this information is protected by the Federal Confidentiality of Alcohol and Drug Abuse Patient Records regulations: The Federal rules restrict any use of the information to criminally investigate or prosecute any alcohol or drug abuse patient.[facility] CenterIn the event this information is protected by the Federal Confidentiality of Alcohol and Drug Abuse Patient Records regulations: The Federal rules restrict any use of the information to criminally investigate or prosecute any alcohol or drug abuse patient.[facility] CenterIn the event this information is protected by the Federal Confidentiality of Alcohol and Drug Abuse Patient Records regulations: The Federal rules restrict any use of the information to criminally investigate or prosecute any alcohol or drug abuse patient.[facility] CenterIn the event this information is protected by the Federal Confidentiality of Alcohol and Drug Abuse Patient Records regulations: The Federal rules restrict any use of the information to criminally investigate or prosecute any alcohol or drug abuse patient.[facility] CenterIn the event this information is protected by the Federal Confidentiality of Alcohol and Drug Abuse Patient Records regulations: The Federal rules restrict any use of the information to criminally investigate or prosecute any alcohol or drug abuse patient.[facility] CenterIn the event this information is protected by the Federal Confidentiality of Alcohol and Drug Abuse Patient Records regulations: The Federal rules restrict any use of the information to criminally investigate or prosecute any alcohol or drug abuse patient.[facility] Reason for Visit (unrecogniz ed section and content) Reason Comments Consult Specialty Diagnoses / Procedures Referred By Johanna t Referred To Contact Radiation Oncology Diagnoses Prostate cancer (HCC) Procedures RAD/ONC CONSULT OFFICE/OUTPATIENT NEW HIGH MDM 60-74 MINUTES Vanessa Dodson DO [address] [place] [address] Referral ID Status Reason Start Date Expiration Date V isits Requested Visits Authorized [id number] Closed PCP Requested Referral 12/25/2021 12/25/2022 1 1 Reason Comments Elevated PSA Specialty Diagnoses / Procedures Referred By Contac t Referred To Contact Urology Diagnoses Elevated prostate specific antigen (PSA) Procedures CONSULT TO UROLOGY OFFICE/OUTPATIENT NEW HIGH MDM 60-74 MINUTES Heather Gonsalez MD [address] [place] [address] Randal Gleason [address] [place] [phone] Referral ID Status Reason Start Date Expiration Date V isits Requested Visits Authorized [id number] Closed PCP Requested Referral 10/03/2021 10/03/2022 1 1 Reason Comments Results Reason Comments Opened In Error Reason Onset Date Comments Refill Request 12/15/[address] Specialty Diagnoses / Procedures Referred By Contac t Referred To Contact CT IMAGING Diagnoses Malignant neoplasm of prostate (HCC) Procedures CT ABD/PEL W IVCON CT ABD & PELVIS W/CONTRAST Delvis Isidro MD [address] [place] [address] Ct Imaging Referral ID Status Reason Start Date Expiration Date V isits Requested Visits Authorized [id number] Closed Auto-Generate d Referral 12/11/2021 01/10/2023 1 1 Reason Comments New Patient Prostate Cancer Reason Comments Appointment Reason Onset Date Comments Simulation Request Form 02/19/2022 Reason Comments Patient Education Specialty Diagnoses / Procedures Referred By Contac t Referred To Contact MR IMAGING Diagnoses Prostate cancer (HCC) Procedures MRI TREATMENT PLANNING WO IVCON NR UNLISTED MAGNETIC RESONANCE PROCED Abimael Arevalo MD, [address] [place] [address] Mr Imaging Referral ID Status Reason Start Date Expiration Date V isits Requested Visits Authorized [id number] Closed Auto-Generate d Referral 01/02/2022 02/01/2023 1 [...] Patient Update Appointment Reason Comments psa order Reason Comments Orders Reason Comments Forms [facility] ( [facility]) Reason Comments Requesting OV Notes Reason Comments Cough Chest congestion, SO B, wheeze, Fatigue, pressure in chest x 2 weeks Reason Comments Patient Question Reason Comments Cough Chest congestion, wh eeze, SOB, headache x 1 weekWas seen 06/22 no improvement Reason Comments 6 Month Exam Reason Comments Refill Request Reason Comments Dental Problem right lower tooth pa in and swelling x 3 days Reason Onset Date Comments Population [facility] Navigation Outreach 03/06/2025 Jerrell/Workbench/ACO Reason Comments Injections Reason Comments Toe Pain (Toe) 4th toe on right eddie t swollen x 2-3 days Reason Onset Date Comments Results 04/11/2025 Reason Comments Nurse Visit Care Teams (unrecognized sec tion and content) Distance Learning Program Coordinator Relationship Specialty Start Date End Date Heather Gonsalez MD [address] [place] [address] PCP - General 03/06/08 Distance Learning Program Coordinator Relationship Specialty Start Date End Date Heather Gonsalez MD [address] [place] [address] PCP - General 03/06/08 Distance Learning Program Coordinator Relationship Specialty Start Date End Date Heather Gonsalez MD [address] [place] [address] PCP - General 03/06/08 Distance Learning Program Coordinator Relationship Specialty Start Date End Date Heather Gonsalez MD [address] [place] [address] PCP - General 03/06/08 Distance Learning Program Coordinator Relationship Specialty Start Date End Date Heather Gonsalez MD [address] [facility] [place] [address] PCP - General 03/06/08 Distance Learning Program Coordinator Relationship Specialty Start Date End Date Heather Gonsalez MD [address] [facility] [place] [address] PCP - General 03/06/08 Distance Learning Program Coordinator Relationship Specialty Start Date End Date Heather Gonsalez MD [address] [facility] [place] [address] PCP - General 03/06/08 Distance Learning Program Coordinator Relationship Specialty Start Date End Date Heather Gonsalez MD [address] [facility] [place] [address] PCP - General 03/06/08 Distance Learning Program Coordinator Relationship Specialty Start Date End Date Heather Gonsalez MD [address] [facility] [place] [address] PCP - General 03/06/08 Distance Learning Program Coordinator Relationship Specialty Start Date End Date Heather Gonsalez MD [address] [facility] [place] [address] PCP - General 03/06/08 Abimael Arevalo MD, [address] [place] [facility] [place] [address] Physician Radiation Oncology 12/29/21 Distance Learning Program Coordinator Relationship Specialty Start Date End Date Heather Gonsalez MD [address] [facility] [place] [address] PCP - General 03/06/08 Abimael Arevalo MD, [address] [place] [facility] [place] [address] Physician Radiation Oncology 12/29/21 Distance Learning Program Coordinator Relationship Specialty Start Date End Date Heather Gonsalez MD [address] [facility] [place] [address] PCP - General 03/06/08 Abimael Arevalo MD, MD [address] [place] [facility] [place] [address] Physician Radiation Oncology 12/29/21 Distance Learning Program Coordinator Relationship Specialty Start Date End Date Heather Gonsalez MD [address] [facility] [place] [address] PCP - General 03/06/08 Abimael Arevalo MD, [address] [place] [place] [address] Physician Radiation Oncology 12/29/21 Distance Learning Program Coordinator Relationship Specialty Start Date End Date Heather Gonsalez MD [address] [facility] [place] [address] PCP - General 03/06/08 Abimael Arevalo MD, [address] [place] [facility] [place] [address] Physician Radiation Oncology 12/29/21 Distance Learning Program Coordinator Relationship Specialty Start Date End Date Heather Gonsalez MD [address] [facility] [place] [address] PCP - General 03/06/08 Abimael Arevalo MD, [address] [place] [place] [address] Physician Radiation Oncology 12/29/21 Distance Learning Program Coordinator Relationship Specialty Start Date End Date Heather Gonsalez MD [address] [facility] [place] [address] PCP - General 03/06/08 Abimael Arevalo MD, [address] [facility] [place] [address] Physician Radiation Oncology 12/29/21 Distance Learning Program Coordinator Relationship Specialty Start Date End Date Heather Gonsalez MD [address] [facility] [place] [address] PCP - General 03/06/08 Abimael Arevalo MD, [address] [address] Physician Radiation Oncology 12/29/21 Distance Learning Program Coordinator Relationship Specialty Start Date End Date Heather Gonsalez MD [address] [facility] [place] [address] PCP - General 03/06/08 Abimael Arevalo MD, [address] [place] [address] Physician Radiation Oncology 12/29/21 Distance Learning Program Coordinator Relationship Specialty Start Date End Date Heather Gonsalez MD [address] [facility] [place] [address] PCP - General 03/06/08 Abimael Arevalo MD, [address] [facility] [place] [address] Physician Radiation Oncology 12/29/21 Distance Learning Program Coordinator Relationship Specialty Start Date End Date Heather Gonsalez MD [address] [facility] [place] [address] PCP - General 03/06/08 Abimael Arevalo MD, [address] [place] [address] Physician Radiation Oncology 12/29/21 Distance Learning Program Coordinator Relationship Specialty Start Date End Date Heather Gonsalez MD [address] [facility] [place] [address] PCP - General 03/06/08 Abimael Arevalo MD, [address] [facility] [place] [address] Physician Radiation Oncology 12/29/21 Distance Learning Program Coordinator Relationship Specialty Start Date End Date Heather Gonsalez MD [address] [facility] [place] [address] PCP - General 03/06/08 Abimael Arevalo MD, [address] [place] [facility] [place] [address] Physician Radiation Oncology 12/29/21 Distance Learning Program Coordinator Relationship Specialty Start Date End Date Heather Gonsalez MD [address] [facility] [place] [address] PCP - General 03/06/08 Abimael Arevalo MD, [address] [place] [facility] [place] [address] Physician Radiation Oncology 12/29/21 Distance Learning Program Coordinator Relationship Specialty Start Date End Date Heather Gonsalez MD [address] [facility] [place] [address] PCP - General 03/06/08 Abimael Arevalo MD, [address] [place] [facility] [place] [address] Physician Radiation Oncology 12/29/21 Distance Learning Program Coordinator Relationship Specialty Start Date End Date Heather Gonsalez MD [address] [facility] [place] [address] PCP - General 03/06/08 Abimael Arevalo MD, [address] [place] [place] [address] Physician Radiation Oncology 12/29/21 Distance Learning Program Coordinator Relationship Specialty Start Date End Date Heatehr Gonsalez MD [address] [facility] [place] [address] PCP - General 03/06/08 Abimael Arevalo MD, [address] [place] [address] Physician Radiation Oncology 12/29/21 Distance Learning Program Coordinator Relationship Specialty Start Date End Date Heather Gonsalez MD [address] [facility] [place] [address] PCP - General 03/06/08 Abimael Arevalo MD, [address] [place] [address] Physician Radiation Oncology 12/29/21 Distance Learning Program Coordinator Relationship Specialty Start Date End Date Heather Gonsalez MD [address] [place] [address] PCP - General 03/06/08 Abimael Arevalo MD, [address] [place] [address] Physician Radiation Oncology 12/29/21 Distance Learning Program Coordinator Relationship Specialty Start Date End Date Heather Gonsalez MD [address] [place] [address] PCP - General 03/06/08 Abimael Arevalo MD, [address] [place] [address] Physician Radiation Oncology 12/29/21 Distance Learning Program Coordinator Relationship Specialty Start Date End Date Heather Gonsalez MD [address] [place] [address] PCP - General 03/06/08 Abimael Arevalo MDMD [address] [place] [address] Physician Radiation Oncology 12/29/21 Team Status: Active Member Role Status Dates Dr. Heather Gonsalez MD Family Provider Active Dr. Heather Gonsalez MD Primary Care Provider Active Team Status: Inactive Member Role Status Dates Dr. Heather Gonsalez MD Primary Care Provider Active Dr. Richard Goff MD Emergency Provider Active Team Status: Inactive Member Role Status Dates Dr. Heather Gonsalez MD Primary Care Provider Active Dr. Richard Goff MD Attending Provider, Emergency Pro vider Active Team Status: Inactive Member Role Status Dates Dr. Heather Gonsalez MD Primary Care Provider Active Dr. Eddie Mckinley DO Emergency Provider Active Distance Learning Program Coordinator Relationship Specialty Start Date End Date Heather Gonsalez MD [address] [facility] [place] [address] PCP - General 03/06/08 Abimael Arevalo MD [address] [place] [address] Physician Radiation Oncology 12/29/21 Distance Learning Program Coordinator Relationship Specialty Start Date End Date Heather Gonsalez MD [address] [facility] [place] [address] PCP - General 03/06/08 Abimael Arevalo MD [address] [place] [address] Physician Radiation Oncology 12/29/21 Distance Learning Program Coordinator Relationship Specialty Start Date End Date Heather Gonsalez MD [address] [facility] [place] [address] PCP - General 03/06/08 Abimael Arevalo MD [address] [place] [address] Physician Radiation Oncology 12/29/21 Distance Learning Program Coordinator Relationship Specialty Start Date End Date Heather Gonsalez MD [address] [place] [address] PCP - General 03/06/08 Abimael Arevalo MD [address] [facility] [place] [address] Physician Radiation Oncology 12/29/21 Team Status: Inactive Member Role Status Dates Dr. Heather Gonsalez MD Primary Care Provider, Referr ing Provider Active Dr. Luciano Adame MD Attending Provider Active Team Status: Inactive Member Role Status Dates Dr. Heather Gonsalez MD Primary Care Provider Active Dr. Terrance Schuster MD Attending Provider Active Team Status: Inactive Member Role Status Dates Dr. Heather Gonsalez MD Primary Care Provider Active Dr. Eddie Mckinley DO Attending Provider, Emergency P carlita Active Team Status: Inactive Member Role Status Dates Dr. Heather Gonsalez MD Primary Care Provider Active Dr. Anders Germain , [place] Attending Provider, Referring Provider Active Distance Learning Program Coordinator Relationship Specialty Start Date End Date Heather Gonsalez MD [address] [place] [address] PCP - General 03/06/08 Abimael Arevalo MD [address] [place] [address] Physician Radiation Oncology 12/29/21 Distance Learning Program Coordinator Relationship Specialty Start Date End Date Heather Gonsalez MD [address] [place] [address] PCP - General 03/06/08 Abimael Arevalo MD [address] [place] [address] Physician Radiation Oncology 12/29/21 Distance Learning Program Coordinator Relationship Specialty Start Date End Date Heather Gonsalez MD [address] [place] [address] PCP - General 03/06/08 Abimael Arevalo MD [address] [place] [address] Physician Radiation Oncology 12/29/21 Distance Learning Program Coordinator Relationship Specialty Start Date End Date Heather Gonsalez MD [address] [facility] [place] [address] PCP - General 03/06/08 Distance Learning Program Coordinator Relationship Specialty Start Date End Date Heather Gonsalez MD [address] [place] [address] PCP - General 03/06/08 Abimael Arevalo MD [address] [place] [address] Physician Radiation Oncology 12/29/21 Distance Learning Program Coordinator Relationship Specialty Start Date End Date Heather Gonsalez MD [address] [place] [address] PCP - General 03/06/08 Abimael Arevalo MD [address] [place] [address] Physician Radiation Oncology 12/29/21 Distance Learning Program Coordinator Relationship Specialty Start Date End Date Heather Gonsalez MD [address] [place] [address] PCP - General 03/06/08 Abimael Arevalo MD [address] [place] [address] Physician Radiation Oncology 12/29/21 Bea Plasencia ADVERTISING SALES EXECUTIVE.BUSINESS SYSTEMS ADVISOR [address] [place] [address] [employer] Intelligence Officer Family [facility] 07/23/24 Theo Byrd ADVERTISING SALES EXECUTIVE.BUSINESS SYSTEMS ADVISOR [address] [place] [address] [facility] 08/01/24 Distance Learning Program Coordinator Relationship Specialty Start Date End Date Heather Gonsalez MD [address] [place] [address] PCP - General 03/06/08 Abimael Arevalo MD [address] [place] [address] Physician Radiation Oncology 12/29/21 Bea Plasencia ADVERTISING SALES EXECUTIVE.BUSINESS SYSTEMS ADVISOR [address] [place] [address] [facility] 07/[facility]/24 Theo Byrd, ADVERTISING SALES EXECUTIVE.BUSINESS SYSTEMS ADVISOR [address] [place] [address] [facility] 08/01/24 Distance Learning Program Coordinator Relationship Specialty Start Date End Date Heather Gonsalez MD [address] [place] [address] PCP - General 03/06/08 Abimael Arevalo MD [address] [place] [address] Physician Radiation Oncology 12/29/21 Theo Byrd APRN.BUSINESS SYSTEMS ADVISOR [address] [place] [address] [employer] [facility] 08/01/24 Distance Learning Program Coordinator Relationship Specialty Start Date End Date Heather Gonsalez MD [address] [place] [address] PCP - General 03/06/08 Abimael Arevalo MD [address] [place] [address] Physician Radiation Oncology 12/29/21 Bea Plasencia APRN.BUSINESS SYSTEMS ADVISOR [address] [place] [address] [facility] 07/23/24 12/27/24 Theo Byrd APRN.BUSINESS SYSTEMS ADVISOR [address] [place] [address] [employer] [facility] 08[facility]01/24 Distance Learning Program Coordinator Relationship Specialty Start Date End Date Heather Gonsalez MD [address] [place] [address] PCP - General 03/06/08 Abimael Arevalo MD [address] [place] [address] Physician Radiation Oncology 12/29/21 Theo Byrd APRN.BUSINESS SYSTEMS ADVISOR [address] [place] [address] [employer] [facility] 08/01/24 Distance Learning Program Coordinator Relationship Specialty Start Date End Date Heather Gonsalez MD [address] [place] [address] PCP - General 03/06/08 Abimael Arevalo MD [address] [place] [address] Physician Radiation Oncology 12/29/21 Theo Byrd APRN.BUSINESS SYSTEMS ADVISOR [address] [place] [address] [facility] 08/01/24 Distance Learning Program Coordinator Relationship Specialty Start Date End Date Heather Gonsalez MD [address] [place] [address] PCP - General 03/06/08 Abimael Arevalo MD [address] [place] [address] Physician Radiation Oncology 12/29/21 Theo Byrd APRN.BUSINESS SYSTEMS ADVISOR [address] [place] [address] [employer] [facility] 08/01/24 Distance Learning Program Coordinator Relationship Specialty Start Date End Date Heather Gonsalez MD [address] [place] [address] PCP - General 03/06/08 Abimael Arevalo MD [address] [place] [address] Physician Radiation Oncology 12/29/21 Theo Byrd APRN.BUSINESS SYSTEMS ADVISOR [address] [facility] [place] [address] Aoc Plans Intelligence Officer [facility] 08/01/24 Distance Learning Program Coordinator Relationship Specialty Start Date End Date Heather Gonsalez MD [address] [facility] [place] [address] PCP - General 03/06/08 Abimael Arevalo MD [address] [place] [address] Physician Radiation Oncology 12/29/21 Theo Byrd APRN.BUSINESS SYSTEMS ADVISOR [address] [place] [address] [employer] [facility] 08/01/24 Distance Learning Program Coordinator Relationship Specialty Start Date End Date Heather Gonsalez MD [address] [place] [address] PCP - General 03/06/08 Abimael Arevalo MD [address] [place] [address] Physician Radiation Oncology 12/29/21 Theo Byrd APRN.BUSINESS SYSTEMS ADVISOR [address] [facility] [place] [address] Aoc Plans Intelligence Officer [facility] 08/01/24 Goals (unrecognized section and content) Goals may be documented in a n alternate sectionGoals may be documented in an alternate sectionGoals may be documented in an alternate section (unrecognized sect ion and content) No Status Records FoundNo Status Records Found INFORMATION SOURCE (unrecogn ized section and content) DATE CREATED AUTHOR 05/24/2024 [facility] DATE CREATED AUTHOR AUTHOR'S RABIA MOLINA 04/17/2025 [facility] FOR RECORDS PERTAINING TO PATIENTS WHO ARE [...] BE BASED ON THE PRIMARY CLINICAL RECORDS. [facility]. provides no warranty or guarantee of the accuracy or completeness of information in this document.
[2025-08-11 10:00] LABS: Hematocrit 38.0 % (40-54); Hemoglobin 12.4 g/dL (13.0-16.5); Immature Granulocytes Count 0.030 X10^3/uL (0.0-0.0); Mean Corp Hgb Conc 32.6 g/dL (32-36); Mean Corpuscular Volume 96.4 fL (80-94); Mean Platelet Vol. 9.5 fl (6.2-12.0); NRBC Flagged by Analyzer 0 % (0-5); Platelet Count 216 K/mm3 (150-450); RBC Distribution Width CV 14.4 % (11.6-14.6); RBC Distribution Width SD 51.1 fl (35.1-43.9); Red Blood Count 3.94 M/mm3 (4.6-6.2); White Blood Count 7.2 K/mm3 (4.4-11.0)
[2025-08-11 10:51] LABS: AST(SGOT) 18 U/L (<=37); Alanine Aminotransfer ALT/SGPT 9 U/L (<=46); Albumin, Serum 3.9 g/dL (3.4-4.8); Alkaline Phosphatase 89 U/L (40-129); Anion Gap 9 (7-18); BUN 22 mg/dL (4-19); BUN/Creat Ratio 29.7 RATIO (10-20); Calcium,Total 9.0 mg/dL (7.6-11.0); Carbon Dioxide 23.3 mmol/L (20.0-29.0); Chloride 106 mmol/L (96-106); Estimated Creatinine Clearance 76.00 ml/min (50-250); Globulin 2.5 g/dL (2.2-4.2); Glucose 99 mg/dL (70-99); Lipase 46 U/L (13-75); Potassium 3.9 mmol/L (3.5-5.1)
[2025-08-11 11:03] VITALS: BP 142/83; PULSE 54; RESP 16; O2SAT 99
== END 2025-08-11 11:37 | disposition home or self-care (01) ==
PROVIDERS: Emergency Provider Emergency Medicine; PCP Internal Medicine; Visit Provider Emergency Medicine
DX: R10.31 Right lower quadrant pain (principal)
CPT/HCPCS: 74176; 80053; 81001; 83605; 83690; 85025; 96360; 99283; A4216